=== PATIENT | male | born 1955 | race African-American/Black ===

== ENCOUNTER 2016-09-22 04:43 | Emergency (ER) | payer MEDICARE, MEDICAID ==
[~2016-09-22] VITALS: Ht 162.6 cm; Wt 68.0 kg
[~2016-09-22 04:43] MED LIST: FLEX10TA PO; MOBI15TA PO; TAB-TAB PO
[2016-09-22 04:47] VITALS: BP 135/104; PULSE 110; RESP 16; TEMP 97.8; O2SAT 98
[2016-09-22 04:50] VITALS: BP 135/104; PULSE 102; RESP 16; TEMP 98.2; O2SAT 98
--- NOTE | 2016-09-22 05:39 | PD ---
HPI Chief Complaint: Alcohol/Drug Intoxication Time Seen by Provider: 04:50 Travel History International Travel<30 days: No Contact w/Intl Traveler<30days: No Traveled to known affect area: No History of Present Illness HPI Patient is a 60 year old male brought in after he was found by police to be intoxicated and unable to walk. He admits to drinking a case of christie 45. He has no complaints at this time. He denies any pains. He denies any falls or trauma. PFSH Past Medical History Cancer: No Cardiovascular Problems: Yes (mi) Diabetes: No Endocrine: No Glaucoma: No Genitourinary: No Hepatitis: No Hiatal Hernia: No Hypertension: No Immune Disorder: No Musculoskeletal: Yes (degenrative disc disease arthritis) Neurologic: No Psychiatric: No Respiratory: Yes (emphysema) Thyroid Disease: No Past Surgical History Abdominal Surgery: Yes (appendectomy) Appendectomy: Yes Body Medical Devices: hardware left hand ring finger Cardiac Surgery: No Ear Surgery: No Endocrine Surgery: No Eye Surgery: No Genitourinary Surgery: No Gynecologic Surgery: No Joint Replacement: No Oral Surgery: Yes (cyst removed from throat gum surgery) Pacemaker: No Thoracic Surgery: No Social History Alcohol Use: Yes (1 BEER DAILY) Tobacco Use: Yes (OCC) Substance Use: No Allergies-Medications (Allergen,Severity, Reaction): Coded Allergies: No Known Allergies (Verified , 09/18/12) Reported Meds & Prescriptions Reported Meds & Active Scripts Active Reported Multivitamin (Multivitamins) 1 Tab Tab 1 Tab PO DAILY Flexeril (Cyclobenzaprine HCl) 10 Mg Tab 10 Mg PO DAILY Mobic (Meloxicam) 15 Mg Tab 15 Mg PO DAILY Review of Systems General / Constitutional: No: Fever, Chills Eyes: No: Blurred Vision HENT: No: Headaches Cardiovascular: No: Chest Pain or Discomfort Respiratory: No: Shortness of Breath Gastrointestinal: No: Nausea, Vomiting Musculoskeletal: No: Edema, Pain Skin: No Change in Pigmentation Neurologic: No: Weakness, Dizziness Physical Exam Narrative GENERAL: Awake and alert, in no acute distress SKIN: Focused skin assessment warm/dry. HEAD: Atraumatic. Normocephalic. EYES: Pupils equal and round. No scleral icterus. ENT: Mucous membranes pink and moist. NECK: Trachea midline. No JVD. CARDIOVASCULAR: Regular rate and rhythm. No murmur appreciated. RESPIRATORY: No accessory muscle use. Clear to auscultation. Breath sounds equal bilaterally. GASTROINTESTINAL: Abdomen soft, non-tender, nondistended. Hepatic and splenic margins not palpable. MUSCULOSKELETAL: No obvious deformities. No clubbing. No cyanosis. No edema. NEUROLOGICAL: Awake and alert. No obvious cranial nerve deficits. Motor grossly within normal limits. Normal speech. Data Data Last Documented VS Vital Signs Date Time Temp Pulse Resp B/P Pulse Ox O2 Delivery O2 Flow Rate FiO2 09/22/16 04:50 98.2 102 16 135/104 98 MDM Medical Decision Making Medical Screen Exam Complete: Yes Emergency Medical Condition: Yes Medical Record Reviewed: Yes Differential Diagnosis Intoxication versus dehydration versus overdose Narrative Course Patient is a 60-year-old male comes in after he was found intoxicated. He admits to drinking a lot tonight. He has no complaints. Exam shows no signs of trauma. Patient will be observed in the emergency Department until clinically sober. Diagnosis Primary Impression: Alcohol intoxication Qualified Code: F10.120 - Alcohol intoxication, uncomplicated Patient Instructions: Alcohol Intoxication (ED), General Instructions Additional Instructions: Avoid alcohol use. Return to the ED as needed for any worsening symptoms. Disposition: 01 DISCHARGE HOME Condition: Stable Carmen Orozco MD Sep 22, 2016 05:39
== END 2016-09-22 09:07 | disposition home or self-care (01) ==
LOC: NEPC 04:43
DX: F10.120 Alcohol abuse with intoxication, uncomplicated (principal)
CPT/HCPCS: 99284

== ENCOUNTER 2017-05-12 01:56 | Emergency (ER) | payer MEDICARE, MEDICAID, OTHER ==
[2017-05-12 02:11] VITALS: BP 132/89; PULSE 102; RESP 22; TEMP 98.1; O2SAT 98
--- NOTE | 2017-05-12 02:28 | PD ---
HPI Chief Complaint: Alcohol/Drug Intoxication Time Seen by Provider: 02:22 Travel History International Travel<30 days: No Contact w/Intl Traveler<30days: No Traveled to known affect area: No History of Present Illness HPI 61-year-old male presents to the emergency department by [place] [employer] officer for evaluation and management of alcohol intoxication as a [place] act. Patient himself denies any complaints and admits to drinking alcohol heavily. Patient very slurred speech. Patient denies any injury or fall. PFSH Past Medical History Narrative Medical Hand surgery alcoholism [place] emphysema appendectomy alcohol use tobacco use; nursing notes and medical records reviewed Cancer: No Cardiovascular Problems: Yes (mi) Diabetes: No Endocrine: No Glaucoma: No Genitourinary: No Hepatitis: No Hiatal Hernia: No Hypertension: No Immune Disorder: No Musculoskeletal: Yes (degenrative disc disease arthritis) Neurologic: No Psychiatric: No Respiratory: Yes (emphysema) Thyroid Disease: No Past Surgical History Abdominal Surgery: Yes (appendectomy) Appendectomy: Yes Body Medical Devices: hardware left hand ring finger Cardiac Surgery: No Ear Surgery: No Endocrine Surgery: No Eye Surgery: No Genitourinary Surgery: No Gynecologic Surgery: No Joint Replacement: No Oral Surgery: Yes (cyst removed from throat gum surgery) Pacemaker: No Thoracic Surgery: No Social History Alcohol Use: Yes (1 BEER DAILY) Tobacco Use: Yes (OCC) Substance Use: No Allergies-Medications (Allergen,Severity, Reaction): Coded Allergies: No Known Allergies (Verified Adverse Reaction, Unknown, 05/12/17) Reported Meds & Prescriptions Reported Meds & Active Scripts Active No Active Prescriptions or Reported Medications Review of Systems ROS Limitations: Clinical Condition, Poor Historian Except as stated in HPI: all other systems reviewed are Neg Physical Exam Narrative GENERAL: Well-developed well-nourished male in no acute distress no respiratory distress SKIN: Warm and dry. HEAD: Normocephalic. EYES: No scleral icterus. No injection or drainage. NECK: Supple, trachea midline. No JVD or lymphadenopathy. CARDIOVASCULAR: Regular rate and rhythm without murmurs, gallops, or rubs. RESPIRATORY: Breath sounds equal bilaterally. No accessory muscle use. GASTROINTESTINAL: Abdomen soft, non-tender, nondistended. MUSCULOSKELETAL: No cyanosis, or edema. BACK: Nontender without obvious deformity. No CVA tenderness. Data Data Last Documented VS Vital Signs Date Time Temp Pulse Resp B/P (MAP) Pulse Ox O2 Delivery O2 Flow Rate FiO2 05/12/17 02:11 98.1 102 22 132/89 (103) 98 Orders Orders Alcohol (Ethanol) (05/12/17 02:22) MDM Medical Decision Making Medical Screen Exam Complete: Yes Emergency Medical Condition: Yes Medical Record Reviewed: Yes Differential Diagnosis Inebriation/alcohol intoxication, substance ingestion, TIA, overdose Narrative Course Patient resting comfortably in no acute distress no apparent distress; alcohol level obtained and patient presents as admitted alcohol and congestion and probable alcohol inebriation intoxication will be allowed to sleep off affects of alcohol and be discharged in the a.m. No focal findings on physical exam. Scripts No Active Prescriptions or Reported Meds Manisha Rider MD May 12, 2017 02:27
[2017-05-12 05:30] VITALS: BP 114/75; PULSE 101; RESP 17; O2SAT 98
[2017-05-12 09:22] VITALS: BP 114/83; PULSE 102; RESP 19; TEMP 97.8; O2SAT 96
--- NOTE | 2017-05-12 09:45 | PD ---
Physical Exam Narrative GENERAL: Well-nourished, well-developed patient. SKIN: Warm and dry. HEAD: Normocephalic EYES: No injection or drainage. ENT: No nasal drainage noted. NECK: Supple, trachea midline. CARDIOVASCULAR: Regular rate and rhythm RESPIRATORY: no increased effort. No accessory muscle use. NEUROLOGICAL: Awake and alert. Motor and sensory grossly within normal limits. Normal speech. steady gait without assistance Data Data Last Documented VS Vital Signs Date Time Temp Pulse Resp B/P (MAP) Pulse Ox O2 Delivery O2 Flow Rate FiO2 05/12/17 09:23 102 19 96 Room Air 05/12/17 09:22 97.8 114/83 (93) Orders Orders Alcohol (Ethanol) (05/12/17 02:22) Ed Discharge Order (05/12/17 09:56) Labs Laboratory Tests Test 05/12/17 02:30 Ethyl Alcohol Level 405 MG/DL MDM Supervised Visit with RABIA: No Narrative Course Patient denies any new complaints and states that they are feeling better. Patient happy with care, all questions answered. Patient knows that follow up is incumbent on them and to return to the emergency room immediately if new or worsening symptoms develop. Patient given strict return precautions, vitals reviewed and are normal, agrees to further workup as an outpatient on recheck and is clinically sober with steady gait and clear speech at 10 am Diagnosis Primary Impression: Alcohol intoxication Qualified Codes: F10.920 - Alcohol use, unspecified with intoxication, uncomplicated Patient Instructions: General Instructions Additional Instruction: return as needed, limit alochol use, set up a primary for recheck tuesday Med/Other Pt SpecificInfo: No Change to Meds Scripts No Active Prescriptions or Reported Meds Disposition: 01 DISCHARGE HOME Condition: Stable Ana Fischer MD May 12, 2017 09:45
[2017-05-12 10:23] VITALS: BP 114/83
== END 2017-05-12 10:24 | disposition home or self-care (01) ==
LOC: NEPC 01:56
DX: F10.129 Alcohol abuse with intoxication, unspecified (principal); J43.9 Emphysema, unspecified; Z72.0 Tobacco use
CPT/HCPCS: 80307; 99282

== ENCOUNTER 2017-08-03 15:51 | Inpatient (IN) | payer MEDICARE, MEDICAID ==
[~2017-08-03] VITALS: Ht 165.1 cm; Wt 66.5 kg
[2017-08-03 15:54] VITALS: BP 125/85; PULSE 128; RESP 14; TEMP 97.6; O2SAT 99
[2017-08-03] MEDS ORDERED: MELO7.5T27 PO (16:22)
[2017-08-03] MEDS ORDERED: CHOLESTEROL MED (16:22)
[2017-08-03] MEDS ORDERED: INHALER (16:22)
[2017-08-03] MEDS ORDERED: SODIUM CHLOR 0.9% 1000 ML INJ 1,000 ML IV SCH (16:27)
[2017-08-03] MEDS ORDERED: SODIUM CHLORIDE 0.9% FLUSH 10 ML FLUSH IV FLUSH PRN ×2 (16:30→19:00)
[2017-08-03] MEDS ORDERED: FAMOTIDINE 20 MG/2 ML VIAL IV PUSH ONE (16:30)
[2017-08-03] MEDS ORDERED: ONDANSETRON HCL 4 MG/2 ML VIAL IVP ONE (16:30)
--- NOTE | 2017-08-03 16:35 | PD ---
HPI Chief Complaint: Abdominal Pain Time Seen by Provider: 16:27 Travel History International Travel<30 days: No Contact w/Intl Traveler<30days: No Traveled to known affect area: No History of Present Illness HPI 61-year-old male patient with history of GERD, COPD, multiple medical issues, presents to the ER today for several weeks history of abdominal pain, intermittent nausea and vomiting, constipation, dark stools. He denies any fevers or other symptoms. Pain is worse in the last few days and he states is currently a 9 out of 10. Modifying Factors: None Associated Signs & Symptoms: Abdominal pain, nausea, vomiting, constipation, dark stools Risk Factors: None PFSH Past Medical History Arthritis: Yes Cancer: Yes ("PROSTATE") Cardiovascular Problems: Yes (mi) COPD: Yes Diabetes: No Diminished Hearing: No Endocrine: No Gastrointestinal Disorders: Yes (ulcers) Glaucoma: No Genitourinary: No Hepatitis: No Hiatal Hernia: No Hypertension: No Immune Disorder: No Musculoskeletal: Yes (degenrative disc disease ) Neurologic: No Psychiatric: No Respiratory: Yes (emphysema) Myocardial Infarction: Yes Thyroid Disease: No Ulcer: Yes Past Surgical History Abdominal Surgery: Yes (appendectomy) Appendectomy: Yes Body Medical Devices: hardware left hand ring finger Cardiac Surgery: No Ear Surgery: No Endocrine Surgery: No Eye Surgery: No Genitourinary Surgery: No Gynecologic Surgery: No Joint Replacement: No Oral Surgery: Yes (cyst removed from throat gum surgery) Pacemaker: No Thoracic Surgery: No Other Surgery: Yes Social History Alcohol Use: Yes Tobacco Use: No Substance Use: No Allergies-Medications (Allergen,Severity, Reaction): Coded Allergies: No Known Allergies (Verified Adverse Reaction, Unknown, 08/03/17) Reported Meds & Prescriptions Reported Meds & Active Scripts Active Reported [Inhaler] [Cholesterol Med] Meloxicam 7.5 Mg Tab 7.5 Mg PO DAILY Review of Systems Except as stated in HPI: all other systems reviewed are Neg Physical Exam Narrative GENERAL: Well-developed elderly -[place] male patient currently mild distress. Awake and oriented 3. SKIN: Focused skin assessment warm/dry. HEAD: Atraumatic. Normocephalic. EYES: Pupils equal and round. No scleral icterus. No injection or drainage. ENT: No nasal bleeding or discharge. Mucous membranes pink and moist. NECK: Trachea midline. No JVD. CARDIOVASCULAR: Regular rate and rhythm. No murmur appreciated. RESPIRATORY: No accessory muscle use. Clear to auscultation. Breath sounds equal bilaterally. GASTROINTESTINAL: Abdomen soft, mild diffuse abdominal tenderness without guarding or rebound, nondistended. Hepatic and splenic margins not palpable. MUSCULOSKELETAL: No obvious deformities. No clubbing. No cyanosis. No edema. NEUROLOGICAL: Awake and alert. No obvious cranial nerve deficits. Motor grossly within normal limits. Normal speech. PSYCHIATRIC: Appropriate mood and affect; insight and judgment normal. Data Data Last Documented VS Vital Signs Date Time Temp Pulse Resp B/P (MAP) Pulse Ox O2 Delivery O2 Flow Rate FiO2 08/03/17 15:54 97.6 128 14 125/85 (98) 99 Orders Orders Complete Blood Count With Diff (08/03/17 16:02) Comprehensive Metabolic Panel (08/03/17 16:02) Lipase (08/03/17 16:02) Prothrombin Time / Inr (Pt) (08/03/17 16:02) Act Partial Throm Time (Ptt) (08/03/17 16:02) Urinalysis - C+S If Indicated (08/03/17 16:02) Iv Access Insert/Monitor (08/03/17 16:27) Ecg Monitoring (08/03/17 16:27) Oximetry (08/03/17 16:27) Ondansetron Inj (Zofran Inj) (08/03/17 16:30) Sodium Chlor 0.9% 1000 Ml Inj (Ns 1000 M (08/03/17 16:27) Sodium Chloride 0.9% Flush (Ns Flush) (08/03/17 16:30) Famotidine Inj (Pepcid Inj) (08/03/17 16:30) Ct Abd/Pel W Iv Contrast(Rout) (08/03/17 17:31) Admit Order (Ed Use Only) (08/03/17 17:52) Ns + Kcl Inj (08/03/17 18:00) Magnesium (Mg) (08/03/17 17:52) Labs Laboratory Tests Test 08/03/17 16:20 White Blood Count 6.9 TH/MM3 Red Blood Count 3.83 MIL/MM3 Hemoglobin 9.5 GM/DL Hematocrit 30.1 % Mean Corpuscular Volume 78.7 FL Mean Corpuscular Hemoglobin 24.8 PG Mean Corpuscular Hemoglobin Concent 31.5 % Red Cell Distribution Width 20.3 % Platelet Count 450 TH/MM3 Mean Platelet Volume 7.6 FL Neutrophils (%) (Auto) 76.4 % Lymphocytes (%) (Auto) 16.3 % Monocytes (%) (Auto) 6.1 % Eosinophils (%) (Auto) 0.7 % Basophils (%) (Auto) 0.5 % Neutrophils # (Auto) 5.3 TH/MM3 Lymphocytes # (Auto) 1.1 TH/MM3 Monocytes # (Auto) 0.4 TH/MM3 Eosinophils # (Auto) 0.0 TH/MM3 Basophils # (Auto) 0.0 TH/MM3 CBC Comment DIFF FINAL Differential Comment Prothrombin Time 11.2 SEC Prothromb Time International Ratio 1.1 RATIO Activated Partial Thromboplast Time 26.0 SEC Blood Urea Nitrogen 15 MG/DL Creatinine 1.07 MG/DL Random Glucose 109 MG/DL Total Protein 10.2 GM/DL Albumin 3.8 GM/DL Calcium Level 10.1 MG/DL Alkaline Phosphatase 126 U/L Aspartate Amino Transf (AST/SGOT) 12 U/L Alanine Aminotransferase (ALT/SGPT) 13 U/L Total Bilirubin 0.3 MG/DL Sodium Level 138 MEQ/L Potassium Level 3.2 MEQ/L Chloride Level 99 MEQ/L Carbon Dioxide Level 27.0 MEQ/L Anion Gap 12 MEQ/L Estimat Glomerular Filtration Rate 85 ML/MIN Lipase 1455 U/L MDM Medical Decision Making Medical Screen Exam Complete: Yes Emergency Medical Condition: Yes Medical Record Reviewed: Yes Interpretation(s) Laboratory Tests Test 08/03/17 16:20 Red Blood Count 3.83 MIL/MM3 (4.50-5.90) Hemoglobin 9.5 GM/DL (13.0-17.0) Hematocrit 30.1 % (39.0-51.0) Mean Corpuscular Volume 78.7 FL (80.0-100.0) Mean Corpuscular Hemoglobin 24.8 PG (27.0-34.0) Mean Corpuscular Hemoglobin Concent 31.5 % (32.0-36.0) Red Cell Distribution Width 20.3 % (11.6-17.2) Neutrophils (%) (Auto) 76.4 % (16.0-70.0) Random Glucose 109 MG/DL (74-106) Total Protein 10.2 GM/DL (6.4-8.2) Alkaline Phosphatase 126 U/L (45-117) Aspartate Amino Transf (AST/SGOT) 12 U/L (15-37) Potassium Level 3.2 MEQ/L (3.5-5.1) Estimat Glomerular Filtration Rate 85 ML/MIN (>89) Lipase 1455 U/L (73-393) Differential Diagnosis Abdominal pain, nausea and vomiting: Gastritis versus gastroenteritis versus pancreatitis versus diverticulitis versus constipation versus obstruction Narrative Course Patient was given IV fluids, Zofran, and medications to help with this discomfort. Lab work shows significant signs of pancreatitis with lipase that is elevated. Patient admits to alcohol use. At this point, my plan would be to admit the patient for further treatment of acute pancreatitis. Case is discussed with Dr. Madrigal for admission. Diagnosis Primary Impression: Abdominal pain Additional Impression: Pancreatitis Admitting Information Admitting Physician Requests: Admit Tayla Wallace MD Aug 03, 2017 16:35
[2017-08-03 17:04] LABS: AUTOMATED NEUTROPHIL # 5.3 TH/MM3 (1.8-7.7); BASOPHIL % 0.5 % (0.0-2.0); EOSINOPHIL % 0.7 % (0.0-4.0); HEMATOCRIT 30.1 % (39.0-51.0); HEMOGLOBIN 9.5 GM/DL (13.0-17.0); LYMPH % 16.3 % (9.0-44.0); LYMPHOCYTE # 1.1 TH/MM3 (1.0-4.8); MEAN CELL VOLUME 78.7 FL (80.0-100.0); MEAN CORPUSCULAR HEMOGLOBIN 24.8 PG (27.0-34.0); MEAN CORPUSCULAR HGB CONC 31.5 % (32.0-36.0); MEAN PLATELET VOLUME 7.6 FL (7.0-11.0); MONO % 6.1 % (0.0-8.0); MONOCYTE # 0.4 TH/MM3 (0-0.9); NEUT % 76.4 % (16.0-70.0); PLATELET COUNT 450 TH/MM3 (150-450); RED BLOOD COUNT 3.83 MIL/MM3 (4.50-5.90); RED CELL DISTRIBUTION WIDTH 20.3 % (11.6-17.2); WHITE BLOOD COUNT 6.9 TH/MM3 (4.0-11.0)
[2017-08-03 17:14] LABS: INTERNATIONAL NORMALIZED RATIO 1.1 RATIO; PROTHROMBIN TIME - PATIENT 11.2 SEC (9.8-11.6)
[2017-08-03 17:21] LABS: ALBUMIN 3.8 GM/DL (3.4-5.0); BLOOD UREA NITROGEN 15 MG/DL (7-18); CALCIUM 10.1 MG/DL (8.5-10.1); CHLORIDE 99 MEQ/L (98-107); CREATININE 1.07 MG/DL (0.60-1.30); GLOMERULAR FILTRATION RATE 85 ML/MIN (>89); GLUCOSE,RANDOM 109 MG/DL (74-106); SODIUM (NA) 138 MEQ/L (136-145)
[2017-08-03 17:22] LABS: ALT (GPT) 13 U/L (12-78); AST (GOT) 12 U/L (15-37)
[2017-08-03 17:24] LABS: ALKALINE PHOSPHATASE 126 U/L (45-117); TOTAL BILIRUBIN ADULT 0.3 MG/DL (0.2-1.0); TOTAL PROTEIN 10.2 GM/DL (6.4-8.2)
[2017-08-03] MEDS ORDERED: NS + KCL 20 MEQ INJ 1,000 ML IV SCH (18:00)
[2017-08-03 18:18] LABS: MAGNESIUM 1.6 MG/DL (1.5-2.5)
[2017-08-03] MEDS ORDERED: IOHEXOL 350 MG/ML 10 ML VIAL (for RAD DIAG) IVCONTRAST ONE (18:29)
[2017-08-03 18:36] LABS: BACTERIA, URINE RARE /hpf; BILIRUBIN, URINE NEG (NEG); BLOOD, URINE NEG (NEG); GLUCOSE,URINE NEG (NEG); HYALINE CAST, URINE 45 /lpf (RARE); KETONE, URINE NEG (NEG); MUCUS URINE MOD /lpf (OCC); NITRITE,URINE NEG (NEG); PH, URINE 8.5 (5.0-8.5); SQUAMOUS EPITHELIAL CELL URINE 2 /hpf (0-5); URINE COLOR YELLOW (YELLW/STRAW); URINE LEUKOCYTE ESTERASE NEG (NEG)
--- NOTE | 2017-08-03 18:53 | RADRPT ---
EXAM DATE/TIME: 08/03/2017 18:24 [facility] COMPARISON: No previous studies available for comparison. INDICATIONS : Diffuse abdomen pain for several weeks. IV CONTRAST: 95 cc Omnipaque 350 (iohexol) IV ORAL CONTRAST: No oral contrast ingested. RADIATION DOSE: 5.17 CTDIvol (mGy) MEDICAL HISTORY : Cardiovascular disease. Chronic obstructive pulmonary disease. Carcinoma, prostate. SURGICAL HISTORY : Appendectomy. ENCOUNTER: Initial ACUITY: 1 month PAIN SCALE: 9/10 LOCATION: Bilateral upper quadrant TECHNIQUE: Volumetric scanning of the abdomen and pelvis was performed. Using automated exposure control and ad justment of the mA and/or kV according to patient size, radiation dose was kept as low as reasonably achievable to obtain optimal diagnostic quality images. DICOM format image data is available electro nically for review and comparison. FINDINGS: CT Abdomen: There is abnormal haziness surrounding the second portion of the duodenum which extends down to the t ip of the liver and partially surrounds the hepatic flexure and ascending colon with slight fluid dis secting in the mesenteric leaves at this site. There is dilatation of the intrahepatic duct and commo n bile duct measures 1.1 cm and is also mild dilatation of the pancreatic duct measures almost 3 mm. There is narrowing of the second portion of the duodenum with either edema involving the duodenal wal l or infiltrating process such as malignancy causing gastric outlet obstruction the stomach measures 15 cm in transverse diameter. There is no evidence for free intraperitoneal air. The gallbladder appe ars distended as well measures almost 6.5 cm in AP diameter. The liver, spleen, kidneys, adrenals are unremarkable. There is no evidence for any appreciable pathological adenopathy, free fluid, or bowel obstruction. CT pelvis: There is no evidence for mass, abscess formation, or any significant adenopathy within the pelvis. Th ere are scattered diverticuli mainly in the sigmoid colon without definite signs of diverticulitis. T here is moderate amount of stool throughout the colon. CONCLUSION: There is narrowing of the second portion of the duodenum causing gastric outlet obstruction with sign ificant inflammation surrounding the duodenal wall as described above in the right upper outer quadra nt. Possibility of a ruptured peptic ulcer disease should be entertained and there is obstruction to the distal common bile duct and pancreatic duct as a result. Underlying neoplastic process or maligna ncy is difficult to exclude in this time. Susana Reeves MD on August 03, 2017 at 18:45 Board Certified Radiologist. This report was verified electronically.
[2017-08-03 19:02] VITALS: BP 138/82; PULSE 88; RESP 18; O2SAT 100
[2017-08-03] MEDS: PIPERACIL-TAZO 4.5 GM PREMIX 100 ML IV SCH (20:21)
--- NOTE | 2017-08-03 20:43 | HHI.HP ---
[facility] Service [facility] Primary Care Physician Deandre Ramos MD Admission Diagnosis Acute pancreatitis Diagnoses: Chief Complaint: abdominal pain Travel History International Travel<30 Days: No Contact w/Intl Traveler <30 Da: No Traveled to Known Affected Are: No History of Present Illness 61 y/o male with a history of emphysema, prostate cancer, HLD and degenerative disc disease presents to the ED with complaints of abdominal pain for the last 2 days. Patient states his pain is a constant 8/10 stabbing pain to the RLQ that radiated to his epigastric region, worse with palpation and with associated nausea and vomiting. He states the pain medication given has helped decrease the pain. He states when he eats he sometime vomits due to the pain. He denies any chest pain, sob, fever or chills. Patient does admit to drinking 4 beers a day and states due to the constant abdominal pain he has not had a drink for about 1-1/2 days.. Review of Systems Except as stated in HPI: all other systems reviewed are Neg Past Family Social History Past Medical History HLD Prostate cancer s/p radiation emphysema Past Surgical History appendectomy Hardware removal from left ring finger Reported Medications Reported Meds & Active Scripts Active Reported [Inhaler] [Cholesterol Med] Meloxicam 7.5 Mg Tab 7.5 Mg PO DAILY Allergies: Coded Allergies: No Known Allergies (Verified Adverse Reaction, Unknown, 08/03/17) Family History Current Medications Medications (Trade) Dose Ordered Sig/Idris Route Start Time Stop Time Status Last Admin Sodium Chloride 1,000 ml @ 100 mls/hr Q10H IV 08/03/17 18:49 (NS Flush) 2 ml UNSCH PRN IV FLUSH 08/03/17 19:00 (NS Flush) 2 ml BID IV FLUSH 08/03/17 21:00 Potassium Chloride 100 ml @ 50 mls/hr Q2H IV 08/03/17 19:30 08/03/17 23:29 Piperacillin Sod/ Tazobactam Sod 100 ml @ 200 mls/hr Q6H IV 08/03/17 20:00 08/03/17 20:21 (Duoneb Neb) 1 ampule Q4HR NEB PRN NEB 08/03/17 20:45 UNV Social History Tobacco use: Quit 2 years ago, prior 1/2 PPD Alcohol use: 4 beers a day Illicit drug use: Denies Physical Exam Vital Signs Vital Signs Date Time Temp Pulse Resp B/P (MAP) Pulse Ox O2 Delivery O2 Flow Rate FiO2 08/03/17 19:02 88 18 138/82 (100) 100 Room Air 08/03/17 15:54 97.6 128 14 125/85 (98) 99 Physical Exam GENERAL: This is a well-nourished, well-developed patient, with abdominal pain SKIN: No rashes, ecchymoses or lesions. Cool and dry. HEAD: Atraumatic. Normocephalic. EYES: Pupils equal round and reactive. ENT: Nose without bleeding, purulent drainage or septal hematoma. Airway patent. NECK: Trachea midline. No JVD or lymphadenopathy. CARDIOVASCULAR: Regular rate and rhythm without murmurs, gallops, or rubs. RESPIRATORY: Clear to auscultation. Breath sounds equal bilaterally. No wheezes , rales, or rhonchi. GASTROINTESTINAL: Abdomen soft, LLQ tenderness, nondistended. Mid abdominal hernia noted. MUSCULOSKELETAL: Extremities without clubbing, cyanosis, or edema. No calf tenderness. NEUROLOGICAL: Awake and alert. Motor and sensory grossly within normal limits. Normal speech. Laboratory Laboratory Tests Test 08/03/17 16:20 08/03/17 18:15 White Blood Count 6.9 Red Blood Count 3.83 Hemoglobin 9.5 Hematocrit 30.1 Mean Corpuscular Volume 78.7 Mean Corpuscular Hemoglobin 24.8 Mean Corpuscular Hemoglobin Concent 31.5 Red Cell Distribution Width 20.3 Platelet Count 450 Mean Platelet Volume 7.6 Neutrophils (%) (Auto) 76.4 Lymphocytes (%) (Auto) 16.3 Monocytes (%) (Auto) 6.1 Eosinophils (%) (Auto) 0.7 Basophils (%) (Auto) 0.5 Neutrophils # (Auto) 5.3 Lymphocytes # (Auto) 1.1 Monocytes # (Auto) 0.4 Eosinophils # (Auto) 0.0 Basophils # (Auto) 0.0 CBC Comment DIFF FINAL Differential Comment Prothrombin Time 11.2 Prothromb Time International Ratio 1.1 Activated Partial Thromboplast Time 26.0 Blood Urea Nitrogen 15 Creatinine 1.07 Random Glucose 109 Total Protein 10.2 Albumin 3.8 Calcium Level 10.1 Magnesium Level 1.6 Alkaline Phosphatase 126 Aspartate Amino Transf (AST/SGOT) 12 Alanine Aminotransferase (ALT/SGPT) 13 Total Bilirubin 0.3 Sodium Level 138 Potassium Level 3.2 Chloride Level 99 Carbon Dioxide Level 27.0 Anion Gap 12 Estimat Glomerular Filtration Rate 85 Lipase 1455 Urine Color YELLOW Urine Turbidity HAZY Urine pH 8.5 Urine Specific [place] 1.026 Urine Protein 100 Urine Glucose (UA) NEG Urine Ketones NEG Urine Occult Blood NEG Urine Nitrite NEG Urine Bilirubin NEG Urine Urobilinogen LESS THAN 2.0 Urine Leukocyte Esterase NEG Urine RBC 3 Urine WBC 2 Urine Squamous Epithelial Cells 2 Urine Bacteria RARE Urine Hyaline Casts 45 Urine Mucus MOD Microscopic Urinalysis Comment CULT NOT INDICATED Result Diagram: 08/03/17 1620 08/03/17 1620 Imaging Last Impressions Abdomen/Pelvis CT 08/03/17 1731 Signed Impressions: Service Date/Time: Thursday, August 03, 2017 18:24 - CONCLUSION: There is narrowing of the second portion of the duodenum causing gastric outlet obstruction with significant inflammation surrounding the duodenal wall as described above in the right upper outer quadrant. Possibility of a ruptured peptic ulcer disease should be entertained and there is obstruction to the distal common bile duct and pancreatic duct as a result. Underlying neoplastic process or malignancy is difficult to exclude in this time. MD Stefano Graysoni VTE Risk Assessment Caprini VTE Risk Assessment: No/Low Risk (score <= 1) Caprini Risk Assessment Model Point Value = 1 Point Value = 2 Point Value = 3 Point Value = 5 Age 41-60 Minor surgery BMI > 25 kg/m2 Swollen legs Varicose veins or History of unexplained or recurrent spontaneous Oral contraceptives or hormone replacement Sepsis (< 1 month) Serious lung disease, including pneumonia (< 1 month) Abnormal pulmonary function Acute myocardial infarction Congestive heart failure (< 1 month) History of inflammatory bowel disease Medical patient at bed rest Age 61-74 Arthroscopic surgery Major open surgery (> 45 min) Laparoscopic surgery (> 45 min) Malignancy Confined to bed (> 72 hours) Immobilizing plaster cast Central venous access Age >= 75 History of VTE Family history of VTE Factor V Leiden Prothrombin [id number] Lupus anticoagulant Anticardiolipin antibodies Elevated serum homocysteine Heparin-induced thrombocytopenia Other congenital or acquired thrombophilia Stroke (< 1 month) Elective arthroplasty Hip, pelvis, or leg fracture Acute spinal cord injury (< 1 month) Prophylaxis Regimen Total Risk Factor Score Risk Level Prophylaxis Regimen 0-1 Low Early ambulation 2 Moderate Order ONE of the following: *Sequential Compression Device (SCD) *Heparin 5000 units SQ BID 3-4 Higher Order ONE of the following medications: *Heparin 5000 units SQ TID *Enoxaparin/Lovenox 40 mg SQ daily (WT < 150 kg, CrCl > 30 mL/min) *Enoxaparin/Lovenox 30 mg SQ daily (WT < 150 kg, CrCl > 10-29 mL/min) *Enoxaparin/Lovenox 30 mg SQ BID (WT < 150 kg, CrCl > 30 mL/min) AND/OR *Sequential Compression Device (SCD) 5 or more Highest Order ONE of the following medications: *Heparin 5000 units SQ TID (Preferred with Epidurals) *Enoxaparin/Lovenox 40 mg SQ daily (WT < 150 kg, CrCl > 30 mL/min) *Enoxaparin/Lovenox 30 mg SQ daily (WT < 150 kg, CrCl > 10-29 mL/min) *Enoxaparin/Lovenox 30 mg SQ BID (WT < 150 kg, CrCl > 30 mL/min) AND *Sequential Compression Device (SCD) Assessment and Plan Problem List: (1) Pancreatitis ICD Code: K85.90 - Acute pancreatitis without necrosis or infection, unspecified Status: Acute (2) Emphysema, unspecified ICD Code: J43.9 - Emphysema, unspecified Status: Chronic (3) Alcohol abuse ICD Code: F10.10 - Alcohol abuse, uncomplicated Status: Chronic Assessment and Plan 61 y/o male with a history of emphysema, prostate cancer, HLD and degenerative disc disease presents to the ED with complaints of abdominal pain for the last 2 days. Acute pancreatitis, lipase 1455, with constant abdominal pain Abdomen/pelvis CT shows a narrowing the second portion to wanting him causing gastric outlet obstruction with significant formation surrounding the duodenal wall as described. Possibility of a ruptured peptic ulcer. Obstruction to the distal common bile duct and pancreatic duct -Consult general surgery for recommendations -Nothing by mouth -IVF for hydration -Lipase in a.m. -IV antibiotics: Zosyn -Educated patient on possibility of recurring episodes of pancreatitis with alcohol use -Antiemetics as needed, Pepcid IV BID -Pain management with IV Morphine COPD/emphysema, chronic -DuoNeb's when necessary -Patient states he uses an inhaler at home but is unsure of the name EtOH abuse, patient drinks 4 beers a day, last drink was 1 1/2 days ago -CIWA protocol, thiamine, folate and multivitamin -Encouraged to quit DVT prophylaxis SCDs Attending Note The exam, history, and the medical decision-making described in the above note were completed with the assistance of the mid-level provider. I reviewed and agree with the findings presented. I attest that I had a [id number] encounter with the patient on the same day, and personally performed and documented my assessment and findings in the medical record. pt is 61 yo male reports of 2 weeks hx of abdominal pain, more on mid epig and RUQ area with associated nausea, vomiting, no blood in stool or vomit constipation 2 days no fever has been taking meloxicam, BC powders etc for arthritis pain in past 1 month hx of etoh use about 4 beers a day prior appendectomy at age 21yo denies other symptoms denies med hx except of prostate CA s/p radiation several years ago on tamsulosin at home on exam awake, alert, pleasant regular HR, no murmur lungs clear abdominen is soft, bowel sounds present, voluntary guarding due to pain and pain even on light palpation no calf asymmetry or edema in LE imaging studies personally reviewed possible PUD pef gastric outlet obstruction start zosyn pain control npo general sx consult iv hydration hypokalemia- replace kcl 40meq iv recheck bmp in am pantoprazole 40mg iv q12hrs watch for withdrawals start ciwa start thiamine dvt prophylaxis with scd Discussed Condition With Patient, RN Physician Certification 2 Midnight Certification Type: Admission for Inpatient Services Order for Inpatient Services The services are ordered in accordance with Medicare regulations or non- Medicare payer requirements, as applicable. In the case of services not specified as inpatient-only, they are appropriately provided as inpatient services in accordance with the 2-midnight benchmark. Estimated LOS (days): 2 days is the estimated time the patient will need to remain in the hospital, assuming treatment plan goals are met and no additional complications. Post-Hospital Plan: Home Problem Qualifiers (1) Pancreatitis: Qualified Codes: K85.90 - Acute pancreatitis without necrosis or infection, unspecified (2) Emphysema, unspecified: Qualified Codes: J43.9 - Emphysema, unspecified Mary Marrero Aug 03, 2017 20:43 Saeed Sahni MD Aug 03, 2017 22:32
[2017-08-03] MEDS ORDERED: RESP: ALBUTEROL 2.5 MG/IPRATROPIUM 0.5 MG NEB (PRN) NEB (20:45)
[2017-08-03] MEDS: POTASSIUM CHLOR 20 MEQ PREMIX 100 ML IV SCH ×2 (20:51→22:43)
[2017-08-03] MEDS: SODIUM CHLOR 0.9% 1000 ML INJ 1,000 ML IV SCH (20:51)
[2017-08-03 21:00] VITALS: BP 121/74; PULSE 68; RESP 18; TEMP 98; O2SAT 97
[2017-08-03] MEDS: SODIUM CHLORIDE 0.9% FLUSH 10 ML FLUSH IV FLUSH SCH (21:00)
[2017-08-03] MEDS ORDERED: LORazepam 1 MG TAB PO PRN (21:00)
[2017-08-03] MEDS ORDERED: LORazepam 2 MG/ML VIAL IV PUSH PRN ×4 (21:00)
[2017-08-03] MEDS ORDERED: LORazepam 2 MG TAB PO PRN (21:00)
[2017-08-03] MEDS ORDERED: FLUMAZENIL 0.5 MG/5 ML VIAL IV PUSH PRN (21:00)
[2017-08-03] MEDS: MORPHINE SULFATE 2 MG/ML INJ IV PUSH PRN (22:41)
[2017-08-03 23:37] VITALS: BP 104/78; PULSE 81; RESP 18; TEMP 98.5; O2SAT 97
[2017-08-04] VITALS (12 sets, daily range): BP systolic 109–119; BP diastolic 64–82; PULSE 71–87; RESP 16–20; TEMP 97–98.5; O2SAT 94–99
[2017-08-04] MEDS: THIAMINE INJ 100 MG in SODIUM CHLORIDE 0.9% INJ 100 ML IV SCH ×2 (00:52→22:15)
[2017-08-04] MEDS: PIPERACIL-TAZO 4.5 GM PREMIX 100 ML IV SCH ×4 (03:31→21:07)
[2017-08-04] MEDS: SODIUM CHLOR 0.9% 1000 ML INJ 1,000 ML IV SCH ×3 (04:12→17:31)
[2017-08-04] MEDS ORDERED: FAMOTIDINE 20 MG/2 ML VIAL IV PUSH SCH (08:00)
[2017-08-04] MEDS: SODIUM CHLORIDE 0.9% FLUSH 10 ML FLUSH IV FLUSH SCH ×2 (09:00→21:12)
[2017-08-04] MEDS: MULTIVITAMINS/MINERALS THERAPEUTIC TAB PO SCH (09:46)
[2017-08-04] MEDS: PANTOPRAZOLE SODIUM 40 MG VIAL IV PUSH SCH ×2 (09:46→21:12)
[2017-08-04] MEDS: FOLIC ACID 1 MG TAB PO SCH (09:46)
--- NOTE | 2017-08-04 10:26 | PD.CONS ---
HPI History of Present Illness This is a 61 year old male with hx emphysema, ETOH abuse, prostate ca s/p radiation who presented to ER for abdominal pain, n/v. The pain started about 2 weeks ago and has been worsening. Initially it was intermittent and then became constant. Pain is in epigastric area. OTC pain relievers helped somewhat. He vomits right after eating. Occasionally noticed coffee ground appearance to emesis. AT initial onset pain and n/v, he did notice black tarry stool that resolved. He has been constipated for the last 3-4 days. Denies blood in stool or black tarry stool recently. Feels he has lost weight and looks thinner but is not sure of a number. Never had EGD. Had colonoscopy 1-2 years ago but can offer no further details. He follows with Dr Garcia for the prostate ca. Denies problems with pancreas or liver. (Amy López) PFSH Past Medical History HLD Prostate cancer s/p radiation emphysema Past Surgical History appendectomy Hardware removal from left ring finger (Amy López) Coded Allergies: No Known Allergies (Verified Adverse Reaction, Unknown, 08/03/17) Family History Current Medications Medications (Trade) Dose Ordered Sig/Idris Route Start Time Stop Time Status Last Admin Sodium Chloride 1,000 ml @ 100 mls/hr Q10H IV 08/03/17 18:49 (NS Flush) 2 ml UNSCH PRN IV FLUSH 08/03/17 19:00 (NS Flush) 2 ml BID IV FLUSH 08/03/17 21:00 Potassium Chloride 100 ml @ 50 mls/hr Q2H IV 08/03/17 19:30 08/03/17 23:29 Piperacillin Sod/ Tazobactam Sod 100 ml @ 200 mls/hr Q6H IV 08/03/17 20:00 08/03/17 20:21 (Duoneb Neb) 1 ampule Q4HR NEB PRN NEB 08/03/17 20:45 UNV Social History Tobacco use: Quit 2 years ago, prior 1/2 PPD Alcohol use: 4 beers a day Illicit drug use: Denies (Amy López) Review of Systems Constitutional: DENIES: Weight loss Endocrine: DENIES: Polydipsia Eyes: DENIES: Blurred vision Ears, nose, mouth, throat: DENIES: Hearing loss Respiratory: DENIES: Cough Cardiovascular: DENIES: Chest pain Gastrointestinal: COMPLAINS OF: Abdominal pain, Black stools, Nausea, Vomiting , Hematemesis Musculoskeletal: COMPLAINS OF: Muscle aches Integumentary: DENIES: Abnormal pigmentation Hematologic/lymphatic: DENIES: Bruising Immunologic/allergic: DENIES: Eczema Neurologic: DENIES: Abnormal gait Psychiatric: DENIES: Confusion (Amy López) GI Exam Vitals I&O Vital Signs Date Time Temp Pulse Resp B/P (MAP) Pulse Ox O2 Delivery O2 Flow Rate FiO2 08/04/17 09:21 74 08/04/17 08:50 98.0 72 20 109/72 (84) 97 08/04/17 08:16 72 08/04/17 07:13 94 21 08/04/17 04:07 98.5 73 18 118/64 (82) 97 08/04/17 04:06 71 08/04/17 00:17 18 08/04/17 00:00 79 08/03/17 23:37 98.5 81 18 104/78 (87) 97 08/03/17 21:07 08/03/17 21:00 98.0 68 18 121/74 (90) 97 08/03/17 19:02 88 18 138/82 (100) 100 Room Air 08/03/17 15:54 97.6 128 14 125/85 (98) 99 I/O 08/03/17 08/03/17 08/03/17 08/04/17 08/04/17 08/04/17 07:00 15:00 23:00 07:00 15:00 23:00 Intake Total 1300 ml 200 ml Balance 1300 ml 200 ml Intake IV Total 1300 ml 200 ml Imaging Last Impressions Abdomen/Pelvis CT 08/03/17 1731 Signed Impressions: Service Date/Time: Thursday, August 03, 2017 18:24 - CONCLUSION: There is narrowing of the second portion of the duodenum causing gastric outlet obstruction with significant inflammation surrounding the duodenal wall as described above in the right upper outer quadrant. Possibility of a ruptured peptic ulcer disease should be entertained and there is obstruction to the distal common bile duct and pancreatic duct as a result. Underlying neoplastic process or malignancy is difficult to exclude in this time. Susana Reeves MD Laboratory Test 08/03/17 16:20 08/03/17 18:15 White Blood Count 6.9 TH/MM3 Red Blood Count 3.83 MIL/MM3 Hemoglobin 9.5 GM/DL Hematocrit 30.1 % Mean Corpuscular Volume 78.7 FL Mean Corpuscular Hemoglobin 24.8 PG Mean Corpuscular Hemoglobin Concent 31.5 % Red Cell Distribution Width 20.3 % Platelet Count 450 TH/MM3 Mean Platelet Volume 7.6 FL Neutrophils (%) (Auto) 76.4 % Lymphocytes (%) (Auto) 16.3 % Monocytes (%) (Auto) 6.1 % Eosinophils (%) (Auto) 0.7 % Basophils (%) (Auto) 0.5 % Neutrophils # (Auto) 5.3 TH/MM3 Lymphocytes # (Auto) 1.1 TH/MM3 Monocytes # (Auto) 0.4 TH/MM3 Eosinophils # (Auto) 0.0 TH/MM3 Basophils # (Auto) 0.0 TH/MM3 CBC Comment DIFF FINAL Differential Comment Prothrombin Time 11.2 SEC Prothromb Time International Ratio 1.1 RATIO Activated Partial Thromboplast Time 26.0 SEC Blood Urea Nitrogen 15 MG/DL Creatinine 1.07 MG/DL Random Glucose 109 MG/DL Total Protein 10.2 GM/DL Albumin 3.8 GM/DL Calcium Level 10.1 MG/DL Magnesium Level 1.6 MG/DL Alkaline Phosphatase 126 U/L Aspartate Amino Transf (AST/SGOT) 12 U/L Alanine Aminotransferase (ALT/SGPT) 13 U/L Total Bilirubin 0.3 MG/DL Sodium Level 138 MEQ/L Potassium Level 3.2 MEQ/L Chloride Level 99 MEQ/L Carbon Dioxide Level 27.0 MEQ/L Anion Gap 12 MEQ/L Estimat Glomerular Filtration Rate 85 ML/MIN Lipase 1455 U/L Urine Color YELLOW Urine Turbidity HAZY Urine pH 8.5 Urine Specific [place] 1.026 Urine Protein 100 mg/dL Urine Glucose (UA) NEG mg/dL Urine Ketones NEG mg/dL Urine Occult Blood NEG Urine Nitrite NEG Urine Bilirubin NEG Urine Urobilinogen LESS THAN 2.0 MG/DL Urine Leukocyte Esterase NEG Urine RBC 3 /hpf Urine WBC 2 /hpf Urine Squamous Epithelial Cells 2 /hpf Urine Bacteria RARE /hpf Urine Hyaline Casts 45 /lpf Urine Mucus MOD /lpf Microscopic Urinalysis Comment CULT NOT INDICATED Physical Examination HEENT: PERRL; normocephalic; atraumatic; no jaundice. CHEST: CTA CARDIAC: RRR ABDOMEN: Soft, distended, diffusely TTP, no hepatosplenomegaly; bowel sounds faint EXTREMITIES: No clubbing, cyanosis, or edema. SKIN: Normal; no rash; no jaundice. SALESPERSON ART OBJECTS: No focal deficits; alert and oriented times three. (Amy López) Assessment and Plan Plan ASSESSMENT - epigastric pain, n/v, coffee ground emesis, melanotic stool - gastric outlet obstruction with UGIB, CBD obstruction, obstruction pancreatic duct seen on CT. malignancy vs perforated ulcer. lipase 1455. mild elevation ALP, no obstructive pattern noted. GS following, ordered NGT . - anemia - microcytic. poss 2/2 above - hx etoh abuse - prostate ca s/p radiation PLAN - EGD - NPO - NGT per GS - tumor markers - further recs to follow - pt seen by myself and Dr Bill and this note is written on his behalf (Amy López) Physician Comments Patient seen and examined Agree with above Continue with current supportive care Monitor labs Labs reveal elevation of lipase most likely there is underlying pancreatitis most likely to be alcohol related We will proceed with an upper endoscopy further recommendations shall depend on the findings (Ilya Bill MD) Amy López Aug 04, 2017 10:26 Ilya Bill MD Aug 04, 2017 17:15
[2017-08-04] MEDS ORDERED: LIDOCAINE HCL 1% PF 5 ML SYRINGE OTHER ONE (12:00)
[2017-08-04] MEDS ORDERED: PHENYLEPH/NS 1000 MCG/10 ML SYR IV ONE (12:00)
[2017-08-04] MEDS ORDERED: PROPOFOL 200 MG/20 ML AMP IV ONE (12:00)
[2017-08-04 12:58] LABS: AUTOMATED NEUTROPHIL # 2.6 TH/MM3 (1.8-7.7); EOSINOPHIL # 0.1 TH/MM3 (0-0.4); HEMATOCRIT 28.4 % (39.0-51.0); HEMOGLOBIN 8.9 GM/DL (13.0-17.0); LYMPH % 37.4 % (9.0-44.0); LYMPHOCYTE # 1.8 TH/MM3 (1.0-4.8); MEAN CELL VOLUME 79.3 FL (80.0-100.0); MEAN CORPUSCULAR HEMOGLOBIN 24.7 PG (27.0-34.0); MEAN CORPUSCULAR HGB CONC 31.2 % (32.0-36.0); MEAN PLATELET VOLUME 7.6 FL (7.0-11.0); MONO % 6.9 % (0.0-8.0); MONOCYTE # 0.3 TH/MM3 (0-0.9); NEUT % 52.7 % (16.0-70.0); PLATELET COUNT 382 TH/MM3 (150-450); RED BLOOD COUNT 3.58 MIL/MM3 (4.50-5.90); RED CELL DISTRIBUTION WIDTH 19.6 % (11.6-17.2); WHITE BLOOD COUNT 4.9 TH/MM3 (4.0-11.0)
[2017-08-04] MEDS ORDERED: PHENOL 1.4% SOLN 180 ML BTL PRN (13:15)
[2017-08-04 13:23] LABS: ALKALINE PHOSPHATASE 95 U/L (45-117); ALT (GPT) 14 U/L (12-78); AST (GOT) 12 U/L (15-37); BLOOD UREA NITROGEN 10 MG/DL (7-18); CALCIUM 7.8 MG/DL (8.5-10.1); CHLORIDE 107 MEQ/L (98-107); CREATININE 0.73 MG/DL (0.60-1.30); GLOMERULAR FILTRATION RATE 133 ML/MIN (>89); GLUCOSE,RANDOM 82 MG/DL (74-106); SODIUM (NA) 139 MEQ/L (136-145); TOTAL BILIRUBIN ADULT 0.3 MG/DL (0.2-1.0); TOTAL PROTEIN 8.3 GM/DL (6.4-8.2)
[2017-08-04 14:26] LABS: CARCINOEMBRYONIC ANTIGEN 1.6 NG/ML (0.2-5.0)
[2017-08-04] MEDS: LACTATED RINGER'S 1000 ML IV PRN ×2 (14:50→15:30)
[2017-08-04 15:03] LABS: CA 19-9 46.9 U/ML (0.0-35.0)
[2017-08-04] MEDS ORDERED: POVIDONE IODINE 5% (ANTISEPSIS KIT) 4 APPLICATIONS EACH NARE PRN (15:15)
[2017-08-04] MEDS ORDERED: CHLORHEXIDINE GLUCONATE 2 % 1 PACK (2 CLOTHS) TOPICAL PRN (15:15)
[2017-08-04] MEDS ORDERED: METOPROLOL TARTRATE 25 MG TAB PO PRN (15:15)
[2017-08-04] MEDS ORDERED: SODIUM CHLORID 0.9% 500 ML IV PRN (15:15)
--- NOTE | 2017-08-04 15:17 | HHI.PR ---
Subjective Remarks Patient reports that his abdominal pain and nausea are controlled on IV medications. I explained to him the treatment plan for pancreatitis includes n.p.o. and IV fluids. He has no other complaints besides the abdominal pain. Objective Vitals Vital Signs Date Time Temp Pulse Resp B/P (MAP) Pulse Ox O2 Delivery O2 Flow Rate FiO2 08/04/17 12:32 87 08/04/17 11:05 98.2 82 16 110/82 (91) 98 08/04/17 09:21 74 08/04/17 08:50 98.0 72 20 109/72 (84) 97 08/04/17 08:16 72 08/04/17 07:13 94 21 08/04/17 04:07 98.5 73 18 118/64 (82) 97 08/04/17 04:06 71 08/04/17 00:17 18 08/04/17 00:00 79 08/03/17 23:37 98.5 81 18 104/78 (87) 97 08/03/17 21:07 08/03/17 21:00 98.0 68 18 121/74 (90) 97 08/03/17 19:02 88 18 138/82 (100) 100 Room Air 08/03/17 15:54 97.6 128 14 125/85 (98) 99 I/O 08/03/17 08/03/17 08/03/17 08/04/17 08/04/17 08/04/17 07:00 15:00 23:00 07:00 15:00 23:00 Intake Total 1300 ml 200 ml 100 ml Output Total 1250 ml Balance 1300 ml 200 ml -1150 ml Intake IV Total 1300 ml 200 ml 100 ml Output Urine Total 350 ml Gastric Drainage Total 900 ml Result Diagram: 08/04/17 1212 08/04/17 1212 Procedures GENERAL: Well-nourished, well-developed patient. SKIN: Warm and dry. HEAD: Normocephalic. EYES: No scleral icterus. No injection or drainage. NECK: Supple, trachea midline. No JVD or lymphadenopathy. CARDIOVASCULAR: Regular rate and rhythm without murmurs, gallops, or rubs. RESPIRATORY: Breath sounds equal bilaterally. No accessory muscle use. GASTROINTESTINAL: Abdomen diffusely tender, nondistended, hypoactive bowel sounds, soft EXTREMITIES: No cyanosis, or edema. NEUROLOGICAL: Awake, alert, and oriented x 3. Non-focal. A/P Problem List: (1) Pancreatitis ICD Code: K85.90 - Acute pancreatitis without necrosis or infection, unspecified Status: Acute (2) Emphysema, unspecified ICD Code: J43.9 - Emphysema, unspecified Status: Chronic (3) Alcohol abuse ICD Code: F10.10 - Alcohol abuse, uncomplicated Status: Chronic Assessment and Plan Pancreatitis Onset was after drinking 4 beers Last case of pancreatitis was greater than 10 years ago Continue with IV fluid hydration Keep n.p.o. for now, will attempt to feed tomorrow We will follow serial lipase levels Monitor for signs of alcohol withdrawal Emphysema Not a current issue Continue with home meds Duo nebs as needed h/o Prostate CA Stable, continue home meds DVT Prophylaxis SCDs Problem Qualifiers (1) Pancreatitis: Qualified Codes: K85.90 - Acute pancreatitis without necrosis or infection, unspecified (2) Emphysema, unspecified: Qualified Codes: J43.9 - Emphysema, unspecified Laci Coppola MD Aug 04, 2017 3:16 pm
--- NOTE | 2017-08-04 17:19 | PD.PROCEDR ---
GI Procedure PROCEDURE PERFORMED EGD with biopsy INDICATION FOR PROCEDURE Nausea and vomiting, coffee-ground emesis, abnormal CT PROCEDURE: The procedure, risks and benefits were discussed with Mr. Anderson and informed consent was obtained. Anesthesia sedated him with Diprivan. He was placed in the left lateral decubitus position. EGD: The Pentax videoscope was introduced through the oropharynx and advanced to the second portion of the duodenum under direct visualization. Retroflexion was performed in the stomach. FINDINGS: Esophagus there was some mild streaky erythema in the distal esophagus suggestive of reflux esophagitis otherwise the esophagus was unremarkable this was biopsied Stomach this appeared to be unremarkable except for round erythematous spots most suggestive of NG tube injury but otherwise the stomach was unremarkable The duodenum there was significant amount of edema with some mild erythema noted in the second portion of the duodenum no obvious ulceration was seen this appears to be benign does not resemble a malignancy this may be resulting from external compression or inflammation from the outside this was biopsied the rest of the duodenum was unremarkable ESTIMATED BLOOD LOSS: None SPECIMENS REMOVED: Esophageal and duodenal biopsies COMPLICATIONS: None IMPRESSION: Reflux esophagitis mild Duodenal erythema with edema causing narrowing of the lumen contribution to outlet obstruction most likely secondary to the pancreatitis PLAN: Await biopsies Continue with current supportive care Continue PPI Monitor labs Further recommendations shall depend on his hospital course Ilya Bill MD Aug 04, 2017 17:18
[2017-08-04] MEDS: DEXT 5%-NACL 0.45% 1000 ML INJ 1,000 ML IV SCH (21:06)
[2017-08-04] MEDS: MORPHINE SULFATE 2 MG/ML INJ IV PUSH PRN (22:21)
[2017-08-05] VITALS (7 sets, daily range): BP systolic 91–123; BP diastolic 56–81; PULSE 72–103; RESP 16–18; TEMP 96.5–98.6; O2SAT 95–100
[2017-08-05] MEDS: PIPERACIL-TAZO 4.5 GM PREMIX 100 ML IV SCH ×4 (02:03→20:00)
--- NOTE | 2017-08-05 07:23 | MB ---
cc: GAYLA ROQUE MD DATE OF CONSULTATION 08/04/2017 REASON FOR CONSULTATION Gastric outlet obstruction, pancreatitis. HISTORY OF PRESENT ILLNESS The patient is a 61-year-old male who presents with acute onset of abdominal pain. The patient stated the pain started in the epigastric region and bilateral lower quadrants. It is somewhat diffuse, but localizes as well. The patient states the pain started approximately over a week ago and continued to get worse significantly. He has had this pain off and on for approximately, as well, over the past month or so. Again, the pain did not relieve and the patient had significant nausea and vomiting as well. He, therefore, came to the emergency department for further evaluation including CT scan showing acute pancreatitis, gastric outlet obstruction. Surgery was consulted for further evaluation. On my exam, the patient states his pain is a little better controlled with IV pain medication, however it is still somewhat significant. He does have a long history of ETOH abuse and several other medical problems. He said his last drink was approximately one week ago and has not drank as often due to the vomiting and pain. He has never been evaluated by the EGD before. He denies any significant weight loss or fevers. PAST MEDICAL HISTORY 1. Prostate cancer status post radiation 2. Emphysema 3. ETOH abuse 4. Pancreatitis 5. Hyperlipidemia PAST SURGICAL HISTORY 1. Appendectomy 2. Left finger surgery SOCIAL HISTORY Positive ETOH daily. History of smoking, quit two years ago. Denies IVDA. ALLERGIES NO KNOWN DRUG ALLERGIES. MEDICATIONS See EMR. FAMILY HISTORY Mother with coronary artery disease. Both parents REVIEW OF SYSTEMS GENERAL: Denies fevers. HEENT: Denies eye pain, ear pain. NECK: Denies swelling or pain. LUNGS: Clear without cough or wheeze. HEART: Denies palpitation or chest pain. ABDOMEN: Complained of nausea, vomiting and abdominal pain. : Denies dysuria or hematuria. ENDOCRINE: Denies polyuria, polydipsia. INTEGUMENT: Denies any masses or lesions. NEUROLOGIC: Denies numbness or tingling. PSYCH: Denies change in sensorium or altered mood. PHYSICAL EXAMINATION GENERAL: The patient in no acute distress. VITAL SIGNS: Temperature 98, pulse 72, respirations 20, blood pressure 106/72, saturation 97%. HEENT: Pupils equal, round, and reactive. NECK: Supple. Uvula midline. LUNGS: Clear to auscultation, bilateral expansion. HEART: S1 and S2, regular rhythm. ABDOMEN: Soft, positive tenderness to palpation, guarding, significant epigastric area, bilateral lower quadrants. No rigidity. No rebound. EXTREMITIES: Warm, well-perfused. NEUROLOGIC: 5/5 motor all extremities. GCS 15. INTEGUMENT: No obvious masses or lesions. PSYCH: Appropriate mood. Appropriate judgment, ETOH abuse. LABORATORY AND DIAGNOSTIC DATA WBC is 4.9, hemoglobin 8.9, hematocrit 28.4, platelets 382. Sodium 139, potassium 2.5, chloride 107, BUN is 10, creatinine 0.7, AST 12, ALT 14. Lipase 1455, alkaline phosphatase is 126. CT reviewed by myself showing narrowing in the second portion of the duodenum, concern for gastric outlet obstruction, questionable ruptured peptic ulcer, common bile duct obstruction. ASSESSMENT The patient is a 61-year-old male who presents with an acute onset of abdominal pain, pancreatitis, gastric outlet obstruction. PLAN After a full clinical, radiologic and laboratory workup, the patient has the above-named issues includin. The patient has gastric outlet obstruction. At this point, the patient needs an NG tube for decompression. The patient needs further evaluation with a gastroenterology for possible endoscopy and possible evaluation of the common bile duct, further the patient needs bowel rest, IV pain control, IV fluids, hydration and continued monitoring for pancreatitis. 2. The patient does have history of medication use including Arthritis medication. My concern would be also on top of ETOH with NSAID use concern for possible ulcer disease. Could also be possible neoplastic process. Again EGD would be beneficial for delineation of this. Patient needs to be on double dose of Protonix as well. 3. Would benefit from tumor gabriel evaluation. 4. If the obstruction does not resolve, the patient may need bypass with a possible gastrojejunostomy, however, we will attempt medical management and seek further assistance from other specialists. Thank you for this consultation. MD MARYLIN Arriaga/SARAH /8:33 PM /6:59 AM
[2017-08-05] MEDS: DEXT 5%-NACL 0.45% 1000 ML INJ 1,000 ML IV SCH (08:00)
[2017-08-05] MEDS: MULTIVITAMINS/MINERALS THERAPEUTIC TAB PO SCH (08:08)
[2017-08-05] MEDS: FOLIC ACID 1 MG TAB PO SCH (08:08)
[2017-08-05] MEDS: PANTOPRAZOLE SODIUM 40 MG VIAL IV PUSH SCH ×2 (08:10→19:59)
[2017-08-05] MEDS: SODIUM CHLORIDE 0.9% FLUSH 10 ML FLUSH IV FLUSH SCH ×2 (08:10→21:18)
--- NOTE | 2017-08-05 12:08 | HHI.GIFU ---
Subjective Remarks pt resting in bed in NAD. epigastric pain unchanged. n/v imiproved. (Amy López) Objective Vitals I&O Vital Signs Date Time Temp Pulse Resp B/P (MAP) Pulse Ox O2 Delivery O2 Flow Rate FiO2 08/05/17 08:26 97.9 84 18 115/78 (90) 99 08/05/17 06:22 97.9 72 18 123/60 (81) 99 08/04/17 23:48 97.1 78 18 114/74 (87) 97 08/04/17 20:05 97.0 80 18 119/80 (93) 99 08/04/17 19:38 98 21 08/04/17 16:46 97.9 65 18 123/76 (92) 98 08/04/17 12:32 87 I/O 08/04/17 08/04/17 08/04/17 08/05/17 08/05/17 08/05/17 07:00 15:00 23:00 07:00 15:00 23:00 Intake Total 200 ml 100 ml 1830 ml 681 ml Output Total 1250 ml 850 ml Balance 200 ml -1150 ml 1830 ml -169 ml Intake Oral 480 ml 480 ml IV Total 200 ml 100 ml 1100 ml 201 ml Other 250 ml Output Urine Total 350 ml 850 ml Gastric Drainage Total 900 ml # Voids 1 # Bowel Movements 0 0 Laboratory Laboratory Tests Test 08/04/17 12:12 08/04/17 13:28 White Blood Count 4.9 Red Blood Count 3.58 Hemoglobin 8.9 Hematocrit 28.4 Mean Corpuscular Volume 79.3 Mean Corpuscular Hemoglobin 24.7 Mean Corpuscular Hemoglobin Concent 31.2 Red Cell Distribution Width 19.6 Platelet Count 382 Mean Platelet Volume 7.6 Neutrophils (%) (Auto) 52.7 Lymphocytes (%) (Auto) 37.4 Monocytes (%) (Auto) 6.9 Eosinophils (%) (Auto) 2.0 Basophils (%) (Auto) 1.0 Neutrophils # (Auto) 2.6 Lymphocytes # (Auto) 1.8 Monocytes # (Auto) 0.3 Eosinophils # (Auto) 0.1 Basophils # (Auto) 0.0 CBC Comment DIFF FINAL Differential Comment Blood Urea Nitrogen 10 Creatinine 0.73 Random Glucose 82 Total Protein 8.3 Albumin 3.0 Calcium Level 7.8 Alkaline Phosphatase 95 Aspartate Amino Transf (AST/SGOT) 12 Alanine Aminotransferase (ALT/SGPT) 14 Total Bilirubin 0.3 Sodium Level 139 Potassium Level 3.5 Chloride Level 107 Carbon Dioxide Level 24.0 Anion Gap 8 Estimat Glomerular Filtration Rate 133 Lipase 919 Carcinoembryonic Antigen 1.6 CA 19-9 Antigen 46.9 Imaging Last Impressions Abdomen/Pelvis CT 08/03/17 1731 Signed Impressions: Service Date/Time: Thursday, August 03, 2017 18:24 - CONCLUSION: There is narrowing of the second portion of the duodenum causing gastric outlet obstruction with significant inflammation surrounding the duodenal wall as described above in the right upper outer quadrant. Possibility of a ruptured peptic ulcer disease should be entertained and there is obstruction to the distal common bile duct and pancreatic duct as a result. Underlying neoplastic process or malignancy is difficult to exclude in this time. Susana Reeves MD Physical Exam HEENT: PERRL; normocephalic; atraumatic; no jaundice. CHEST: CTA CARDIAC: RRR ABDOMEN: Soft,mildly distended,epigastric TTP, no hepatosplenomegaly; bowel sounds are present in all four quadrants. EXTREMITIES: No clubbing, cyanosis, or edema. SKIN: Normal; no rash; no jaundice. MEDICAL PSYCHOTHERAPIST: No focal deficits; alert and oriented times three. (Amy López) Assessment and Plan Plan ASSESSMENT - epigastric pain, n/v, coffee ground emesis, melanotic stool - gastric outlet obstruction with UGIB, CBD obstruction, obstruction pancreatic duct seen on CT. malignancy vs perforated ulcer. lipase 1455. mild elevation ALP, no obstructive pattern noted. GS following, ordered NGT . - anemia - microcytic. poss 2/2 above - hx etoh abuse - prostate ca s/p radiation 08/05/17 s/p EGD found reflux esophagitis, duodenal erythema and edema likely 2/ 2 pancreatitis. lipase trending down, 919 today CA 19-9 is elevated 46.9. GS following. PLAN - await bx - clear liquids - further recs to follow - pt seen by myself and Dr Bill and this note is written on his behalf (Amy López) Physician Comments Patient seen and examined Agree with above Continue with current supportive care Monitor labs (Ilya Bill MD) Amy López Aug 05, 2017 12:08 Ilya Bill MD Aug 05, 2017 19:26
--- NOTE | 2017-08-05 15:16 | HHI.PR ---
cc: Per Zimmerman MD Subjective Subjective Notes Resting in bed Has been OOB today Objective Vitals/I&O Vital Signs Date Time Temp Pulse Resp B/P (MAP) Pulse Ox O2 Delivery O2 Flow Rate FiO2 08/05/17 12:11 97.2 89 17 110/81 (91) 98 08/04/17 19:38 21 08/03/17 19:02 Room Air Cardiovascular: Regular Lungs: Clear Abdomen: Non-tender, Other (mildly distended ) Extremities: No edema A/P Assessment and Plan 61 year old male with gastric outlet obstruction; pancreatitis -s/p EGD-- shows duodenal erythema with edema causing narrowing of the limiting contribute to outlet obstruction secondary to pancreatitis -NGT only for persistent nausea/vomiting -Ice chips sparingly -OOB and mobilize Attending Statement patient seen at bedside goo ng sxn monitor closely attempt non op mgnt Attestation The exam, history, and the medical decision-making described in the above note were completed with the assistance of the mid-level provider. I reviewed and agree with the findings presented. I attest that I had a [id number] encounter with the patient on the same day, and personally performed and documented my assessment and findings in the medical record. Sherine Anaya/Supervisor Stripping ZURDO Aug 05, 2017 15:16 Per Zimmerman MD Aug 15, 2017 21:15
--- NOTE | 2017-08-05 15:17 | HHI.PR ---
Subjective Remarks Patient states his pain and nausea were controlled adequately overnight. He says he is hungry and is interested in food. Objective Vitals Vital Signs Date Time Temp Pulse Resp B/P (MAP) Pulse Ox O2 Delivery O2 Flow Rate FiO2 08/05/17 12:11 97.2 89 17 110/81 (91) 98 08/05/17 08:26 97.9 84 18 115/78 (90) 99 08/05/17 06:22 97.9 72 18 123/60 (81) 99 08/04/17 23:48 97.1 78 18 114/74 (87) 97 08/04/17 20:05 97.0 80 18 119/80 (93) 99 08/04/17 19:38 98 21 08/04/17 16:46 97.9 65 18 123/76 (92) 98 I/O 08/04/17 08/04/17 08/04/17 08/05/17 08/05/17 08/05/17 07:00 15:00 23:00 07:00 15:00 23:00 Intake Total 200 ml 100 ml 1830 ml 681 ml Output Total 1250 ml 850 ml Balance 200 ml -1150 ml 1830 ml -169 ml Intake Oral 480 ml 480 ml IV Total 200 ml 100 ml 1100 ml 201 ml Other 250 ml Output Urine Total 350 ml 850 ml Gastric Drainage Total 900 ml # Voids 1 # Bowel Movements 0 0 Result Diagram: 08/04/17 1212 08/04/17 1212 Procedures GENERAL: Well-nourished, well-developed patient. SKIN: Warm and dry. HEAD: Normocephalic. EYES: No scleral icterus. No injection or drainage. NECK: Supple, trachea midline. No JVD or lymphadenopathy. CARDIOVASCULAR: Regular rate and rhythm without murmurs, gallops, or rubs. RESPIRATORY: Breath sounds equal bilaterally. No accessory muscle use. GASTROINTESTINAL: Abdomen diffusely tender, nondistended, hypoactive bowel sounds, soft EXTREMITIES: No cyanosis, or edema. NEUROLOGICAL: Awake, alert, and oriented x 3. Non-focal. A/P Problem List: (1) Pancreatitis ICD Code: K85.90 - Acute pancreatitis without necrosis or infection, unspecified Status: Acute (2) Emphysema, unspecified ICD Code: J43.9 - Emphysema, unspecified Status: Chronic (3) Alcohol abuse ICD Code: F10.10 - Alcohol abuse, uncomplicated Status: Chronic Assessment and Plan Pancreatitis Onset was after drinking 4 beers Last case of pancreatitis was greater than 10 years ago Continue with IV fluid hydration Resume regular diet, recommended patient start off very slowly. Following serial lipase levels Emphysema Not a current issue Continue with home meds Duo nebs as needed h/o Prostate CA Stable, continue home meds DVT Prophylaxis SCDs Problem Qualifiers (1) Pancreatitis: Qualified Codes: K85.90 - Acute pancreatitis without necrosis or infection, unspecified (2) Emphysema, unspecified: Qualified Codes: J43.9 - Emphysema, unspecified Laci Coppola MD Aug 05, 2017 15:17
[2017-08-05] MEDS: MORPHINE SULFATE 2 MG/ML INJ IV PUSH PRN ×2 (16:46→21:15)
[2017-08-05] MEDS: THIAMINE INJ 100 MG in SODIUM CHLORIDE 0.9% INJ 100 ML IV SCH (21:15)
[2017-08-06] VITALS (10 sets, daily range): BP systolic 102–131; BP diastolic 69–91; PULSE 66–88; RESP 16–18; TEMP 96.4–98.8; O2SAT 98–100
--- NOTE | 2017-08-06 00:58 | EKG ---
Date Performed: 08/04/2017 Time Performed: 15:07:32 PTAGE: 61 years EKG: Sinus rhythm NORMAL ECG Since the prior tracing, there has been no significant change DOCTOR: Luis Foreman Interpretating Date/Time 08/06/2017 00:57:38
[2017-08-06] MEDS: PIPERACIL-TAZO 4.5 GM PREMIX 100 ML IV SCH ×2 (02:09→08:34)
[2017-08-06] MEDS: DEXT 5%-NACL 0.45% 1000 ML INJ 1,000 ML IV SCH ×5 (02:09→23:14)
[2017-08-06 06:37] LABS: ALBUMIN 2.6 GM/DL (3.4-5.0); AST (GOT) 20 U/L (15-37); BICARBONATE 25.4 MEQ/L (21.0-32.0); BLOOD UREA NITROGEN 4 MG/DL (7-18); CALCIUM 7.6 MG/DL (8.5-10.1); CHLORIDE 105 MEQ/L (98-107); CREATININE 0.73 MG/DL (0.60-1.30); GLOMERULAR FILTRATION RATE 133 ML/MIN (>89); GLUCOSE,RANDOM 93 MG/DL (74-106); SODIUM (NA) 139 MEQ/L (136-145)
[2017-08-06 06:38] LABS: ALKALINE PHOSPHATASE 95 U/L (45-117); ALT (GPT) 13 U/L (12-78); TOTAL BILIRUBIN ADULT 0.3 MG/DL (0.2-1.0); TOTAL PROTEIN 7.1 GM/DL (6.4-8.2)
--- NOTE | 2017-08-06 08:09 | HHI.PR ---
Subjective Remarks Pt seen and examined this morning. AFVSS. No acute events overnight. Endorses some mild cramping that has resolved. Hasn't had a BM in over a week which is unusual for him. Denies nausea or vomiting. Tolerating clears; feels hungry and wants to advance diet. Denies CP or SOB. Ambulating. Objective Vitals Vital Signs Date Time Temp Pulse Resp B/P (MAP) Pulse Ox O2 Delivery O2 Flow Rate FiO2 08/06/17 07:47 78 08/06/17 07:34 97.6 73 18 109/77 (88) 98 08/06/17 04:00 85 08/06/17 04:00 96.4 67 16 102/69 (80) 98 08/06/17 00:00 78 08/05/17 23:35 96.5 78 16 91/56 (68) 96 08/05/17 20:25 97.0 92 17 101/64 (76) 95 08/05/17 20:08 95 08/05/17 16:12 98.6 103 17 106/69 (81) 100 08/05/17 12:11 97.2 89 17 110/81 (91) 98 08/05/17 08:26 97.9 84 18 115/78 (90) 99 I/O 08/05/17 08/05/17 08/05/17 08/06/17 08/06/17 08/06/17 07:00 15:00 23:00 07:00 15:00 23:00 Intake Total 681 ml 1680 ml 240 ml 100 ml Output Total 850 ml 1850 ml 500 ml Balance -169 ml -170 ml -260 ml 100 ml Intake Oral 480 ml 1680 ml 240 ml IV Total 201 ml 100 ml Output Urine Total 850 ml 1850 ml 500 ml # Bowel Movements 0 0 0 Result Diagram: 08/04/17 1212 08/06/17 0454 Procedures GENERAL: WN, WD AA male laying in bed in NAD. SKIN: Warm and dry. HEENT: Pupils equal and round. No scleral icterus. MMM. NECK: No tender LAD or JVD. HEART: RRR no m/r/g. LUNGS: CTAB without wheezes or crackles. ABDOMEN: +BS. Soft, mild LLQ TTP otherwise nontender. EXTREMITIES: No LE edema or calf tenderness. NEURO: Awake and alert. A/P Problem List: (1) Pancreatitis ICD Code: K85.90 - Acute pancreatitis without necrosis or infection, unspecified Status: Acute (2) Emphysema, unspecified ICD Code: J43.9 - Emphysema, unspecified Status: Chronic (3) Alcohol abuse ICD Code: F10.10 - Alcohol abuse, uncomplicated Status: Chronic Assessment and Plan Pancreatitis Onset was after drinking 4 beers Last case of pancreatitis was greater than 10 years ago Lipase downtrending Tolerating clears Pain control GI and gen surgery assisting with case, appreciate their input Emphysema Not a current issue Continue with home meds DuoNeb PRN h/o Prostate CA Stable, continue home meds DVT Prophylaxis SCDs Encourage ambulation Discharge Planning Anticipate D/C in 1-2 days Problem Qualifiers (1) Pancreatitis: Qualified Codes: K85.90 - Acute pancreatitis without necrosis or infection, unspecified (2) Emphysema, unspecified: Qualified Codes: J43.9 - Emphysema, unspecified Maddie Diallo MD Aug 06, 2017 08:09
[2017-08-06] MEDS ORDERED: POTASSIUM CHLORIDE 20 MEQ CONTROLLED RELEASE TAB PO ONE (08:30)
[2017-08-06] MEDS: SODIUM CHLORIDE 0.9% FLUSH 10 ML FLUSH IV FLUSH SCH ×2 (08:34→20:43)
[2017-08-06] MEDS: FOLIC ACID 1 MG TAB PO SCH (08:34)
[2017-08-06] MEDS: PANTOPRAZOLE SODIUM 40 MG VIAL IV PUSH SCH ×2 (08:34→20:43)
[2017-08-06] MEDS: MULTIVITAMINS/MINERALS THERAPEUTIC TAB PO SCH (08:34)
[2017-08-06] MEDS: MORPHINE SULFATE 2 MG/ML INJ IV PUSH PRN ×2 (08:44→20:42)
[2017-08-06] MEDS: DOCUSATE SODIUM 50 MG/SENNA 8.6 MG TAB PO SCH ×2 (09:15→20:42)
--- NOTE | 2017-08-06 12:11 | HHI.GIFU ---
Subjective Remarks Pt resting in bed, asking for food. His pain is somewhat improved. No n/v today. (Amy López) Objective Vitals I&O Vital Signs Date Time Temp Pulse Resp B/P (MAP) Pulse Ox O2 Delivery O2 Flow Rate FiO2 08/06/17 11:43 97.8 81 18 102/71 (81) 100 08/06/17 07:47 78 08/06/17 07:34 97.6 73 18 109/77 (88) 98 08/06/17 04:00 85 08/06/17 04:00 96.4 67 16 102/69 (80) 98 08/06/17 00:00 78 08/05/17 23:35 96.5 78 16 91/56 (68) 96 08/05/17 20:25 97.0 92 17 101/64 (76) 95 08/05/17 20:08 95 08/05/17 16:12 98.6 103 17 106/69 (81) 100 08/05/17 12:11 97.2 89 17 110/81 (91) 98 I/O 08/05/17 08/05/17 08/05/17 08/06/17 08/06/17 08/06/17 07:00 15:00 23:00 07:00 15:00 23:00 Intake Total 681 ml 1680 ml 240 ml 100 ml Output Total 850 ml 1850 ml 500 ml Balance -169 ml -170 ml -260 ml 100 ml Intake Oral 480 ml 1680 ml 240 ml IV Total 201 ml 100 ml Output Urine Total 850 ml 1850 ml 500 ml # Bowel Movements 0 0 0 Laboratory Laboratory Tests Test 08/06/17 04:54 Blood Urea Nitrogen 4 Creatinine 0.73 Random Glucose 93 Total Protein 7.1 Albumin 2.6 Calcium Level 7.6 Alkaline Phosphatase 95 Aspartate Amino Transf (AST/SGOT) 20 Alanine Aminotransferase (ALT/SGPT) 13 Total Bilirubin 0.3 Sodium Level 139 Potassium Level 2.9 Chloride Level 105 Carbon Dioxide Level 25.4 Anion Gap 9 Estimat Glomerular Filtration Rate 133 Lipase 426 Imaging Last Impressions Abdomen/Pelvis CT 08/03/17 1731 Signed Impressions: Service Date/Time: Thursday, August 03, 2017 18:24 - CONCLUSION: There is narrowing of the second portion of the duodenum causing gastric outlet obstruction with significant inflammation surrounding the duodenal wall as described above in the right upper outer quadrant. Possibility of a ruptured peptic ulcer disease should be entertained and there is obstruction to the distal common bile duct and pancreatic duct as a result. Underlying neoplastic process or malignancy is difficult to exclude in this time. Susana Reeves MD Physical Exam HEENT: PERRL; normocephalic; atraumatic; no jaundice. CHEST: CTA CARDIAC: RRR ABDOMEN: Soft,mildly distended,epigastric TTP, no hepatosplenomegaly; bowel sounds are present in all four quadrants. EXTREMITIES: No clubbing, cyanosis, or edema. SKIN: Normal; no rash; no jaundice. REDEVELOPMENT SPECIALIST: No focal deficits; alert and oriented times three. (Amy López) Assessment and Plan Plan ASSESSMENT - epigastric pain, n/v, coffee ground emesis, melanotic stool - gastric outlet obstruction with UGIB, CBD obstruction, obstruction pancreatic duct seen on CT. malignancy vs perforated ulcer. lipase 1455. mild elevation ALP, no obstructive pattern noted. GS following, ordered NGT . - anemia - microcytic. poss 2/2 above - hx etoh abuse - prostate ca s/p radiation 08/05/17 s/p EGD found reflux esophagitis, duodenal erythema and edema likely 2/ 2 pancreatitis. lipase trending down, 919 today CA 19-9 is elevated 46.9. GS following. 08/06/17 lipase trending down. tolerating clears. pain somewhat improved. biopsies still pending. PLAN - await bx - full liquids liquids - further recs to follow - pt seen by myself and Dr Erwin and this note is written on her behalf (Amy López) Physician Comments seen, examined agree with above (Amber Erwin MD) Amy López Aug 06, 2017 12:11 Amber Erwin MD Aug 06, 2017 18:01
--- NOTE | 2017-08-06 12:57 | HHI.PR ---
cc: Per Zimmerman MD Subjective Subjective Notes tolerating clears but had stomach cramping this am, +bm, Objective Vitals/I&O Vital Signs Date Time Temp Pulse Resp B/P (MAP) Pulse Ox O2 Delivery O2 Flow Rate FiO2 08/06/17 11:43 97.8 81 18 102/71 (81) 100 08/04/17 19:38 21 08/03/17 19:02 Room Air Labs Laboratory Tests Test 08/06/17 04:54 Blood Urea Nitrogen 4 Creatinine 0.73 Random Glucose 93 Total Protein 7.1 Albumin 2.6 Calcium Level 7.6 Alkaline Phosphatase 95 Aspartate Amino Transf (AST/SGOT) 20 Alanine Aminotransferase (ALT/SGPT) 13 Total Bilirubin 0.3 Sodium Level 139 Potassium Level 2.9 Chloride Level 105 Carbon Dioxide Level 25.4 Anion Gap 9 Estimat Glomerular Filtration Rate 133 Magnesium Level 2.0 Lipase 426 Cardiovascular: Regular Lungs: Clear Abdomen: Other (soft +ttp diffuse no rebound) A/P Assessment and Plan 61 year old male with gastric outlet obstruction; pancreatitis -improving -s/p EGD-- shows duodenal erythema with edema causing narrowing of the limiting contribute to outlet obstruction secondary to pancreatitis -keep clears for now go slow with diet -OOB and mobilize -trend labs Per Zimmerman MD Aug 06, 2017 12:57
[2017-08-07] VITALS (12 sets, daily range): BP systolic 96–146; BP diastolic 71–104; PULSE 60–94; RESP 17–18; TEMP 96.8–98.6; O2SAT 97–100
[2017-08-07 08:59] LABS: BICARBONATE 22.9 MEQ/L (21.0-32.0); CALCIUM 8.2 MG/DL (8.5-10.1); CREATININE 0.63 MG/DL (0.60-1.30)
[2017-08-07] MEDS: SODIUM CHLORIDE 0.9% FLUSH 10 ML FLUSH IV FLUSH SCH ×2 (09:00→21:00)
[2017-08-07] MEDS: PANTOPRAZOLE SODIUM 40 MG VIAL IV PUSH SCH ×2 (09:00→21:16)
[2017-08-07] MEDS: MULTIVITAMINS/MINERALS THERAPEUTIC TAB PO SCH (09:29)
[2017-08-07] MEDS: FOLIC ACID 1 MG TAB PO SCH (09:29)
[2017-08-07] MEDS: DOCUSATE SODIUM 50 MG/SENNA 8.6 MG TAB PO SCH ×2 (09:29→21:00)
--- NOTE | 2017-08-07 10:01 | HHI.PR ---
Subjective Remarks Pt seen and examined this morning. AFVSS. No acute events overnight. Reports some diffuse abdominal cramping this morning which he reports after he drank coffee, two cups of apple juice, and milk. He did not have any pain or cramping yesterday evening with full liquids. He wants to take it slow but also feels hungry and willing to try advancing his diet. He denies nausea, vomiting, bloody , or black stools. Had a BM this morning. No CP or SOB. Ambulating and urinating without issues. Objective Vitals Vital Signs Date Time Temp Pulse Resp B/P (MAP) Pulse Ox O2 Delivery O2 Flow Rate FiO2 08/07/17 08:00 97.5 80 17 116/82 (93) 100 08/07/17 04:00 72 08/07/17 03:56 96.8 60 17 129/80 (96) 100 08/07/17 00:03 79 08/06/17 23:55 97.1 73 18 103/78 (86) 98 08/06/17 20:43 97.8 78 18 130/84 (99) 100 08/06/17 16:00 98.8 66 18 131/91 (104) 99 08/06/17 15:30 88 08/06/17 13:23 100 08/06/17 11:43 97.8 81 18 102/71 (81) 100 I/O 08/06/17 08/06/17 08/06/17 08/07/17 08/07/17 08/07/17 07:00 15:00 23:00 07:00 15:00 23:00 Intake Total 240 ml 1050 ml 240 ml 1960 ml Output Total 500 ml 600 ml 850 ml 1150 ml Balance -260 ml 450 ml -610 ml 810 ml Intake Oral 240 ml 950 ml 240 ml 360 ml IV Total 100 ml 1600 ml Output Urine Total 500 ml 600 ml 850 ml 1150 ml # Bowel Movements 0 0 0 Result Diagram: 08/04/17 1212 08/07/17 0625 Objective Remarks GENERAL: WN, WD AA male laying in bed in NAD. SKIN: Warm and dry. HEENT: Pupils equal and round. No scleral icterus. MMM. NECK: No tender LAD or JVD. HEART: RRR no m/r/g. LUNGS: CTAB without wheezes or crackles. ABDOMEN: +BS. Soft, mild epigastric TTP. No guarding or rebound. EXTREMITIES: No LE edema or calf tenderness. NEURO: Awake and alert. Procedures EGD 08/04/17 showing reflux esophagitis, duodenal stricture and edema A/P Problem List: (1) Pancreatitis ICD Code: K85.90 - Acute pancreatitis without necrosis or infection, unspecified Status: Acute (2) Emphysema, unspecified ICD Code: J43.9 - Emphysema, unspecified Status: Chronic (3) Alcohol abuse ICD Code: F10.10 - Alcohol abuse, uncomplicated Status: Chronic Assessment and Plan Pancreatitis Onset was after drinking 4 beers Last case of pancreatitis was greater than 10 years ago Lipase downtrending Tolerating clears Pain control GI and gen surgery assisting with case, appreciate their input Gastric outlet obstruction secondary to duodenal swelling Easing into diet General surgery following Esophagitis Continue Protonix Emphysema Not a current issue Continue with home meds DuoNeb PRN h/o Prostate CA Stable, continue home meds DVT Prophylaxis SCDs Encourage ambulation Discharge Planning Anticipate D/C in 1-2 days pending ability to tolerate full diet Problem Qualifiers (1) Pancreatitis: Qualified Codes: K85.90 - Acute pancreatitis without necrosis or infection, unspecified (2) Emphysema, unspecified: Qualified Codes: J43.9 - Emphysema, unspecified Maddie Diallo MD Aug 07, 2017 10:01
--- NOTE | 2017-08-07 12:06 | HHI.PR ---
Subjective Subjective Notes Still with some epigastric pain Tolerating full liquids fairly well Objective Vitals/I&O Vital Signs Date Time Temp Pulse Resp B/P (MAP) Pulse Ox O2 Delivery O2 Flow Rate FiO2 08/07/17 08:00 97.5 80 17 116/82 (93) 100 08/04/17 19:38 21 08/03/17 19:02 Room Air Labs Laboratory Tests Test 08/07/17 06:25 Blood Urea Nitrogen 2 Creatinine 0.63 Random Glucose 70 Calcium Level 8.2 Sodium Level 138 Potassium Level 3.6 Chloride Level 106 Carbon Dioxide Level 22.9 Anion Gap 9 Estimat Glomerular Filtration Rate 157 Lungs: Clear Abdomen: Other (epigastric tenderness with guarding) A/P Assessment and Plan A/P Assessment and Plan 61 year old male with gastric outlet obstruction; pancreatitis -improving -s/p EGD-- shows duodenal erythema with edema causing narrowing of the limiting contribute to outlet obstruction secondary to pancreatitis -keep full liquids for now go slow with diet -OOB and mobilize -trend labs; recheck lipase Travis Ball MD Aug 07, 2017 12:06
[2017-08-07] MEDS: MORPHINE SULFATE 2 MG/ML INJ IV PUSH PRN ×3 (14:03→21:16)
[2017-08-07] MEDS: DEXT 5%-NACL 0.45% 1000 ML INJ 1,000 ML IV SCH (15:11)
--- NOTE | 2017-08-07 16:01 | HHI.GIFU ---
Subjective Remarks Pt resting in bed. had some abd pain and "rumbling" after drinking apple juice but likes the grits and the soup. said his pain is currently under control and he feels it is improving. no n/v. (Amy López) Objective Vitals I&O Vital Signs Date Time Temp Pulse Resp B/P (MAP) Pulse Ox O2 Delivery O2 Flow Rate FiO2 08/07/17 12:00 98.2 76 18 146/104 (118) 99 08/07/17 09:05 98 08/07/17 08:00 97.5 80 17 116/82 (93) 100 08/07/17 04:00 72 08/07/17 03:56 96.8 60 17 129/80 (96) 100 08/07/17 00:03 79 08/06/17 23:55 97.1 73 18 103/78 (86) 98 08/06/17 20:43 97.8 78 18 130/84 (99) 100 I/O 08/06/17 08/06/17 08/06/17 08/07/17 08/07/17 08/07/17 07:00 15:00 23:00 07:00 15:00 23:00 Intake Total 240 ml 1050 ml 240 ml 1960 ml 400 ml Output Total 500 ml 600 ml 850 ml 1150 ml Balance -260 ml 450 ml -610 ml 810 ml 400 ml Intake Oral 240 ml 950 ml 240 ml 360 ml IV Total 100 ml 1600 ml 400 ml Output Urine Total 500 ml 600 ml 850 ml 1150 ml # Bowel Movements 0 0 0 Laboratory Laboratory Tests Test 08/07/17 06:25 Blood Urea Nitrogen 2 Creatinine 0.63 Random Glucose 70 Calcium Level 8.2 Sodium Level 138 Potassium Level 3.6 Chloride Level 106 Carbon Dioxide Level 22.9 Anion Gap 9 Estimat Glomerular Filtration Rate 157 Lipase 720 Imaging Last Impressions Abdomen/Pelvis CT 08/03/17 1731 Signed Impressions: Service Date/Time: Thursday, August 03, 2017 18:24 - CONCLUSION: There is narrowing of the second portion of the duodenum causing gastric outlet obstruction with significant inflammation surrounding the duodenal wall as described above in the right upper outer quadrant. Possibility of a ruptured peptic ulcer disease should be entertained and there is obstruction to the distal common bile duct and pancreatic duct as a result. Underlying neoplastic process or malignancy is difficult to exclude in this time. K. Vidal Shamlou, MD Physical Exam HEENT: PERRL; normocephalic; atraumatic; no jaundice. CHEST: CTA CARDIAC: RRR ABDOMEN: Soft,mildly distended,epigastric TTP, no hepatosplenomegaly; bowel sounds are present in all four quadrants. EXTREMITIES: No clubbing, cyanosis, or edema. SKIN: Normal; no rash; no jaundice. 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 (Amy López) Assessment and Plan Plan ASSESSMENT - epigastric pain, n/v, coffee ground emesis, melanotic stool - gastric outlet obstruction with UGIB, CBD obstruction, obstruction pancreatic duct seen on CT. malignancy vs perforated ulcer. lipase 1455. mild elevation ALP, no obstructive pattern noted. GS following, ordered NGT . - anemia - microcytic. poss 2/2 above - hx etoh abuse - prostate ca s/p radiation 08/05/17 s/p EGD found reflux esophagitis, duodenal erythema and edema likely 2/ 2 pancreatitis. lipase trending down, 919 today CA 19-9 is elevated 46.9. GS following. 08/06/17 lipase trending down. tolerating clears. pain somewhat improved. biopsies still pending. 08/07/17 lipase mildly increased. tolerating full liquids. pain gradually improving. n/v improved. bx pending PLAN - await bx - full liquids - further recs to follow - pt seen by myself and Dr Erwin and this note is written on her behalf (Amy López) Amy López Aug 07, 2017 16:01 Amber Erwin MD Aug 07, 2017 17:33
[2017-08-08 00:45] VITALS: BP 115/75; PULSE 80; RESP 16; TEMP 97.2; O2SAT 99
[2017-08-08] MEDS: MORPHINE SULFATE 2 MG/ML INJ IV PUSH PRN ×3 (01:35→22:53)
[2017-08-08] MEDS: DEXT 5%-NACL 0.45% 1000 ML INJ 1,000 ML IV SCH ×2 (01:40→15:00)
[2017-08-08 04:12] VITALS: BP 96/72; PULSE 95; RESP 17; TEMP 97.2; O2SAT 98
[2017-08-08 05:53] LABS: AUTOMATED NEUTROPHIL # 2.4 TH/MM3 (1.8-7.7); EOSINOPHIL # 0.1 TH/MM3 (0-0.4); EOSINOPHIL % 1.9 % (0.0-4.0); HEMATOCRIT 26.4 % (39.0-51.0); HEMOGLOBIN 8.5 GM/DL (13.0-17.0); LYMPH % 30.4 % (9.0-44.0); LYMPHOCYTE # 1.3 TH/MM3 (1.0-4.8); MEAN CELL VOLUME 78.6 FL (80.0-100.0); MEAN CORPUSCULAR HEMOGLOBIN 25.2 PG (27.0-34.0); MEAN CORPUSCULAR HGB CONC 32.1 % (32.0-36.0); MEAN PLATELET VOLUME 7.8 FL (7.0-11.0); MONO % 10.2 % (0.0-8.0); MONOCYTE # 0.4 TH/MM3 (0-0.9); NEUT % 56.5 % (16.0-70.0); PLATELET COUNT 373 TH/MM3 (150-450); RED BLOOD COUNT 3.36 MIL/MM3 (4.50-5.90); RED CELL DISTRIBUTION WIDTH 19.6 % (11.6-17.2); WHITE BLOOD COUNT 4.3 TH/MM3 (4.0-11.0)
[2017-08-08 06:23] LABS: ALBUMIN 2.7 GM/DL (3.4-5.0); AST (GOT) 10 U/L (15-37); BICARBONATE 24.7 MEQ/L (21.0-32.0); BLOOD UREA NITROGEN 2 MG/DL (7-18); CALCIUM 8.2 MG/DL (8.5-10.1); CHLORIDE 105 MEQ/L (98-107); CREATININE 0.67 MG/DL (0.60-1.30); GLOMERULAR FILTRATION RATE 147 ML/MIN (>89); GLUCOSE,RANDOM 84 MG/DL (74-106); SODIUM (NA) 138 MEQ/L (136-145)
[2017-08-08 06:28] LABS: ALKALINE PHOSPHATASE 85 U/L (45-117); ALT (GPT) 11 U/L (12-78); TOTAL BILIRUBIN ADULT 0.1 MG/DL (0.2-1.0); TOTAL PROTEIN 7.5 GM/DL (6.4-8.2)
[2017-08-08] MEDS: PANTOPRAZOLE SODIUM 40 MG VIAL IV PUSH SCH ×2 (07:57→22:53)
[2017-08-08] MEDS: MULTIVITAMINS/MINERALS THERAPEUTIC TAB PO SCH (07:57)
[2017-08-08] MEDS: DOCUSATE SODIUM 50 MG/SENNA 8.6 MG TAB PO SCH ×2 (07:57→22:52)
[2017-08-08] MEDS: FOLIC ACID 1 MG TAB PO SCH (07:57)
[2017-08-08] MEDS: SODIUM CHLORIDE 0.9% FLUSH 10 ML FLUSH IV FLUSH SCH ×2 (07:57→22:53)
[2017-08-08 08:00] VITALS: BP 93/79; PULSE 110; PULSE 97; RESP 18; TEMP 97.2; O2SAT 100
--- NOTE | 2017-08-08 09:25 | HHI.PR ---
cc: Per Zimmerman MD Subjective Subjective Notes still with some abd pain after drinking, large bm, lipase elevated slow trend down Objective Vitals/I&O Vital Signs Date Time Temp Pulse Resp B/P (MAP) Pulse Ox O2 Delivery O2 Flow Rate FiO2 08/08/17 08:03 18 08/08/17 08:00 97.2 97 93/79 (84) 100 08/07/17 17:53 21 Labs Laboratory Tests Test 08/08/17 05:05 White Blood Count 4.3 Red Blood Count 3.36 Hemoglobin 8.5 Hematocrit 26.4 Mean Corpuscular Volume 78.6 Mean Corpuscular Hemoglobin 25.2 Mean Corpuscular Hemoglobin Concent 32.1 Red Cell Distribution Width 19.6 Platelet Count 373 Mean Platelet Volume 7.8 Neutrophils (%) (Auto) 56.5 Lymphocytes (%) (Auto) 30.4 Monocytes (%) (Auto) 10.2 Eosinophils (%) (Auto) 1.9 Basophils (%) (Auto) 1.0 Neutrophils # (Auto) 2.4 Lymphocytes # (Auto) 1.3 Monocytes # (Auto) 0.4 Eosinophils # (Auto) 0.1 Basophils # (Auto) 0.0 CBC Comment DIFF FINAL Differential Comment Blood Urea Nitrogen 2 Creatinine 0.67 Random Glucose 84 Total Protein 7.5 Albumin 2.7 Calcium Level 8.2 Alkaline Phosphatase 85 Aspartate Amino Transf (AST/SGOT) 10 Alanine Aminotransferase (ALT/SGPT) 11 Total Bilirubin 0.1 Sodium Level 138 Potassium Level 3.5 Chloride Level 105 Carbon Dioxide Level 24.7 Anion Gap 8 Estimat Glomerular Filtration Rate 147 Lipase 698 Cardiovascular: Regular Lungs: Clear Abdomen: Other (soft diffuse ttp) A/P Assessment and Plan 61 year old male with gastric outlet obstruction; pancreatitis -improving -s/p EGD-- shows duodenal erythema with edema causing narrowing of the limiting contribute to outlet obstruction secondary to pancreatitis -keep fulls one more day possible advance tomorrow -OOB and mobilize -trend labs Per Zimmerman MD Aug 08, 2017 09:25
[2017-08-08 12:00] VITALS: BP 108/80; PULSE 77; PULSE 90; RESP 18; TEMP 97.5; O2SAT 100
--- NOTE | 2017-08-08 12:03 | HHI.GIFU ---
Subjective Remarks Sitting on edge of bed. Pain improving every day, plus he had much relief after a large BM this morning. No n/v. (Amy López) Objective Vitals I&O Vital Signs Date Time Temp Pulse Resp B/P (MAP) Pulse Ox O2 Delivery O2 Flow Rate FiO2 08/08/17 08:03 18 08/08/17 08:00 97.2 97 18 93/79 (84) 100 08/08/17 04:12 97.2 95 17 96/72 (80) 98 08/07/17 23:29 96.9 89 17 96/71 (79) 97 08/07/17 21:10 88 08/07/17 20:39 98.6 94 18 118/82 (94) 99 08/07/17 17:53 99 21 08/07/17 16:00 98.2 77 18 130/88 (102) 99 I/O 08/07/17 08/07/17 08/07/17 08/08/17 08/08/17 08/08/17 07:00 15:00 23:00 07:00 15:00 23:00 Intake Total 1960 ml 400 ml 360 ml 0 ml Output Total 1150 ml 550 ml Balance 810 ml 400 ml 360 ml -550 ml Intake Oral 360 ml 360 ml 0 ml IV Total 1600 ml 400 ml Output Urine Total 1150 ml 550 ml # Voids 3 1 # Bowel Movements 0 3 0 0 Laboratory Laboratory Tests Test 08/08/17 05:05 White Blood Count 4.3 Red Blood Count 3.36 Hemoglobin 8.5 Hematocrit 26.4 Mean Corpuscular Volume 78.6 Mean Corpuscular Hemoglobin 25.2 Mean Corpuscular Hemoglobin Concent 32.1 Red Cell Distribution Width 19.6 Platelet Count 373 Mean Platelet Volume 7.8 Neutrophils (%) (Auto) 56.5 Lymphocytes (%) (Auto) 30.4 Monocytes (%) (Auto) 10.2 Eosinophils (%) (Auto) 1.9 Basophils (%) (Auto) 1.0 Neutrophils # (Auto) 2.4 Lymphocytes # (Auto) 1.3 Monocytes # (Auto) 0.4 Eosinophils # (Auto) 0.1 Basophils # (Auto) 0.0 CBC Comment DIFF FINAL Differential Comment Blood Urea Nitrogen 2 Creatinine 0.67 Random Glucose 84 Total Protein 7.5 Albumin 2.7 Calcium Level 8.2 Alkaline Phosphatase 85 Aspartate Amino Transf (AST/SGOT) 10 Alanine Aminotransferase (ALT/SGPT) 11 Total Bilirubin 0.1 Sodium Level 138 Potassium Level 3.5 Chloride Level 105 Carbon Dioxide Level 24.7 Anion Gap 8 Estimat Glomerular Filtration Rate 147 Lipase 698 Imaging Last Impressions Abdomen/Pelvis CT 08/03/17 1731 Signed Impressions: Service Date/Time: Thursday, August 03, 2017 18:24 - CONCLUSION: There is narrowing of the second portion of the duodenum causing gastric outlet obstruction with significant inflammation surrounding the duodenal wall as described above in the right upper outer quadrant. Possibility of a ruptured peptic ulcer disease should be entertained and there is obstruction to the distal common bile duct and pancreatic duct as a result. Underlying neoplastic process or malignancy is difficult to exclude in this time. Susana Reeves MD Physical Exam HEENT: PERRL; normocephalic; atraumatic; no jaundice. CHEST: CTA CARDIAC: RRR ABDOMEN: Soft,mildly distended,mild epigastric TTP, no hepatosplenomegaly; bowel sounds are present in all four quadrants. EXTREMITIES: No clubbing, cyanosis, or edema. SKIN: Normal; no rash; no jaundice. 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 (Amy López [facility]) Assessment and Plan Plan ASSESSMENT - epigastric pain, n/v, coffee ground emesis, melanotic stool - gastric outlet obstruction with UGIB, CBD obstruction, obstruction pancreatic duct seen on CT. malignancy vs perforated ulcer. lipase 1455. mild elevation ALP, no obstructive pattern noted. GS following, ordered NGT . - anemia - microcytic. poss 2/2 above - hx etoh abuse - prostate ca s/p radiation 08/05/17 s/p EGD found reflux esophagitis, duodenal erythema and edema likely 2/ 2 pancreatitis. lipase trending down, 919 today CA 19-9 is elevated 46.9. GS following. 08/06/17 lipase trending down. tolerating clears. pain somewhat improved. biopsies still pending. 08/07/17 lipase mildly increased. tolerating full liquids. pain gradually improving. n/v improved. bx pending 08/08/17 lipase slowly trending down. tolerating full liquids. pain improved after BM today. still awaiting bx PLAN - await bx - full liquids 1 more day per GS - monitor labs - consider repeat imaging - pt seen by myself and Dr Desai and this note is written on his behalf (Amy López) Physician Comments Seen and examined with ZURDO< doing better, looking forward to advancing diet. Surgery on case. Advised to quit etoh. GI will sign off, reconsult as needed. GI fu upon dc.Thank you (Gian Desai MD) Amy López Aug 08, 2017 12:03 Gian Desai MD Aug 08, 2017 16:56
--- NOTE | 2017-08-08 13:00 | HHI.PR ---
Subjective Remarks Pt seen and examined. AFVSS. No acute events overnight. Reports he is feeling overall well but still continues to have some postprandial epigastric cramping. Currently on full liquids. Denies nausea or vomiting. Moving his bowels and voiding well. Denies CP, SOB, fever, chills. Ambulating without difficulty. Requests to take a shower. Objective Vitals Vital Signs Date Time Temp Pulse Resp B/P (MAP) Pulse Ox O2 Delivery O2 Flow Rate FiO2 08/08/17 12:00 97.5 90 18 108/80 (89) 100 08/08/17 08:03 18 08/08/17 08:00 97.2 97 18 93/79 (84) 100 08/08/17 04:12 97.2 95 17 96/72 (80) 98 08/07/17 23:29 96.9 89 17 96/71 (79) 97 08/07/17 21:10 88 08/07/17 20:39 98.6 94 18 118/82 (94) 99 08/07/17 17:53 99 21 08/07/17 16:00 98.2 77 18 130/88 (102) 99 I/O 08/07/17 08/07/17 08/07/17 08/08/17 08/08/17 08/08/17 07:00 15:00 23:00 07:00 15:00 23:00 Intake Total 1960 ml 400 ml 360 ml 0 ml Output Total 1150 ml 550 ml Balance 810 ml 400 ml 360 ml -550 ml Intake Oral 360 ml 360 ml 0 ml IV Total 1600 ml 400 ml Output Urine Total 1150 ml 550 ml # Voids 3 1 # Bowel Movements 0 3 0 0 Result Diagram: 08/08/17 0505 08/08/17 0505 Objective Remarks GENERAL: WN, WD AA male laying in bed in NAD. SKIN: Warm and dry. HEENT: Pupils equal and round. No scleral icterus. MMM. NECK: No tender LAD or JVD. HEART: RRR no m/r/g. LUNGS: CTAB without wheezes or crackles. ABDOMEN: +BS. Slighly distended but soft, mild epigastric TTP. No guarding or rebound. EXTREMITIES: No LE edema or calf tenderness. NEURO: Awake and alert. Procedures EGD 08/04/17 showing reflux esophagitis, duodenal stricture and edema A/P Problem List: (1) Pancreatitis ICD Code: K85.90 - Acute pancreatitis without necrosis or infection, unspecified Status: Acute (2) Emphysema, unspecified ICD Code: J43.9 - Emphysema, unspecified Status: Chronic (3) Alcohol abuse ICD Code: F10.10 - Alcohol abuse, uncomplicated Status: Chronic Assessment and Plan 61 YOAAM with history of alcohol abuse admitted for pancreatitis. Pancreatitis Onset was after drinking 4 beers Last case of pancreatitis was greater than 10 years ago Lipase elevated but downtrending Tolerating full liquids - advancing slowly per surgery Pain control GI and gen surgery assisting with case, appreciate their input Gastric outlet obstruction secondary to duodenal swelling Easing into diet General surgery following Esophagitis Continue Protonix Emphysema Not a current issue Continue with home meds DuoNeb PRN h/o Prostate CA Stable, continue home meds DVT Prophylaxis SCDs Ambulating Discharge Planning Anticipate D/C in 1-2 days pending ability to tolerate full diet Problem Qualifiers (1) Pancreatitis: Qualified Codes: K85.90 - Acute pancreatitis without necrosis or infection, unspecified (2) Emphysema, unspecified: Qualified Codes: J43.9 - Emphysema, unspecified Maddie Diallo MD Aug 08, 2017 13:00
[2017-08-08 16:00] VITALS: BP 117/81; PULSE 68; PULSE 70; RESP 18; TEMP 97.7; O2SAT 100
[2017-08-08 20:30] VITALS: BP 133/84; PULSE 80; RESP 16; TEMP 98.7; O2SAT 100
[2017-08-09] VITALS (9 sets, daily range): BP systolic 90–134; BP diastolic 66–92; PULSE 80–105; RESP 16–18; TEMP 96.9–97.8; O2SAT 97–100
[2017-08-09] MEDS: PANTOPRAZOLE SODIUM 40 MG VIAL IV PUSH SCH ×2 (08:18→20:22)
[2017-08-09] MEDS: MULTIVITAMINS/MINERALS THERAPEUTIC TAB PO SCH (08:18)
[2017-08-09] MEDS: FOLIC ACID 1 MG TAB PO SCH (08:18)
[2017-08-09] MEDS: DOCUSATE SODIUM 50 MG/SENNA 8.6 MG TAB PO SCH ×2 (08:18→20:24)
[2017-08-09] MEDS: SODIUM CHLORIDE 0.9% FLUSH 10 ML FLUSH IV FLUSH SCH ×2 (08:19→20:24)
[2017-08-09] MEDS: DEXT 5%-NACL 0.45% 1000 ML INJ 1,000 ML IV SCH ×2 (08:19→22:24)
--- NOTE | 2017-08-09 09:07 | HHI.PR ---
cc: Per Zimmerman MD Subjective Subjective Notes having bms, feels bloated, no vomiting, lipase better Objective Vitals/I&O Vital Signs Date Time Temp Pulse Resp B/P (MAP) Pulse Ox O2 Delivery O2 Flow Rate FiO2 08/09/17 07:32 97.7 100 18 90/66 (74) 97 08/07/17 17:53 21 Labs Laboratory Tests Test 08/09/17 05:10 Lipase 535 Cardiovascular: Regular Lungs: Clear Abdomen: Other (mild distension, mild ttp) A/P Assessment and Plan 61 year old male with gastric outlet obstruction; pancreatitis -improving -s/p EGD-- shows duodenal erythema with edema causing narrowing of the limiting contribute to outlet obstruction secondary to pancreatitis -try soft diet -Check KUB -OOB and mobilize -trend labs - bowel regimen Per Zimmerman MD Aug 09, 2017 09:07
--- NOTE | 2017-08-09 10:30 | RADRPT ---
EXAM DATE/TIME: 08/09/2017 10:14 [facility] COMPARISON: No previous studies available for comparison. INDICATIONS : Abdominal pain, bloating, vomiting. MEDICAL HISTORY : Cardiovascular disease. Carcinoma, prostatic. Chronic obstructive pulmonary disease. SURGICAL HISTORY : Appendectomy. ENCOUNTER: Subsequent ACUITY: 1 month PAIN SCORE: 5/10 LOCATION: Bilateral abdomen FINDINGS: Supine view of the abdomen was performed. The abdominal bowel gas pattern is normal. No abnormal ma sses, calcifications, or organomegaly is seen. The visualized lower lungs are clear. Healed fractur es of the lower lateral right 9th and 10th ribs. Four localization seeds project over the lower pelv is.. CONCLUSION: Benign abdomen. Jaime Charles MD on August 09, 2017 at 10:27 Board Certified Radiologist. This report was verified electronically.
--- NOTE | 2017-08-09 11:50 | HHI.PR ---
Subjective Remarks Patient seen this morning around 10 AM. He reports that abdominal pain continues, slightly improved today. Did have a small liquid bowel movement today. Objective Vital Signs Date Time Temp Pulse Resp B/P (MAP) Pulse Ox O2 Delivery O2 Flow Rate FiO2 08/09/17 09:58 97 21 08/09/17 07:32 97.7 100 18 90/66 (74) 97 08/09/17 04:20 97.5 82 16 111/78 (89) 99 08/09/17 00:45 97.2 80 16 115/74 (88) 99 08/08/17 20:30 98.7 80 16 133/84 (100) 100 08/08/17 16:00 97.7 70 18 117/81 (93) 100 08/08/17 16:00 68 08/08/17 12:00 77 08/08/17 12:00 97.5 90 18 108/80 (89) 100 I/O 08/08/17 08/08/17 08/08/17 08/09/17 08/09/17 08/09/17 07:00 15:00 23:00 07:00 15:00 23:00 Intake Total 0 ml 1200 ml 1200 ml Output Total 550 ml 650 ml 200 ml Balance -550 ml 550 ml 1000 ml Intake Oral 0 ml 1200 ml 1200 ml Output Urine Total 550 ml 650 ml 200 ml # Voids 2 4 # Bowel Movements 0 1 0 Result Diagram: 08/08/17 0505 08/08/17 0505 Objective Remarks GENERAL: Patient sitting up in bed. Appears comfortable SKIN: Warm and dry. HEAD: Normocephalic. EYES: No scleral icterus. No injection or drainage. NECK: Supple, trachea midline. No JVD. CARDIOVASCULAR: Regular rate and rhythm without murmurs, gallops, or rubs. RESPIRATORY: Breath sounds equal bilaterally. No accessory muscle use. GASTROINTESTINAL: Abdomen soft, non-tender, nondistended. MUSCULOSKELETAL: No cyanosis, or edema. BACK: Nontender without obvious deformity. No CVA tenderness. A/P Assessment and Plan 61 YOAAM with history of alcohol abuse admitted for pancreatitis. //Pancreatitis Onset was after drinking 4 beers Last case of pancreatitis was greater than 10 years ago Lipase elevated but downtrending Tolerating full liquids - advancing slowly per surgery Pain control GI and gen surgery assisting with case, appreciate their input = Extremity abdomen today personally visualized with no acute findings. Does appear to have some constipation. We'll make sure he is on a bowel regimen. We 'll need clearance from GI and general surgery. Appreciate assistance. Biopsies pending. //Gastric outlet obstruction secondary to duodenal swelling Easing into diet General surgery following appreciate assistance. //Esophagitis Continue Protonix //Emphysema Not a current issue Continue with home meds DuoNeb PRN //h/o Prostate CA Stable, continue home meds DVT Prophylaxis SCDs Ambulating Discharge Planning pending tolerating by mouth diet, gastroenterology and general surgery clearance. Mark Arreola MD Aug 09, 2017 11:50
[2017-08-09] MEDS: MORPHINE SULFATE 2 MG/ML INJ IV PUSH PRN ×2 (18:28→22:19)
[2017-08-10] VITALS (18 sets, daily range): BP systolic 104–125; BP diastolic 69–82; PULSE 76–114; RESP 15–20; TEMP 96.3–97.6; O2SAT 97–100
[2017-08-10] MEDS: DEXT 5%-NACL 0.45% 1000 ML INJ 1,000 ML IV SCH ×2 (07:00→12:31)
[2017-08-10] MEDS: SODIUM CHLORIDE 0.9% FLUSH 10 ML FLUSH IV FLUSH SCH ×2 (08:05→20:49)
[2017-08-10] MEDS: MORPHINE SULFATE 2 MG/ML INJ IV PUSH PRN ×5 (08:05→22:28)
[2017-08-10] MEDS: DOCUSATE SODIUM 50 MG/SENNA 8.6 MG TAB PO SCH ×2 (08:05→21:00)
[2017-08-10] MEDS: PANTOPRAZOLE SODIUM 40 MG VIAL IV PUSH SCH ×2 (08:05→20:47)
--- NOTE | 2017-08-10 10:26 | HHI.PR ---
Subjective Remarks Patient seen this morning around 9 AM. He reports his abdominal distention is slightly worse today. Reports abdominal diffuse abdominal pain. Denies any chest pain or shortness of breath. This he does not feel comfortable going home today. Objective Vital Signs Date Time Temp Pulse Resp B/P (MAP) Pulse Ox O2 Delivery O2 Flow Rate FiO2 08/10/17 09:46 99 08/10/17 09:44 103 08/10/17 08:10 84 08/10/17 08:00 97.1 86 18 106/74 (85) 99 08/10/17 04:40 96.9 99 15 106/73 (84) 97 08/10/17 00:55 97.3 84 16 107/73 (84) 99 08/09/17 21:25 97.5 88 18 134/92 (106) 99 08/09/17 16:00 97.8 98 18 115/91 (99) 100 08/09/17 12:00 84 08/09/17 11:42 96.9 83 18 119/85 (96) 100 I/O 08/09/17 08/09/17 08/09/17 08/10/17 08/10/17 08/10/17 07:00 15:00 23:00 07:00 15:00 23:00 Intake Total 1200 ml 1200 ml 1000 ml 1200 ml Output Total 200 ml 1100 ml Balance 1000 ml 1200 ml 1000 ml 100 ml Intake Oral 1200 ml 1200 ml 1200 ml IV Total 1000 ml Output Urine Total 200 ml 1100 ml # Voids 4 5 3 # Bowel Movements 0 2 0 Result Diagram: 08/08/17 0505 08/08/17 0505 Objective Remarks GENERAL: Patient sitting up in bed. Appears comfortable SKIN: Warm and dry. HEAD: Normocephalic. EYES: No scleral icterus. No injection or drainage. NECK: Supple, trachea midline. No JVD. CARDIOVASCULAR: Regular rate and rhythm without murmurs, gallops, or rubs. RESPIRATORY: Breath sounds equal bilaterally. No accessory muscle use. GASTROINTESTINAL: Abdomen soft. abdomen distended today. Nontender. No rebound or guarding. MUSCULOSKELETAL: No cyanosis, or edema. BACK: Nontender without obvious deformity. No CVA tenderness. A/P Assessment and Plan 61 YOAAM with history of alcohol abuse admitted for pancreatitis. //Pancreatitis Onset was after drinking 4 beers Last case of pancreatitis was greater than 10 years ago Lipase elevated but downtrending Tolerating full liquids - advancing slowly per surgery Pain control GI and gen surgery assisting with case, appreciate their input = Extremity abdomen today personally visualized with no acute findings. Does appear to have some constipation. We'll make sure he is on a bowel regimen. We 'll need clearance from GI and general surgery. Appreciate assistance. Biopsies pending. = Biopsies with mucosa. No malignancy. Appreciate GI assistance. Gastroenterology following. Appreciate assistance. Patient with continued abdominal discomfort today. We'll get repeat electrolytes. Check AP abdomen. //Gastric outlet obstruction secondary to duodenal swelling Easing into diet General surgery following appreciate assistance. //Esophagitis Continue Protonix //Emphysema Not a current issue Continue with home meds DuoNeb PRN //h/o Prostate CA Stable, continue home meds DVT Prophylaxis SCDs Ambulating Discharge Planning pending tolerating by mouth diet, gastroenterology and general surgery clearance. Mark Arreola MD Aug 10, 2017 10:26
--- NOTE | 2017-08-10 11:44 | RADRPT ---
EXAM DATE/TIME: 08/10/2017 11:22 [facility] COMPARISON: No previous studies available for comparison. INDICATIONS : Distention. MEDICAL HISTORY : Cardiovascular disease. Chronic obstructive pulmonary disease. Carcinoma, prostate. SURGICAL HISTORY : Appendectomy. ENCOUNTER: Subsequent ACUITY: 4 - 6 days PAIN SCORE: 5/10 LOCATION: Abdomen. FINDINGS: Supine and upright views of the abdomen were performed. The abdominal bowel gas pattern is normal. No air fluid levels are seen. No abnormal masses, calcifications, or organomegaly is seen. The visu alized lower lungs are clear. No evidence of free intraperitoneal gas. The osseous structures are u nremarkable. CONCLUSION: Nonspecific a benign abdomen appearance. Deandre Tobar MD on August 10, 2017 at 11:42 Board Certified Radiologist. This report was verified electronically.
[2017-08-10 13:59] LABS: ALBUMIN 3.2 GM/DL (3.4-5.0); ALT (GPT) 10 U/L (12-78); AST (GOT) 14 U/L (15-37); BICARBONATE 27.6 MEQ/L (21.0-32.0); BLOOD UREA NITROGEN 3 MG/DL (7-18); CALCIUM 8.5 MG/DL (8.5-10.1); CHLORIDE 104 MEQ/L (98-107); CREATININE 0.62 MG/DL (0.60-1.30); GLOMERULAR FILTRATION RATE 160 ML/MIN (>89); GLUCOSE,RANDOM 72 MG/DL (74-106); SODIUM (NA) 138 MEQ/L (136-145)
[2017-08-10 14:01] LABS: ALKALINE PHOSPHATASE 89 U/L (45-117); TOTAL BILIRUBIN ADULT 0.2 MG/DL (0.2-1.0); TOTAL PROTEIN 8.7 GM/DL (6.4-8.2)
--- NOTE | 2017-08-10 14:48 | HHI.PR ---
cc: Per Zimmerman MD Subjective Subjective Notes some difficulty with po but no vomiting, +bms, +gas Objective Vitals/I&O Vital Signs Date Time Temp Pulse Resp B/P (MAP) Pulse Ox O2 Delivery O2 Flow Rate FiO2 08/10/17 14:18 114 08/10/17 12:00 96.3 18 125/82 (96) 99 08/09/17 09:58 21 Labs Laboratory Tests Test 08/10/17 13:09 Blood Urea Nitrogen 3 Creatinine 0.62 Random Glucose 72 Total Protein 8.7 Albumin 3.2 Calcium Level 8.5 Alkaline Phosphatase 89 Aspartate Amino Transf (AST/SGOT) 14 Alanine Aminotransferase (ALT/SGPT) 10 Total Bilirubin 0.2 Sodium Level 138 Potassium Level 3.8 Chloride Level 104 Carbon Dioxide Level 27.6 Anion Gap 6 Estimat Glomerular Filtration Rate 160 Abdomen: Other (soft mild ttp) A/P Assessment and Plan 61 year old male with gastric outlet obstruction; pancreatitis -improving -s/p EGD-- shows duodenal erythema with edema causing narrowing of the limiting contribute to outlet obstruction secondary to pancreatitis -try soft diet -consider UGI if still symptomatic -OOB and mobilize -trend labs - bowel regimen Per Zimmerman MD Aug 10, 2017 14:48
[2017-08-11] VITALS (7 sets, daily range): BP systolic 91–107; BP diastolic 50–77; PULSE 68–98; RESP 16–20; TEMP 96–98.5; O2SAT 98–100
[2017-08-11] MEDS: DEXT 5%-NACL 0.45% 1000 ML INJ 1,000 ML IV SCH ×2 (07:44→20:50)
[2017-08-11] MEDS: DOCUSATE SODIUM 50 MG/SENNA 8.6 MG TAB PO SCH ×2 (07:45→20:49)
[2017-08-11] MEDS: MORPHINE SULFATE 2 MG/ML INJ IV PUSH PRN ×3 (07:45→22:40)
[2017-08-11] MEDS: PANTOPRAZOLE SODIUM 40 MG VIAL IV PUSH SCH ×2 (07:45→20:49)
[2017-08-11] MEDS: SODIUM CHLORIDE 0.9% FLUSH 10 ML FLUSH IV FLUSH SCH ×2 (07:46→20:50)
--- NOTE | 2017-08-11 08:06 | HHI.PR ---
cc: Per Zimmerman MD Subjective Subjective Notes pt still stated difficulty eating but is having liquid bms, no vomiting Objective Vitals/I&O Vital Signs Date Time Temp Pulse Resp B/P (MAP) Pulse Ox O2 Delivery O2 Flow Rate FiO2 08/11/17 04:00 97.6 98 20 104/76 (85) 100 08/10/17 18:01 21 Labs Laboratory Tests Test 08/10/17 13:09 Blood Urea Nitrogen 3 Creatinine 0.62 Random Glucose 72 Total Protein 8.7 Albumin 3.2 Calcium Level 8.5 Alkaline Phosphatase 89 Aspartate Amino Transf (AST/SGOT) 14 Alanine Aminotransferase (ALT/SGPT) 10 Total Bilirubin 0.2 Sodium Level 138 Potassium Level 3.8 Chloride Level 104 Carbon Dioxide Level 27.6 Anion Gap 6 Estimat Glomerular Filtration Rate 160 Cardiovascular: Regular Lungs: Clear Abdomen: Other (soft mild ttp, mild distension) A/P Assessment and Plan 61 year old male with gastric outlet obstruction; pancreatitis -improving -s/p EGD-- shows duodenal erythema with edema causing narrowing of the limiting contribute to outlet obstruction secondary to pancreatitis - npo today - ordered UGI await results -OOB and mobilize -trend labs - bowel regimen Per Zimmerman MD Aug 11, 2017 08:06
--- NOTE | 2017-08-11 11:44 | RADRPT ---
EXAM DATE/TIME: 08/11/2017 10:26 [facility] COMPARISON: No previous studies available for comparison. INDICATIONS : Evaluate for gastric outlet obstruction. FLUORO TIME: 2.4 minutes IMAGE COUNT: 22 CONTRAST: 1. E-Z HD Barium Sulfate (98% w/w) MEDICAL HISTORY : Cardiovascular disease. Chronic obstructive pulmonary disease. Carcinoma, prostate. SURGICAL HISTORY : Appendectomy. ENCOUNTER: Subsequent ACUITY: 1 week PAIN SCORE: 0/10 LOCATION: Stomach. FINDINGS: Preliminary film is unremarkable. Examination of the swallowing function demonstrates no evidence of aspiration or penetration. There is a posterior diverticulum with retained barium in the lower cervical region, small in size. The re mainder of the esophagus has a normal appearance.. The margins of the stomach are smooth, but there is poor delineation of the mucosal folds. No ulcera tion or extrinsic compression seen.. The duodenal bulb is distended and there is delayed passage from the duodenal bulb and 2nd portion of the duodenum. Occasional passage of barium into the 2nd and 3rd portion of the duodenum with abrupt diameter change at the junction of the 1st and 2nd portion. The ligament of Treitz is in orthotopic position.. CONCLUSION: 1. There is an abrupt transition in diameter between the distended duodenal bulb and 2nd portion of t he duodenum. 2. No ulceration or mass seen in the stomach; there is loss of rugal folds. 3. Small Zenker's diverticulum. Jaime Charles MD on August 11, 2017 at 11:39 Board Certified Radiologist. This report was verified electronically.
--- NOTE | 2017-08-11 22:38 | HHI.PR ---
Subjective Remarks Patient seen this morning around 9 AM. He reports that abdominal discomfort continues, nausea at times,slightly better today. Still with liquid bowel movement, however still with abdominal distention. doesn't feel comfortable going home. Objective Vital Signs Date Time Temp Pulse Resp B/P (MAP) Pulse Ox O2 Delivery O2 Flow Rate FiO2 08/11/17 19:37 89 08/11/17 18:44 18 08/11/17 16:00 98.3 85 18 94/71 (79) 98 08/11/17 12:00 97.9 68 18 107/71 (83) 98 08/11/17 08:00 97.2 88 18 91/50 (64) 100 08/11/17 04:00 97.6 98 20 104/76 (85) 100 08/11/17 00:00 96.0 93 20 105/77 (86) 98 I/O 08/10/17 08/10/17 08/10/17 08/11/17 08/11/17 08/11/17 07:00 15:00 23:00 07:00 15:00 23:00 Intake Total 1200 ml 6254 ml 480 ml 1000 ml Output Total 1100 ml 175 ml Balance 100 ml 6254 ml -175 ml 480 ml 1000 ml Intake Oral 1200 ml 650 ml 480 ml IV Total 5604 ml 1000 ml Output Urine Total 1100 ml 175 ml # Voids 3 4 1 1 # Bowel Movements 0 1 0 Result Diagram: 08/08/17 0505 08/10/17 1309 Objective Remarks GENERAL: Patient sitting up in bed. Appears comfortable SKIN: Warm and dry. HEAD: Normocephalic. EYES: No scleral icterus. No injection or drainage. NECK: Supple, trachea midline. No JVD. CARDIOVASCULAR: Regular rate and rhythm without murmurs, gallops, or rubs. RESPIRATORY: Breath sounds equal bilaterally. No accessory muscle use. GASTROINTESTINAL: Abdomen soft. abdomen distended today. Nontender. No rebound or guarding. MUSCULOSKELETAL: No cyanosis, or edema. BACK: Nontender without obvious deformity. No CVA tenderness. A/P Assessment and Plan 61 YOAAM with history of alcohol abuse admitted for pancreatitis. //Pancreatitis Onset was after drinking 4 beers Last case of pancreatitis was greater than 10 years ago Lipase elevated but downtrending Tolerating full liquids - advancing slowly per surgery Pain control GI and gen surgery assisting with case, appreciate their input = Extremity abdomen today personally visualized with no acute findings. Does appear to have some constipation. We'll make sure he is on a bowel regimen. We 'll need clearance from GI and general surgery. Appreciate assistance. Biopsies pending. = Biopsies with mucosa. No malignancy. Appreciate GI assistance. Gastroenterology following. Appreciate assistance. Patient with continued abdominal discomfort today. We'll get repeat electrolytes. Check AP abdomen. = 08/11. Appreciate general surgery assistance. Upper GI series today results noted. Nothing by mouth status placed as per general surgery. Continue to monitor closely. //Gastric outlet obstruction secondary to duodenal swelling Easing into diet General surgery following appreciate assistance. //Esophagitis Continue Protonix //Emphysema Not a current issue Continue with home meds DuoNeb PRN //h/o Prostate CA Stable, continue home meds DVT Prophylaxis SCDs Ambulating Discharge Planning pending general surgery clearance. Mark Arreola MD Aug 11, 2017 22:38
[2017-08-12] VITALS (7 sets, daily range): BP systolic 93–133; BP diastolic 67–93; PULSE 76–100; RESP 16–20; TEMP 96.6–97.5; O2SAT 96–100
[2017-08-12 06:14] LABS: AUTOMATED NEUTROPHIL # 2.5 TH/MM3 (1.8-7.7); BASOPHIL % 0.8 % (0.0-2.0); EOSINOPHIL # 0.1 TH/MM3 (0-0.4); EOSINOPHIL % 1.9 % (0.0-4.0); HEMATOCRIT 26.2 % (39.0-51.0); HEMOGLOBIN 8.4 GM/DL (13.0-17.0); LYMPH % 31.8 % (9.0-44.0); LYMPHOCYTE # 1.5 TH/MM3 (1.0-4.8); MEAN CELL VOLUME 77.3 FL (80.0-100.0); MEAN CORPUSCULAR HEMOGLOBIN 24.7 PG (27.0-34.0); MEAN CORPUSCULAR HGB CONC 31.9 % (32.0-36.0); MEAN PLATELET VOLUME 8.1 FL (7.0-11.0); MONO % 10.3 % (0.0-8.0); MONOCYTE # 0.5 TH/MM3 (0-0.9); NEUT % 55.2 % (16.0-70.0); PLATELET COUNT 651 TH/MM3 (150-450); RED BLOOD COUNT 3.39 MIL/MM3 (4.50-5.90); RED CELL DISTRIBUTION WIDTH 19.8 % (11.6-17.2); WHITE BLOOD COUNT 4.6 TH/MM3 (4.0-11.0)
[2017-08-12] MEDS: DEXT 5%-NACL 0.45% 1000 ML INJ 1,000 ML IV SCH ×2 (06:32→20:29)
[2017-08-12] MEDS: MORPHINE SULFATE 2 MG/ML INJ IV PUSH PRN ×4 (06:32→21:57)
[2017-08-12 06:34] LABS: ALBUMIN 2.8 GM/DL (3.4-5.0); AST (GOT) 14 U/L (15-37); BICARBONATE 26.8 MEQ/L (21.0-32.0); BLOOD UREA NITROGEN 3 MG/DL (7-18); CALCIUM 8.2 MG/DL (8.5-10.1); CHLORIDE 107 MEQ/L (98-107); GLOMERULAR FILTRATION RATE 167 ML/MIN (>89); GLUCOSE,RANDOM 92 MG/DL (74-106); MAGNESIUM 1.9 MG/DL (1.5-2.5); SODIUM (NA) 139 MEQ/L (136-145)
[2017-08-12 06:39] LABS: ALKALINE PHOSPHATASE 72 U/L (45-117); ALT (GPT) 9 U/L (12-78); TOTAL BILIRUBIN ADULT 0.2 MG/DL (0.2-1.0); TOTAL PROTEIN 7.7 GM/DL (6.4-8.2)
[2017-08-12] MEDS: SODIUM CHLORIDE 0.9% FLUSH 10 ML FLUSH IV FLUSH SCH ×2 (09:00→20:29)
[2017-08-12] MEDS: PANTOPRAZOLE SODIUM 40 MG VIAL IV PUSH SCH ×2 (09:09→20:28)
[2017-08-12] MEDS: DOCUSATE SODIUM 50 MG/SENNA 8.6 MG TAB PO SCH ×2 (09:10→20:28)
--- NOTE | 2017-08-12 20:49 | HHI.PR ---
cc: Per Zimmerman MD Subjective Subjective Notes upper gi reviewed, pt tolerating full liquids, still with small bms, persistent mild pain Objective Vitals/I&O Vital Signs Date Time Temp Pulse Resp B/P (MAP) Pulse Ox O2 Delivery O2 Flow Rate FiO2 08/12/17 16:00 96.6 98 16 133/88 (103) 97 08/10/17 18:01 21 Labs Laboratory Tests Test 08/12/17 05:33 08/12/17 05:35 Blood Urea Nitrogen 3 Creatinine 0.60 Random Glucose 92 Total Protein 7.7 Albumin 2.8 Calcium Level 8.2 Magnesium Level 1.9 Alkaline Phosphatase 72 Aspartate Amino Transf (AST/SGOT) 14 Alanine Aminotransferase (ALT/SGPT) 9 Total Bilirubin 0.2 Sodium Level 139 Potassium Level 3.5 Chloride Level 107 Carbon Dioxide Level 26.8 Anion Gap 5 Estimat Glomerular Filtration Rate 167 Lipase 661 White Blood Count 4.6 Red Blood Count 3.39 Hemoglobin 8.4 Hematocrit 26.2 Mean Corpuscular Volume 77.3 Mean Corpuscular Hemoglobin 24.7 Mean Corpuscular Hemoglobin Concent 31.9 Red Cell Distribution Width 19.8 Platelet Count 651 Mean Platelet Volume 8.1 Neutrophils (%) (Auto) 55.2 Lymphocytes (%) (Auto) 31.8 Monocytes (%) (Auto) 10.3 Eosinophils (%) (Auto) 1.9 Basophils (%) (Auto) 0.8 Neutrophils # (Auto) 2.5 Lymphocytes # (Auto) 1.5 Monocytes # (Auto) 0.5 Eosinophils # (Auto) 0.1 Basophils # (Auto) 0.0 CBC Comment DIFF FINAL Differential Comment Cardiovascular: Regular Lungs: Clear Abdomen: Other (soft mild ttp, no rebound) A/P Assessment and Plan 61 year old male with gastric outlet obstruction; pancreatitis -improving, upper gi shows partial obstruction, some contrast passes -s/p EGD-- shows duodenal erythema with edema causing narrowing of the limiting contribute to outlet obstruction secondary to pancreatitis - full diet, encourage protein shakes -OOB and mobilize -trend labs - bowel regimen, will work of d/c planning, pt is to remain on full liquids and shakes. No etoh as this will exacerbate the problems. He can follow up with me in 2 weeks. Per Zimmerman MD Aug 12, 2017 20:49
--- NOTE | 2017-08-12 23:57 | HHI.PR ---
Subjective Remarks patient continues to report on it today. Continue to bowel discomfort. Does not fill comfortable going home at this time. Objective Vital Signs Date Time Temp Pulse Resp B/P (MAP) Pulse Ox O2 Delivery O2 Flow Rate FiO2 08/12/17 20:00 97.1 81 18 129/93 (105) 99 08/12/17 16:00 96.6 98 16 133/88 (103) 97 08/12/17 12:00 97.2 99 16 130/79 (96) 100 08/12/17 08:00 97.0 85 16 103/67 (79) 99 08/12/17 04:00 97.5 89 16 103/81 (88) 96 08/12/17 00:00 97.4 87 16 93/69 (77) 99 I/O 08/12/17 08/12/17 08/12/17 08/13/17 08/13/17 08/13/17 06:59 14:59 22:59 06:59 14:59 22:59 Intake Total 1000 ml 600 ml Output Total 950 ml Balance 1000 ml -350 ml Intake Oral 600 ml IV Total 1000 ml Output Urine Total 950 ml # Voids 1 Result Diagram: 08/12/17 0535 08/12/17 0533 Objective Remarks GENERAL: Patient sitting up in bed. Appears comfortable SKIN: Warm and dry. HEAD: Normocephalic. EYES: No scleral icterus. No injection or drainage. NECK: Supple, trachea midline. No JVD. CARDIOVASCULAR: Regular rate and rhythm without murmurs, gallops, or rubs. RESPIRATORY: Breath sounds equal bilaterally. No accessory muscle use. GASTROINTESTINAL: Abdomen soft. abdomen distended today. Nontender. No rebound or guarding. MUSCULOSKELETAL: No cyanosis, or edema. BACK: Nontender without obvious deformity. No CVA tenderness. A/P Assessment and Plan 61 YOAAM with history of alcohol abuse admitted for pancreatitis. //Pancreatitis Onset was after drinking 4 beers Last case of pancreatitis was greater than 10 years ago Lipase elevated but downtrending Tolerating full liquids - advancing slowly per surgery Pain control GI and gen surgery assisting with case, appreciate their input = Extremity abdomen today personally visualized with no acute findings. Does appear to have some constipation. We'll make sure he is on a bowel regimen. We 'll need clearance from GI and general surgery. Appreciate assistance. Biopsies pending. = Biopsies with mucosa. No malignancy. Appreciate GI assistance. Gastroenterology following. Appreciate assistance. Patient with continued abdominal discomfort today. We'll get repeat electrolytes. Check AP abdomen. = 08/11. Appreciate general surgery assistance. Upper GI series today results noted. Nothing by mouth status placed as per general surgery. Continue to monitor closely. =08/12. Discussed with GI today. If pain not better by tomorrow, a recommend repeat CT abdomen and pelvis. May need repeat EGD Tuesday if worsened. If better by tomorrow, can discharge home. I started Carafate liquid, as well as Creon regimen. //Gastric outlet obstruction secondary to duodenal swelling Easing into diet General surgery following appreciate assistance. //Esophagitis Continue Protonix //Emphysema Not a current issue Continue with home meds DuoNeb PRN //h/o Prostate CA Stable, continue home meds DVT Prophylaxis SCDs Ambulating Discharge Planning pending general surgery clearance.. If patient is feeling better today, can likely go home. Mark Arreola MD Aug 12, 2017 23:57
[2017-08-13] VITALS (9 sets, daily range): BP systolic 101–135; BP diastolic 72–95; PULSE 75–121; RESP 17–19; TEMP 97.2–99.2; O2SAT 95–100
[2017-08-13] MEDS: DEXT 5%-NACL 0.45% 1000 ML INJ 1,000 ML IV SCH ×2 (01:52→13:29)
[2017-08-13] MEDS: MORPHINE SULFATE 2 MG/ML INJ IV PUSH PRN ×3 (06:08→21:42)
[2017-08-13] MEDS ORDERED: ACETAMINOPHEN/HYDROcodone 325 MG/5 MG TAB PO PRN (08:45)
[2017-08-13] MEDS ORDERED: NALOXONE HCL 0.4 MG/ML AMP IV PUSH PRN (08:45)
[2017-08-13] MEDS ORDERED: ACETAMINOPHEN 325 MG TAB PO PRN (08:45)
[2017-08-13] MEDS: LIPASE/PROTEASE/AMYLASE (24,000/76,000/120,000) CAP PO SCH ×3 (09:24→18:00)
[2017-08-13] MEDS: SUCRALFATE 1 GM/10 ML CUP PO SCH ×4 (09:25→21:41)
[2017-08-13] MEDS: PANTOPRAZOLE SOD 40 MG DELAYED RELEASE TAB PO SCH ×2 (09:25→21:41)
[2017-08-13] MEDS: DOCUSATE SODIUM 50 MG/SENNA 8.6 MG TAB PO SCH ×2 (09:25→21:41)
[2017-08-13] MEDS: SODIUM CHLORIDE 0.9% FLUSH 10 ML FLUSH IV FLUSH SCH ×2 (09:26→21:41)
--- NOTE | 2017-08-13 10:35 | HHI.PR ---
Subjective Remarks Follow-up gastric outlet obstruction and prostatitis. Patient states she still has significant abdominal pain unable to eat no vomiting though. Discussed with GI, neurosurgery and nursing Objective Vitals Vital Signs Date Time Temp Pulse Resp B/P (MAP) Pulse Ox O2 Delivery O2 Flow Rate FiO2 08/13/17 08:00 97.2 99 19 135/93 (107) 100 08/13/17 04:00 97.5 83 18 120/77 (91) 96 08/13/17 03:39 82 08/12/17 23:35 76 08/12/17 20:00 96.8 97 17 118/77 (91) 100 08/12/17 20:00 97.1 81 18 129/93 (105) 99 08/12/17 16:00 96.6 98 16 133/88 (103) 97 08/12/17 12:00 97.2 99 16 130/79 (96) 100 I/O 08/12/17 08/12/17 08/12/17 08/13/17 08/13/17 08/13/17 07:00 15:00 23:00 07:00 15:00 23:00 Intake Total 1000 ml 1960 ml 1560 ml Output Total 950 ml 650 ml Balance 1000 ml 1010 ml 910 ml Intake Oral 960 ml 240 ml IV Total 1000 ml 1000 ml 1320 ml Output Urine Total 950 ml 650 ml # Voids 1 2 # Bowel Movements 0 0 Result Diagram: 08/12/17 0535 08/12/17 0533 Imaging Last Impressions Upper GI Series 08/11/17 0000 Signed Impressions: Service Date/Time: July 10:26 - CONCLUSION: 1. There is an abrupt transition in diameter between the distended duodenal bulb and 2nd portion of the duodenum. 2. No ulceration or mass seen in the stomach; there is loss of rugal folds. 3. Small Zenker's diverticulum. Jaime Charles MD Abdomen X-Ray 08/10/17 0000 Signed Impressions: Service Date/Time: Thursday, August 10, 2017 11:22 - CONCLUSION: Nonspecific a benign abdomen appearance. Deandre Tobar MD Abdomen/Pelvis CT 08/03/17 1731 Signed Impressions: Service Date/Time: Thursday, August 03, 2017 18:24 - CONCLUSION: There is narrowing of the second portion of the duodenum causing gastric outlet obstruction with significant inflammation surrounding the duodenal wall as described above in the right upper outer quadrant. Possibility of a ruptured peptic ulcer disease should be entertained and there is obstruction to the distal common bile duct and pancreatic duct as a result. Underlying neoplastic process or malignancy is difficult to exclude in this time. Susana Reeves MD Objective Remarks GENERAL: Patient sitting up in bed. Well-developed and well-nourished SKIN: Warm and dry. CARDIOVASCULAR: Regular rate and rhythm without murmurs, gallops, or rubs. RESPIRATORY: Breath sounds equal bilaterally. No accessory muscle use. GASTROINTESTINAL: Abdomen soft. abdomen distended today. Tender upper quadrants. No rebound or guarding. MUSCULOSKELETAL: No cyanosis, or edema. BACK: Nontender without obvious deformity. No CVA tenderness. Alert and oriented Procedures EGD 08/04/17 showing reflux esophagitis, duodenal stricture and edema A/P Problem List: (1) Pancreatitis ICD Code: K85.90 - Acute pancreatitis without necrosis or infection, unspecified Status: Acute (2) Emphysema, unspecified ICD Code: J43.9 - Emphysema, unspecified Status: Chronic (3) Alcohol abuse ICD Code: F10.10 - Alcohol abuse, uncomplicated Status: Chronic Assessment and Plan 61 YO AAM with history of alcohol abuse admitted for pancreatitis. Alcohol pancreatitis Gastric outlet obstruction secondary to duodenal swelling/esophagitis pathology without cancer Continues to have significant pain not able to advance diet. Continue PPI, IV hydration and pain management start p.o. pain medicines with as needed IV morphine counseled regarding narcotics. Start Creon. discussed with GS and GI. CA-19-9 likely secondary to pancreatitis but will obtain MRCP. Emphysema. Stable continue nebulizations h/o Prostate CA. Stable, continue home meds DVT Prophylaxis. SCDs. Ambulating Discharge Planning Not stable for discharge still with significant abdominal pain unable to advance diet. Consult PT and case management Problem Qualifiers (1) Pancreatitis: Qualified Codes: K85.90 - Acute pancreatitis without necrosis or infection, unspecified (2) Emphysema, unspecified: Qualified Codes: J43.9 - Emphysema, unspecified Danyel Salas MD Aug 13, 2017 10:34
--- NOTE | 2017-08-13 11:41 | HHI.PR ---
Subjective Subjective Notes He is tolerating liquids of this morning he felt like it was going to come back up. He sat upright and Swallowing and is able to keep it down. His abdomen remains uncomfortable to palpation. He indicates he is having bowel function but he alternates constipation and some liquid diarrhea. He is concerned if he goes home is not really a good environment for him to avoid fatty foods and alcohol. He says if he is on his own he will be eaten hamburgers and drinking beer. He is interested in some sort of rehab situation where his diet will be monitored. Objective Vitals/I&O Vital Signs Date Time Temp Pulse Resp B/P (MAP) Pulse Ox O2 Delivery O2 Flow Rate FiO2 08/13/17 08:00 97.2 99 19 135/93 (107) 100 08/10/17 18:01 21 Narrative Exam His abdomen is diffusely distended and diffusely mildly tender. There is no rebound or guarding. A/P Assessment and Plan Gastric outlet narrowing duodenal erythema thought to be related to acute pancreatitis. This appears to be alcohol related. The patient is interested in pursuing some sort of environment where he is nutritional status can be monitored and he can be supported. I am unsure that there is anything available for him. At this time he is tolerating a liquid diet. He continues to still have abdominal pain related to his pancreatitis. No acute surgical intervention is indicated. Raul Oneill MD Aug 13, 2017 11:41
--- NOTE | 2017-08-13 11:56 | HHI.GIFU ---
Subjective Remarks Resting in the bed awake, talkative Complains of generalized abdominal pain with some guarding to light palpation. Especially tender right upper quadrant mid abdomen, and left lower quadrant. Decreased appetite Afebrile (Betsey Weinstein) Objective Vitals I&O Vital Signs Date Time Temp Pulse Resp B/P (MAP) Pulse Ox O2 Delivery O2 Flow Rate FiO2 08/13/17 08:00 97.2 99 19 135/93 (107) 100 08/13/17 04:00 97.5 83 18 120/77 (91) 96 08/13/17 03:39 82 08/12/17 23:35 76 08/12/17 20:00 96.8 97 17 118/77 (91) 100 08/12/17 20:00 97.1 81 18 129/93 (105) 99 08/12/17 16:00 96.6 98 16 133/88 (103) 97 08/12/17 12:00 97.2 99 16 130/79 (96) 100 I/O 08/12/17 08/12/17 08/12/17 08/13/17 08/13/17 08/13/17 07:00 15:00 23:00 07:00 15:00 23:00 Intake Total 1000 ml 1960 ml 1560 ml Output Total 950 ml 650 ml Balance 1000 ml 1010 ml 910 ml Intake Oral 960 ml 240 ml IV Total 1000 ml 1000 ml 1320 ml Output Urine Total 950 ml 650 ml # Voids 1 2 # Bowel Movements 0 0 Laboratory Laboratory Tests Test 08/12/17 05:33 08/12/17 05:35 Blood Urea Nitrogen 3 MG/DL Creatinine 0.60 MG/DL Random Glucose 92 MG/DL Total Protein 7.7 GM/DL Albumin 2.8 GM/DL Calcium Level 8.2 MG/DL Magnesium Level 1.9 MG/DL Alkaline Phosphatase 72 U/L Aspartate Amino Transf (AST/SGOT) 14 U/L Alanine Aminotransferase (ALT/SGPT) 9 U/L Total Bilirubin 0.2 MG/DL Sodium Level 139 MEQ/L Potassium Level 3.5 MEQ/L Chloride Level 107 MEQ/L Carbon Dioxide Level 26.8 MEQ/L Anion Gap 5 MEQ/L Estimat Glomerular Filtration Rate 167 ML/MIN Lipase 661 U/L White Blood Count 4.6 TH/MM3 Red Blood Count 3.39 MIL/MM3 Hemoglobin 8.4 GM/DL Hematocrit 26.2 % Mean Corpuscular Volume 77.3 FL Mean Corpuscular Hemoglobin 24.7 PG Mean Corpuscular Hemoglobin Concent 31.9 % Red Cell Distribution Width 19.8 % Platelet Count 651 TH/MM3 Mean Platelet Volume 8.1 FL Neutrophils (%) (Auto) 55.2 % Lymphocytes (%) (Auto) 31.8 % Monocytes (%) (Auto) 10.3 % Eosinophils (%) (Auto) 1.9 % Basophils (%) (Auto) 0.8 % Neutrophils # (Auto) 2.5 TH/MM3 Lymphocytes # (Auto) 1.5 TH/MM3 Monocytes # (Auto) 0.5 TH/MM3 Eosinophils # (Auto) 0.1 TH/MM3 Basophils # (Auto) 0.0 TH/MM3 CBC Comment DIFF FINAL Differential Comment Imaging Last Impressions Upper GI Series 08/11/17 0000 Signed Impressions: Service Date/Time: July 10:26 - CONCLUSION: 1. There is an abrupt transition in diameter between the distended duodenal bulb and 2nd portion of the duodenum. 2. No ulceration or mass seen in the stomach; there is loss of rugal folds. 3. Small Zenker's diverticulum. Jaime Charles MD Abdomen X-Ray 08/10/17 0000 Signed Impressions: Service Date/Time: Thursday, August 10, 2017 11:22 - CONCLUSION: Nonspecific a benign abdomen appearance. Deandre Tobar MD Abdomen/Pelvis CT 08/03/17 1731 Signed Impressions: Service Date/Time: Thursday, August 03, 2017 18:24 - CONCLUSION: There is narrowing of the second portion of the duodenum causing gastric outlet obstruction with significant inflammation surrounding the duodenal wall as described above in the right upper outer quadrant. Possibility of a ruptured peptic ulcer disease should be entertained and there is obstruction to the distal common bile duct and pancreatic duct as a result. Underlying neoplastic process or malignancy is difficult to exclude in this time. Susana Reeves MD Physical Exam HEENT: PERRL; normocephalic; atraumatic; oral cavity clean CHEST: Low volumes but lungs essentially clear CARDIAC: RRR ABDOMEN: Soft,mildly distended, generalized gastric, left lower quadrant, right upper quadrant generalized discomfort with some guarding to light palpation, bowel sounds are present in all four quadrants. EXTREMITIES: No clubbing, cyanosis, or edema. SKIN: Dry, thin turgor no rash; no obvious jaundice. [employer]ROLE[employer] REFINING [employer]ER: No focal deficits; alert and oriented times three., Mild anxiety (Betsey Weinstein) Assessment and Plan Plan ASSESSMENT - Initially had epigastric pain, n/v, coffee ground emesis, melanotic stool on admission- gastric outlet obstruction with UGIB, CBD obstruction, obstruction pancreatic duct seen on CT. Patient has been followed since admission with multiple specialties such as general surgery and GI - anemia - current hemoglobin 8.4 from previous admission hemoglobin is 9.5. denies any obvious bleeding - hx etoh abuse, and wants some assistance to quit he is requesting to talk to case management about going in a subacute for rehabilitation, so he is not a home - prostate ca s/p radiation, diagnosed 2 years ago, as seen his oncology doctor in one year 08/05/17 s/p EGD found reflux esophagitis, duodenal erythema and edema likely 2/ 2 pancreatitis. Lipase 661 CA 19-9 elevated 08/13/17 patient continues to have diffuse generalized abdominal pain to the point that he is unable to tolerate even light palpation. Decreased appetite. Discussed plan of care with Dr. Neff PLAN - MRCP today, comparison to initial CT that was done on admission needed - Pain management per attending - Monitor for any acute bleeding episodes - monitor labs - Continue Creon, Protonix, Carafate - Bowel regimen - Consider case management for assistance when patient gets ready to leave hospital - pt seen by myself and Dr Charles, note is written on his behalf (Betsey Weinstein) Plan patient was seen and examined, agree with above note, await MRCP results, and further paln depends on that (Estephania Charles MD) Betsey Weinstein Aug 13, 2017 11:56 Estephania Charles MD Aug 13, 2017 18:32
[2017-08-13] MEDS: ACETAMINOPHEN/HYDROcodone 325 MG/7.5 MG TAB PO PRN ×2 (13:34→18:07)
[2017-08-14] VITALS (9 sets, daily range): BP systolic 93–125; BP diastolic 70–93; PULSE 77–105; RESP 17–18; TEMP 97.4–98.9; O2SAT 98–100
[2017-08-14] MEDS ORDERED: GADODIAMIDE PF 287 MG/ML 20 ML VIAL (for RAD MRI) IVCONTRAST ONE (07:38)
[2017-08-14 08:18] LABS: BASOPHIL # 0.1 TH/MM3 (0-0.2); BASOPHIL % 1.3 % (0.0-2.0); EOSINOPHIL # 0.1 TH/MM3 (0-0.4); EOSINOPHIL % 1.5 % (0.0-4.0); HEMATOCRIT 27.7 % (39.0-51.0); HEMOGLOBIN 8.6 GM/DL (13.0-17.0); LYMPH % 27.3 % (9.0-44.0); LYMPHOCYTE # 1.8 TH/MM3 (1.0-4.8); MEAN CELL VOLUME 77.2 FL (80.0-100.0); MEAN CORPUSCULAR HEMOGLOBIN 24.1 PG (27.0-34.0); MEAN CORPUSCULAR HGB CONC 31.2 % (32.0-36.0); MEAN PLATELET VOLUME 8.3 FL (7.0-11.0); MONO % 11.4 % (0.0-8.0); MONOCYTE # 0.8 TH/MM3 (0-0.9); NEUT % 58.5 % (16.0-70.0); PLATELET COUNT 829 TH/MM3 (150-450); RED BLOOD COUNT 3.59 MIL/MM3 (4.50-5.90); RED CELL DISTRIBUTION WIDTH 19.4 % (11.6-17.2); WHITE BLOOD COUNT 6.8 TH/MM3 (4.0-11.0)
[2017-08-14] MEDS: PANTOPRAZOLE SOD 40 MG DELAYED RELEASE TAB PO SCH ×2 (08:32→20:08)
[2017-08-14] MEDS: DOCUSATE SODIUM 50 MG/SENNA 8.6 MG TAB PO SCH ×2 (08:32→20:08)
[2017-08-14] MEDS: SODIUM CHLORIDE 0.9% FLUSH 10 ML FLUSH IV FLUSH SCH ×2 (08:32→20:11)
[2017-08-14] MEDS: SUCRALFATE 1 GM/10 ML CUP PO SCH ×4 (08:32→20:08)
[2017-08-14] MEDS: LIPASE/PROTEASE/AMYLASE (24,000/76,000/120,000) CAP PO SCH ×3 (08:35→17:33)
--- NOTE | 2017-08-14 08:38 | RADRPT ---
EXAM DATE/TIME: 08/14/2017 07:32 [facility] COMPARISON: UPPER GI SERIES WITH KUB HALL MANAGER, August 11, 2017, 10:26. CT ABDOMEN & PELVIS W CONTRAST, July [id number], 18:24. INDICATIONS : Abdominal pain. CONTRAST: 13 cc Omniscan (gadodiamide) IV MEDICAL HISTORY : Carcinoma, prostate. SURGICAL HISTORY : None. ENCOUNTER: Subsequent ACUITY: 3 weeks PAIN SCORE: 3/10 LOCATION: Right upper quadrant TECHNIQUE: Multiplanar, multisequence magnetic resonance imaging of the abdomen was performed. High-resolution 3D dataset was utilized to reconstruct maximum-intensity projection (MIP) images. FINDINGS: INTRAHEPATIC BILE DUCTS: There is dilatation of central intrahepatic biliary duct special and the left measuring up to 1 cm. EXTRAHEPATIC BILE DUCTS: The common bile duct measures 1 cm. There is increased signal seen throughout the bili system on the T1-weighted images. On the T2 image there appears to be a fluid fluid level within the common bile du ct status and is likely some hemorrhage within the duct. A filling defect is not clearly seen. GALLBLADDER: The gallbladder is distended. Gallbladder wall appears thickened. There is fluid seen around the gall bladder. Gallstones are not seen. LIVER: Other than the intrahepatic biliary duct dilatation, the liver appears otherwise normal. PANCREAS: The pancreatic duct is dilated measuring 6 mm. The pancreatic duct within the pancreatic body appears to have a mildly beaded appearance. OTHER: There is thickening of the second portion the duodenum. There is edema and suspect inflammatory jung e surrounding this region and extending into the right lateral abdomen into the right paracolic gutte r region. CONCLUSION: Thickening of the second portion the duodenum likely secondary to edema and inflammation if the patie nt has an ulcer or other inflammatory condition versus a neoplasm. A neoplasm cannot select some ulce ration which could be due to the inflammatory change extending into the right abdomen. This area shou ld be directly inspected. There is dilatation of the pancreatic and biliary ducts likely secondary to obstruction at the level of the ampulla. There is a fluid fluid level within the biliary duct system likely related to some degree of hemorrhage within the biliary system. Deandre Ware MD on August 14, 2017 at 8:24 Board Certified Radiologist. This report was verified electronically.
[2017-08-14 08:40] LABS: BICARBONATE 27.8 MEQ/L (21.0-32.0); CALCIUM 8.4 MG/DL (8.5-10.1); CREATININE 0.61 MG/DL (0.60-1.30); MAGNESIUM 1.5 MG/DL (1.5-2.5)
--- NOTE | 2017-08-14 08:56 | HHI.PR ---
Subjective Subjective Notes tolerating liquids, no emesis. BM yesterday. painful but meds help. Objective Vitals/I&O Vital Signs Date Time Temp Pulse Resp B/P (MAP) Pulse Ox O2 Delivery O2 Flow Rate FiO2 08/14/17 08:00 97.4 105 18 101/78 (86) 99 08/10/17 18:01 21 Labs Laboratory Tests Test 08/14/17 07:13 White Blood Count 6.8 Red Blood Count 3.59 Hemoglobin 8.6 Hematocrit 27.7 Mean Corpuscular Volume 77.2 Mean Corpuscular Hemoglobin 24.1 Mean Corpuscular Hemoglobin Concent 31.2 Red Cell Distribution Width 19.4 Platelet Count 829 Mean Platelet Volume 8.3 Neutrophils (%) (Auto) 58.5 Lymphocytes (%) (Auto) 27.3 Monocytes (%) (Auto) 11.4 Eosinophils (%) (Auto) 1.5 Basophils (%) (Auto) 1.3 Neutrophils # (Auto) 4.0 Lymphocytes # (Auto) 1.8 Monocytes # (Auto) 0.8 Eosinophils # (Auto) 0.1 Basophils # (Auto) 0.1 CBC Comment DIFF FINAL Differential Comment Blood Urea Nitrogen 3 Creatinine 0.61 Random Glucose 85 Calcium Level 8.4 Magnesium Level 1.5 Sodium Level 137 Potassium Level 3.4 Chloride Level 102 Carbon Dioxide Level 27.8 Anion Gap 7 Estimat Glomerular Filtration Rate 163 Lipase 551 Abdomen: Non-distended Narrative Exam mild tenderness, no R/G A/P Assessment and Plan GOO secondary to duodenal edema secondary to pancreatitis no surgical intervention required. recommend medical management, supportive care will sign off, please call with any concerns or questions. thanks! Abraham Dunn MD Aug 14, 2017 08:56
[2017-08-14] MEDS ORDERED: PANT40TA3 PO (10:33)
[2017-08-14] MEDS ORDERED: CREON24 PO (10:33)
[2017-08-14] MEDS ORDERED: PERI PO (10:33)
[2017-08-14] MEDS ORDERED: HYDR-3580 PO (10:33)
--- NOTE | 2017-08-14 10:33 | HHI.DCPOC ---
Discharge Care Plan Diagnosis: (1) Pancreatitis Your Health Problems Are: Difficulty with ADL Exercise Tolerance Goals to Promote Your Health * To prevent worsening of your condition and complications * To maintain your health at the optimal level Directions to Meet Your Goals Take your medications as prescribed Follow your dietary instruction Follow activity as directed Keep your appointments as scheduled Take your immunizations and boosters as scheduled If your symptoms worsen call your PCP, if no PCP go to Urgent Care Center or Emergency Room Smoking is Dangerous to Your Health. Avoid second hand smoke Call the 24-hour hour crisis hotline for domestic abuse at Danyel Salas MD Aug 14, 2017 10:33
--- NOTE | 2017-08-14 10:41 | HHI.PR ---
Subjective Remarks Follow-up pancreatitis. Feels better with improved pain scale of 5 out of 10 tolerating full liquid diet. He wants rehabilitation discussed with case management and nursing. He does not want repeat endoscopy at this time if recommended. Objective Vitals Vital Signs Date Time Temp Pulse Resp B/P (MAP) Pulse Ox O2 Delivery O2 Flow Rate FiO2 08/14/17 08:00 97.4 105 18 101/78 (86) 99 08/14/17 04:00 85 08/14/17 03:34 97.9 77 18 113/93 (100) 100 08/14/17 00:32 102 08/13/17 23:10 98.0 75 18 101/72 (82) 99 08/13/17 20:01 99.2 78 17 121/95 (104) 95 08/13/17 20:00 121 08/13/17 16:00 98.1 98 18 128/89 (102) 99 08/13/17 16:00 100 08/13/17 12:00 94 08/13/17 11:43 98.4 100 17 127/88 (101) 99 I/O 08/13/17 08/13/17 08/13/17 08/14/17 08/14/17 08/14/17 07:00 15:00 23:00 07:00 15:00 23:00 Intake Total 1560 ml 360 ml 360 ml 1349 ml Output Total 650 ml 1000 ml 600 ml Balance 910 ml -640 ml 360 ml 749 ml Intake Oral 240 ml 360 ml 360 ml 360 ml IV Total 1320 ml 989 ml Output Urine Total 650 ml 1000 ml 600 ml # Voids 2 # Bowel Movements 0 0 0 0 Result Diagram: 08/14/17 0708/14/17 07 Imaging Last Impressions Upper GI Series 08/11/17 0000 Signed Impressions: Service Date/Time: July 10:26 - CONCLUSION: 1. There is an abrupt transition in diameter between the distended duodenal bulb and 2nd portion of the duodenum. 2. No ulceration or mass seen in the stomach; there is loss of rugal folds. 3. Small Zenker's diverticulum. Jaime Charles MD Abdomen X-Ray 08/10/17 0000 Signed Impressions: Service Date/Time: Thursday, August 10, 2017 11:22 - CONCLUSION: Nonspecific a benign abdomen appearance. Deandre Tobar MD Abdomen/Pelvis CT 08/03/17 1731 Signed Impressions: Service Date/Time: Thursday, August 03, 2017 18:24 - CONCLUSION: There is narrowing of the second portion of the duodenum causing gastric outlet obstruction with significant inflammation surrounding the duodenal wall as described above in the right upper outer quadrant. Possibility of a ruptured peptic ulcer disease should be entertained and there is obstruction to the distal common bile duct and pancreatic duct as a result. Underlying neoplastic process or malignancy is difficult to exclude in this time. Susana Reeves MD Objective Remarks GENERAL: Patient sitting up in bed. Well-developed and well-nourished SKIN: Warm and dry. CARDIOVASCULAR: Regular rate and rhythm without murmurs, gallops, or rubs. RESPIRATORY: Breath sounds equal bilaterally. No accessory muscle use. GASTROINTESTINAL: Abdomen soft. Improved tenderness upper quadrants. No rebound or guarding. MUSCULOSKELETAL: No cyanosis, or edema. BACK: Nontender without obvious deformity. No CVA tenderness. Alert and oriented Procedures EGD 08/04/17 showing reflux esophagitis, duodenal stricture and edema A/P Problem List: (1) Pancreatitis ICD Code: K85.90 - Acute pancreatitis without necrosis or infection, unspecified Status: Acute (2) Emphysema, unspecified ICD Code: J43.9 - Emphysema, unspecified Status: Chronic (3) Alcohol abuse ICD Code: F10.10 - Alcohol abuse, uncomplicated Status: Chronic Assessment and Plan 61 YO AAM with history of alcohol abuse admitted for pancreatitis. Alcohol pancreatitis Gastric outlet obstruction secondary to duodenal swelling/esophagitis s/p EGD pathology without cancer CA-19-9 likely secondary to pancreatitis. MRCP with thickening of the second portion the duodenum likely secondary to edema and inflammation if the patient has an ulcer or other inflammatory condition versus a neoplasm. There is dilatation of the pancreatic and biliary ducts likely secondary to obstruction at the level of the ampulla. There is a fluid fluid level within the biliary duct system likely related to some degree of hemorrhage within the biliary system. EGD with Mild reflux esophagitis and duodenal erythema with edema causing narrowing of the lumen contribution to outlet obstruction most likely secondary to the pancreatitis -Improving pain and tolerating current diet. Continue Creon, PPI, IV hydration and pain management counseled regarding narcotics. Advance diet as tolerated. Emphysema. Stable continue nebulizations h/o Prostate CA. Stable, continue home meds DVT Prophylaxis. SCDs. Ambulating Discharge Planning Dc to rehab if cleared by GI pending PT Problem Qualifiers (1) Pancreatitis: Qualified Codes: K85.90 - Acute pancreatitis without necrosis or infection, unspecified (2) Emphysema, unspecified: Qualified Codes: J43.9 - Emphysema, unspecified Danyel Salas MD Aug 14, 2017 10:41
[2017-08-14] MEDS ORDERED: POTASSIUM CHLORIDE 10 MEQ CONTROLLED RELEASE TAB PO ONE (11:00)
--- NOTE | 2017-08-14 13:35 | HHI.GIFU ---
Subjective Remarks Up in the bed talking to family members smiling and laughing Family is given him a motional support to do the right thing and get what ever medical treatment he needs to feel better Abdomen taut, no current complaints of nausea or vomiting Afebrile (Betsey Weinstein) Objective Vitals I&O Vital Signs Date Time Temp Pulse Resp B/P (MAP) Pulse Ox O2 Delivery O2 Flow Rate FiO2 08/14/17 12:02 97.7 90 17 103/70 (81) 99 08/14/17 08:00 97.4 105 18 101/78 (86) 99 08/14/17 04:00 85 08/14/17 03:34 97.9 77 18 113/93 (100) 100 08/14/17 00:32 102 08/13/17 23:10 98.0 75 18 101/72 (82) 99 08/13/17 20:01 99.2 78 17 121/95 (104) 95 08/13/17 20:00 121 08/13/17 16:00 98.1 98 18 128/89 (102) 99 08/13/17 16:00 100 I/O 08/13/17 08/13/17 08/13/17 08/14/17 08/14/17 08/14/17 07:00 15:00 23:00 07:00 15:00 23:00 Intake Total 1560 ml 360 ml 360 ml 1349 ml Output Total 650 ml 1000 ml 600 ml Balance 910 ml -640 ml 360 ml 749 ml Intake Oral 240 ml 360 ml 360 ml 360 ml IV Total 1320 ml 989 ml Output Urine Total 650 ml 1000 ml 600 ml # Voids 2 # Bowel Movements 0 0 0 0 Laboratory Laboratory Tests Test 08/14/17 07:13 White Blood Count 6.8 Red Blood Count 3.59 Hemoglobin 8.6 Hematocrit 27.7 Mean Corpuscular Volume 77.2 Mean Corpuscular Hemoglobin 24.1 Mean Corpuscular Hemoglobin Concent 31.2 Red Cell Distribution Width 19.4 Platelet Count 829 Mean Platelet Volume 8.3 Neutrophils (%) (Auto) 58.5 Lymphocytes (%) (Auto) 27.3 Monocytes (%) (Auto) 11.4 Eosinophils (%) (Auto) 1.5 Basophils (%) (Auto) 1.3 Neutrophils # (Auto) 4.0 Lymphocytes # (Auto) 1.8 Monocytes # (Auto) 0.8 Eosinophils # (Auto) 0.1 Basophils # (Auto) 0.1 CBC Comment DIFF FINAL Differential Comment Blood Urea Nitrogen 3 Creatinine 0.61 Random Glucose 85 Calcium Level 8.4 Magnesium Level 1.5 Sodium Level 137 Potassium Level 3.4 Chloride Level 102 Carbon Dioxide Level 27.8 Anion Gap 7 Estimat Glomerular Filtration Rate 163 Lipase 551 Imaging Last Impressions Cholangiopancreatography MRI 08/14/17 0000 Signed Impressions: Service Date/Time: Monday, August 14, 2017 07:32 - CONCLUSION: Thickening of the second portion the duodenum likely secondary to edema and inflammation if the patient has an ulcer or other inflammatory condition versus a neoplasm. A neoplasm cannot select some ulceration which could be due to the inflammatory change extending into the right abdomen. This area should be directly inspected. There is dilatation of the pancreatic and biliary ducts likely secondary to obstruction at the level of the ampulla. There is a fluid fluid level within the biliary duct system likely related to some degree of hemorrhage within the biliary system. Deandre Ware MD Upper GI Series 08/11/17 0000 Signed Impressions: Service Date/Time: July 10:26 - CONCLUSION: 1. There is an abrupt transition in diameter between the distended duodenal bulb and 2nd portion of the duodenum. 2. No ulceration or mass seen in the stomach; there is loss of rugal folds. 3. Small Zenker's diverticulum. Jaime Charles MD Abdomen X-Ray 08/10/17 0000 Signed Impressions: Service Date/Time: Thursday, August 10, 2017 11:22 - CONCLUSION: Nonspecific a benign abdomen appearance. Deandre Tobar MD Abdomen/Pelvis CT 08/03/17 1731 Signed Impressions: Service Date/Time: Thursday, August 03, 2017 18:24 - CONCLUSION: There is narrowing of the second portion of the duodenum causing gastric outlet obstruction with significant inflammation surrounding the duodenal wall as described above in the right upper outer quadrant. Possibility of a ruptured peptic ulcer disease should be entertained and there is obstruction to the distal common bile duct and pancreatic duct as a result. Underlying neoplastic process or malignancy is difficult to exclude in this time. Susana Reeves MD Physical Exam HEENT: PERRL; normocephalic; atraumatic; oral cavity clear without food particles CHEST: Low volumes but lungs essentially clear CARDIAC: RRR ABDOMEN: Soft,mildly distended, , left lower quadrant, mild generalized discomfort, bowel sounds are present in all four quadrants. EXTREMITIES: No clubbing, cyanosis, or edema. SKIN: Dry, thin turgor no rash; no obvious jaundice. COMEDIAN: No focal deficits; alert and oriented times three., Mild anxiety (Betsey Weinstein) Assessment and Plan Plan Assessment and Plan Plan ASSESSMENT - Initially had epigastric pain, n/v, coffee ground emesis, melanotic stool on admission- gastric outlet obstruction with UGIB, CBD obstruction, obstruction pancreatic duct seen on CT. Patient has been followed since admission with multiple specialties such as general surgery and GI - anemia - probable secondary to chronic disease. denies any obvious bleeding. Current hemoglobin 8.6. - hx etoh abuse, assistance to quit he is requesting to talk to case management about going in a subacute for rehabilitation, so he is not a home - prostate ca s/p radiation, diagnosed 2 years ago, as seen his oncology doctor in one year 08/05/17 s/p EGD found reflux esophagitis, duodenal erythema and edema likely 2/ 2 pancreatitis. CA 19-9 elevated 08/13/17 MRCP thickening of the second portion of the duodenum secondary to edema and inflammation if patient has an ulcer or other inflammatory conditions versus a neoplasm. A neoplasm cannot select some ulceration which could be due to inflammatory change extending into the right abdomen. This area should be directly inspected. Dilatation of the pancreatic and biliary ducts likely secondary to obstruction at the level of the ampulla there is a fluid level within the biliary duct system likely related to some degree of hemorrhage within the biliary system. Patient is willing to do whatever testing is needed to make him feel better although he was hesitant this a.m. when talking to his meeting physician. Family is now supporting him to stay in the hospital continue with care as needed. PLAN - Diet as tolerated - Monitor for any acute bleeding episodes -Transfuse if needed - monitor labs - Continue Creon, Protonix, Carafate - Bowel regimen - MRCP done recommendations to follow, possible ERCP TBA - Consider case management for assistance when patient gets ready to leave hospital - pt seen by myself and Dr Charles, note is written on his behalf (Betsey Weinstein) Plan Patient was seen and examined, agree with above-noted, because of the finding on the MRI scan I'm going to do an upper endoscopy to evaluate the duodenum and the ampulla, further plan depends on the finding, patient may need an ERCP and he will need repeat tumor markers in few months (Estephania Charles MD) Betsey Weinstein Aug 14, 2017 13:35 Estephania Charles MD Aug 14, 2017 17:19
[2017-08-14] MEDS: ACETAMINOPHEN/HYDROcodone 325 MG/7.5 MG TAB PO PRN (18:18)
[2017-08-14] MEDS: DEXT 5%-NACL 0.45% 1000 ML INJ 1,000 ML IV SCH (18:18)
[2017-08-14] MEDS: MORPHINE SULFATE 2 MG/ML INJ IV PUSH PRN (22:45)
[2017-08-15 03:25] VITALS: BP 93/58; PULSE 81; RESP 17; TEMP 97.6; O2SAT 100
[2017-08-15] MEDS ORDERED: POVIDONE IODINE 5% (ANTISEPSIS KIT) 4 APPLICATIONS EACH NARE PRN (05:00)
[2017-08-15] MEDS ORDERED: CHLORHEXIDINE GLUCONATE 2 % 1 PACK (2 CLOTHS) TOPICAL PRN (05:00)
[2017-08-15] MEDS ORDERED: METOPROLOL TARTRATE 25 MG TAB PO PRN (05:00)
[2017-08-15] MEDS ORDERED: LACTATED RINGER'S 1000 ML IV PRN (05:00)
[2017-08-15 08:00] VITALS: BP 97/64; PULSE 87; RESP 16; TEMP 97.4; O2SAT 99
[2017-08-15] MEDS: DOCUSATE SODIUM 50 MG/SENNA 8.6 MG TAB PO SCH ×2 (08:05→20:49)
[2017-08-15] MEDS: LIPASE/PROTEASE/AMYLASE (24,000/76,000/120,000) CAP PO SCH ×3 (08:05→17:13)
[2017-08-15] MEDS: SUCRALFATE 1 GM/10 ML CUP PO SCH ×4 (08:05→20:48)
[2017-08-15] MEDS: PANTOPRAZOLE SOD 40 MG DELAYED RELEASE TAB PO SCH ×2 (08:05→20:48)
[2017-08-15] MEDS: ACETAMINOPHEN/HYDROcodone 325 MG/7.5 MG TAB PO PRN ×3 (08:40→18:05)
[2017-08-15] MEDS: SODIUM CHLORIDE 0.9% FLUSH 10 ML FLUSH IV FLUSH SCH ×2 (09:00→20:50)
[2017-08-15] MEDS ORDERED: SUCCINYLCHOLINE CHLORIDE 100 MG/5 ML SYRINGE IV PUSH ONE (12:00)
[2017-08-15] MEDS ORDERED: PROPOFOL 200 MG/20 ML AMP IV ONE (12:00)
[2017-08-15] MEDS ORDERED: LIDOCAINE HCL 1% PF 5 ML SYRINGE OTHER ONE (12:00)
[2017-08-15] MEDS ORDERED: PHENYLEPH/NS 1000 MCG/10 ML SYR IV ONE (12:00)
[2017-08-15] MEDS: DEXT 5%-NACL 0.45% 1000 ML INJ 1,000 ML IV SCH (13:13)
[2017-08-15] MEDS ORDERED: DO NOT ADM ANY ANTICOAGULANT DRUGS PRN (14:30)
--- NOTE | 2017-08-15 15:37 | HHI.GIFU ---
Subjective Remarks Sitting up in bed eating apple Appetite back to his norm denies any nausea or vomiting Afebrile BM today normal brown consistency Objective Vitals I&O Vital Signs Date Time Temp Pulse Resp B/P (MAP) Pulse Ox O2 Delivery O2 Flow Rate FiO2 08/15/17 13:41 98.0 81 21 128/89 (102) 97 Room Air 08/15/17 13:30 80 12 117/84 (95) 97 Room Air 08/15/17 13:15 82 13 116/81 (93) 94 Room Air 08/15/17 13:00 97.9 85 17 112/75 (87) 97 Room Air 08/15/17 08:00 97.4 87 16 97/64 (75) 99 08/15/17 03:25 97.6 81 17 93/58 (70) 100 08/14/17 23:12 97.4 81 17 125/91 (102) 100 08/14/17 20:05 105 08/14/17 18:57 98.9 105 18 115/84 (94) 98 08/14/17 16:04 97.7 97 18 93/70 (78) 100 I/O 08/14/17 08/14/17 08/14/17 08/15/17 08/15/17 08/15/17 07:00 15:00 23:00 07:00 15:00 23:00 Intake Total 1349 ml 900 ml 925 ml 480 ml 0 ml Output Total 600 ml 825 ml 200 ml 1200 ml 250 ml Balance 749 ml 75 ml 725 ml -720 ml -250 ml Intake Oral 360 ml 900 ml 480 ml 480 ml 0 ml IV Total 989 ml 445 ml 0 ml Output Urine Total 600 ml 825 ml 200 ml 1200 ml 250 ml # Voids 3 # Bowel Movements 0 1 2 0 Laboratory Laboratory Tests Test 08/14/17 07:13 White Blood Count 6.8 TH/MM3 Red Blood Count 3.59 MIL/MM3 Hemoglobin 8.6 GM/DL Hematocrit 27.7 % Mean Corpuscular Volume 77.2 FL Mean Corpuscular Hemoglobin 24.1 PG Mean Corpuscular Hemoglobin Concent 31.2 % Red Cell Distribution Width 19.4 % Platelet Count 829 TH/MM3 Mean Platelet Volume 8.3 FL Neutrophils (%) (Auto) 58.5 % Lymphocytes (%) (Auto) 27.3 % Monocytes (%) (Auto) 11.4 % Eosinophils (%) (Auto) 1.5 % Basophils (%) (Auto) 1.3 % Neutrophils # (Auto) 4.0 TH/MM3 Lymphocytes # (Auto) 1.8 TH/MM3 Monocytes # (Auto) 0.8 TH/MM3 Eosinophils # (Auto) 0.1 TH/MM3 Basophils # (Auto) 0.1 TH/MM3 CBC Comment DIFF FINAL Differential Comment Blood Urea Nitrogen 3 MG/DL Creatinine 0.61 MG/DL Random Glucose 85 MG/DL Calcium Level 8.4 MG/DL Magnesium Level 1.5 MG/DL Sodium Level 137 MEQ/L Potassium Level 3.4 MEQ/L Chloride Level 102 MEQ/L Carbon Dioxide Level 27.8 MEQ/L Anion Gap 7 MEQ/L Estimat Glomerular Filtration Rate 163 ML/MIN Lipase 551 U/L Imaging Last Impressions Cholangiopancreatography MRI 08/14/17 0000 Signed Impressions: Service Date/Time: Monday, August 14, 2017 07:32 - CONCLUSION: Thickening of the second portion the duodenum likely secondary to edema and inflammation if the patient has an ulcer or other inflammatory condition versus a neoplasm. A neoplasm cannot select some ulceration which could be due to the inflammatory change extending into the right abdomen. This area should be directly inspected. There is dilatation of the pancreatic and biliary ducts likely secondary to obstruction at the level of the ampulla. There is a fluid fluid level within the biliary duct system likely related to some degree of hemorrhage within the biliary system. Deandre Ware MD Upper GI Series 08/11/17 0000 Signed Impressions: Service Date/Time: July 10:26 - CONCLUSION: 1. There is an abrupt transition in diameter between the distended duodenal bulb and 2nd portion of the duodenum. 2. No ulceration or mass seen in the stomach; there is loss of rugal folds. 3. Small Zenker's diverticulum. Jaime Charles MD Abdomen X-Ray 08/10/17 0000 Signed Impressions: Service Date/Time: Thursday, August 10, 2017 11:22 - CONCLUSION: Nonspecific a benign abdomen appearance. Deandre Tobar MD Abdomen/Pelvis CT 08/03/17 1731 Signed Impressions: Service Date/Time: Thursday, August 03, 2017 18:24 - CONCLUSION: There is narrowing of the second portion of the duodenum causing gastric outlet obstruction with significant inflammation surrounding the duodenal wall as described above in the right upper outer quadrant. Possibility of a ruptured peptic ulcer disease should be entertained and there is obstruction to the distal common bile duct and pancreatic duct as a result. Underlying neoplastic process or malignancy is difficult to exclude in this time. Susana Reeves MD Physical Exam HEENT: PERRL; normocephalic; atraumatic; speech clear, no dysphasia CHEST: lungs essentially clear, no shortness of breath CARDIAC: RRR ABDOMEN: Taut, minimal distention, , left lower quadrant, mild generalized discomfort, bowel sounds are present in all four quadrants. EXTREMITIES: No clubbing, cyanosis, or edema. SKIN: Dry, thin turgor no rash; no obvious jaundice. TRAUMA COORDINATOR: No focal deficits; alert and oriented times three. Assessment and Plan Plan - Initially had epigastric pain, n/v, coffee ground emesis, melanotic stool on admission- gastric outlet obstruction with UGIB, CBD obstruction, obstruction pancreatic duct seen on CT. Patient has been followed since admission with multiple specialties such as general surgery and GI - anemia - probable secondary to chronic disease. denies any obvious bleeding. hemoglobin 8.6. - hx etoh abuse, assistance to quit he is requesting to talk to case management about going in a subacute for rehabilitation, so he is not a home - prostate ca s/p radiation, diagnosed 2 years ago, as seen his oncology doctor in one year 08/05/17 s/p EGD found reflux esophagitis, duodenal erythema and edema likely 2/ 2 pancreatitis. CA 19-9 elevated. Will need for repeating in 3 months 08/13/17 MRCP thickening of the second portion of the duodenum secondary to edema and inflammation if patient has an ulcer or other inflammatory conditions versus a neoplasm. A neoplasm cannot select some ulceration which could be due to inflammatory change extending into the right abdomen. This area should be directly inspected. Dilatation of the pancreatic and biliary ducts likely secondary to obstruction at the level of the ampulla there is a fluid level within the biliary duct system likely related to some degree of hemorrhage within the biliary system. Patient is willing to do whatever testing is needed to make him feel better although he was hesitant this a.m. when talking to his meeting physician. Family is now supporting him to stay in the hospital continue with care as needed. 08/14/17 patient feels like he's getting back to his norm, abdomen still taut, mildly distended but patient states he has been up in wheelchair increased activity today and has had no acute problems. Denies nausea vomiting diarrhea, normal BM today ERCP with consent, EGD/ERCP per Dr. Charles PLAN - Diet as tolerated, without any nausea or vomiting. States he is feels like he 's back to his norm - Monitor for any acute bleeding episodes -Transfuse if needed - monitor labs - Continue Creon, Protonix, Carafate - Bowel regimen, BM today normal - Nothing by mouth at midnight -ERCP, need consent, for EGD/ERCP per order. - Repeat tumor markers in 3 months - Consider case management for assistance when patient gets ready to leave hospital - pt seen by myself and Dr Charles, note is written on his behalf Betsey Weinstein Aug 15, 2017 15:37
[2017-08-15 16:00] VITALS: BP 118/84; PULSE 84; RESP 16; TEMP 97.8; O2SAT 94
[2017-08-15 17:39] VITALS: O2SAT 94
--- NOTE | 2017-08-15 19:45 | HHI.PR ---
Subjective Remarks Doing okay going for ERCP today No fever or acute event overnight Objective Vitals Vital Signs Date Time Temp Pulse Resp B/P (MAP) Pulse Ox O2 Delivery O2 Flow Rate FiO2 08/15/17 19:08 20 08/15/17 17:39 94 21 08/15/17 16:00 97.8 84 16 118/84 (95) 94 08/15/17 13:41 98.0 81 21 128/89 (102) 97 Room Air 08/15/17 13:30 80 12 117/84 (95) 97 Room Air 08/15/17 13:15 82 13 116/81 (93) 94 Room Air 08/15/17 13:00 97.9 85 17 112/75 (87) 97 Room Air 08/15/17 08:00 97.4 87 16 97/64 (75) 99 08/15/17 03:25 97.6 81 17 93/58 (70) 100 08/14/17 23:12 97.4 81 17 125/91 (102) 100 08/14/17 20:05 105 I/O 08/14/17 08/14/17 08/14/17 08/15/17 08/15/17 08/15/17 07:00 15:00 23:00 07:00 15:00 23:00 Intake Total 1349 ml 900 ml 925 ml 480 ml 0 ml Output Total 600 ml 825 ml 200 ml 1200 ml 250 ml 1400 ml Balance 749 ml 75 ml 725 ml -720 ml -250 ml -1400 ml Intake Oral 360 ml 900 ml 480 ml 480 ml 0 ml IV Total 989 ml 445 ml 0 ml Output Urine Total 600 ml 825 ml 200 ml 1200 ml 250 ml 1400 ml # Voids 3 # Bowel Movements 0 1 2 0 Result Diagram: 08/14/1713 08/14/17 0713 Objective Remarks GENERAL: This is a well-nourished, well-developed patient, in no apparent distress. SKIN: No rashes, warm and dry HEAD: Atraumatic. Normocephalic. EYES: Pupils equal round and reactive. Extraocular motions intact. No scleral icterus. ENT: Nose without bleeding, or drainage, Airway patent. NECK: Trachea midline. Supple CARDIOVASCULAR: Regular rate and rhythm without murmurs, gallops, or rubs. RESPIRATORY: Fair air entry bilaterally. No wheezes, rales, or rhonchi. GASTROINTESTINAL: Abdomen soft, mild tenderness epigastric, nondistended. Positive bowel sounds MUSCULOSKELETAL: Extremities without clubbing, cyanosis, or edema. Pedal pulses appreciated NEUROLOGICAL: Awake and alert. Moves all extremity. Normal speech.no focal neurological deficit Procedures EGD 08/04/17 showing reflux esophagitis, duodenal stricture and edema A/P Problem List: (1) Pancreatitis ICD Code: K85.90 - Acute pancreatitis without necrosis or infection, unspecified Status: Acute (2) Emphysema, unspecified ICD Code: J43.9 - Emphysema, unspecified Status: Chronic (3) Alcohol abuse ICD Code: F10.10 - Alcohol abuse, uncomplicated Status: Chronic Assessment and Plan 61 YO AAM with history of alcohol abuse admitted for pancreatitis. Alcohol pancreatitis Gastric outlet obstruction secondary to duodenal swelling/esophagitis pathology without cancer Continues to have significant pain not able to advance diet. Continue PPI, IV hydration and pain management start p.o. pain medicines with as needed IV morphine counseled regarding narcotics. Start Creon. discussed with [facility] and GI. CA-19-9 likely secondary to pancreatitis, going for MRCP today 08/15, follow with GI and [facility] Emphysema. Stable continue nebulizations h/o Prostate CA. Stable, continue home meds DVT Prophylaxis. SCDs. Ambulating Discharge Planning Not stable for discharge still with significant abdominal pain unable to advance diet. Consult PT and case management Problem Qualifiers (1) Pancreatitis: Qualified Codes: K85.90 - Acute pancreatitis without necrosis or infection, unspecified (2) Emphysema, unspecified: Qualified Codes: J43.9 - Emphysema, unspecified Raul Madrigal MD Aug 15, 2017 19:45
[2017-08-15 20:00] VITALS: PULSE 118
[2017-08-16] VITALS (8 sets, daily range): BP systolic 92–121; BP diastolic 63–86; PULSE 78–98; RESP 15–18; TEMP 96.1–97.9; O2SAT 95–99
--- NOTE | 2017-08-16 07:32 | PD.PROCEDR ---
GI Procedure 08/15/17 PROCEDURE PERFORMED egd WITH bX INDICATION FOR PROCEDURE abnormal Ct scan of the duodenum PROCEDURE: The procedure, risks and benefits were discussed with Mr. Anderson and informed consent was obtained. Anesthesia sedated him with Diprivan. He was placed in the left lateral decubitus position. EGD: The Pentax side view videoscope was introduced through the oropharynx and advanced to the second portion of the duodenum under direct visualization. Retroflexion was performed in the stomach.then regular Pentax scope was videoscope was introduced through the oropharynx and advanced to the second portion of the duodenum under direct visualization. Retroflexion was performed in the stomach, the withdrawal was done without any complications Bx from duodenum was performed FINDINGS: prominent thick ulcerated folds in the duodenum Bx done ampulla was normal so ERCP was not performed ESTIMATED BLOOD LOSS: none SPECIMENS REMOVED: duodenum COMPLICATIONS: none IMPRESSION: prominent thick ulcerated folds in the duodenum Bx done ampulla was normal so ERCP was not performed PLAN: await Bx results contniue PPI clear liquid diet Estephania Charles MD Aug 16, 2017 07:32
[2017-08-16] MEDS: DOCUSATE SODIUM 50 MG/SENNA 8.6 MG TAB PO SCH ×2 (08:07→20:34)
[2017-08-16] MEDS: PANTOPRAZOLE SOD 40 MG DELAYED RELEASE TAB PO SCH ×2 (08:07→20:34)
[2017-08-16] MEDS: SUCRALFATE 1 GM/10 ML CUP PO SCH ×4 (08:07→20:34)
[2017-08-16] MEDS: LIPASE/PROTEASE/AMYLASE (24,000/76,000/120,000) CAP PO SCH ×3 (08:07→18:26)
[2017-08-16] MEDS: ACETAMINOPHEN/HYDROcodone 325 MG/7.5 MG TAB PO PRN ×3 (08:07→18:22)
[2017-08-16] MEDS: SODIUM CHLORIDE 0.9% FLUSH 10 ML FLUSH IV FLUSH SCH ×2 (09:00→20:34)
[2017-08-16 13:09] LABS: ALBUMIN 2.8 GM/DL (3.4-5.0); ALT (GPT) 10 U/L (12-78); AST (GOT) 16 U/L (15-37); DIRECT BILIRUBIN ADULT LESS THAN 0.1 MG/DL (0.0-0.2)
[2017-08-16 13:11] LABS: ALKALINE PHOSPHATASE 72 U/L (45-117); INDIRECT BILIRUBIN 0.1 MG/DL (0.0-0.8); TOTAL BILIRUBIN ADULT 0.2 MG/DL (0.2-1.0); TOTAL PROTEIN 7.8 GM/DL (6.4-8.2)
--- NOTE | 2017-08-16 13:45 | HHI.PR ---
Subjective Remarks Patient had ERCP scheduled for yesterday but only had EGD did not need ERCP had biopsies of the small intestinal possible mass Patient states he does not feel very good today We will ask physical therapy and occupational therapy to eval and treat and case management to consult A.m. labs Tolerating a diet Objective Vitals Vital Signs Date Time Temp Pulse Resp B/P (MAP) Pulse Ox O2 Delivery O2 Flow Rate FiO2 08/16/17 11:43 97.7 90 17 104/74 (84) 95 08/16/17 08:06 96 21 08/16/17 08:00 97.3 86 16 119/86 (97) 98 08/16/17 04:00 97.9 96 15 115/79 (91) 99 08/16/17 00:00 96.1 89 15 92/63 (73) 97 08/15/17 20:00 118 08/15/17 19:08 20 08/15/17 17:39 94 21 08/15/17 16:00 97.8 84 16 118/84 (95) 94 I/O 08/15/17 08/15/17 08/15/17 08/16/17 08/16/17 08/16/17 07:00 15:00 23:00 07:00 15:00 23:00 Intake Total 480 ml 600 ml 300 ml Output Total 1200 ml 250 ml 1400 ml Balance -720 ml 350 ml -1100 ml Intake Oral 480 ml 0 ml 300 ml IV Total 0 ml Other 600 ml Output Urine Total 1200 ml 250 ml 1400 ml # Voids 2 # Bowel Movements 0 Result Diagram: 08/14/17 0713 08/14/17 0713 Other Results Laboratory Tests Test 08/14/17 07:13 08/16/17 11:53 White Blood Count 6.8 TH/MM3 Red Blood Count 3.59 MIL/MM3 Hemoglobin 8.6 GM/DL Hematocrit 27.7 % Mean Corpuscular Volume 77.2 FL Mean Corpuscular Hemoglobin 24.1 PG Mean Corpuscular Hemoglobin Concent 31.2 % Red Cell Distribution Width 19.4 % Platelet Count 829 TH/MM3 Mean Platelet Volume 8.3 FL Neutrophils (%) (Auto) 58.5 % Lymphocytes (%) (Auto) 27.3 % Monocytes (%) (Auto) 11.4 % Eosinophils (%) (Auto) 1.5 % Basophils (%) (Auto) 1.3 % Neutrophils # (Auto) 4.0 TH/MM3 Lymphocytes # (Auto) 1.8 TH/MM3 Monocytes # (Auto) 0.8 TH/MM3 Eosinophils # (Auto) 0.1 TH/MM3 Basophils # (Auto) 0.1 TH/MM3 CBC Comment DIFF FINAL Differential Comment Blood Urea Nitrogen 3 MG/DL Creatinine 0.61 MG/DL Random Glucose 85 MG/DL Calcium Level 8.4 MG/DL Magnesium Level 1.5 MG/DL Sodium Level 137 MEQ/L Potassium Level 3.4 MEQ/L Chloride Level 102 MEQ/L Carbon Dioxide Level 27.8 MEQ/L Anion Gap 7 MEQ/L Estimat Glomerular Filtration Rate 163 ML/MIN Lipase 551 U/L 354 U/L Total Bilirubin 0.2 MG/DL Direct Bilirubin LESS THAN 0.1 MG/DL Indirect Bilirubin 0.1 MG/DL Aspartate Amino Transf (AST/SGOT) 16 U/L Alanine Aminotransferase (ALT/SGPT) 10 U/L Alkaline Phosphatase 72 U/L Total Protein 7.8 GM/DL Albumin 2.8 GM/DL Imaging Last Impressions Cholangiopancreatography MRI 08/14/17 0000 Signed Impressions: Service Date/Time: Monday, August 14, 2017 07:32 - CONCLUSION: Thickening of the second portion the duodenum likely secondary to edema and inflammation if the patient has an ulcer or other inflammatory condition versus a neoplasm. A neoplasm cannot select some ulceration which could be due to the inflammatory change extending into the right abdomen. This area should be directly inspected. There is dilatation of the pancreatic and biliary ducts likely secondary to obstruction at the level of the ampulla. There is a fluid fluid level within the biliary duct system likely related to some degree of hemorrhage within the biliary system. Deandre Ware MD Upper GI Series 08/11/17 0000 Signed Impressions: Service Date/Time: July 10:26 - CONCLUSION: 1. There is an abrupt transition in diameter between the distended duodenal bulb and 2nd portion of the duodenum. 2. No ulceration or mass seen in the stomach; there is loss of rugal folds. 3. Small Zenker's diverticulum. Jaime Charles MD Abdomen X-Ray 08/10/17 0000 Signed Impressions: Service Date/Time: Thursday, August 10, 2017 11:22 - CONCLUSION: Nonspecific a benign abdomen appearance. Deandre Tobar MD Abdomen/Pelvis CT 08/03/17 1731 Signed Impressions: Service Date/Time: Thursday, August 03, 2017 18:24 - CONCLUSION: There is narrowing of the second portion of the duodenum causing gastric outlet obstruction with significant inflammation surrounding the duodenal wall as described above in the right upper outer quadrant. Possibility of a ruptured peptic ulcer disease should be entertained and there is obstruction to the distal common bile duct and pancreatic duct as a result. Underlying neoplastic process or malignancy is difficult to exclude in this time. Susana Reeves MD Objective Remarks GENERAL: Awake alert oriented 3 talkative and cooperative SKIN: Warm and dry. HEAD: Atraumatic. Normocephalic. EYES: Pupils equal and round. No scleral icterus. No injection or drainage. Extraocular muscles intact ENT: No nasal bleeding or discharge. Mucous membranes pink and moist. Tongue is midline NECK: Trachea midline. No JVD. Supple CARDIOVASCULAR: Regular rate and rhythm. S1 and S2 no S3-S4 RESPIRATORY: No accessory muscle use. Clear to auscultation. Breath sounds equal bilaterally. GASTROINTESTINAL: Abdomen soft, nondistended. Hepatic and splenic margins not palpable. Mild abdominal tenderness MUSCULOSKELETAL: Extremities without clubbing, cyanosis, or edema. No obvious deformities. NEUROLOGICAL: Awake and alert. No obvious cranial nerve deficits. Motor grossly within normal limits. Five out of 5 muscle strength in the arms and legs. Normal speech. PSYCHIATRIC: Appropriate mood and affect; insight and judgment normal. Procedures EGD 08/04/17 showing reflux esophagitis, duodenal stricture and edema 08/15/17 PROCEDURE PERFORMED egd WITH bX INDICATION FOR PROCEDURE abnormal Ct scan of the duodenum PROCEDURE: The procedure, risks and benefits were discussed with Mr. Anderson and informed consent was obtained. Anesthesia sedated him with Diprivan. He was placed in the left lateral decubitus position. EGD: The Pentax side view videoscope was introduced through the oropharynx and advanced to the second portion of the duodenum under direct visualization. Retroflexion was performed in the stomach.then regular Pentax scope was videoscope was introduced through the oropharynx and advanced to the second portion of the duodenum under direct visualization. Retroflexion was performed in the stomach, the withdrawal was done without any complications Bx from duodenum was performed FINDINGS: prominent thick ulcerated folds in the duodenum Bx done ampulla was normal so ERCP was not performed ESTIMATED BLOOD LOSS: none SPECIMENS REMOVED: duodenum COMPLICATIONS: none IMPRESSION: prominent thick ulcerated folds in the duodenum Bx done ampulla was normal so ERCP was not performed PLAN: await Bx results contniue PPI clear liquid diet Medications and IVs Current Medications Ondansetron HCl (Zofran Inj) 4 mg ONCE ONCE IVP Last administered on at 16:50; Start 08/03/17 at 16:30; Stop 08/03/17 at 16:31; Status DC Sodium Chloride 1,000 ml @ 1,000 mls/hr Q1H IV Last administered on 08/03/17at 16:50; Start 08/03/17 at 16:27; Stop 08/03/17 at 17:26; Status DC Sodium Chloride (NS Flush) 2 ml UNSCH PRN IV FLUSH FLUSH AFTER USING IV ACCESS ; Start 08/03/17 at 16:30; Stop 08/03/17 at 19:01; Status DC Famotidine (Pepcid Inj) 20 mg ONCE ONCE IV PUSH Last administered on at 16:50; Start 08/03/17 at 16:30; Stop 08/03/17 at 16:31; Status DC Potassium Chloride/Sodium Chloride 1,000 ml @ 125 mls/hr Q8H IV Last administered on 08/03/17at 18:45; Start 08/03/17 at 18:00; Stop 08/03/17 at 19:09 ; Status DC Iohexol (Omnipaque 350 Inj) 95 ml STK-MED ONCE IVCONTRAST Last administered on 08/03/17at 18:32; Start 08/03/17 at 18:29; Stop 08/03/17 at 18:30; Status DC Sodium Chloride 1,000 ml @ 100 mls/hr Q10H IV Last administered on 08/04/17at 14:13; Start 08/03/17 at 18:49; Stop 08/04/17 at 20:52; Status DC Sodium Chloride (NS Flush) 2 ml UNSCH PRN IV FLUSH FLUSH AFTER USING IV ACCESS Last administered on 08/10/17at 11:40; Start 08/03/17 at 19:00 Sodium Chloride (NS Flush) 2 ml BID IV FLUSH Last administered on 08/15/17at 20: 50; Start 08/03/17 at 21:00 Potassium Chloride 100 ml @ 50 mls/hr Q2H IV Last administered on 08/03/17at 22 :43; Start 08/03/17 at 19:30; Stop 08/03/17 at 23:29; Status DC Piperacillin Sod/ Tazobactam Sod 100 ml @ 200 mls/hr Q6H IV Last administered on 08/06/17at 08:34; Start 08/03/17 at 20:00; Stop 08/06/17 at 12:21; Status DC Albuterol/ Ipratropium (Duoneb Neb) 1 ampule Q4HR NEB PRN NEB cough, sob, wheeze; Start 08/03/17 at 20:45 Folic Acid (Folate) 1 mg DAILY PO Last administered on 08/09/17at 08:18; Start 08/04/17 at 09:00; Stop 08/09/17 at 08:59; Status DC Multivitamins/ Minerals Therapeutic (Theragran M Tab) 1 tab DAILY PO Last administered on 08/09/17at 08:18; Start 08/04/17 at 09:00; Stop 08/09/17 at 08:59 ; Status DC Thiamine HCl 100 mg/Sodium Chloride 101 ml @ 100 mls/hr Q24H IV Last administered on 08/05/17at 21:15; Start 08/03/17 at 22:00; Stop 08/06/17 at 21:59 ; Status DC Flumazenil (Romazicon Inj) 0.2 mg Q1M PRN IV PUSH SEE LABEL COMMENTS; Start at 21:00 Lorazepam (Ativan) 1 mg Q4H PRN PO CIWA 8 - 10; Start 08/03/17 at 21:00 Lorazepam (Ativan Inj) 1 mg Q4H PRN IV PUSH CIWA 8 - 10; Start 08/03/17 at 21: 00 Lorazepam (Ativan) 2 mg Q2H PRN PO CIWA 11-14; Start 08/03/17 at 21:00 Lorazepam (Ativan Inj) 2 mg Q2H PRN IV PUSH CIWA 11-14; Start 08/03/17 at 21:00 Lorazepam (Ativan Inj) 2 mg Q1H PRN IV PUSH CIWA 15-20; Start 08/03/17 at 21:00 Lorazepam (Ativan Inj) 2 mg Q15M PRN IV PUSH CIWA > 20; Start 08/03/17 at 21:00 Famotidine (Pepcid Inj) 20 mg Q12H IV PUSH ; Start 08/04/17 at 08:00; Stop 08/04 at 08:00; Status DC Morphine Sulfate (Morphine Inj) 2 mg Q3H PRN IV PUSH breakthru pain Last administered on 08/13/17at 21:42; Start 08/03/17 at 22:30; Stop 08/14/17 at 08:32 ; Status DC Pantoprazole Sodium (Protonix Inj) 40 mg Q12HR IV PUSH Last administered on at 20:28; Start 08/04/17 at 09:00; Stop 08/13/17 at 08:47; Status DC Phenol (Chloraseptic [place]) 1 spray UNSCH PRN .XX WHILE NG TUBE IN PLACE Last administered on 08/04/17at 14:12; Start 08/04/17 at 13:15 Lactated Ringer's 1,000 ml @ 30 mls/hr Q24H PRN IV SEE LABEL COMMENTS Last administered on 08/04/17at 15:30; Start 08/04/17 at 15:15; Stop 08/04/17 at 22:00 ; Status DC Sodium Chloride 500 ml @ 30 mls/hr [id number] PRN IV SEE LABEL COMMENTS; Start at 15:15; Stop 08/04/17 at 22:01; Status DC Metoprolol Tartrate (Lopressor) 25 mg CONSULTING SERVICES ASSOCIATE PRN PO SEE LABEL COMMENTS; Start 08/04/17 at 15:15; Stop 08/07/17 at 15:14; Status DC Povidone Iodine (Betadine 5% Antisepsis Kit) 1 applic CONSULTING SERVICES ASSOCIATE PRN EACH NARE SEE LABEL COMMENTS; Start 08/04/17 at 15:15; Stop 08/07/17 at 15:14; Status DC Chlorhexidine Gluconate (Chlorhexidine 2% Cloth) 3 pack CONSULTING SERVICES ASSOCIATE PRN TOPICAL SEE LABEL COMMENTS; Start 08/04/17 at 15:15; Stop 08/07/17 at 15:14; Status DC Dextrose/Sodium Chloride 1,000 ml @ 50 mls/hr Q20H IV Last administered on at 18:18; Start 08/04/17 at 21:00 Potassium Chloride (KCl) 40 meq ONCE ONCE PO Last administered on 08/06/17at 08 :34; Start 08/06/17 at 08:30; Stop 08/06/17 at 08:31; Status DC Senna/Docusate Sodium (Kaylen-Colace) 1 tab BID PO Last administered on at 08:07; Start 08/06/17 at 09:15 Lidocaine HCl (Xylocaine-Mpf 1% Inj) 5 ml STK-MED ONCE OTHER ; Start 08/04/17 at 12:00; Stop 08/09/17 at 08:32; Status DC Phenylephrine HCl (Neosynephrine/ NS 1000 Mcg/10ml Syr) 1,000 mcg STK-MED ONCE IV ; Start 08/04/17 at 12:00; Stop 08/09/17 at 08:32; Status DC Propofol (Diprivan 200 Mg/20 ml Inj) 400 mg STK-MED ONCE IV ; Start 08/04/17 at 12:00; Stop 08/09/17 at 08:32; Status DC Sucralfate (Carafate Liq) 1 gm ACHS PO Last administered on 08/16/17at 11:48; Start 08/13/17 at 08:00 Amylase/Lipase/ Protease (Creon 2476-120) 2 cap TID PO Last administered on at 11:48; Start 08/13/17 at 09:00 Pantoprazole Sodium (Protonix) 40 mg Q12HR PO Last administered on 08/16/17at 08 :07; Start 08/13/17 at 09:00 Acetaminophen (Tylenol) 650 mg Q6H PRN PO PAIN SCALE 1 TO 2; Start 08/13/17 at 08:45 Acetaminophen/ Hydrocodone Bitart ([place] 5-325 Mg) 1 tab Q4H PRN PO PAIN SCALE 3 TO 5; Start 08/13/17 at 08:45 Acetaminophen/ Hydrocodone Bitart ([place] 7.5-325 Mg) 1 tab Q4H PRN PO PAIN SCALE 6 TO 10 Last administered on 08/16/17at 11:48; Start 08/13/17 at 08:45 Naloxone HCl (Narcan Inj) 0.4 mg UNSCH PRN IV PUSH SEE LABEL COMMENTS; Start at 08:45 Gadodiamide (Omniscan Pf Inj) 13 ml STK-MED ONCE IVCONTRAST Last administered on 08/14/17at 07:38; Start 08/14/17 at 07:38; Stop 08/14/17 at 07:51; Status DC Morphine Sulfate (Morphine Inj) 1 mg Q8H PRN IV PUSH breakthru pain Last administered on 08/14/17at 22:45; Start 08/14/17 at 08:45 Potassium Chloride (KCl) 30 meq ONCE ONCE PO Last administered on 08/14/17at 12 :20; Start 08/14/17 at 11:00; Stop 08/14/17 at 11:01; Status DC Lactated Ringer's 1,000 ml @ 30 mls/hr Q24H PRN IV SEE LABEL COMMENTS; Start at 05:00; Stop 08/18/17 at 04:59 Metoprolol Tartrate (Lopressor) 25 mg CONSULTING SERVICES ASSOCIATE PRN PO SEE LABEL COMMENTS; Start 08/15/17 at 05:00; Stop 08/18/17 at 04:59 Povidone Iodine (Betadine 5% Antisepsis Kit) 1 applic CONSULTING SERVICES ASSOCIATE PRN EACH NARE SEE LABEL COMMENTS; Start 08/15/17 at 05:00; Stop 08/18/17 at 04:59 Chlorhexidine Gluconate (Chlorhexidine 2% Cloth) 3 pack CONSULTING SERVICES ASSOCIATE PRN TOPICAL SEE LABEL COMMENTS; Start 08/15/17 at 05:00; Stop 08/18/17 at 04:59 Miscellaneous Information ALL NURSING DEPARTME... UNSCH PRN .XX SEE LABEL COMMENTS; Start 08/15/17 at 14:30; Stop 08/16/17 at 14:29 Propofol (Diprivan 200 Mg/20 ml Inj) 200 mg STK-MED ONCE IV ; Start 08/15/17 at 12:00; Stop 08/16/17 at 10:26; Status DC Succinylcholine Chloride (Quelicin Inj) 100 mg STK-MED ONCE IV PUSH ; Start at 12:00; Stop 08/16/17 at 10:26; Status DC Lidocaine HCl (Xylocaine-Mpf 1% Inj) 5 ml STK-MED ONCE OTHER ; Start 08/15/17 at 12:00; Stop 08/16/17 at 10:26; Status DC Phenylephrine HCl (Neosynephrine/ NS 1000 Mcg/10ml Syr) 1,000 mcg STK-MED ONCE IV ; Start 08/15/17 at 12:00; Stop 08/16/17 at 10:26; Status DC A/P Problem List: (1) Pancreatitis ICD Code: K85.90 - Acute pancreatitis without necrosis or infection, unspecified Status: Acute (2) Emphysema, unspecified ICD Code: J43.9 - Emphysema, unspecified Status: Chronic (3) Alcohol abuse ICD Code: F10.10 - Alcohol abuse, uncomplicated Status: Chronic Assessment and Plan 61 YO AAM with history of alcohol abuse admitted for pancreatitis. Alcohol pancreatitis Gastric outlet obstruction secondary to duodenal swelling/esophagitis pathology without cancer Continues to have significant pain not able to advance diet. Continue PPI, IV hydration and pain management start p.o. pain medicines with as needed IV morphine counseled regarding narcotics. Start Creon. discussed with GS and GI. CA-19-9 likely secondary to pancreatitis, going for MRCP today 08/15, follow with GI and GS Emphysema. Stable continue nebulizations h/o Prostate CA. Stable, continue home meds DVT Prophylaxis. SCDs. Ambulating Discharge Planning Not stable for discharge still with significant abdominal pain unable to advance diet. Consult PT and case management Problem Qualifiers (1) Pancreatitis: Qualified Codes: K85.90 - Acute pancreatitis without necrosis or infection, unspecified (2) Emphysema, unspecified: Qualified Codes: J43.9 - Emphysema, unspecified Jeremy Cabezas DO Aug 16, 2017 13:45
--- NOTE | 2017-08-16 14:58 | HHI.GIFU ---
Subjective Remarks Pt resting in bed, family at bedside. Tolerating diet. Intermittent LUQ pain. (Amy López) Objective Vitals I&O Vital Signs Date Time Temp Pulse Resp B/P (MAP) Pulse Ox O2 Delivery O2 Flow Rate FiO2 08/16/17 11:43 97.7 90 17 104/74 (84) 95 08/16/17 08:06 96 21 08/16/17 08:00 97.3 86 16 119/86 (97) 98 08/16/17 04:00 97.9 96 15 115/79 (91) 99 08/16/17 00:00 96.1 89 15 92/63 (73) 97 08/15/17 20:00 118 08/15/17 19:08 20 08/15/17 17:39 94 21 08/15/17 16:00 97.8 84 16 118/84 (95) 94 I/O 08/15/17 08/15/17 08/15/17 08/16/17 08/16/17 08/16/17 07:00 15:00 23:00 07:00 15:00 23:00 Intake Total 480 ml 600 ml 300 ml Output Total 1200 ml 250 ml 1400 ml Balance -720 ml 350 ml -1100 ml Intake Oral 480 ml 0 ml 300 ml IV Total 0 ml Other 600 ml Output Urine Total 1200 ml 250 ml 1400 ml # Voids 2 # Bowel Movements 0 Laboratory Laboratory Tests Test 08/16/17 11:53 Total Bilirubin 0.2 Direct Bilirubin LESS THAN 0.1 Indirect Bilirubin 0.1 Aspartate Amino Transf (AST/SGOT) 16 Alanine Aminotransferase (ALT/SGPT) 10 Alkaline Phosphatase 72 Total Protein 7.8 Albumin 2.8 Lipase 354 Imaging Last Impressions Cholangiopancreatography MRI 08/14/17 0000 Signed Impressions: Service Date/Time: Monday, August 14, 2017 07:32 - CONCLUSION: Thickening of the second portion the duodenum likely secondary to edema and inflammation if the patient has an ulcer or other inflammatory condition versus a neoplasm. A neoplasm cannot select some ulceration which could be due to the inflammatory change extending into the right abdomen. This area should be directly inspected. There is dilatation of the pancreatic and biliary ducts likely secondary to obstruction at the level of the ampulla. There is a fluid fluid level within the biliary duct system likely related to some degree of hemorrhage within the biliary system. Deandre Ware MD Upper GI Series 08/11/17 0000 Signed Impressions: Service Date/Time: July 10:26 - CONCLUSION: 1. There is an abrupt transition in diameter between the distended duodenal bulb and 2nd portion of the duodenum. 2. No ulceration or mass seen in the stomach; there is loss of rugal folds. 3. Small Zenker's diverticulum. Jaime Charles MD Abdomen X-Ray 08/10/17 0000 Signed Impressions: Service Date/Time: Thursday, August 10, 2017 11:22 - CONCLUSION: Nonspecific a benign abdomen appearance. Deandre Tobar MD Abdomen/Pelvis CT 08/03/17 1731 Signed Impressions: Service Date/Time: Thursday, August 03, 2017 18:24 - CONCLUSION: There is narrowing of the second portion of the duodenum causing gastric outlet obstruction with significant inflammation surrounding the duodenal wall as described above in the right upper outer quadrant. Possibility of a ruptured peptic ulcer disease should be entertained and there is obstruction to the distal common bile duct and pancreatic duct as a result. Underlying neoplastic process or malignancy is difficult to exclude in this time. Susana Reeves MD Physical Exam HEENT: PERRL; normocephalic; atraumatic; CHEST: CTA CARDIAC: RRR ABDOMEN: mildly distended, ,LUQ TTP, bowel sounds are present in all four quadrants. EXTREMITIES: No clubbing, cyanosis, or edema. SKIN: Dry, thin turgor no rash; no obvious jaundice. METAPHYSICIAN: No focal deficits; alert and oriented times three. (Amy López [facility]) Assessment and Plan Plan - Initially had epigastric pain, n/v, coffee ground emesis, melanotic stool on admission- gastric outlet obstruction with UGIB, CBD obstruction, obstruction pancreatic duct seen on CT. Patient has been followed since admission with multiple specialties such as general surgery and GI - anemia - probable secondary to chronic disease. denies any obvious bleeding. hemoglobin 8.6. - hx etoh abuse, assistance to quit he is requesting to talk to case management about going in a subacute for rehabilitation, so he is not a home - prostate ca s/p radiation, diagnosed 2 years ago, as seen his oncology doctor in one year 08/05/17 s/p EGD found reflux esophagitis, duodenal erythema and edema likely 2/ 2 pancreatitis. CA 19-9 elevated. Will need for repeating in 3 months 08/05/17 s/p EGD found reflux esophagitis, duodenal erythema and edema likely 2/ 2 pancreatitis. lipase trending down, 919 today CA 19-9 is elevated 46.9. GS following. 08/06/17 lipase trending down. tolerating clears. pain somewhat improved. biopsies still pending. 08/07/17 lipase mildly increased. tolerating full liquids. pain gradually improving. n/v improved. bx pending 08/08/17 lipase slowly trending down. tolerating full liquids. pain improved after BM today. still awaiting bx 08/13/17 MRCP thickening of the second portion of the duodenum secondary to edema and inflammation if patient has an ulcer or other inflammatory conditions versus a neoplasm. A neoplasm cannot select some ulceration which could be due to inflammatory change extending into the right abdomen. This area should be directly inspected. Dilatation of the pancreatic and biliary ducts likely secondary to obstruction at the level of the ampulla there is a fluid level within the biliary duct system likely related to some degree of hemorrhage within the biliary system. Patient is willing to do whatever testing is needed to make him feel better although he was hesitant this a.m. when talking to his meeting physician. Family is now supporting him to stay in the hospital continue with care as needed. 08/14/17 patient feels like he's getting back to his norm, abdomen still taut, mildly distended but patient states he has been up in wheelchair increased activity today and has had no acute problems. Denies nausea vomiting diarrhea, normal BM today ERCP with consent, EGD/ERCP per Dr. Charles 08/16/17 pt s/p EGD. no ERCP done, ampulla appeared normal. EGD found prominent thick ulcerated folds duodenum. bx pending. tolerating diet. lipase now WNL. PLAN - await bx - DAYANARA - monitor labs - Continue Creon, Protonix, Carafate - Bowel regimen - Repeat tumor markers in 3 months - pt seen by myself and Dr Charles, note is written on his behalf (Amy López [facility]) Plan Patient was seen and examined, agree with above-noted, we will wait for the result of the biopsy, continue enzymes, will have close monitoring as an outpatient (Estephania Charles MD) Amy López Aug 16, 2017 14:58 Estephania Charles MD Aug 17, 2017 11:03
[2017-08-17] VITALS (8 sets, daily range): BP systolic 100–116; BP diastolic 75–87; PULSE 82–94; RESP 16–18; TEMP 96.3–97.6; O2SAT 92–99
[2017-08-17] MEDS: ACETAMINOPHEN/HYDROcodone 325 MG/7.5 MG TAB PO PRN ×5 (00:54→22:32)
[2017-08-17] MEDS: DEXT 5%-NACL 0.45% 1000 ML INJ 1,000 ML IV SCH (05:13)
[2017-08-17 06:39] LABS: AUTOMATED NEUTROPHIL # 1.7 TH/MM3 (1.8-7.7); BASOPHIL % 0.8 % (0.0-2.0); EOSINOPHIL # 0.1 TH/MM3 (0-0.4); EOSINOPHIL % 2.3 % (0.0-4.0); HEMATOCRIT 25.1 % (39.0-51.0); HEMOGLOBIN 7.7 GM/DL (13.0-17.0); LYMPHOCYTE # 1.7 TH/MM3 (1.0-4.8); MEAN CELL VOLUME 77.1 FL (80.0-100.0); MEAN CORPUSCULAR HEMOGLOBIN 23.7 PG (27.0-34.0); MEAN CORPUSCULAR HGB CONC 30.8 % (32.0-36.0); MEAN PLATELET VOLUME 8.5 FL (7.0-11.0); MONO % 9.9 % (0.0-8.0); MONOCYTE # 0.4 TH/MM3 (0-0.9); PLATELET COUNT 962 TH/MM3 (150-450); RED BLOOD COUNT 3.26 MIL/MM3 (4.50-5.90); RED CELL DISTRIBUTION WIDTH 19.6 % (11.6-17.2); WHITE BLOOD COUNT 3.9 TH/MM3 (4.0-11.0)
[2017-08-17 06:49] LABS: ALBUMIN 2.8 GM/DL (3.4-5.0); AST (GOT) 14 U/L (15-37); BICARBONATE 27.9 MEQ/L (21.0-32.0); BLOOD UREA NITROGEN 7 MG/DL (7-18); CALCIUM 8.2 MG/DL (8.5-10.1); CHLORIDE 105 MEQ/L (98-107); CREATININE 0.61 MG/DL (0.60-1.30); GLOMERULAR FILTRATION RATE 163 ML/MIN (>89); GLUCOSE,RANDOM 94 MG/DL (74-106); MAGNESIUM 1.7 MG/DL (1.5-2.5); SODIUM (NA) 140 MEQ/L (136-145)
[2017-08-17 07:00] LABS: ALKALINE PHOSPHATASE 69 U/L (45-117); ALT (GPT) 9 U/L (12-78); FREE T4 1.05 NG/DL (0.76-1.46); PHOSPHORUS 4.1 MG/DL (2.5-4.9); TOTAL BILIRUBIN ADULT 0.1 MG/DL (0.2-1.0); TOTAL PROTEIN 7.6 GM/DL (6.4-8.2)
[2017-08-17] MEDS: PANTOPRAZOLE SOD 40 MG DELAYED RELEASE TAB PO SCH ×2 (08:34→20:48)
[2017-08-17] MEDS: SUCRALFATE 1 GM/10 ML CUP PO SCH ×4 (08:34→20:48)
[2017-08-17] MEDS: SODIUM CHLORIDE 0.9% FLUSH 10 ML FLUSH IV FLUSH SCH ×2 (08:34→20:50)
[2017-08-17] MEDS: DOCUSATE SODIUM 50 MG/SENNA 8.6 MG TAB PO SCH ×2 (08:34→20:48)
[2017-08-17] MEDS: LIPASE/PROTEASE/AMYLASE (24,000/76,000/120,000) CAP PO SCH ×3 (08:38→18:05)
[2017-08-17 10:36] LABS: HEMOGLOBIN A1C 5.2 % (4.3-6.0)
[2017-08-17] MEDS ORDERED: MAGNESIUM HYDROXIDE SUSP 30 ML CUP PO ONE (11:45)
--- NOTE | 2017-08-17 14:37 | HHI.GIFU ---
Subjective Remarks Pt resting in bed. just had MOM, says he is having trouble having BMs. tolerating full liquids (Amy López) Objective Vitals I&O Vital Signs Date Time Temp Pulse Resp B/P (MAP) Pulse Ox O2 Delivery O2 Flow Rate FiO2 08/17/17 11:45 97.1 92 17 104/80 (88) 92 08/17/17 07:59 97.6 84 17 110/77 (88) 97 08/17/17 04:00 90 08/17/17 04:00 96.3 83 16 116/78 (91) 99 08/17/17 00:00 97.5 94 18 105/75 (85) 98 08/16/17 23:30 94 08/16/17 20:00 98 08/16/17 20:00 97.4 94 16 97/69 (78) 98 08/16/17 16:08 97.9 78 18 121/86 (98) 98 I/O 08/16/17 08/16/17 08/16/17 08/17/17 08/17/17 08/17/17 07:00 15:00 23:00 07:00 15:00 23:00 Intake Total 1250 ml 480 ml 480 ml Balance 1250 ml 480 ml 480 ml Intake Oral 1250 ml 480 ml 480 ml # Voids 3 3 2 # Bowel Movements 0 0 Laboratory Laboratory Tests Test 08/17/17 05:42 White Blood Count 3.9 Red Blood Count 3.26 Hemoglobin 7.7 Hematocrit 25.1 Mean Corpuscular Volume 77.1 Mean Corpuscular Hemoglobin 23.7 Mean Corpuscular Hemoglobin Concent 30.8 Red Cell Distribution Width 19.6 Platelet Count 962 Mean Platelet Volume 8.5 Neutrophils (%) (Auto) 43.0 Lymphocytes (%) (Auto) 44.0 Monocytes (%) (Auto) 9.9 Eosinophils (%) (Auto) 2.3 Basophils (%) (Auto) 0.8 Neutrophils # (Auto) 1.7 Lymphocytes # (Auto) 1.7 Monocytes # (Auto) 0.4 Eosinophils # (Auto) 0.1 Basophils # (Auto) 0.0 CBC Comment DIFF FINAL Differential Comment Blood Urea Nitrogen 7 Creatinine 0.61 Random Glucose 94 Total Protein 7.6 Albumin 2.8 Calcium Level 8.2 Phosphorus Level 4.1 Magnesium Level 1.7 Alkaline Phosphatase 69 Aspartate Amino Transf (AST/SGOT) 14 Alanine Aminotransferase (ALT/SGPT) 9 Total Bilirubin 0.1 Sodium Level 140 Potassium Level 3.6 Chloride Level 105 Carbon Dioxide Level 27.9 Anion Gap 7 Estimat Glomerular Filtration Rate 163 Hemoglobin A1c 5.2 Free Thyroxine 1.05 Thyroid Stimulating Hormone 3rd Gen 3.000 Imaging Last Impressions Cholangiopancreatography MRI 08/14/17 0000 Signed Impressions: Service Date/Time: Monday, August 14, 2017 07:32 - CONCLUSION: Thickening of the second portion the duodenum likely secondary to edema and inflammation if the patient has an ulcer or other inflammatory condition versus a neoplasm. A neoplasm cannot select some ulceration which could be due to the inflammatory change extending into the right abdomen. This area should be directly inspected. There is dilatation of the pancreatic and biliary ducts likely secondary to obstruction at the level of the ampulla. There is a fluid fluid level within the biliary duct system likely related to some degree of hemorrhage within the biliary system. Deandre Ware MD Upper GI Series 08/11/17 0000 Signed Impressions: Service Date/Time: July 10:26 - CONCLUSION: 1. There is an abrupt transition in diameter between the distended duodenal bulb and 2nd portion of the duodenum. 2. No ulceration or mass seen in the stomach; there is loss of rugal folds. 3. Small Zenker's diverticulum. Jaime Charles MD Abdomen X-Ray 08/10/17 0000 Signed Impressions: Service Date/Time: Thursday, August 10, 2017 11:22 - CONCLUSION: Nonspecific a benign abdomen appearance. Deandre Tobar MD Abdomen/Pelvis CT 08/03/17 1731 Signed Impressions: Service Date/Time: Thursday, August 03, 2017 18:24 - CONCLUSION: There is narrowing of the second portion of the duodenum causing gastric outlet obstruction with significant inflammation surrounding the duodenal wall as described above in the right upper outer quadrant. Possibility of a ruptured peptic ulcer disease should be entertained and there is obstruction to the distal common bile duct and pancreatic duct as a result. Underlying neoplastic process or malignancy is difficult to exclude in this time. Susana Reeves MD Physical Exam HEENT: PERRL; normocephalic; atraumatic; CHEST: CTA CARDIAC: RRR ABDOMEN: mildly distended, ,diffuse TTP, bowel sounds are present in all four quadrants. EXTREMITIES: No clubbing, cyanosis, or edema. SKIN: no rash; no obvious jaundice. DOORPERSON: No focal deficits; alert and oriented times three. (Amy López [facility]) Assessment and Plan Plan - Initially had epigastric pain, n/v, coffee ground emesis, melanotic stool on admission- gastric outlet obstruction with UGIB, CBD obstruction, obstruction pancreatic duct seen on CT. Patient has been followed since admission with multiple specialties such as general surgery and GI - anemia - probable secondary to chronic disease. denies any obvious bleeding. hemoglobin 8.6. - hx etoh abuse, assistance to quit he is requesting to talk to case management about going in a subacute for rehabilitation, so he is not a home - prostate ca s/p radiation, diagnosed 2 years ago, as seen his oncology doctor in one year 08/05/17 s/p EGD found reflux esophagitis, duodenal erythema and edema likely 2/ 2 pancreatitis. CA 19-9 elevated. Will need for repeating in 3 months 08/05/17 s/p EGD found reflux esophagitis, duodenal erythema and edema likely 2/ 2 pancreatitis. lipase trending down, 919 today CA 19-9 is elevated 46.9. GS following. 08/06/17 lipase trending down. tolerating clears. pain somewhat improved. biopsies still pending. 08/07/17 lipase mildly increased. tolerating full liquids. pain gradually improving. n/v improved. bx pending 08/08/17 lipase slowly trending down. tolerating full liquids. pain improved after BM today. still awaiting bx 08/13/17 MRCP thickening of the second portion of the duodenum secondary to edema and inflammation if patient has an ulcer or other inflammatory conditions versus a neoplasm. A neoplasm cannot select some ulceration which could be due to inflammatory change extending into the right abdomen. This area should be directly inspected. Dilatation of the pancreatic and biliary ducts likely secondary to obstruction at the level of the ampulla there is a fluid level within the biliary duct system likely related to some degree of hemorrhage within the biliary system. Patient is willing to do whatever testing is needed to make him feel better although he was hesitant this a.m. when talking to his meeting physician. Family is now supporting him to stay in the hospital continue with care as needed. 08/14/17 patient feels like he's getting back to his norm, abdomen still taut, mildly distended but patient states he has been up in wheelchair increased activity today and has had no acute problems. Denies nausea vomiting diarrhea, normal BM today ERCP with consent, EGD/ERCP per Dr. Charles 08/16/17 pt s/p EGD. no ERCP done, ampulla appeared normal. EGD found prominent thick ulcerated folds duodenum. bx pending. tolerating diet. lipase now WNL. 08/17/17 constipated. diffuse TTP. bx showed peptic duodenitis, no malignancy identified. PLAN - EGD in 1 month - repeat tumor markers in 1 month - monitor labs - Continue Creon, Protonix, Carafate - Bowel regimen - pt seen by myself and Dr Charles, note is written on his behalf (Amy López) Plan Patient was seen and examined, agree with above note, biopsy was negative for malignancy, we will continue PPI, patient will need upper endoscopy showed Brambila's healing and may be performed more biopsy if needed, repeat tumor markers, continue treatment for pancreatitis with Creon, if tolerated food well patient can be discharged from GI point (Estephania Charles MD) Amy López Aug 17, 2017 14:37 Estephania Charles MD Aug 17, 2017 18:01
--- NOTE | 2017-08-17 15:23 | HHI.PR ---
Subjective Remarks Patient has been hospitalized for 2 weeks for pancreatitis. His recovery has been slow. Today his main complaint is lack of bowel movement causing bloating of his abdomen. Objective Vitals Vital Signs Date Time Temp Pulse Resp B/P (MAP) Pulse Ox O2 Delivery O2 Flow Rate FiO2 08/17/17 11:45 97.1 92 17 104/80 (88) 92 08/17/17 07:59 97.6 84 17 110/77 (88) 97 08/17/17 04:00 90 08/17/17 04:00 96.3 83 16 116/78 (91) 99 08/17/17 00:00 97.5 94 18 105/75 (85) 98 08/16/17 23:30 94 08/16/17 20:00 98 08/16/17 20:00 97.4 94 16 97/69 (78) 98 08/16/17 16:08 97.9 78 18 121/86 (98) 98 I/O 08/16/17 08/16/17 08/16/17 08/17/17 08/17/17 08/17/17 07:00 15:00 23:00 07:00 15:00 23:00 Intake Total 1250 ml 480 ml 480 ml Balance 1250 ml 480 ml 480 ml Intake Oral 1250 ml 480 ml 480 ml # Voids 3 3 2 # Bowel Movements 0 0 Result Diagram: 08/17/17 0542 08/17/17 0542 Objective Remarks GENERAL: Well-nourished, well-developed patient. SKIN: Warm and dry. HEAD: Normocephalic. EYES: No scleral icterus. No injection or drainage. NECK: Supple, trachea midline. No JVD or lymphadenopathy. CARDIOVASCULAR: Regular rate and rhythm without murmurs, gallops, or rubs. RESPIRATORY: Breath sounds equal bilaterally. No accessory muscle use. GASTROINTESTINAL: Abdomen bloated, hypoactive bowel sounds. Mild diffuse tenderness EXTREMITIES: No cyanosis, or edema. NEUROLOGICAL: Awake, alert, and oriented x 3. Non-focal. Procedures EGD 08/04/17 showing reflux esophagitis, duodenal stricture and edema 08/15/17 PROCEDURE PERFORMED egd WITH bX INDICATION FOR PROCEDURE abnormal Ct scan of the duodenum PROCEDURE: The procedure, risks and benefits were discussed with Mr. Anderson and informed consent was obtained. Anesthesia sedated him with Diprivan. He was placed in the left lateral decubitus position. EGD: The Pentax side view videoscope was introduced through the oropharynx and advanced to the second portion of the duodenum under direct visualization. Retroflexion was performed in the stomach.then regular Pentax scope was videoscope was introduced through the oropharynx and advanced to the second portion of the duodenum under direct visualization. Retroflexion was performed in the stomach, the withdrawal was done without any complications Bx from duodenum was performed FINDINGS: prominent thick ulcerated folds in the duodenum Bx done ampulla was normal so ERCP was not performed ESTIMATED BLOOD LOSS: none SPECIMENS REMOVED: duodenum COMPLICATIONS: none IMPRESSION: prominent thick ulcerated folds in the duodenum Bx done ampulla was normal so ERCP was not performed PLAN: await Bx results contniue PPI clear liquid diet A/P Problem List: (1) Pancreatitis ICD Code: K85.90 - Acute pancreatitis without necrosis or infection, unspecified Status: Acute (2) Emphysema, unspecified ICD Code: J43.9 - Emphysema, unspecified Status: Chronic (3) Alcohol abuse ICD Code: F10.10 - Alcohol abuse, uncomplicated Status: Chronic Assessment and Plan Pancreatitis Onset was after drinking 4 beers Last case of pancreatitis was greater than 10 years ago Patient is tolerating sparse regular diet Biopsy of esophagus and duodenum show no evidence of cancer There is another biopsy pending GI recommends repeat EGD in 1 month, repeat tumor markers in 1 month. Appreciate consult. Continue Creon, Protonix, Carafate Constipation Much of his abdominal bloating and discomfort may have to do with lack of bowel movements He has responded poorly to Kaylen-Colace, milk of magnesia added today We will follow effect Emphysema Continue with home meds Duo nebs as needed h/o Prostate CA Stable, continue home meds DVT Prophylaxis SCDs Problem Qualifiers (1) Pancreatitis: Qualified Codes: K85.90 - Acute pancreatitis without necrosis or infection, unspecified (2) Emphysema, unspecified: Qualified Codes: J43.9 - Emphysema, unspecified Laci Coppola MD Aug 17, 2017 15:23
[2017-08-18] VITALS (9 sets, daily range): BP systolic 96–122; BP diastolic 70–79; PULSE 79–109; RESP 17–20; TEMP 96.3–97.4; O2SAT 95–99
[2017-08-18] MEDS: DEXT 5%-NACL 0.45% 1000 ML INJ 1,000 ML IV SCH ×2 (01:13→21:13)
[2017-08-18] MEDS: ACETAMINOPHEN/HYDROcodone 325 MG/7.5 MG TAB PO PRN ×4 (05:05→21:49)
[2017-08-18] MEDS: DOCUSATE SODIUM 50 MG/SENNA 8.6 MG TAB PO SCH ×2 (08:29→21:49)
[2017-08-18] MEDS: SUCRALFATE 1 GM/10 ML CUP PO SCH ×4 (08:29→21:49)
[2017-08-18] MEDS: LIPASE/PROTEASE/AMYLASE (24,000/76,000/120,000) CAP PO SCH ×3 (08:29→17:21)
[2017-08-18] MEDS: PANTOPRAZOLE SOD 40 MG DELAYED RELEASE TAB PO SCH ×2 (08:29→21:49)
[2017-08-18] MEDS: SODIUM CHLORIDE 0.9% FLUSH 10 ML FLUSH IV FLUSH SCH ×2 (08:30→21:49)
[2017-08-18] MEDS ORDERED: LACTULOSE SYRUP 20 GM/30 ML CUP PO ONE (10:00)
--- NOTE | 2017-08-18 11:16 | HHI.PR ---
Subjective Remarks Patient reports that he had a scant bowel movement. His abdomen remains bloated and slightly tender. He does not feel weak but I explained to him that his hemoglobin is 7.7. Objective Vitals Vital Signs Date Time Temp Pulse Resp B/P (MAP) Pulse Ox O2 Delivery O2 Flow Rate FiO2 08/18/17 09:32 18 08/18/17 07:53 96.3 87 17 118/70 (86) 98 08/18/17 04:55 96.8 79 18 122/79 (93) 98 08/18/17 04:00 92 08/18/17 00:10 87 08/17/17 23:29 96.8 82 17 104/75 (85) 97 08/17/17 21:06 97.5 88 18 115/87 (96) 96 08/17/17 20:00 92 08/17/17 16:00 97.0 89 17 100/75 (83) 99 08/17/17 11:45 97.1 92 17 104/80 (88) 92 I/O 08/17/17 08/17/17 08/17/17 08/18/17 08/18/17 08/18/17 07:00 15:00 23:00 07:00 15:00 23:00 Intake Total 480 ml 480 ml 360 ml 480 ml Output Total 401 ml 575 ml Balance 480 ml 480 ml -41 ml -95 ml Intake Oral 480 ml 480 ml 360 ml 480 ml Output Urine Total 400 ml 575 ml Stool Total 1 ml # Voids 2 5 3 1 # Bowel Movements 0 0 0 0 Result Diagram: 08/17/17 0542 08/17/17 0542 Objective Remarks GENERAL: Well-nourished, well-developed patient. SKIN: Warm and dry. HEAD: Normocephalic. EYES: No scleral icterus. No injection or drainage. NECK: Supple, trachea midline. No JVD or lymphadenopathy. CARDIOVASCULAR: Regular rate and rhythm without murmurs, gallops, or rubs. RESPIRATORY: Breath sounds equal bilaterally. No accessory muscle use. GASTROINTESTINAL: Abdomen bloated, normal bowel sounds. Mild diffuse tenderness EXTREMITIES: No cyanosis, or edema. NEUROLOGICAL: Awake, alert, and oriented x 3. Non-focal. Procedures EGD 08/04/17 showing reflux esophagitis, duodenal stricture and edema 08/15/17 PROCEDURE PERFORMED egd WITH bX INDICATION FOR PROCEDURE abnormal Ct scan of the duodenum PROCEDURE: The procedure, risks and benefits were discussed with Mr. Anderson and informed consent was obtained. Anesthesia sedated him with Diprivan. He was placed in the left lateral decubitus position. EGD: The Pentax side view videoscope was introduced through the oropharynx and advanced to the second portion of the duodenum under direct visualization. Retroflexion was performed in the stomach.then regular Pentax scope was videoscope was introduced through the oropharynx and advanced to the second portion of the duodenum under direct visualization. Retroflexion was performed in the stomach, the withdrawal was done without any complications Bx from duodenum was performed FINDINGS: prominent thick ulcerated folds in the duodenum Bx done ampulla was normal so ERCP was not performed ESTIMATED BLOOD LOSS: none SPECIMENS REMOVED: duodenum COMPLICATIONS: none IMPRESSION: prominent thick ulcerated folds in the duodenum Bx done ampulla was normal so ERCP was not performed PLAN: await Bx results contniue PPI clear liquid diet A/P Problem List: (1) Pancreatitis ICD Code: K85.90 - Acute pancreatitis without necrosis or infection, unspecified Status: Acute (2) Emphysema, unspecified ICD Code: J43.9 - Emphysema, unspecified Status: Chronic (3) Alcohol abuse ICD Code: F10.10 - Alcohol abuse, uncomplicated Status: Chronic Assessment and Plan Pancreatitis Onset was after drinking 4 beers Last case of pancreatitis was greater than 10 years ago Patient is tolerating sparse regular diet Biopsy of esophagus and duodenum show no evidence of cancer There is another biopsy pending GI recommends repeat EGD in 1 month, repeat tumor markers in 1 month. Appreciate consult. Continue Creon, Protonix, Carafate Anemia We will recheck hemoglobin level this afternoon If trend is downward we will transfuse Unable to obtain occult stool due to lack of bowel movement Constipation May be the cause of his abdominal bloating beyond pancreatitis He has responded poorly to Kaylen-Colace Milk of magnesia produced only scant stool We will try lactulose dose today Emphysema Continue with home meds Duo nebs as needed h/o Prostate CA Stable, continue home meds DVT Prophylaxis SCDs Problem Qualifiers (1) Pancreatitis: Qualified Codes: K85.90 - Acute pancreatitis without necrosis or infection, unspecified (2) Emphysema, unspecified: Qualified Codes: J43.9 - Emphysema, unspecified Laci Coppola MD Aug 18, 2017 11:16
--- NOTE | 2017-08-18 12:10 | HHI.GIFU ---
Subjective Remarks Pt resting in bed in NAD. complaining that he wants to have a BM. He did have one yesterday. Just had lactulose. (Amy López) Objective Vitals I&O Vital Signs Date Time Temp Pulse Resp B/P (MAP) Pulse Ox O2 Delivery O2 Flow Rate FiO2 08/18/17 11:45 96.9 94 18 112/73 (86) 95 08/18/17 09:32 18 08/18/17 07:53 96.3 87 17 118/70 (86) 98 08/18/17 04:55 96.8 79 18 122/79 (93) 98 08/18/17 04:00 92 08/18/17 00:10 87 08/17/17 23:29 96.8 82 17 104/75 (85) 97 08/17/17 21:06 97.5 88 18 115/87 (96) 96 08/17/17 20:00 92 08/17/17 16:00 97.0 89 17 100/75 (83) 99 I/O 08/17/17 08/17/17 08/17/17 08/18/17 08/18/17 08/18/17 07:00 15:00 23:00 07:00 15:00 23:00 Intake Total 480 ml 480 ml 360 ml 480 ml Output Total 401 ml 575 ml Balance 480 ml 480 ml -41 ml -95 ml Intake Oral 480 ml 480 ml 360 ml 480 ml Output Urine Total 400 ml 575 ml Stool Total 1 ml # Voids 2 5 3 1 # Bowel Movements 0 0 0 0 Laboratory Laboratory Tests Test 08/03/17 16:20 08/03/17 18:15 08/04/17 13:28 08/16/17 11:53 Prothrombin Time 11.2 SEC Prothromb Time International Ratio 1.1 RATIO Activated Partial Thromboplast Time 26.0 SEC Urine Color YELLOW Urine Turbidity HAZY Urine pH 8.5 Urine Specific [place] 1.026 Urine Protein 100 mg/dL Urine Glucose (UA) NEG mg/dL Urine Ketones NEG mg/dL Urine Occult Blood NEG Urine Nitrite NEG Urine Bilirubin NEG Urine Urobilinogen LESS THAN 2.0 MG/DL Urine Leukocyte Esterase NEG Urine RBC 3 /hpf Urine WBC 2 /hpf Urine Squamous Epithelial Cells 2 /hpf Urine Bacteria RARE /hpf Urine Hyaline Casts 45 /lpf Urine Mucus MOD /lpf Microscopic Urinalysis Comment CULT NOT INDICATED Carcinoembryonic Antigen 1.6 NG/ML CA 19-9 Antigen 46.9 U/ML Direct Bilirubin LESS THAN 0.1 MG/DL Indirect Bilirubin 0.1 MG/DL Lipase 354 U/L Test 08/17/17 05:42 White Blood Count 3.9 TH/MM3 Red Blood Count 3.26 MIL/MM3 Hemoglobin 7.7 GM/DL Hematocrit 25.1 % Mean Corpuscular Volume 77.1 FL Mean Corpuscular Hemoglobin 23.7 PG Mean Corpuscular Hemoglobin Concent 30.8 % Red Cell Distribution Width 19.6 % Platelet Count 962 TH/MM3 Mean Platelet Volume 8.5 FL Neutrophils (%) (Auto) 43.0 % Lymphocytes (%) (Auto) 44.0 % Monocytes (%) (Auto) 9.9 % Eosinophils (%) (Auto) 2.3 % Basophils (%) (Auto) 0.8 % Neutrophils # (Auto) 1.7 TH/MM3 Lymphocytes # (Auto) 1.7 TH/MM3 Monocytes # (Auto) 0.4 TH/MM3 Eosinophils # (Auto) 0.1 TH/MM3 Basophils # (Auto) 0.0 TH/MM3 CBC Comment DIFF FINAL Differential Comment Blood Urea Nitrogen 7 MG/DL Creatinine 0.61 MG/DL Random Glucose 94 MG/DL Total Protein 7.6 GM/DL Albumin 2.8 GM/DL Calcium Level 8.2 MG/DL Phosphorus Level 4.1 MG/DL Magnesium Level 1.7 MG/DL Alkaline Phosphatase 69 U/L Aspartate Amino Transf (AST/SGOT) 14 U/L Alanine Aminotransferase (ALT/SGPT) 9 U/L Total Bilirubin 0.1 MG/DL Sodium Level 140 MEQ/L Potassium Level 3.6 MEQ/L Chloride Level 105 MEQ/L Carbon Dioxide Level 27.9 MEQ/L Anion Gap 7 MEQ/L Estimat Glomerular Filtration Rate 163 ML/MIN Hemoglobin A1c 5.2 % Free Thyroxine 1.05 NG/DL Thyroid Stimulating Hormone 3rd Gen 3.000 uIU/ML Imaging Last Impressions Cholangiopancreatography MRI 08/14/17 0000 Signed Impressions: Service Date/Time: Monday, August 14, 2017 07:32 - CONCLUSION: Thickening of the second portion the duodenum likely secondary to edema and inflammation if the patient has an ulcer or other inflammatory condition versus a neoplasm. A neoplasm cannot select some ulceration which could be due to the inflammatory change extending into the right abdomen. This area should be directly inspected. There is dilatation of the pancreatic and biliary ducts likely secondary to obstruction at the level of the ampulla. There is a fluid fluid level within the biliary duct system likely related to some degree of hemorrhage within the biliary system. Deandre Ware MD Upper GI Series 08/11/17 0000 Signed Impressions: Service Date/Time: July 10:26 - CONCLUSION: 1. There is an abrupt transition in diameter between the distended duodenal bulb and 2nd portion of the duodenum. 2. No ulceration or mass seen in the stomach; there is loss of rugal folds. 3. Small Zenker's diverticulum. Jaime Charles MD Abdomen X-Ray 08/10/17 0000 Signed Impressions: Service Date/Time: Thursday, August 10, 2017 11:22 - CONCLUSION: Nonspecific a benign abdomen appearance. Deandre Tobar MD Abdomen/Pelvis CT 08/03/17 1731 Signed Impressions: Service Date/Time: Thursday, August 03, 2017 18:24 - CONCLUSION: There is narrowing of the second portion of the duodenum causing gastric outlet obstruction with significant inflammation surrounding the duodenal wall as described above in the right upper outer quadrant. Possibility of a ruptured peptic ulcer disease should be entertained and there is obstruction to the distal common bile duct and pancreatic duct as a result. Underlying neoplastic process or malignancy is difficult to exclude in this time. Susana Reeves MD Physical Exam HEENT: PERRL; normocephalic; atraumatic; CHEST: CTA CARDIAC: RRR ABDOMEN: distended, mild diffuse TTP, bowel sounds are present in all four quadrants. EXTREMITIES: No clubbing, cyanosis, or edema. SKIN: no rash; no obvious jaundice. HAIRPIECE STYLIST: No focal deficits; alert and oriented times three. (Amy López) Assessment and Plan Plan - Initially had epigastric pain, n/v, coffee ground emesis, melanotic stool on admission- gastric outlet obstruction with UGIB, CBD obstruction, obstruction pancreatic duct seen on CT. Patient has been followed since admission with multiple specialties such as general surgery and GI - anemia - probable secondary to chronic disease. denies any obvious bleeding. hemoglobin 8.6. - hx etoh abuse, assistance to quit he is requesting to talk to case management about going in a subacute for rehabilitation, so he is not a home - prostate ca s/p radiation, diagnosed 2 years ago, as seen his oncology doctor in one year 08/05/17 s/p EGD found reflux esophagitis, duodenal erythema and edema likely 2/ 2 pancreatitis. CA 19-9 elevated. Will need for repeating in 3 months 08/05/17 s/p EGD found reflux esophagitis, duodenal erythema and edema likely 2/ 2 pancreatitis. lipase trending down, 919 today CA 19-9 is elevated 46.9. GS following. 08/06/17 lipase trending down. tolerating clears. pain somewhat improved. biopsies still pending. 08/07/17 lipase mildly increased. tolerating full liquids. pain gradually improving. n/v improved. bx pending 08/08/17 lipase slowly trending down. tolerating full liquids. pain improved after BM today. still awaiting bx 08/13/17 MRCP thickening of the second portion of the duodenum secondary to edema and inflammation if patient has an ulcer or other inflammatory conditions versus a neoplasm. A neoplasm cannot select some ulceration which could be due to inflammatory change extending into the right abdomen. This area should be directly inspected. Dilatation of the pancreatic and biliary ducts likely secondary to obstruction at the level of the ampulla there is a fluid level within the biliary duct system likely related to some degree of hemorrhage within the biliary system. Patient is willing to do whatever testing is needed to make him feel better although he was hesitant this a.m. when talking to his meeting physician. Family is now supporting him to stay in the hospital continue with care as needed. 08/14/17 patient feels like he's getting back to his norm, abdomen still taut, mildly distended but patient states he has been up in wheelchair increased activity today and has had no acute problems. Denies nausea vomiting diarrhea, normal BM today ERCP with consent, EGD/ERCP per Dr. Charles 08/16/17 pt s/p EGD. no ERCP done, ampulla appeared normal. EGD found prominent thick ulcerated folds duodenum. bx pending. tolerating diet. lipase now WNL. 08/17/17 constipated. diffuse TTP. bx showed peptic duodenitis, no malignancy identified. 08/18/17 less tender but more distended today. HH gradually declining. will get CT PLAN - CT abd - monitor labs - transfuse as needed - EGD in 1 month - repeat tumor markers in 1 month - monitor labs - Continue Creon, Protonix, Carafate - Bowel regimen - pt seen by myself and Dr Charles, note is written on his behalf (Amy López) Plan It was seen and examined, agree with above-noted, we'll see the result of the CAT scan patient still worrisome for malignancy but the biopsy was negative so we will have to follow up with a short interval endoscopy to ensure that if this is an ulcer that resolved otherwise repeat biopsy (Estephania Charles MD) Amy López Aug 18, 2017 12:10 Estephania Charles MD Aug 18, 2017 17:36
[2017-08-18] MEDS ORDERED: DIATRIZOATE MEGLUM/DIATRIZOATE SOD 9 ML CUP PO ONE (13:15)
[2017-08-18] MEDS ORDERED: IOHEXOL 350 MG/ML 10 ML VIAL (for RAD DIAG) IVCONTRAST ONE (16:51)
--- NOTE | 2017-08-18 17:11 | RADRPT ---
EXAM DATE/TIME: 08/18/2017 16:22 [facility] COMPARISON: MRCP W & W/O CONTRAST, August 14, 2017, 7:32. CT ABDOMEN & PELVIS W CONTRAST, August 03, 2017, 1 8:24. INDICATIONS : Abdomen distention IV CONTRAST: 72 cc Omnipaque 350 (iohexol) IV ORAL CONTRAST: Prescribed oral contrast ingested. RADIATION DOSE: 6.68 CTDIvol (mGy) MEDICAL HISTORY : Cardiovascular disease. Pancreatitis. Carcinoma, prostate. SURGICAL HISTORY : None. ENCOUNTER: Initial ACUITY: 1 day PAIN SCALE: 2/10 LOCATION: Abdomen TECHNIQUE: Volumetric scanning of the abdomen and pelvis was performed. Using automated exposure control and ad justment of the mA and/or kV according to patient size, radiation dose was kept as low as reasonably achievable to obtain optimal diagnostic quality images. DICOM format image data is available electro nically for review and comparison. FINDINGS: LOWER LUNGS: The visualized lower lungs are clear. LIVER: Homogeneous density without lesion. Mild intrahepatic and extra hepatic biliary tree dilatation. No c alcified gallstones. Gallbladder is less distended than previous study SPLEEN: Normal size without lesion. PANCREAS: Within normal limits. KIDNEYS: Normal in size and shape. There is no mass, stone or hydronephrosis. ADRENAL GLANDS: Within normal limits. VASCULAR: There is no aortic aneurysm. BOWEL/MESENTERY: Third and is similar inflammation around the second portion of the duodenum malignancy versus ulcer. There is an adjacent lymph node on today's exam measuring 1 cm across. This metaplasia sitting tube i n and around the gallbladder fossa as well. The stomach is markedly distended. The rest of bowel is n ondistended.. ABDOMINAL WALL: Within normal limits. RETROPERITONEUM: There is no lymphadenopathy. BLADDER: No wall thickening or mass. REPRODUCTIVE: Within normal limits. INGUINAL: There is no lymphadenopathy or hernia. MUSCULOSKELETAL: Within normal limits for patient age. CONCLUSION: Continued marked inflammation in and around the second portion of the duodenum. Differential includes either peptic ulcer disease versus neoplasm of the duodenum. There is some persistent dilatation the biliary tree and the small lymph node in the adjacent soft tissues. There is marked distention of th e stomach with fluid and food. A small right lateral pancreatic head neoplasm would also be within th e differential but there is no tail atrophy making pancreatic malignancy less likely, but there is du ctal dilatation. Jose Miguel Haley MD on August 18, 2017 at 17:06 Board Certified Radiologist. This report was verified electronically.
[2017-08-19 04:20] VITALS: BP 102/64; PULSE 98; RESP 18; TEMP 97.6; O2SAT 99
[2017-08-19 08:00] VITALS: BP 93/65; PULSE 101; RESP 18; TEMP 96.4; O2SAT 98
[2017-08-19] MEDS: SUCRALFATE 1 GM/10 ML CUP PO SCH ×4 (08:22→20:03)
[2017-08-19] MEDS: DOCUSATE SODIUM 50 MG/SENNA 8.6 MG TAB PO SCH ×2 (08:22→20:03)
[2017-08-19] MEDS: SODIUM CHLORIDE 0.9% FLUSH 10 ML FLUSH IV FLUSH SCH ×2 (08:22→20:04)
[2017-08-19] MEDS: LIPASE/PROTEASE/AMYLASE (24,000/76,000/120,000) CAP PO SCH ×3 (08:22→17:16)
[2017-08-19] MEDS: PANTOPRAZOLE SOD 40 MG DELAYED RELEASE TAB PO SCH ×2 (08:23→20:03)
[2017-08-19] MEDS: ACETAMINOPHEN/HYDROcodone 325 MG/7.5 MG TAB PO PRN ×2 (08:24→23:17)
[2017-08-19] MEDS ORDERED: DIATRIZOATE MEGLUM/DIATRIZOATE SOD 120 ML BTL (for RAD DIAG) PO ONE (10:28)
[2017-08-19] MEDS ORDERED: ONDANSETRON HCL 4 MG/2 ML VIAL IV PUSH ONE (11:45)
[2017-08-19 12:00] VITALS: BP 98/64; PULSE 105; RESP 18; TEMP 98.8; O2SAT 100
--- NOTE | 2017-08-19 12:55 | HHI.GIFU ---
Subjective Remarks Pt resting in bed. No new complaints. Persistent abd distention. (Amy López [employer]) Objective Vitals I&O Vital Signs Date Time Temp Pulse Resp B/P (MAP) Pulse Ox O2 Delivery O2 Flow Rate FiO2 08/19/17 12:00 98.8 105 18 98/64 (75) 100 08/19/17 09:24 18 08/19/17 08:00 96.4 101 18 93/65 (74) 98 08/19/17 04:20 97.6 98 18 102/64 (77) 99 08/18/17 22:50 97.4 100 18 96/70 (79) 98 08/18/17 19:55 97.4 97 18 108/75 (86) 98 08/18/17 18:46 Room Air 08/18/17 16:09 96.4 109 20 117/72 (87) 99 I/O 08/18/17 08/18/17 08/18/17 08/19/17 08/19/17 08/19/17 07:00 15:00 23:00 07:00 15:00 23:00 Intake Total 480 ml 1500 ml 720 ml 846 ml Output Total 575 ml 600 ml Balance -95 ml 1500 ml 720 ml 246 ml Intake Oral 480 ml 1500 ml 720 ml 480 ml IV Total 366 ml Output Urine Total 575 ml 600 ml # Voids 1 4 3 1 # Bowel Movements 0 0 0 0 Laboratory Laboratory Tests Test 08/18/17 13:10 Hemoglobin 8.5 Imaging Last Impressions Abdomen/Pelvis CT 08/18/17 0000 Signed Impressions: Service Date/Time: August 16:22 - CONCLUSION: Continued marked inflammation in and around the second portion of the duodenum. Differential includes either peptic ulcer disease versus neoplasm of the duodenum. There is some persistent dilatation the biliary tree and the small lymph node in the adjacent soft tissues. There is marked distention of the stomach with fluid and food. A small right lateral pancreatic head neoplasm would also be within the differential but there is no tail atrophy making pancreatic malignancy less likely, but there is ductal dilatation. Jose Miguel Haley MD Cholangiopancreatography MRI 08/14/17 0000 Signed Impressions: Service Date/Time: Monday, August 14, 2017 07:32 - CONCLUSION: Thickening of the second portion the duodenum likely secondary to edema and inflammation if the patient has an ulcer or other inflammatory condition versus a neoplasm. A neoplasm cannot select some ulceration which could be due to the inflammatory change extending into the right abdomen. This area should be directly inspected. There is dilatation of the pancreatic and biliary ducts likely secondary to obstruction at the level of the ampulla. There is a fluid fluid level within the biliary duct system likely related to some degree of hemorrhage within the biliary system. Deandre Ware MD Upper GI Series 08/11/17 0000 Signed Impressions: Service Date/Time: July 10:26 - CONCLUSION: 1. There is an abrupt transition in diameter between the distended duodenal bulb and 2nd portion of the duodenum. 2. No ulceration or mass seen in the stomach; there is loss of rugal folds. 3. Small Zenker's diverticulum. Jaime Charles MD Abdomen X-Ray 08/10/17 0000 Signed Impressions: Service Date/Time: Thursday, August 10, 2017 11:22 - CONCLUSION: Nonspecific a benign abdomen appearance. Deandre Tobar MD Physical Exam HEENT: PERRL; normocephalic; atraumatic; CHEST: CTA CARDIAC: RRR ABDOMEN: distended, mild diffuse TTP, bowel sounds faint EXTREMITIES: No clubbing, cyanosis, or edema. SKIN: no rash; no obvious jaundice. DIGITAL MARKETING INTERN: No focal deficits; alert and oriented times three. (Amy López [facility]) Assessment and Plan Plan - Initially had epigastric pain, n/v, coffee ground emesis, melanotic stool on admission- gastric outlet obstruction with UGIB, CBD obstruction, obstruction pancreatic duct seen on CT. Patient has been followed since admission with multiple specialties such as general surgery and GI - anemia - probable secondary to chronic disease. denies any obvious bleeding. hemoglobin 8.6. - hx etoh abuse, assistance to quit he is requesting to talk to case management about going in a subacute for rehabilitation, so he is not a home - prostate ca s/p radiation, diagnosed 2 years ago, as seen his oncology doctor in one year 08/05/17 s/p EGD found reflux esophagitis, duodenal erythema and edema likely 2/ 2 pancreatitis. CA 19-9 elevated. Will need for repeating in 3 months 08/05/17 s/p EGD found reflux esophagitis, duodenal erythema and edema likely 2/ 2 pancreatitis. lipase trending down, 919 today CA 19-9 is elevated 46.9. GS following. 08/06/17 lipase trending down. tolerating clears. pain somewhat improved. biopsies still pending. 08/07/17 lipase mildly increased. tolerating full liquids. pain gradually improving. n/v improved. bx pending 08/08/17 lipase slowly trending down. tolerating full liquids. pain improved after BM today. still awaiting bx 08/13/17 MRCP thickening of the second portion of the duodenum secondary to edema and inflammation if patient has an ulcer or other inflammatory conditions versus a neoplasm. A neoplasm cannot select some ulceration which could be due to inflammatory change extending into the right abdomen. This area should be directly inspected. Dilatation of the pancreatic and biliary ducts likely secondary to obstruction at the level of the ampulla there is a fluid level within the biliary duct system likely related to some degree of hemorrhage within the biliary system. Patient is willing to do whatever testing is needed to make him feel better although he was hesitant this a.m. when talking to his meeting physician. Family is now supporting him to stay in the hospital continue with care as needed. 08/14/17 patient feels like he's getting back to his norm, abdomen still taut, mildly distended but patient states he has been up in wheelchair increased activity today and has had no acute problems. Denies nausea vomiting diarrhea, normal BM today ERCP with consent, EGD/ERCP per Dr. Charles 08/16/17 pt s/p EGD. no ERCP done, ampulla appeared normal. EGD found prominent thick ulcerated folds duodenum. bx pending. tolerating diet. lipase now WNL. 08/17/17 constipated. diffuse TTP. bx showed peptic duodenitis, no malignancy identified. 08/18/17 less tender but more distended today. HH gradually declining. will get CT 08/19/17 CT noted. persistent distention. 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
--- NOTE | 2017-08-19 15:10 | HHI.PR ---
Subjective Remarks Patient has persistent abdominal bloating. Temporary relieved following bowel movement yesterday but has recurred this afternoon. Objective Vitals Vital Signs Date Time Temp Pulse Resp B/P (MAP) Pulse Ox O2 Delivery O2 Flow Rate FiO2 08/19/17 12:00 98.8 105 18 98/64 (75) 100 08/19/17 09:24 18 08/19/17 08:00 96.4 101 18 93/65 (74) 98 08/19/17 04:20 97.6 98 18 102/64 (77) 99 08/18/17 22:50 97.4 100 18 96/70 (79) 98 08/18/17 19:55 97.4 97 18 108/75 (86) 98 08/18/17 18:46 Room Air 08/18/17 16:09 96.4 109 20 117/72 (87) 99 I/O 08/18/17 08/18/17 08/18/17 08/19/17 08/19/17 08/19/17 07:00 15:00 23:00 07:00 15:00 23:00 Intake Total 480 ml 1500 ml 720 ml 846 ml Output Total 575 ml 600 ml Balance -95 ml 1500 ml 720 ml 246 ml Intake Oral 480 ml 1500 ml 720 ml 480 ml IV Total 366 ml Output Urine Total 575 ml 600 ml # Voids 1 4 3 1 # Bowel Movements 0 0 0 0 Result Diagram: 08/18/17 1310 08/17/17 0542 Objective Remarks GENERAL: Well-nourished, well-developed patient. SKIN: Warm and dry. HEAD: Normocephalic. EYES: No scleral icterus. No injection or drainage. NECK: Supple, trachea midline. No JVD or lymphadenopathy. CARDIOVASCULAR: Regular rate and rhythm without murmurs, gallops, or rubs. RESPIRATORY: Breath sounds equal bilaterally. No accessory muscle use. GASTROINTESTINAL: Abdomen bloated, normal bowel sounds. Mild diffuse tenderness EXTREMITIES: No cyanosis, or edema. NEUROLOGICAL: Awake, alert, and oriented x 3. Non-focal. Procedures EGD 08/04/17 showing reflux esophagitis, duodenal stricture and edema 08/15/17 PROCEDURE PERFORMED egd WITH bX INDICATION FOR PROCEDURE abnormal Ct scan of the duodenum PROCEDURE: The procedure, risks and benefits were discussed with Mr. Anderson and informed consent was obtained. Anesthesia sedated him with Diprivan. He was placed in the left lateral decubitus position. EGD: The Pentax side view videoscope was introduced through the oropharynx and advanced to the second portion of the duodenum under direct visualization. Retroflexion was performed in the stomach.then regular Pentax scope was videoscope was introduced through the oropharynx and advanced to the second portion of the duodenum under direct visualization. Retroflexion was performed in the stomach, the withdrawal was done without any complications Bx from duodenum was performed FINDINGS: prominent thick ulcerated folds in the duodenum Bx done ampulla was normal so ERCP was not performed ESTIMATED BLOOD LOSS: none SPECIMENS REMOVED: duodenum COMPLICATIONS: none IMPRESSION: prominent thick ulcerated folds in the duodenum Bx done ampulla was normal so ERCP was not performed PLAN: await Bx results contniue PPI clear liquid diet A/P Problem List: (1) Pancreatitis ICD Code: K85.90 - Acute pancreatitis without necrosis or infection, unspecified Status: Acute (2) Emphysema, unspecified ICD Code: J43.9 - Emphysema, unspecified Status: Chronic (3) Alcohol abuse ICD Code: F10.10 - Alcohol abuse, uncomplicated Status: Chronic Assessment and Plan Pancreatitis Onset was after drinking 4 beers Last case of pancreatitis was greater than 10 years ago Patient is tolerating solids, but with poor appetite Biopsy of esophagus and duodenum show no evidence of cancer GI recommends repeat EGD in 1 month, repeat tumor markers in 1 month. Continue Creon, Protonix, Carafate Appreciate GI consult Anemia Trend appears stable Abdominal Bloating Temporary resolution following bowel movement GI ordered Gastrografin study Appreciate GIs assistance with this workup Constipation May be the cause of his abdominal bloating beyond pancreatitis He has responded poorly to Kaylen-Colace Lactulose started yesterday produced single bowel movement of reasonable size Continue with lactulose Emphysema Continue with home meds Duo nebs as needed h/o Prostate CA Stable, continue home meds PSA ordered for a.m. DVT Prophylaxis SCDs Problem Qualifiers (1) Pancreatitis: Qualified Codes: K85.90 - Acute pancreatitis without necrosis or infection, unspecified (2) Emphysema, unspecified: Qualified Codes: J43.9 - Emphysema, unspecified Laci Coppola MD Aug 19, 2017 15:10
[2017-08-19 16:00] VITALS: BP 103/76; PULSE 108; RESP 19; TEMP 97.9; O2SAT 99
--- NOTE | 2017-08-19 16:21 | RADRPT ---
EXAM DATE/TIME: 08/19/2017 15:23 [facility] COMPARISON: CT ABDOMEN & PELVIS W CONTRAST, August 18, 2017, 16:22. INDICATIONS : Obstruction. FLUORO TIME: 4.3 minutes IMAGE COUNT: CONTRAST: 1. MD Gonzalez MEDICAL HISTORY : Cardiovascular disease. Carcinoma, prostatic. Pancreatitis. SURGICAL HISTORY : Appendectomy. ENCOUNTER: Initial ACUITY: 2 weeks PAIN SCORE: 0/10 LOCATION: Left abdomen FINDINGS: Society Reporter view is unremarkable. There is some residual contrast within the large bowel and within colonic diverticulum of the sigmoid and descending colon. The patient was given barium to swallow. There is a diverticulum seen posteriorly in the cervical esophagus measuring 1.6 cm. Otherwise the esophagus i s unremarkable. The stomach is distended with contrast media with delayed emptying into the duodenum. There is a thin column of contrast from the duodenal bulb through the junction of the second and thi rd portions of the duodenum extending over 7 cm. The lumen distends up to 3 mm. This is felt to repre sent an area of high-grade stenosis. The duodenal sweep and jejunum and ileal loops are otherwise unr emarkable. There is significant gastroesophageal reflux noted during the exam. 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 Paxton Cruz MD on August 19, 2017 at 16:18 Board Certified Radiologist. This report was verified electronically.
--- NOTE | 2017-08-19 19:22 | PD.CONS ---
General Surgery Consult Derick Anderson is a 61-year-old -[place] male known to us previously with duodenal stenosis in the second and third portions of the duodenum. The patient is able to tolerate liquids and was on a full liquid diet when we signed off August 12. He continues to have narrowing and has intermittent problems with this although he denies having any emesis whatsoever. CT of the abdomen and pelvis on August 18 demonstrates similar inflammation around the second portion of the duodenum. Labs from a few days ago demonstrate low normal white blood cell count and elevated platelet count. Lipase was still somewhat elevated. Past medical history is present from our previous dictation. Physical exam reveals an -[place] male who is uncomfortable; Vital signsBP 103/76 pulse 108 respirations 19 temperature 97.9 99% sat on room air Chest clear to auscultation Cardiac tachycardia without murmurs Abdomen soft distended and diffusely tender without guarding or rebound Labs WBCs 3.9 hemoglobin 8.5 platelets 962,000 on August 17 lipase 354 on August 16 Assessment: persistent narrowing second and third portion of duodenum Recommendation: Continue full liquids for now; will recheck lipase; would consider endoscopic ultrasound with transduodenal biopsy. If this is negative would consider gastroenterostomy to perform bypass. Would consider this laparoscopically if all other workup is negative for malignancy. Thank you for asking us to see Mr. Anderson once again. We will see him again on Tuesday. Travis Ball MD Aug 19, 2017 19:22
[2017-08-19 20:00] VITALS: BP 112/84; PULSE 114; PULSE 115; RESP 16; TEMP 98.4; O2SAT 98
[2017-08-19] MEDS: MORPHINE SULFATE 2 MG/ML INJ IV PUSH PRN (20:12)
[2017-08-20] VITALS (9 sets, daily range): BP systolic 90–108; BP diastolic 63–80; PULSE 95–107; RESP 16–18; TEMP 95.3–98.7; O2SAT 95–100
[2017-08-20 07:03] LABS: HEMATOCRIT 27.5 % (39.0-51.0); HEMOGLOBIN 8.7 GM/DL (13.0-17.0); MEAN CELL VOLUME 75.9 FL (80.0-100.0); MEAN CORPUSCULAR HEMOGLOBIN 24.2 PG (27.0-34.0); MEAN CORPUSCULAR HGB CONC 31.8 % (32.0-36.0); MEAN PLATELET VOLUME 8.2 FL (7.0-11.0); PLATELET COUNT 972 TH/MM3 (150-450); RED BLOOD COUNT 3.62 MIL/MM3 (4.50-5.90); RED CELL DISTRIBUTION WIDTH 19.7 % (11.6-17.2); WHITE BLOOD COUNT 4.3 TH/MM3 (4.0-11.0)
[2017-08-20] MEDS: DOCUSATE SODIUM 50 MG/SENNA 8.6 MG TAB PO SCH ×2 (07:29→20:07)
[2017-08-20] MEDS: PANTOPRAZOLE SOD 40 MG DELAYED RELEASE TAB PO SCH ×2 (07:29→20:07)
[2017-08-20] MEDS: SODIUM CHLORIDE 0.9% FLUSH 10 ML FLUSH IV FLUSH SCH ×2 (07:30→20:09)
[2017-08-20] MEDS: SUCRALFATE 1 GM/10 ML CUP PO SCH ×4 (07:30→20:07)
[2017-08-20] MEDS: LACTULOSE SYRUP 20 GM/30 ML CUP PO PRN (07:30)
[2017-08-20] MEDS: LIPASE/PROTEASE/AMYLASE (24,000/76,000/120,000) CAP PO SCH ×3 (07:30→16:14)
[2017-08-20 07:31] LABS: CARCINOEMBRYONIC ANTIGEN 2.2 NG/ML (0.2-5.0)
[2017-08-20] MEDS: ACETAMINOPHEN/HYDROcodone 325 MG/7.5 MG TAB PO PRN ×4 (07:32→20:08)
[2017-08-20 08:07] LABS: CA 19-9 36.1 U/ML (0.0-35.0)
--- NOTE | 2017-08-20 08:12 | HHI.PR ---
Subjective Remarks Pt seen and examined this morning. AFVSS. No acute events overnight. Reports some nausea overnight, no vomiting. Complains of abdominal bloating after PO intake. Currently not having abdominal pain but reports it comes and goes; mostly epigastric and RUQ. States he has had multiple liquid stools since taking laxative. No blood. Denies CP, SOB. Ambulating. Objective Vital Signs Date Time Temp Pulse Resp B/P (MAP) Pulse Ox O2 Delivery O2 Flow Rate FiO2 08/20/17 07:35 95.3 98 18 90/69 (76) 95 08/20/17 04:00 97.9 101 18 97/63 (74) 97 08/20/17 00:15 104 08/20/17 00:00 98.7 107 18 100/68 (79) 97 08/19/17 20:00 98.4 114 16 112/84 (93) 98 08/19/17 20:00 115 08/19/17 16:00 97.9 108 19 103/76 (85) 99 08/19/17 12:00 98.8 105 18 98/64 (75) 100 08/19/17 09:24 18 I/O 08/19/17 08/19/17 08/19/17 08/20/17 08/20/17 08/20/17 07:00 15:00 23:00 07:00 15:00 23:00 Intake Total 846 ml 720 ml 480 ml 240 ml Output Total 600 ml 250 ml 300 ml Balance 246 ml 720 ml 230 ml -60 ml Intake Oral 480 ml 720 ml 480 ml 240 ml IV Total 366 ml Output Urine Total 600 ml 250 ml 300 ml # Voids 1 3 # Bowel Movements 0 0 0 Result Diagram: 08/20/17 0521 08/17/17 0542 Imaging 08/03/17 ABD/pelvis CT: Narrowing of the second portion of the duodenum causing gastric outlet obstruction with significant inflammation surrounding the duodenal wall. Underlying neoplastic process or malignancy difficult to exclude 08/09 ABD XR: Benign 08/10 ABD XR: Benign 08/11 UGI series: Abrupt transition in diameter between the distended duodenal bulb and second portion of duodenum. Loss of rugal folds in the stomach. Small Zenker's diverticulum 08/18 ABD/pelvis CT: Continue marked inflammation and and around the second portion of the duodenum. Some persistent dilatation of the biliary tree and the small lymph node in the adjacent soft tissues. Marked distention of the stomach with fluid and food. Procedures 1. EGD 08/04/17 showing reflux esophagitis, duodenal stricture and edema 2. MRCP 08/13/17 showing thickening of the second portion of the duodenum secondary to edema and inflammation if patient has an ulcer or other inflammatory conditions versus a neoplasm. A neoplasm cannot select some ulceration which could be due to inflammatory change extending into the right abdomen. This area should be directly inspected. Dilatation of the pancreatic and biliary ducts likely secondary to obstruction at the level of the ampulla there is a fluid level within the biliary duct system likely related to some degree of hemorrhage within the biliary system. 3. EGD 08/16/17 showing prominent thick ulcerated folds in the duodenum. Bx showing peptic duodenitis Objective Remarks GENERAL:Pleasant WN, WD AA male sitting up in NAD. SKIN: Warm and dry. HEENT: Pupils equal and round. No scleral icterus. MMM. NECK: No tender LAD or JVD. HEART: RRR no m/r/g. LUNGS: CTAB without wheezes or crackles. ABDOMEN: Hyperactive BS. Distended abdomen with diffuse TTP especially over epigastrium, RUQ, and LUQ. EXTREMITIES: No LE edema or calf tenderness. NEURO: Awake and alert. A/P Problem List: (1) Duodenitis ICD Code: K29.80 - Duodenitis without bleeding (2) Gastric outlet obstruction ICD Code: K31.1 - Adult hypertrophic pyloric stenosis (3) Thrombocytosis ICD Code: D47.3 - Essential (hemorrhagic) thrombocythemia (4) Anemia ICD Code: D64.9 - Anemia, unspecified Assessment and Plan 61 YOAAM with history of alcohol abuse admitted for pancreatitis. Pancreatitis with gastric outlet obstruction secondary to duodenal swelling Onset was after drinking 4 beers Last case of pancreatitis was greater than 10 years ago Lipase remains elevated Pain control GI and gen surgery assisting with case, appreciate their input Biopsy of esophagus and duodenum show no evidence of cancer GI recommends repeat EGD in 1 month, repeat tumor markers in 1 month. Continue Creon, Protonix, Carafate Esophagitis Biopsies showing peptic esophagitis; malignancy not identified Continue Protonix GI following Thrombocytosis Platelets high end of normal on admission and gradually rising, up to 972K yesterday Differentials include reactive thrombocytosis (from inflammation, anemia, etc.) or myelodysplastic process Check iron studies and CRP Anemia H&H stable Hemodynamically stable Check iron studies Constipation May be the cause of his abdominal bloating beyond pancreatitis He has responded poorly to Kaylen-Colace Continue lactulose Emphysema Not a current issue Continue with home meds DuoNeb PRN h/o Prostate CA Stable, continue home meds DVT Prophylaxis SCDs Ambulating Discharge Planning Unclear discharge at this time as further work-up pending Maddie Diallo MD Aug 20, 2017 08:12
[2017-08-20 08:46] LABS: LYMPHOCYTES 12 % (9-44); MONOCYTES 7 % (0-8); NEUTROPHIL # MANUAL DIFF 3.5 TH/MM3 (1.8-7.7); POLYS (SEG NEUTROPHILS) 81 % (16-70)
[2017-08-20 08:48] LABS: ACANTHOCYTES OCC (NORMAL); OVALOCYTES 1+ (NORMAL)
[2017-08-20 11:33] LABS: % SATURATION IRON PROFILE 7.6 % (20-50); C-REACTIVE PROTEIN 0.95 MG/DL (0.00-0.30); IRON (FE) 33 MCG/DL (65-175); TOTAL IRON BINDING CAPACITY 434 MCG/DL (250-450)
[2017-08-20 11:36] LABS: FERRITIN 19 NG/ML (26-388)
--- NOTE | 2017-08-20 13:01 | HHI.GIFU ---
Subjective Remarks Pt resting in bed. NO new complaints. Continued tenderness and distention. + BM. (Amy López) Objective Vitals I&O Vital Signs Date Time Temp Pulse Resp B/P (MAP) Pulse Ox O2 Delivery O2 Flow Rate FiO2 08/20/17 11:43 97.9 100 17 94/73 (80) 99 08/20/17 08:15 97 08/20/17 07:35 95.3 98 18 90/69 (76) 95 08/20/17 04:00 97.9 101 18 97/63 (74) 97 08/20/17 00:15 104 08/20/17 00:00 98.7 107 18 100/68 (79) 97 08/19/17 20:00 98.4 114 16 112/84 (93) 98 08/19/17 20:00 115 08/19/17 16:00 97.9 108 19 103/76 (85) 99 I/O 08/19/17 08/19/17 08/19/17 08/20/17 08/20/17 08/20/17 07:00 15:00 23:00 07:00 15:00 23:00 Intake Total 846 ml 720 ml 480 ml 240 ml Output Total 600 ml 250 ml 300 ml Balance 246 ml 720 ml 230 ml -60 ml Intake Oral 480 ml 720 ml 480 ml 240 ml IV Total 366 ml Output Urine Total 600 ml 250 ml 300 ml # Voids 1 3 # Bowel Movements 0 0 0 Laboratory Laboratory Tests Test 08/20/17 05:21 White Blood Count 4.3 Red Blood Count 3.62 Hemoglobin 8.7 Hematocrit 27.5 Mean Corpuscular Volume 75.9 Mean Corpuscular Hemoglobin 24.2 Mean Corpuscular Hemoglobin Concent 31.8 Red Cell Distribution Width 19.7 Platelet Count 972 Mean Platelet Volume 8.2 CBC Comment AUTO DIFF Differential Total Cells Counted 100 Neutrophils % (Manual) 81 Lymphocytes % 12 Monocytes % 7 Neutrophils # (Manual) 3.5 Differential Comment FINAL DIFF MANUAL Platelet Estimate HIGH Platelet Morphology Comment NORMAL Ovalocytes 1+ Acanthocytes OCC Iron Level 33 Total Iron Binding Capacity 434 Percent Iron Saturation 7.6 Ferritin 19 C-Reactive Protein 0.95 Lipase 688 Tumor Marker Alpha Fetoprotein 4.1 Carcinoembryonic Antigen 2.2 CA 19-9 Antigen 36.1 Prostate Specific Antigen Screen 0.10 Imaging Last Impressions Upper GI Series 08/19/17 0000 Signed Impressions: Service Date/Time: Saturday, August 19, 2017 15:23 - CONCLUSION: High-grade stenosis of the second portion of the duodenum identified. Paxton Cruz MD Abdomen/Pelvis CT 08/18/17 0000 Signed Impressions: Service Date/Time: August 16:22 - CONCLUSION: Continued marked inflammation in and around the second portion of the duodenum. Differential includes either peptic ulcer disease versus neoplasm of the duodenum. There is some persistent dilatation the biliary tree and the small lymph node in the adjacent soft tissues. There is marked distention of the stomach with fluid and food. A small right lateral pancreatic head neoplasm would also be within the differential but there is no tail atrophy making pancreatic malignancy less likely, but there is ductal dilatation. Jose Miguel Haley MD Cholangiopancreatography MRI 08/14/17 0000 Signed Impressions: Service Date/Time: Monday, August 14, 2017 07:32 - CONCLUSION: Thickening of the second portion the duodenum likely secondary to edema and inflammation if the patient has an ulcer or other inflammatory condition versus a neoplasm. A neoplasm cannot select some ulceration which could be due to the inflammatory change extending into the right abdomen. This area should be directly inspected. There is dilatation of the pancreatic and biliary ducts likely secondary to obstruction at the level of the ampulla. There is a fluid fluid level within the biliary duct system likely related to some degree of hemorrhage within the biliary system. Deandre Ware MD Abdomen X-Ray 08/10/17 0000 Signed Impressions: Service Date/Time: Thursday, August 10, 2017 11:22 - CONCLUSION: Nonspecific a benign abdomen appearance. Deandre Tobar MD Physical Exam HEENT: PERRL; normocephalic; atraumatic; CHEST: CTA CARDIAC: RRR ABDOMEN: distended, mild diffuse TTP, bowel sounds+ EXTREMITIES: No clubbing, cyanosis, or edema. SKIN: no rash; no obvious jaundice. NEEDLEMAKER: No focal deficits; alert and oriented times three. (Amy López) Assessment and Plan Plan - Initially had epigastric pain, n/v, coffee ground emesis, melanotic stool on admission- gastric outlet obstruction with UGIB, CBD obstruction, obstruction pancreatic duct seen on CT. Patient has been followed since admission with multiple specialties such as general surgery and GI - anemia - probable secondary to chronic disease. denies any obvious bleeding. hemoglobin 8.6. - hx etoh abuse, assistance to quit he is requesting to talk to case management about going in a subacute for rehabilitation, so he is not a home - prostate ca s/p radiation, diagnosed 2 years ago, as seen his oncology doctor in one year 08/05/17 s/p EGD found reflux esophagitis, duodenal erythema and edema likely 2/ 2 pancreatitis. CA 19-9 elevated. Will need for repeating in 3 months 08/05/17 s/p EGD found reflux esophagitis, duodenal erythema and edema likely 2/ 2 pancreatitis. lipase trending down, 919 today CA 19-9 is elevated 46.9. GS following. 08/06/17 lipase trending down. tolerating clears. pain somewhat improved. biopsies still pending. 08/07/17 lipase mildly increased. tolerating full liquids. pain gradually improving. n/v improved. bx pending 08/08/17 lipase slowly trending down. tolerating full liquids. pain improved after BM today. still awaiting bx 08/13/17 MRCP thickening of the second portion of the duodenum secondary to edema and inflammation if patient has an ulcer or other inflammatory conditions versus a neoplasm. A neoplasm cannot select some ulceration which could be due to inflammatory change extending into the right abdomen. This area should be directly inspected. Dilatation of the pancreatic and biliary ducts likely secondary to obstruction at the level of the ampulla there is a fluid level within the biliary duct system likely related to some degree of hemorrhage within the biliary system. Patient is willing to do whatever testing is needed to make him feel better although he was hesitant this a.m. when talking to his meeting physician. Family is now supporting him to stay in the hospital continue with care as needed. 08/14/17 patient feels like he's getting back to his norm, abdomen still taut, mildly distended but patient states he has been up in wheelchair increased activity today and has had no acute problems. Denies nausea vomiting diarrhea, normal BM today ERCP with consent, EGD/ERCP per Dr. Charles 08/16/17 pt s/p EGD. no ERCP done, ampulla appeared normal. EGD found prominent thick ulcerated folds duodenum. bx pending. tolerating diet. lipase now WNL. 08/17/17 constipated. diffuse TTP. bx showed peptic duodenitis, no malignancy identified. 08/18/17 less tender but more distended today. HH gradually declining. will get CT 08/19/17 CT noted. persistent distention. + BM 08/20/17 UGI series showed high grade stenosis 2nd part duodenum. GS consult appreciated, suggesting EUS with transduodenal bx and if neg they would consider gastroenterostomy bypass PLAN - full liquid diet - consider EUS, timing TBD - repeat tumor markers in 3 wks - monitor labs - Continue Creon, Protonix, Carafate - Bowel regimen pt seen by myself and Dr Desai and this note is on his behalf (Amy López) Physician Comments Seen and examined with ZURDO, tolerating clears. EUS/FNA next week. (Gian Desai MD) Amy López Aug 20, 2017 13:01 Gian Desai MD Aug 20, 2017 16:01
[2017-08-21] VITALS (10 sets, daily range): BP systolic 96–107; BP diastolic 61–76; PULSE 85–105; RESP 16–18; TEMP 93–98.3; O2SAT 97–100
[2017-08-21] MEDS: ACETAMINOPHEN/HYDROcodone 325 MG/7.5 MG TAB PO PRN ×4 (00:14→18:52)
--- NOTE | 2017-08-21 07:41 | HHI.PR ---
Subjective Remarks Pt seen and examined. AFVSS. States he feels about the same. Endorses bloating and some nausea after eating. No current pain at rest but pain in epigastric and RUQ when he touches. Voiding without issues. Having small, liquid BMs. Denies CP or SOB. Ambulating the halls and moving about his room. Objective Vitals Vital Signs Date Time Temp Pulse Resp B/P (MAP) Pulse Ox O2 Delivery O2 Flow Rate FiO2 08/21/17 04:10 86 08/21/17 04:00 97.2 86 18 105/74 (84) 97 08/21/17 00:15 95 08/21/17 00:00 96.3 98 18 96/61 (73) 98 08/20/17 20:00 96 08/20/17 19:54 98.7 95 18 104/70 (81) 100 08/20/17 16:14 97.9 104 16 108/80 (89) 98 08/20/17 11:43 97.9 100 17 94/73 (80) 99 08/20/17 08:15 97 I/O 08/20/17 08/20/17 08/20/17 08/21/17 08/21/17 08/21/17 07:00 15:00 23:00 07:00 15:00 23:00 Intake Total 240 ml 1920 ml 240 ml Output Total 300 ml Balance -60 ml 1920 ml 240 ml Intake Oral 240 ml 1680 ml 240 ml Oral Supplement 240 ml Output Urine Total 300 ml # Voids 5 1 # Bowel Movements 0 1 0 Result Diagram: 08/20/17 0521 08/17/17 0542 Objective Remarks GENERAL: WN, WD AA male laying in bed in NAD. SKIN: Warm and dry. HEENT: Pupils equal and round. No scleral icterus. MMM. NECK: No tender LAD or JVD. HEART: RRR no m/r/g. LUNGS: CTAB without wheezes or crackles. ABDOMEN: +BS. Slightly distended but soft, RUQ and epigastric TTP with voluntary guarding. EXTREMITIES: No LE edema or calf tenderness. NEURO: Awake and alert. Procedures EGD 08/04/17 showing reflux esophagitis, duodenal stricture and edema 08/15/17 PROCEDURE PERFORMED egd WITH bX INDICATION FOR PROCEDURE abnormal Ct scan of the duodenum PROCEDURE: The procedure, risks and benefits were discussed with Mr. Anderson and informed consent was obtained. Anesthesia sedated him with Diprivan. He was placed in the left lateral decubitus position. EGD: The Pentax side view videoscope was introduced through the oropharynx and advanced to the second portion of the duodenum under direct visualization. Retroflexion was performed in the stomach.then regular Pentax scope was videoscope was introduced through the oropharynx and advanced to the second portion of the duodenum under direct visualization. Retroflexion was performed in the stomach, the withdrawal was done without any complications Bx from duodenum was performed FINDINGS: prominent thick ulcerated folds in the duodenum Bx done ampulla was normal so ERCP was not performed ESTIMATED BLOOD LOSS: none SPECIMENS REMOVED: duodenum COMPLICATIONS: none IMPRESSION: prominent thick ulcerated folds in the duodenum Bx done ampulla was normal so ERCP was not performed PLAN: await Bx results contniue PPI clear liquid diet A/P Problem List: (1) Pancreatitis ICD Code: K85.90 - Acute pancreatitis without necrosis or infection, unspecified Status: Acute (2) Emphysema, unspecified ICD Code: J43.9 - Emphysema, unspecified Status: Chronic (3) Alcohol abuse ICD Code: F10.10 - Alcohol abuse, uncomplicated Status: Chronic (4) Gastric outlet obstruction ICD Code: K31.1 - Adult hypertrophic pyloric stenosis (5) Thrombocytosis ICD Code: D47.3 - Essential (hemorrhagic) thrombocythemia (6) Duodenitis ICD Code: K29.80 - Duodenitis without bleeding (7) Anemia ICD Code: D64.9 - Anemia, unspecified Assessment and Plan 61 YOAAM with history of alcohol abuse admitted for pancreatitis. Pancreatitis with gastric outlet obstruction secondary to duodenal swelling Onset was after drinking 4 beers Last case of pancreatitis was greater than 10 years ago Lipase remains elevated Pain control GI and gen surgery assisting with case, appreciate their input Biopsy of esophagus and duodenum show no evidence of cancer Continue Creon, Protonix, Carafate Possible EUS with biopsy planned while inpatient Esophagitis Biopsies showing peptic esophagitis; malignancy not identified Continue Protonix GI following Thrombocytosis Platelets high end of normal on admission and gradually rising, up to [id number] yesterday Differentials include reactive thrombocytosis (from inflammation, anemia, etc.) or myelodysplastic process Iron studies consistent with iron deficiency anemia CRP slightly elevated in light of inflammatory small bowel process Likely reactive thrombocytosis, continue to monitor and if worsens can consider heme consult Anemia Iron studies all consistent with iron deficiency H&H stable Hemodynamically stable Monitor Constipation May be the cause of his abdominal bloating beyond pancreatitis He has responded poorly to Kaylen-Colace Continue lactulose Emphysema Not a current issue Continue with home meds DuoNeb PRN h/o Prostate CA Stable, continue home meds DVT Prophylaxis SCDs Ambulating Discharge Planning Unclear discharge at this time as further work-up pending Problem Qualifiers (1) Pancreatitis: Qualified Codes: K85.90 - Acute pancreatitis without necrosis or infection, unspecified (2) Emphysema, unspecified: Qualified Codes: J43.9 - Emphysema, unspecified Maddie Diallo MD Aug 21, 2017 07:41
[2017-08-21] MEDS: DOCUSATE SODIUM 50 MG/SENNA 8.6 MG TAB PO SCH ×2 (08:33→20:10)
[2017-08-21] MEDS: SODIUM CHLORIDE 0.9% FLUSH 10 ML FLUSH IV FLUSH SCH ×2 (08:33→20:09)
[2017-08-21] MEDS: LIPASE/PROTEASE/AMYLASE (24,000/76,000/120,000) CAP PO SCH ×3 (08:33→17:09)
[2017-08-21] MEDS: SUCRALFATE 1 GM/10 ML CUP PO SCH ×4 (08:33→20:10)
[2017-08-21] MEDS: PANTOPRAZOLE SOD 40 MG DELAYED RELEASE TAB PO SCH ×2 (08:33→20:10)
[2017-08-21 12:00] LABS: HEMATOCRIT 25.3 % (39.0-51.0); MEAN CELL VOLUME 75.7 FL (80.0-100.0); MEAN CORPUSCULAR HGB CONC 31.8 % (32.0-36.0); MEAN PLATELET VOLUME 7.6 FL (7.0-11.0); PLATELET COUNT 844 TH/MM3 (150-450); RED BLOOD COUNT 3.35 MIL/MM3 (4.50-5.90); WHITE BLOOD COUNT 3.6 TH/MM3 (4.0-11.0)
[2017-08-21 12:21] LABS: ALBUMIN 3.1 GM/DL (3.4-5.0); ALT (GPT) 10 U/L (12-78); AST (GOT) 15 U/L (15-37); BICARBONATE 29.2 MEQ/L (21.0-32.0); BLOOD UREA NITROGEN 6 MG/DL (7-18); CALCIUM 8.7 MG/DL (8.5-10.1); CHLORIDE 103 MEQ/L (98-107); CREATININE 0.58 MG/DL (0.60-1.30); GLOMERULAR FILTRATION RATE 173 ML/MIN (>89); GLUCOSE,RANDOM 98 MG/DL (74-106); SODIUM (NA) 137 MEQ/L (136-145)
[2017-08-21 12:23] LABS: ALKALINE PHOSPHATASE 66 U/L (45-117); TOTAL BILIRUBIN ADULT 0.1 MG/DL (0.2-1.0); TOTAL PROTEIN 7.8 GM/DL (6.4-8.2)
[2017-08-21] MEDS: LACTULOSE SYRUP 20 GM/30 ML CUP PO PRN (12:31)
[2017-08-21 12:58] LABS: BASOPHILS 1 % (0-2); CORRECTED NUCLEATED RBC 1 /100 WBC (0-0); LYMPHOCYTES 18 % (9-44); MONOCYTES 5 % (0-8); NEUTROPHIL # MANUAL DIFF 2.7 TH/MM3 (1.8-7.7); NUCLEATED RED BLOOD CELL 1 (0-0); POLYS (SEG NEUTROPHILS) 75 % (16-70)
[2017-08-21 12:59] LABS: OVALOCYTES 1+ (NORMAL)
[2017-08-21 13:02] LABS: ACANTHOCYTES OCC (NORMAL)
--- NOTE | 2017-08-21 14:23 | HHI.GIFU ---
Subjective Remarks Sitting in the bed Answers questions appropriately, Hoping to discharge soon Afebrile Mild abdominal bloating noted (Betsey Weinstein) Objective Vitals I&O Vital Signs Date Time Temp Pulse Resp B/P (MAP) Pulse Ox O2 Delivery O2 Flow Rate FiO2 08/21/17 13:33 16 08/21/17 11:47 93.0 93 18 98/71 (80) 99 08/21/17 07:56 97.0 85 18 107/74 (85) 100 08/21/17 07:00 85 08/21/17 04:10 86 08/21/17 04:00 97.2 86 18 105/74 (84) 97 08/21/17 00:15 95 08/21/17 00:00 96.3 98 18 96/61 (73) 98 08/20/17 20:00 96 08/20/17 19:54 98.7 95 18 104/70 (81) 100 08/20/17 16:14 97.9 104 16 108/80 (89) 98 I/O 08/20/17 08/20/17 08/20/17 08/21/17 08/21/17 08/21/17 07:00 15:00 23:00 07:00 15:00 23:00 Intake Total 240 ml 1920 ml 240 ml Output Total 300 ml Balance -60 ml 1920 ml 240 ml Intake Oral 240 ml 1680 ml 240 ml Oral Supplement 240 ml Output Urine Total 300 ml # Voids 5 1 # Bowel Movements 0 1 0 Laboratory Laboratory Tests Test 08/21/17 11:40 White Blood Count 3.6 Red Blood Count 3.35 Hemoglobin 8.0 Hematocrit 25.3 Mean Corpuscular Volume 75.7 Mean Corpuscular Hemoglobin 24.0 Mean Corpuscular Hemoglobin Concent 31.8 Red Cell Distribution Width 20.0 Platelet Count 844 Mean Platelet Volume 7.6 CBC Comment AUTO DIFF Differential Total Cells Counted 100 Neutrophils % (Manual) 75 Lymphocytes % 18 Monocytes % 5 Eosinophils % 1 Basophils % 1 Neutrophils # (Manual) 2.7 Nucleated Red Blood Cells 1 Differential Comment FINAL DIFF MANUAL Platelet Estimate HIGH Platelet Morphology Comment ENLARGED Ovalocytes 1+ Acanthocytes OCC Blood Urea Nitrogen 6 Creatinine 0.58 Random Glucose 98 Total Protein 7.8 Albumin 3.1 Calcium Level 8.7 Alkaline Phosphatase 66 Aspartate Amino Transf (AST/SGOT) 15 Alanine Aminotransferase (ALT/SGPT) 10 Total Bilirubin 0.1 Sodium Level 137 Potassium Level 3.9 Chloride Level 103 Carbon Dioxide Level 29.2 Anion Gap 5 Estimat Glomerular Filtration Rate 173 Physical Exam HEENT: PERRLA; normocephalic; atraumatic; moist mucous membranes CHEST: Mild diminished breath sounds lower lobes CARDIAC: RRR ABDOMEN: taut, mild distention, mild bloating, bowel sounds+ EXTREMITIES: No clubbing, cyanosis, or edema. SKIN: no rash; no obvious jaundice. STAFF CLIMATE SCIENTIST: No focal deficits; alert and oriented times three. (Betsey Weinstein) Assessment and Plan Plan - Initially had epigastric pain, n/v, coffee ground emesis, melanotic stool on admission- gastric outlet obstruction with UGIB, CBD obstruction, obstruction pancreatic duct seen on CT. Patient has been followed since admission with multiple specialties such as general surgery and GI - anemia - probable secondary to chronic disease. denies any obvious bleeding. hemoglobin 8.6. - hx etoh abuse, assistance to quit he is requesting to talk to case management about going in a subacute for rehabilitation, so he is not a home - prostate ca s/p radiation, diagnosed 2 years ago, as seen his oncology doctor in one year 08/05/17 s/p EGD found reflux esophagitis, duodenal erythema and edema likely 2/ 2 pancreatitis. CA 19-9 elevated. Will need for repeating in 3 months 08/05/17 s/p EGD found reflux esophagitis, duodenal erythema and edema likely 2/ 2 pancreatitis. lipase trending down, 919 today CA 19-9 is elevated 46.9. GS following. 08/06/17 lipase trending down. tolerating clears. pain somewhat improved. biopsies still pending. 08/07/17 lipase mildly increased. tolerating full liquids. pain gradually improving. n/v improved. bx pending 08/08/17 lipase slowly trending down. tolerating full liquids. pain improved after BM today. still awaiting bx 08/13/17 MRCP thickening of the second portion of the duodenum secondary to edema and inflammation if patient has an ulcer or other inflammatory conditions versus a neoplasm. A neoplasm cannot select some ulceration which could be due to inflammatory change extending into the right abdomen. This area should be directly inspected. Dilatation of the pancreatic and biliary ducts likely secondary to obstruction at the level of the ampulla there is a fluid level within the biliary duct system likely related to some degree of hemorrhage within the biliary system. Patient is willing to do whatever testing is needed to make him feel better although he was hesitant this a.m. when talking to his meeting physician. Family is now supporting him to stay in the hospital continue with care as needed. 08/14/17 patient feels like he's getting back to his norm, abdomen still taut, mildly distended but patient states he has been up in wheelchair increased activity today and has had no acute problems. Denies nausea vomiting diarrhea, normal BM today ERCP with consent, EGD/ERCP per Dr. Charles 08/16/17 pt s/p EGD. no ERCP done, ampulla appeared normal. EGD found prominent thick ulcerated folds duodenum. bx pending. tolerating diet. lipase now WNL. 08/17/17 constipated. diffuse TTP. bx showed peptic duodenitis, no malignancy identified. 08/18/17 less tender but more distended today. HH gradually declining. will get CT 08/19/17 CT noted. persistent distention. + BM 08/20/17 UGI series showed high grade stenosis 2nd part duodenum. GS consult appreciated, suggesting EUS with transduodenal bx and if neg they would consider gastroenterostomy bypass 08/21/17 , less Abd. pain, states soreness. hungry today waiting on food. Duodenal biopsy from 08/15/17 shows edematous and chronically inflamed duodenum with some features of peptic duodenitis. Malignancy is not identified. Amylase pending today, PLAN - full liquid diet, tolerating without any difficulty - consider EUS, timing to be announced possibly this week now that duodenal biopsy is back. - repeat tumor markers in 3 wks - monitor labs - Monitor for any acute bleeding - Continue Creon, Protonix, Carafate - Bowel regimen pt seen by myself and Dr Desai and this note is on his behalf (Betsey Weinstein) Physician Comments Seen and examined with ZURDO, tolerating liquids. EUS next week. (Gian Desai MD) Betsey Weinstein Aug 21, 2017 14:23 Gian Desai MD Aug 21, 2017 16:30
--- NOTE | 2017-08-21 16:04 | HHI.PR ---
Subjective Subjective Notes Less distended; tolerating full liquids Objective Vitals/I&O Vital Signs Date Time Temp Pulse Resp B/P (MAP) Pulse Ox O2 Delivery O2 Flow Rate FiO2 08/21/17 13:33 16 08/21/17 11:47 93.0 93 98/71 (80) 99 08/18/17 18:46 Room Air Labs Laboratory Tests Test 08/21/17 11:40 White Blood Count 3.6 Red Blood Count 3.35 Hemoglobin 8.0 Hematocrit 25.3 Mean Corpuscular Volume 75.7 Mean Corpuscular Hemoglobin 24.0 Mean Corpuscular Hemoglobin Concent 31.8 Red Cell Distribution Width 20.0 Platelet Count 844 Mean Platelet Volume 7.6 CBC Comment AUTO DIFF Differential Total Cells Counted 100 Neutrophils % (Manual) 75 Lymphocytes % 18 Monocytes % 5 Eosinophils % 1 Basophils % 1 Neutrophils # (Manual) 2.7 Nucleated Red Blood Cells 1 Differential Comment FINAL DIFF MANUAL Platelet Estimate HIGH Platelet Morphology Comment ENLARGED Ovalocytes 1+ Acanthocytes OCC Blood Urea Nitrogen 6 Creatinine 0.58 Random Glucose 98 Total Protein 7.8 Albumin 3.1 Calcium Level 8.7 Alkaline Phosphatase 66 Aspartate Amino Transf (AST/SGOT) 15 Alanine Aminotransferase (ALT/SGPT) 10 Total Bilirubin 0.1 Sodium Level 137 Potassium Level 3.9 Chloride Level 103 Carbon Dioxide Level 29.2 Anion Gap 5 Estimat Glomerular Filtration Rate 173 Amylase Level 225 Lungs: Clear Abdomen: Non-tender, Other (Distended, nontender) A/P Assessment and Plan A/P Assessment and Plan 61 year old male with gastric outlet obstruction; pancreatitis -improving -s/p EGD-- shows duodenal erythema with edema causing narrowing of the limiting contribute to outlet obstruction secondary to pancreatitis -keep full liquids for now -trend labs; recheck lipase/amylase -Ca19-9 elevated; may be nonspecific Travis Ball MD Aug 21, 2017 16:04
[2017-08-22] VITALS (13 sets, daily range): BP systolic 94–110; BP diastolic 66–79; PULSE 84–103; RESP 16–17; TEMP 96.3–97.7; O2SAT 98–100
[2017-08-22] MEDS: ACETAMINOPHEN/HYDROcodone 325 MG/7.5 MG TAB PO PRN ×6 (00:07→21:24)
[2017-08-22] MEDS: PANTOPRAZOLE SOD 40 MG DELAYED RELEASE TAB PO SCH ×2 (09:55→21:21)
[2017-08-22] MEDS: SUCRALFATE 1 GM/10 ML CUP PO SCH ×4 (09:55→21:21)
[2017-08-22] MEDS: DOCUSATE SODIUM 50 MG/SENNA 8.6 MG TAB PO SCH ×2 (09:55→21:21)
[2017-08-22] MEDS: LIPASE/PROTEASE/AMYLASE (24,000/76,000/120,000) CAP PO SCH ×3 (09:55→17:17)
[2017-08-22] MEDS: SODIUM CHLORIDE 0.9% FLUSH 10 ML FLUSH IV FLUSH SCH ×2 (09:56→21:21)
--- NOTE | 2017-08-22 14:53 | HHI.PR ---
Subjective Subjective Notes no vomiting, still bloated, small bms Objective Vitals/I&O Vital Signs Date Time Temp Pulse Resp B/P (MAP) Pulse Ox O2 Delivery O2 Flow Rate FiO2 08/22/17 13:14 93 08/22/17 11:48 97.2 17 110/72 (85) 100 08/18/17 18:46 Room Air Abdomen: Other (mild distension, mild ttp) A/P Assessment and Plan 61 year old male with gastric outlet obstruction; pancreatitis -improving, upper gi shows partial obstruction, some contrast passes -s/p EGD-- shows duodenal erythema with edema causing narrowing of the limiting contribute to outlet obstruction secondary to pancreatitis - full diet, encourage protein shakes -OOB and mobilize - pain control - will discuss with GI for possible EUS - will consider laparoscopic bypass pending GI w/u Attending Statement patient seen at bedside tolerating fulls, still bloated, small bms await gi Attestation The exam, history, and the medical decision-making described in the above note were completed with the assistance of the mid-level provider. I reviewed and agree with the findings presented. I attest that I had a [id number] encounter with the patient on the same day, and personally performed and documented my assessment and findings in the medical record. Per Zimmerman MD Aug 22, 2017 14:53
--- NOTE | 2017-08-22 15:11 | HHI.PR ---
Subjective Remarks Patient seen this morning around 10 AM. Says he is feeling all right. Continues to report abdominal bloating. Denies any chest pain or shortness of breath. Small bowel movements. Objective Vital Signs Date Time Temp Pulse Resp B/P (MAP) Pulse Ox O2 Delivery O2 Flow Rate FiO2 08/22/17 14:35 98 08/22/17 13:14 93 08/22/17 11:48 97.2 101 17 110/72 (85) 100 08/22/17 08:04 85 08/22/17 07:55 96.3 84 17 94/68 (77) 98 08/22/17 04:27 96.9 91 16 98/71 (80) 99 08/22/17 00:10 98 08/22/17 00:08 97.6 101 16 101/72 (82) 100 08/21/17 20:00 94 08/21/17 19:55 98.1 96 16 105/76 (86) 100 08/21/17 16:00 98.3 95 18 98/69 (79) 99 08/21/17 16:00 105 I/O 08/21/17 08/21/17 08/21/17 08/22/17 08/22/17 08/22/17 07:00 15:00 23:00 07:00 15:00 23:00 Intake Total 240 ml 1480 ml 360 ml 360 ml Balance 240 ml 1480 ml 360 ml 360 ml Intake Oral 240 ml 1480 ml 360 ml 360 ml # Voids 1 2 2 2 # Bowel Movements 0 1 1 0 Result Diagram: 08/21/17 1140 08/21/17 1140 Procedures 1. EGD 08/04/17 showing reflux esophagitis, duodenal stricture and edema 2. MRCP 08/13/17 showing thickening of the second portion of the duodenum secondary to edema and inflammation if patient has an ulcer or other inflammatory conditions versus a neoplasm. A neoplasm cannot select some ulceration which could be due to inflammatory change extending into the right abdomen. This area should be directly inspected. Dilatation of the pancreatic and biliary ducts likely secondary to obstruction at the level of the ampulla there is a fluid level within the biliary duct system likely related to some degree of hemorrhage within the biliary system. 3. EGD 08/16/17 showing prominent thick ulcerated folds in the duodenum. Bx showing peptic duodenitis Objective Remarks GENERAL: Patient sitting up in bed. Appears comfortable SKIN: Warm and dry. HEAD: Normocephalic. EYES: No scleral icterus. No injection or drainage. NECK: Supple, trachea midline. No JVD. CARDIOVASCULAR: Regular rate and rhythm without murmurs, gallops, or rubs. RESPIRATORY: Breath sounds equal bilaterally. No accessory muscle use. GASTROINTESTINAL: Abdomen soft. abdomen distended. Nontender. No rebound or guarding. MUSCULOSKELETAL: No cyanosis, or edema. BACK: Nontender without obvious deformity. No CVA tenderness. A/P Assessment and Plan 61 YOAAM with history of alcohol abuse admitted for pancreatitis. //Pancreatitis with gastric outlet obstruction secondary to duodenal swelling Onset was after drinking 4 beers Last case of pancreatitis was greater than 10 years ago Lipase remains elevated Pain control GI and gen surgery assisting with case, appreciate their input Biopsy of esophagus and duodenum show no evidence of cancer Continue Creon, Protonix, Carafate Possible EUS with biopsy planned while inpatient = Appreciate GI and general surgery assistance //Esophagitis Biopsies showing peptic esophagitis; malignancy not identified Continue Protonix GI following //Thrombocytosis Platelets high end of normal on admission and gradually rising, up to 972K yesterday Differentials include reactive thrombocytosis (from inflammation, anemia, etc.) or myelodysplastic process Iron studies consistent with iron deficiency anemia CRP slightly elevated in light of inflammatory small bowel process Likely reactive thrombocytosis, continue to monitor and if worsens can consider heme consult //Anemia Iron studies all consistent with iron deficiency H&H stable Hemodynamically stable Monitor //Constipation May be the cause of his abdominal bloating beyond pancreatitis He has responded poorly to Kaylen-Colace Continue lactulose //Emphysema Not a current issue Continue with home meds DuoNeb PRN //h/o Prostate CA Stable, continue home meds //DVT Prophylaxis SCDs Ambulating Discharge Planning Unclear discharge at this time as further work-up pending Mark Arreola MD Aug 22, 2017 15:11
[2017-08-23] VITALS (10 sets, daily range): BP systolic 100–121; BP diastolic 59–79; PULSE 82–107; RESP 17–18; TEMP 96.2–98.4; O2SAT 94–100
[2017-08-23] MEDS: LIPASE/PROTEASE/AMYLASE (24,000/76,000/120,000) CAP PO SCH ×3 (08:25→16:43)
[2017-08-23] MEDS: ACETAMINOPHEN/HYDROcodone 325 MG/7.5 MG TAB PO PRN ×2 (08:26→16:43)
[2017-08-23] MEDS: DOCUSATE SODIUM 50 MG/SENNA 8.6 MG TAB PO SCH ×2 (08:26→20:35)
[2017-08-23] MEDS: SODIUM CHLORIDE 0.9% FLUSH 10 ML FLUSH IV FLUSH SCH ×2 (08:26→20:35)
[2017-08-23] MEDS: SUCRALFATE 1 GM/10 ML CUP PO SCH ×4 (08:26→20:35)
[2017-08-23] MEDS: PANTOPRAZOLE SOD 40 MG DELAYED RELEASE TAB PO SCH ×2 (08:26→20:35)
--- NOTE | 2017-08-23 12:01 | HHI.GIFU ---
Subjective Remarks Pt resting in bed. no new complaints. distended. (Amy López [facility]) Objective Vitals I&O Vital Signs Date Time Temp Pulse Resp B/P (MAP) Pulse Ox O2 Delivery O2 Flow Rate FiO2 08/23/17 11:55 98.4 102 17 101/66 (78) 98 08/23/17 08:00 96.9 90 17 109/78 (88) 99 08/23/17 04:40 96.2 92 17 108/59 (75) 97 08/23/17 01:20 97.8 89 17 100/70 (80) 98 08/22/17 21:05 97.7 99 17 106/66 (79) 98 08/22/17 17:42 88 08/22/17 15:50 97.6 103 17 109/79 (89) 100 08/22/17 15:45 89 08/22/17 14:35 98 08/22/17 13:14 93 I/O 08/22/17 08/22/17 08/22/17 08/23/17 08/23/17 08/23/17 06:59 14:59 22:59 06:59 14:59 22:59 Intake Total 360 ml 860 ml 720 ml Balance 360 ml 860 ml 720 ml Intake Oral 360 ml 860 ml 720 ml # Voids 2 6 1 # Bowel Movements 0 0 1 Physical Exam HEENT: PERRLA; normocephalic; atraumatic; CHEST: CTA CARDIAC: RRR ABDOMEN: distended, semifirm,mild diffuse TTP, bowel sounds+ EXTREMITIES: No clubbing, cyanosis, or edema. SKIN: no rash; no obvious jaundice. PSYCH SOCIAL WORKER: No focal deficits; alert and oriented times three. (mAy López [facility]) Assessment and Plan Plan - Initially had epigastric pain, n/v, coffee ground emesis, melanotic stool on admission- gastric outlet obstruction with UGIB, CBD obstruction, obstruction pancreatic duct seen on CT. Patient has been followed since admission with multiple specialties such as general surgery and GI - anemia - probable secondary to chronic disease. denies any obvious bleeding. hemoglobin 8.6. - hx etoh abuse, assistance to quit he is requesting to talk to case management about going in a subacute for rehabilitation, so he is not a home - prostate ca s/p radiation, diagnosed 2 years ago, as seen his oncology doctor in one year 08/05/17 s/p EGD found reflux esophagitis, duodenal erythema and edema likely 2/ 2 pancreatitis. CA 19-9 elevated. Will need for repeating in 3 months 08/05/17 s/p EGD found reflux esophagitis, duodenal erythema and edema likely 2/ 2 pancreatitis. lipase trending down, 919 today CA 19-9 is elevated 46.9. GS following. 08/06/17 lipase trending down. tolerating clears. pain somewhat improved. biopsies still pending. 08/07/17 lipase mildly increased. tolerating full liquids. pain gradually improving. n/v improved. bx pending 08/08/17 lipase slowly trending down. tolerating full liquids. pain improved after BM today. still awaiting bx 08/13/17 MRCP thickening of the second portion of the duodenum secondary to edema and inflammation if patient has an ulcer or other inflammatory conditions versus a neoplasm. A neoplasm cannot select some ulceration which could be due to inflammatory change extending into the right abdomen. This area should be directly inspected. Dilatation of the pancreatic and biliary ducts likely secondary to obstruction at the level of the ampulla there is a fluid level within the biliary duct system likely related to some degree of hemorrhage within the biliary system. Patient is willing to do whatever testing is needed to make him feel better although he was hesitant this a.m. when talking to his meeting physician. Family is now supporting him to stay in the hospital continue with care as needed. 08/14/17 patient feels like he's getting back to his norm, abdomen still taut, mildly distended but patient states he has been up in wheelchair increased activity today and has had no acute problems. Denies nausea vomiting diarrhea, normal BM today ERCP with consent, EGD/ERCP per Dr. Charles 08/16/17 pt s/p EGD. no ERCP done, ampulla appeared normal. EGD found prominent thick ulcerated folds duodenum. bx pending. tolerating diet. lipase now WNL. 08/17/17 constipated. diffuse TTP. bx showed peptic duodenitis, no malignancy identified. 08/18/17 less tender but more distended today. HH gradually declining. will get CT 08/19/17 CT noted. persistent distention. + BM 08/20/17 UGI series showed high grade stenosis 2nd part duodenum. GS consult appreciated, suggesting EUS with transduodenal bx and if neg they would consider gastroenterostomy bypass 08/21/17 , less Abd. pain, states soreness. hungry today waiting on food. Duodenal biopsy from 08/15/17 shows edematous and chronically inflamed duodenum with some features of peptic duodenitis. Malignancy is not identified. Amylase pending today, 08/22/[address] Bill is OOT and cannot to EUS this week. not much change amylase 255H GS following 08/23/17 still distended. no new comlaints. Dr Zimmerman and Dr Gilliam to discuss EUS. d/w GS VACUUM KETTLE COOK. PLAN - full liquid diet - ?outpt EUS - repeat tumor markers in 3 wks - monitor labs - Continue Creon, Protonix, Carafate - Bowel regimen - supportive care pt seen by myself and Dr Gilliam and this note is on his behalf (Amy López) Physician Comments Seen and examined, plan as above. Will need to advance diet and follow clinically. Further recommendations to follow. (Kenzie Gilliam MD) Amy López Aug 23, 2017 12:01 Kenzie Gilliam MD Aug 23, 2017 12:50
--- NOTE | 2017-08-23 14:13 | HHI.PR ---
Subjective Remarks Patient seen this morning around 9:30 AM. Denies any chest pain or shortness of breath. slight nausea no vomiting. He reports abdominal distention and discomfort continues unchanged. No bowel movement today. He is tolerating full liquids. Discussed with nursing at [facility]. Discussed with general surgery Objective Vital Signs Date Time Temp Pulse Resp B/P (MAP) Pulse Ox O2 Delivery O2 Flow Rate FiO2 08/23/17 11:55 98.4 102 17 101/66 (78) 98 08/23/17 08:00 96.9 90 17 109/78 (88) 99 08/23/17 07:00 87 08/23/17 04:40 96.2 92 17 108/59 (75) 97 08/23/17 01:20 97.8 89 17 100/70 (80) 98 08/22/17 21:05 97.7 99 17 106/66 (79) 98 08/22/17 17:42 88 08/22/17 15:50 97.6 103 17 109/79 (89) 100 08/22/17 15:45 89 08/22/17 14:35 98 I/O 08/22/17 08/22/17 08/22/17 08/23/17 08/23/17 08/23/17 07:00 15:00 23:00 07:00 15:00 23:00 Intake Total 360 ml 860 ml 720 ml Balance 360 ml 860 ml 720 ml Intake Oral 360 ml 860 ml 720 ml # Voids 2 6 1 # Bowel Movements 0 0 1 Result Diagram: 08/21/17 1140 08/21/17 1140 Procedures 1. EGD 08/04/17 showing reflux esophagitis, duodenal stricture and edema 2. MRCP 08/13/17 showing thickening of the second portion of the duodenum secondary to edema and inflammation if patient has an ulcer or other inflammatory conditions versus a neoplasm. A neoplasm cannot select some ulceration which could be due to inflammatory change extending into the right abdomen. This area should be directly inspected. Dilatation of the pancreatic and biliary ducts likely secondary to obstruction at the level of the ampulla there is a fluid level within the biliary duct system likely related to some degree of hemorrhage within the biliary system. 3. EGD 08/16/17 showing prominent thick ulcerated folds in the duodenum. Bx showing peptic duodenitis Objective Remarks GENERAL: Patient sitting up in bed. Appears comfortable. Alert and oriented 3. SKIN: Warm and dry. HEAD: Normocephalic. EYES: No scleral icterus. No injection or drainage. NECK: Supple, trachea midline. No JVD. CARDIOVASCULAR: Regular rate and rhythm without murmurs, gallops, or rubs. RESPIRATORY: Breath sounds equal bilaterally. No accessory muscle use. GASTROINTESTINAL: abdomen distended. Nontender. No rebound or guarding. MUSCULOSKELETAL: No cyanosis, or edema. BACK: Nontender without obvious deformity. No CVA tenderness. A/P Assessment and Plan 61 YOAAM with history of alcohol abuse admitted for pancreatitis. //Pancreatitis with gastric outlet obstruction secondary to duodenal swelling Onset was after drinking 4 beers Last case of pancreatitis was greater than 10 years ago Lipase remains elevated Pain control GI and gen surgery assisting with case, appreciate their input Biopsy of esophagus and duodenum show no evidence of cancer Continue Creon, Protonix, Carafate Possible EUS with biopsy planned while inpatient = Appreciate GI and general surgery assistance = 08/23. Discussed with general surgery who will discuss further with gastroenterology. General surgery would like US to be performed prior to possible surgical intervention. Appreciate outside sales consultant assistance. //Esophagitis Biopsies showing peptic esophagitis; malignancy not identified Continue Protonix GI following //Thrombocytosis Platelets high end of normal on admission and gradually rising, up to 972K yesterday Differentials include reactive thrombocytosis (from inflammation, anemia, etc.) or myelodysplastic process Iron studies consistent with iron deficiency anemia CRP slightly elevated in light of inflammatory small bowel process Likely reactive thrombocytosis, continue to monitor and if worsens can consider heme consult //Anemia Iron studies all consistent with iron deficiency H&H stable Hemodynamically stable Monitor //Constipation May be the cause of his abdominal bloating beyond pancreatitis He has responded poorly to Kaylen-Colace Continue lactulose //Emphysema Not a current issue Continue with home meds DuoNeb PRN //h/o Prostate CA Stable, continue home meds //DVT Prophylaxis SCDs Ambulating Discharge Planning Unclear discharge at this time as further work-up pending Mark Arreola MD Aug 23, 2017 14:13
--- NOTE | 2017-08-23 17:41 | MB ---
cc: Marquise Sosa MD,Per Coppola,Laci Ramos,Deandre Rivera MD DATE OF CONSULT: 08/23/2017 Second opinion consultation HISTORY OF PRESENT ILLNESS: The patient is a 61-year-old black male I was asked to see for further evaluation and management of pancreatic abnormality. He was admitted on 08/03 complaining of abdominal pain for 2 days, constant steady pain, 8/10, radiating to the right lower quadrant and epigastrium, associated with nausea and vomiting. He was found to have evidence of gastric outlet obstruction and a thickened duodenum. Initial endoscopy on 08/04 revealed a significant edematous duodenal sweep but no ulcer or cancer was identified. Repeat exam 08/16 revealed a normal-appearing ampulla. There was less inflammation, but again no definite ulcer or malignancy was identified. Biopsy showed severe inflammation. Pancreatic enzymes were elevated and MRCP suggests beaded appearance to the pancreatic head and a very small possibility of a pancreatic head neoplasm and there was a fluid collection in the bile duct that was suspicious for blood. At this point, he is tolerating clear liquids with no nausea or vomiting. He is having minimal stool output, as he is not eating much. PAST MEDICAL HISTORY: His history is significant for emphysema, prostate cancer, degenerative disk disease. PAST SURGICAL HISTORY: Appendectomy, orthopedic surgery on his left finger. MEDICATIONS: On admission, he was taking an inhaler, a cholesterol medication and lots of meloxicam and Goody's powder. ALLERGIES: NONE KNOWN TO MEDICATIONS. TOBACCO USE: He quit 2 years ago but had been smoking 1/2 pack per day. ALCOHOL USE: 4-6 beers per day. FAMILY HISTORY: Unremarkable for ulcer disease or colon cancer. REVIEW OF SYSTEMS: No recent headaches. No history of seizures or strokes. No chest pains. No respiratory difficulties. No urinary difficulties. He has had some recent weight loss with all of this. No rashes or unusual joint pains. No history of documented liver disease or pancreatic disease or thyroid disease. PHYSICAL EXAMINATION: VITAL SIGNS: His weight is 66.5 kilograms. Temperature 97.8, pulse 105, respiratory rate 17, blood pressure 103/68, saturation 95% on room air. GENERAL: He is alert, he is oriented x 3. He is in no distress at this time. HEENT: Extraocular motions are intact. LUNGS: Clear to auscultation. HEART: Regular rate and rhythm with no gross murmur or gallop. ABDOMEN: Good bowel sounds. Diastasis recti is evident. I appreciate no bruit. The abdomen is soft with mild to moderate epigastric tenderness. No masses or hepatosplenomegaly are noted. EXTREMITIES: No pedal edema, Dupuytren contractures or palmar erythema. LABORATORY STUDIES: On 08/21, white count 3.6, hemoglobin 8.0, MCV not checked at that date, platelet count 844. INR on 08/03 was 1.1. On 08/21, sodium was 137, potassium 3.9, BUN 6, creatinine 0.58, AST 15, ALT 10, alkaline phosphatase 86, total bilirubin 0.1, amylase was 225 and lipase was 688 on 08/20. Iron saturation was 7.6 on 08/20. CA 19-9 was 36.1 on 08/20 with a normal CEA and a normal AFP. RADIOLOGIC STUDIES: MRCP on 08/14 suggested thickening of the second portion of the duodenum, likely due to edema and inflammation or a neoplastic process. The pancreatic duct is dilated as is the bile duct due to obstruction at the left of the ampulla. There is a fluid level of the bile duct suspicious for hemorrhage and the pancreatic duct appeared beaded. CT scan on 08/18 revealed continued marked inflammation in and around the second portion of the duodenum, again suspicious for ulcer disease or neoplasm. There is persistent dilation of the biliary tree and a small lymph node in the adjacent soft tissue. There is marked distention of the stomach with fluid and food. A smooth right lateral pancreatic head neoplasm would be within the differential but no evidence of tail atrophy, suggesting pancreatic malignancy less likely but there is dilation of the pancreatic duct. IMPRESSION: I suspect there are 2 processes: 1. The duodenal inflammation which may be related to an ulcer or a malignancy. This can be followed with endoscopic studies. He is tolerating liquids at this time. 2. Suspicious of a pancreatic head or ampullary abnormality with a dilated bile duct and a dilated beaded pancreatic duct with possible hemobilia. I have discussed with the patient and with Dr. Charles the overall findings. We will try to schedule endoscopy and endoscopic ultrasound to evaluate on both these processes. I reviewed the procedures with the patient, including potential risks of medication reaction, bleeding, perforation and the small chance of missing a lesion and the risk of pancreatitis. MD KASIE Lester , 04:57 PM , 05:40 PM
[2017-08-24] MEDS: ACETAMINOPHEN/HYDROcodone 325 MG/7.5 MG TAB PO PRN ×3 (02:23→18:10)
[2017-08-24 04:30] VITALS: BP 96/65; PULSE 107; RESP 17; TEMP 99.1; O2SAT 97
[2017-08-24 08:00] VITALS: BP 90/69; PULSE 101; RESP 18; TEMP 98.1; O2SAT 99
[2017-08-24] MEDS: SODIUM CHLORIDE 0.9% FLUSH 10 ML FLUSH IV FLUSH SCH ×2 (09:00→21:31)
[2017-08-24] MEDS: PANTOPRAZOLE SOD 40 MG DELAYED RELEASE TAB PO SCH ×2 (09:02→21:31)
[2017-08-24] MEDS: DOCUSATE SODIUM 50 MG/SENNA 8.6 MG TAB PO SCH ×2 (09:02→21:31)
[2017-08-24] MEDS: LIPASE/PROTEASE/AMYLASE (24,000/76,000/120,000) CAP PO SCH ×3 (09:02→18:10)
[2017-08-24] MEDS: SUCRALFATE 1 GM/10 ML CUP PO SCH ×4 (09:02→21:31)
[2017-08-24 09:22] LABS: HEMATOCRIT 26.5 % (39.0-51.0); HEMOGLOBIN 8.4 GM/DL (13.0-17.0); MEAN CORPUSCULAR HEMOGLOBIN 23.8 PG (27.0-34.0); MEAN CORPUSCULAR HGB CONC 31.7 % (32.0-36.0); MEAN PLATELET VOLUME 7.8 FL (7.0-11.0); PLATELET COUNT 689 TH/MM3 (150-450); RED BLOOD COUNT 3.53 MIL/MM3 (4.50-5.90); RED CELL DISTRIBUTION WIDTH 19.6 % (11.6-17.2); WHITE BLOOD COUNT 4.9 TH/MM3 (4.0-11.0)
[2017-08-24 09:48] LABS: ALBUMIN 3.2 GM/DL (3.4-5.0); BICARBONATE 28.1 MEQ/L (21.0-32.0); CALCIUM 8.7 MG/DL (8.5-10.1); CREATININE 0.69 MG/DL (0.60-1.30); MAGNESIUM 1.6 MG/DL (1.5-2.5)
[2017-08-24 09:49] LABS: PHOSPHORUS 2.7 MG/DL (2.5-4.9)
--- NOTE | 2017-08-24 10:11 | HHI.GIFU ---
Subjective Remarks alert nad Pt tolerting full liquids case reviewed with pt and surgical team..GOO due to duodenal edema and inflammation, pancreatitis ? malignancy Objective Vitals I&O Vital Signs Date Time Temp Pulse Resp B/P (MAP) Pulse Ox O2 Delivery O2 Flow Rate FiO2 08/24/17 08:00 98.1 101 18 90/69 (76) 99 08/24/17 04:30 99.1 107 17 96/65 (75) 97 08/23/17 23:40 96.7 107 17 118/78 (91) 100 08/23/17 21:00 96.7 100 18 120/79 (93) 99 08/23/17 16:00 97.8 105 17 103/68 (80) 95 08/23/17 15:00 82 08/23/17 11:55 98.4 102 17 101/66 (78) 98 I/O 08/23/17 08/23/17 08/23/17 08/24/17 08/24/17 08/24/17 07:00 15:00 23:00 07:00 15:00 23:00 Intake Total 720 ml 480 ml 960 ml Output Total 400 ml Balance 720 ml 480 ml 560 ml Intake Oral 720 ml 480 ml 960 ml Output Urine Total 400 ml # Voids 1 5 1 # Bowel Movements 1 0 1 Laboratory Laboratory Tests Test 08/24/17 07:45 White Blood Count 4.9 Red Blood Count 3.53 Hemoglobin 8.4 Hematocrit 26.5 Mean Corpuscular Volume 75.0 Mean Corpuscular Hemoglobin 23.8 Mean Corpuscular Hemoglobin Concent 31.7 Red Cell Distribution Width 19.6 Platelet Count 689 Mean Platelet Volume 7.8 CBC Comment AUTO DIFF Blood Urea Nitrogen 4 Creatinine 0.69 Random Glucose 82 Albumin 3.2 Calcium Level 8.7 Phosphorus Level 2.7 Magnesium Level 1.6 Sodium Level 136 Potassium Level 3.7 Chloride Level 100 Carbon Dioxide Level 28.1 Anion Gap 8 Estimat Glomerular Filtration Rate 142 Imaging Last Impressions Upper GI Series 08/19/17 0000 Signed Impressions: Service Date/Time: Saturday, August 19, 2017 15:23 - CONCLUSION: High-grade stenosis of the second portion of the duodenum identified. Paxton Crzu MD Abdomen/Pelvis CT 08/18/17 0000 Signed Impressions: Service Date/Time: August 16:22 - CONCLUSION: Continued marked inflammation in and around the second portion of the duodenum. Differential includes either peptic ulcer disease versus neoplasm of the duodenum. There is some persistent dilatation the biliary tree and the small lymph node in the adjacent soft tissues. There is marked distention of the stomach with fluid and food. A small right lateral pancreatic head neoplasm would also be within the differential but there is no tail atrophy making pancreatic malignancy less likely, but there is ductal dilatation. Jose Miguel Haley MD Cholangiopancreatography MRI 08/14/17 0000 Signed Impressions: Service Date/Time: Monday, August 14, 2017 07:32 - CONCLUSION: Thickening of the second portion the duodenum likely secondary to edema and inflammation if the patient has an ulcer or other inflammatory condition versus a neoplasm. A neoplasm cannot select some ulceration which could be due to the inflammatory change extending into the right abdomen. This area should be directly inspected. There is dilatation of the pancreatic and biliary ducts likely secondary to obstruction at the level of the ampulla. There is a fluid fluid level within the biliary duct system likely related to some degree of hemorrhage within the biliary system. Deandre Ware MD Abdomen X-Ray 08/10/17 0000 Signed Impressions: Service Date/Time: Thursday, August 10, 2017 11:22 - CONCLUSION: Nonspecific a benign abdomen appearance. Deandre Tobar MD Physical Exam HEENT: PERRLA; normocephalic; atraumatic; CHEST: CTA CARDIAC: RRR ABDOMEN: distended, semifirm,mild diffuse TTP, bowel sounds+ EXTREMITIES: No clubbing, cyanosis, or edema. SKIN: no rash; no obvious jaundice. OWNER CONSULTING ENGINEER: No focal deficits; alert and oriented times three. Assessment and Plan Plan - Initially had epigastric pain, n/v, coffee ground emesis, melanotic stool on admission- gastric outlet obstruction with UGIB, CBD obstruction, obstruction pancreatic duct seen on CT. Patient has been followed since admission with multiple specialties such as general surgery and GI - anemia - probable secondary to chronic disease. denies any obvious bleeding. hemoglobin 8.6. - hx etoh abuse, assistance to quit he is requesting to talk to case management about going in a subacute for rehabilitation, so he is not a home - prostate ca s/p radiation, diagnosed 2 years ago, as seen his oncology doctor in one year 08/05/17 s/p EGD found reflux esophagitis, duodenal erythema and edema likely 2/ 2 pancreatitis. CA 19-9 elevated. Will need for repeating in 3 months 08/05/17 s/p EGD found reflux esophagitis, duodenal erythema and edema likely 2/ 2 pancreatitis. lipase trending down, 919 today CA 19-9 is elevated 46.9. GS following. 08/06/17 lipase trending down. tolerating clears. pain somewhat improved. biopsies still pending. 08/07/17 lipase mildly increased. tolerating full liquids. pain gradually improving. n/v improved. bx pending 08/08/17 lipase slowly trending down. tolerating full liquids. pain improved after BM today. still awaiting bx 08/13/17 MRCP thickening of the second portion of the duodenum secondary to edema and inflammation if patient has an ulcer or other inflammatory conditions versus a neoplasm. A neoplasm cannot select some ulceration which could be due to inflammatory change extending into the right abdomen. This area should be directly inspected. Dilatation of the pancreatic and biliary ducts likely secondary to obstruction at the level of the ampulla there is a fluid level within the biliary duct system likely related to some degree of hemorrhage within the biliary system. Patient is willing to do whatever testing is needed to make him feel better although he was hesitant this a.m. when talking to his meeting physician. Family is now supporting him to stay in the hospital continue with care as needed. 08/14/17 patient feels like he's getting back to his norm, abdomen still taut, mildly distended but patient states he has been up in wheelchair increased activity today and has had no acute problems. Denies nausea vomiting diarrhea, normal BM today ERCP with consent, EGD/ERCP per Dr. Charles 08/16/17 pt s/p EGD. no ERCP done, ampulla appeared normal. EGD found prominent thick ulcerated folds duodenum. bx pending. tolerating diet. lipase now WNL. 08/17/17 constipated. diffuse TTP. bx showed peptic duodenitis, no malignancy identified. 08/18/17 less tender but more distended today. HH gradually declining. will get CT 08/19/17 CT noted. persistent distention. + BM 08/20/17 UGI series showed high grade stenosis 2nd part duodenum. GS consult appreciated, suggesting EUS with transduodenal bx and if neg they would consider gastroenterostomy bypass 08/21/17 , less Abd. pain, states soreness. hungry today waiting on food. Duodenal biopsy from 08/15/17 shows edematous and chronically inflamed duodenum with some features of peptic duodenitis. Malignancy is not identified. Amylase pending today, 08/22/[address] Bill is OOT and cannot to EUS this week. not much change amylase 255H GS following 08/23/17 still distended. no new comlaints. Dr Zimmerman and Dr Gilliam to discuss EUS. d/w GS OPTIONS ADVISOR. PLAN (Events Above noted) - full liquid diet - consider outpt EUS - repeat tumor markers in 3 wks - monitor labs - Continue Creon, Protonix, Carafate - Bowel regimen - supportive care Discussed w staff and pt Agree w plan outlined Geremias Wilson MD, MD Aug 24, 2017 10:11
[2017-08-24 10:25] LABS: BASOPHILS 1 % (0-2); LYMPHOCYTES 19 % (9-44); MONOCYTES 7 % (0-8); NEUTROPHIL # MANUAL DIFF 3.5 TH/MM3 (1.8-7.7); POLYS (SEG NEUTROPHILS) 71 % (16-70)
[2017-08-24 10:27] LABS: ACANTHOCYTES OCC (NORMAL); OVALOCYTES 1+ (NORMAL); TARGET CELLS 1+ (NORMAL)
[2017-08-24 12:00] VITALS: BP 87/73; PULSE 112; RESP 18; TEMP 98.9; O2SAT 96
[2017-08-24 12:41] VITALS: BP 108/62
--- NOTE | 2017-08-24 15:41 | HHI.PR ---
Subjective Remarks Patient seen this morning around 9 AM. Denies any chest pain or shortness breath. Reports abdominal discomfort is improving. Denies any vomiting. Reports some nausea. Objective Vital Signs Date Time Temp Pulse Resp B/P (MAP) Pulse Ox O2 Delivery O2 Flow Rate FiO2 08/24/17 12:41 108/62 (77) 08/24/17 12:00 98.9 112 18 87/73 (78) 96 08/24/17 08:00 98.1 101 18 90/69 (76) 99 08/24/17 04:30 99.1 107 17 96/65 (75) 97 08/23/17 23:40 96.7 107 17 118/78 (91) 100 08/23/17 21:00 96.7 100 18 120/79 (93) 99 08/23/17 16:00 97.8 105 17 103/68 (80) 95 I/O 08/23/17 08/23/17 08/23/17 08/24/17 08/24/17 08/24/17 07:00 15:00 23:00 07:00 15:00 23:00 Intake Total 720 ml 480 ml 960 ml Output Total 400 ml Balance 720 ml 480 ml 560 ml Intake Oral 720 ml 480 ml 960 ml Output Urine Total 400 ml # Voids 1 5 1 # Bowel Movements 1 0 1 Result Diagram: 08/24/17 0745 08/24/17 0745 Procedures 1. EGD 08/04/17 showing reflux esophagitis, duodenal stricture and edema 2. MRCP 08/13/17 showing thickening of the second portion of the duodenum secondary to edema and inflammation if patient has an ulcer or other inflammatory conditions versus a neoplasm. A neoplasm cannot select some ulceration which could be due to inflammatory change extending into the right abdomen. This area should be directly inspected. Dilatation of the pancreatic and biliary ducts likely secondary to obstruction at the level of the ampulla there is a fluid level within the biliary duct system likely related to some degree of hemorrhage within the biliary system. 3. EGD 08/16/17 showing prominent thick ulcerated folds in the duodenum. Bx showing peptic duodenitis Objective Remarks GENERAL: Patient sitting up in bed. Appears comfortable. Alert and oriented 3.no change on exam. SKIN: Warm and dry. HEAD: Normocephalic. EYES: No scleral icterus. No injection or drainage. NECK: Supple, trachea midline. No JVD. CARDIOVASCULAR: Regular rate and rhythm without murmurs, gallops, or rubs. RESPIRATORY: Breath sounds equal bilaterally. No accessory muscle use. GASTROINTESTINAL: abdomen distended. Nontender. No rebound or guarding. MUSCULOSKELETAL: No cyanosis, or edema. BACK: Nontender without obvious deformity. No CVA tenderness. A/P Assessment and Plan 61 YOAAM with history of alcohol abuse admitted for pancreatitis. //Pancreatitis with gastric outlet obstruction secondary to duodenal swelling Onset was after drinking 4 beers Last case of pancreatitis was greater than 10 years ago Lipase remains elevated Pain control GI and gen surgery assisting with case, appreciate their input Biopsy of esophagus and duodenum show no evidence of cancer Continue Creon, Protonix, Carafate Possible EUS with biopsy planned while inpatient = Appreciate GI and general surgery assistance = 08/23. Discussed with general surgery who will discuss further with gastroenterology. General surgery would like US to be performed prior to possible surgical intervention. Appreciate human resources consultant assistance. = 37. Discussed with gastroenterology, Dr Fortune who is seeing patient today for the first time -with light to monitor patient and reevaluate tomorrow. Possibly cleared for discharge tomorrow. //Esophagitis Biopsies showing peptic esophagitis; malignancy not identified Continue Protonix GI following //Thrombocytosis Platelets high end of normal on admission and gradually rising, up to 972K yesterday Differentials include reactive thrombocytosis (from inflammation, anemia, etc.) or myelodysplastic process Iron studies consistent with iron deficiency anemia CRP slightly elevated in light of inflammatory small bowel process Likely reactive thrombocytosis, continue to monitor and if worsens can consider heme consult = Platelets 689, improved //Anemia Iron studies all consistent with iron deficiency H&H stable Hemodynamically stable Monitor == Hemoglobin 8.4 stable. //Constipation May be the cause of his abdominal bloating beyond pancreatitis He has responded poorly to Kaylen-Colace Continue lactulose //Emphysema Not a current issue Continue with home meds DuoNeb PRN //h/o Prostate CA Stable, continue home meds //DVT Prophylaxis SCDs Ambulating Discharge Planning discharge when cleared by gastroenterology. Gastroenterology indicates they might clear patient tomorrow. Mark Arreola MD Aug 24, 2017 15:41
[2017-08-24 16:00] VITALS: BP 94/68; PULSE 104; RESP 18; TEMP 97.5; O2SAT 99
[2017-08-24 20:00] VITALS: BP 97/68; PULSE 100; RESP 16; TEMP 98.1; O2SAT 100
[2017-08-24] MEDS: MORPHINE SULFATE 2 MG/ML INJ IV PUSH PRN (21:32)
[2017-08-25] VITALS: BP 108/74; PULSE 100; PULSE 101; RESP 18; TEMP 98.7; O2SAT 98
[2017-08-25 04:00] VITALS: BP 92/66; PULSE 100; RESP 19; TEMP 98.6; O2SAT 100
[2017-08-25 08:00] VITALS: BP 86/66; PULSE 90; RESP 18; TEMP 97.2; O2SAT 98
[2017-08-25] MEDS: SODIUM CHLORIDE 0.9% FLUSH 10 ML FLUSH IV FLUSH SCH (08:18)
[2017-08-25] MEDS: LIPASE/PROTEASE/AMYLASE (24,000/76,000/120,000) CAP PO SCH ×2 (08:18→13:00)
[2017-08-25] MEDS: SUCRALFATE 1 GM/10 ML CUP PO SCH ×2 (08:18→12:00)
[2017-08-25] MEDS: DOCUSATE SODIUM 50 MG/SENNA 8.6 MG TAB PO SCH (08:18)
[2017-08-25] MEDS: PANTOPRAZOLE SOD 40 MG DELAYED RELEASE TAB PO SCH (08:18)
--- NOTE | 2017-08-25 09:51 | HHI.GIFU ---
Subjective Remarks Alert NAD Tolerating all po liquids Denies abd pain at present no vomiting Objective Vitals I&O Vital Signs Date Time Temp Pulse Resp B/P (MAP) Pulse Ox O2 Delivery O2 Flow Rate FiO2 08/25/17 08:00 97.2 90 18 86/66 (73) 98 08/25/17 04:00 98.6 100 19 92/66 (75) 100 08/25/17 00:00 101 08/25/17 00:00 98.7 100 18 108/74 (85) 98 08/25/17 00:00 100 08/24/17 20:00 98.1 100 16 97/68 (78) 100 08/24/17 16:00 97.5 104 18 94/68 (77) 99 08/24/17 12:41 108/62 (77) 08/24/17 12:00 98.9 112 18 87/73 (78) 96 I/O 08/24/17 08/24/17 08/24/17 08/25/17 08/25/17 08/25/17 07:00 15:00 23:00 07:00 15:00 23:00 Intake Total 960 ml 800 ml 420 ml Output Total 400 ml 420 ml Balance 560 ml 800 ml 0 ml Intake Oral 960 ml 800 ml 420 ml Output Urine Total 400 ml 420 ml # Voids 1 2 # Bowel Movements 1 0 0 Laboratory Laboratory Tests Test 08/03/17 16:20 08/03/17 18:15 08/16/17 11:53 08/17/17 05:42 Prothrombin Time 11.2 SEC Prothromb Time International Ratio 1.1 RATIO Activated Partial Thromboplast Time 26.0 SEC Urine Color YELLOW Urine Turbidity HAZY Urine pH 8.5 Urine Specific Bath 1.026 Urine Protein 100 mg/dL Urine Glucose (UA) NEG mg/dL Urine Ketones NEG mg/dL Urine Occult Blood NEG Urine Nitrite NEG Urine Bilirubin NEG Urine Urobilinogen LESS THAN 2.0 MG/DL Urine Leukocyte Esterase NEG Urine RBC 3 /hpf Urine WBC 2 /hpf Urine Squamous Epithelial Cells 2 /hpf Urine Bacteria RARE /hpf Urine Hyaline Casts 45 /lpf Urine Mucus MOD /lpf Microscopic Urinalysis Comment CULT NOT INDICATED Direct Bilirubin LESS THAN 0.1 MG/DL Indirect Bilirubin 0.1 MG/DL Neutrophils (%) (Auto) 43.0 % Lymphocytes (%) (Auto) 44.0 % Monocytes (%) (Auto) 9.9 % Eosinophils (%) (Auto) 2.3 % Basophils (%) (Auto) 0.8 % Neutrophils # (Auto) 1.7 TH/MM3 Lymphocytes # (Auto) 1.7 TH/MM3 Monocytes # (Auto) 0.4 TH/MM3 Eosinophils # (Auto) 0.1 TH/MM3 Basophils # (Auto) 0.0 TH/MM3 Hemoglobin A1c 5.2 % Free Thyroxine 1.05 NG/DL Thyroid Stimulating Hormone 3rd Gen 3.000 uIU/ML Test 08/20/17 05:21 08/21/17 11:40 08/24/17 07:45 Iron Level 33 MCG/DL Total Iron Binding Capacity 434 MCG/DL Percent Iron Saturation 7.6 % Ferritin 19 NG/ML C-Reactive Protein 0.95 MG/DL Lipase 688 U/L Tumor Marker Alpha Fetoprotein 4.1 NG/ML Carcinoembryonic Antigen 2.2 NG/ML CA 19-9 Antigen 36.1 U/ML Prostate Specific Antigen Screen 0.10 NG/ML Nucleated Red Blood Cells 1 /100 WBC Blood Urea Nitrogen 6 MG/DL 4 MG/DL Creatinine 0.58 MG/DL 0.69 MG/DL Random Glucose 98 MG/DL 82 MG/DL Total Protein 7.8 GM/DL Albumin 3.1 GM/DL 3.2 GM/DL Calcium Level 8.7 MG/DL 8.7 MG/DL Alkaline Phosphatase 66 U/L Aspartate Amino Transf (AST/SGOT) 15 U/L Alanine Aminotransferase (ALT/SGPT) 10 U/L Total Bilirubin 0.1 MG/DL Sodium Level 137 MEQ/L 136 MEQ/L Potassium Level 3.9 MEQ/L 3.7 MEQ/L Chloride Level 103 MEQ/L 100 MEQ/L Carbon Dioxide Level 29.2 MEQ/L 28.1 MEQ/L Amylase Level 225 U/L White Blood Count 4.9 TH/MM3 Red Blood Count 3.53 MIL/MM3 Hemoglobin 8.4 GM/DL Hematocrit 26.5 % Mean Corpuscular Volume 75.0 FL Mean Corpuscular Hemoglobin 23.8 PG Mean Corpuscular Hemoglobin Concent 31.7 % Red Cell Distribution Width 19.6 % Platelet Count 689 TH/MM3 Mean Platelet Volume 7.8 FL CBC Comment AUTO DIFF Differential Total Cells Counted 100 Neutrophils % (Manual) 71 % Lymphocytes % 19 % Monocytes % 7 % Eosinophils % 2 % Basophils % 1 % Neutrophils # (Manual) 3.5 TH/MM3 Differential Comment FINAL DIFF MANUAL Platelet Estimate HIGH Platelet Morphology Comment NORMAL Target Cells 1+ Ovalocytes 1+ Acanthocytes OCC Phosphorus Level 2.7 MG/DL Magnesium Level 1.6 MG/DL Anion Gap 8 MEQ/L Estimat Glomerular Filtration Rate 142 ML/MIN Imaging Current Medications Medications (Trade) Dose Ordered Sig/Idris Route PRN Reason Start Time Stop Time Status Last Admin Dose Admin Sodium Chloride (NS Flush) 2 ml UNSCH PRN IV FLUSH FLUSH AFTER USING IV ACCESS 08/03/17 19:00 08/10/17 11:40 Sodium Chloride (NS Flush) 2 ml BID IV FLUSH 08/03/17 21:00 08/25/17 08:18 Albuterol/ Ipratropium (Duoneb Neb) 1 ampule Q4HR NEB PRN NEB cough, sob, wheeze 08/03/17 20:45 Phenol (Chloraseptic [place]) 1 spray UNSCH PRN .XX WHILE NG TUBE IN PLACE 08/04/17 13:15 08/04/17 14:12 Senna/Docusate Sodium (Kaylen-Colace) 1 tab BID PO 08/06/17 09:15 08/25/17 08:18 Sucralfate (Carafate Liq) 1 gm ACHS PO 08/13/17 08:00 08/25/17 08:18 Amylase/Lipase/ Protease (Creon 24-76-120) 2 cap TID PO 08/13/17 09:00 08/25/17 08:18 Pantoprazole Sodium (Protonix) 40 mg Q12HR PO 08/13/17 09:00 08/25/17 08:18 Acetaminophen (Tylenol) 650 mg Q6H PRN PO PAIN SCALE 1 TO 2 08/13/17 08:45 Acetaminophen/ Hydrocodone Bitart ([place] 5-325 Mg) 1 tab Q4H PRN PO PAIN SCALE 3 TO 5 08/13/17 08:45 08/19/17 18:40 Acetaminophen/ Hydrocodone Bitart ([place] 7.5-325 Mg) 1 tab Q4H PRN PO PAIN SCALE 6 TO 10 08/13/17 08:45 08/24/17 18:10 Naloxone HCl (Narcan Inj) 0.4 mg UNSCH PRN IV PUSH SEE LABEL COMMENTS 08/13/17 08:45 Morphine Sulfate (Morphine Inj) 1 mg Q8H PRN IV PUSH breakthru pain 08/14/17 08:45 08/24/17 21:32 Lactulose (Lactulose Liq) 30 ml DAILY PRN PO CONSTIPATION 08/19/17 15:15 08/21/17 12:31 Physical Exam ; CHEST: CTA CARDIAC: RRR ABDOMEN: less distended bs pos nontender EXTREMITIES: No clubbing, cyanosis, or edema. SKIN: no rash; no obvious jaundice. ENGINEERING GROUP MANAGER: No focal deficits; alert and oriented times three. Assessment and Plan Assessment: (1) Gastric outlet obstruction ICD Codes: K31.1 - Adult hypertrophic pyloric stenosis (2) Abnormal CT scan ICD Codes: R93.8 - Abnormal findings on diagnostic imaging of other specified body structures (3) Pancreatitis ICD Codes: K85.90 - Acute pancreatitis without necrosis or infection, unspecified Status: Acute (4) Duodenitis ICD Codes: K29.80 - Duodenitis without bleeding Plan - PLAN (Events Above noted) - full liquid diet Continue w ppi carafate pain meds appears stable for d/c with outpt EUS next week discussed w pt in detail advised d/c Etoh as well. Discussed w surgery Problem Qualifiers (1) Pancreatitis: Qualified Codes: K85.90 - Acute pancreatitis without necrosis or infection, unspecified Geremias Fortune MD Aug 25, 2017 09:51
--- NOTE | 2017-08-25 09:58 | HHI.PR ---
cc: Per Zimmerman MD Subjective Subjective Notes no issues, mild pain, no vomiting Objective Vitals/I&O Vital Signs Date Time Temp Pulse Resp B/P (MAP) Pulse Ox O2 Delivery O2 Flow Rate FiO2 08/25/17 08:00 97.2 90 18 86/66 (73) 98 Abdomen: Other (soft mild ttp) A/P Assessment and Plan 61 year old male with gastric outlet obstruction; pancreatitis -improving, upper gi shows partial obstruction, some contrast passes, patient tolerating full liq diet -s/p EGD-- shows duodenal erythema with edema causing narrowing of the limiting contribute to outlet obstruction secondary to pancreatitis - full diet, encourage protein shakes -OOB and mobilize - pain control - discussed with GI for possible EUS, likely earliest date next week - will consider laparoscopic bypass pending GI w/u - possible outpt follow up vs inpt EUS await exam w/u Per Zimmerman MD Aug 25, 2017 09:58
[2017-08-25] MEDS ORDERED: SUCR1S PO (11:18)
[2017-08-25] MEDS ORDERED: PANT40TA3 PO (11:24)
[2017-08-25] MEDS ORDERED: CREON24 PO (11:24)
[2017-08-25] MEDS ORDERED: PERI PO (11:24)
[2017-08-25 12:00] VITALS: BP 92/64; PULSE 110; RESP 18; TEMP 97.3; O2SAT 100
--- NOTE | 2017-08-25 22:58 | HHI.DS ---
Discharge Summary Admission Date Aug 03, 2017 at 20:31 Discharge Date: Aug 25, 2017 Admitting Diagnosis Acute pancreatitis (1) Pancreatitis ICD Code: K85.90 - Acute pancreatitis without necrosis or infection, unspecified Status: Acute (2) Emphysema, unspecified ICD Code: J43.9 - Emphysema, unspecified Status: Chronic (3) Alcohol abuse ICD Code: F10.10 - Alcohol abuse, uncomplicated Status: Chronic (4) Gastric outlet obstruction ICD Code: K31.1 - Adult hypertrophic pyloric stenosis (5) Thrombocytosis ICD Code: D47.3 - Essential (hemorrhagic) thrombocythemia (6) Duodenitis ICD Code: K29.80 - Duodenitis without bleeding (7) Anemia ICD Code: D64.9 - Anemia, unspecified Procedures EGD 08/04/17 showing reflux esophagitis, duodenal stricture and edema 08/15/17 PROCEDURE PERFORMED egd WITH bX INDICATION FOR PROCEDURE abnormal Ct scan of the duodenum PROCEDURE: The procedure, risks and benefits were discussed with Mr. Anderson and informed consent was obtained. Anesthesia sedated him with Diprivan. He was placed in the left lateral decubitus position. EGD: The Pentax side view videoscope was introduced through the oropharynx and advanced to the second portion of the duodenum under direct visualization. Retroflexion was performed in the stomach.then regular Pentax scope was videoscope was introduced through the oropharynx and advanced to the second portion of the duodenum under direct visualization. Retroflexion was performed in the stomach, the withdrawal was done without any complications Bx from duodenum was performed FINDINGS: prominent thick ulcerated folds in the duodenum Bx done ampulla was normal so ERCP was not performed ESTIMATED BLOOD LOSS: none SPECIMENS REMOVED: duodenum COMPLICATIONS: none IMPRESSION: prominent thick ulcerated folds in the duodenum Bx done ampulla was normal so ERCP was not performed PLAN: await Bx results contniue PPI clear liquid diet Brief History - From Admission 61 y/o male with a history of emphysema, prostate cancer, HLD and degenerative disc disease presents to the ED with complaints of abdominal pain for the last 2 days. Patient states his pain is a constant 8/10 stabbing pain to the RLQ that radiated to his epigastric region, worse with palpation and with associated nausea and vomiting. He states the pain medication given has helped decrease the pain. He states when he eats he sometime vomits due to the pain. He denies any chest pain, sob, fever or chills. Patient does admit to drinking 4 beers a day and states due to the constant abdominal pain he has not had a drink for about 1-1/2 days.. CBC/BMP: 08/24/17 0745 08/24/17 0745 Significant Findings Laboratory Tests Test 08/24/17 07:45 Red Blood Count 3.53 MIL/MM3 (4.50-5.90) Hemoglobin 8.4 GM/DL (13.0-17.0) Hematocrit 26.5 % (39.0-51.0) Mean Corpuscular Volume 75.0 FL (80.0-100.0) Mean Corpuscular Hemoglobin 23.8 PG (27.0-34.0) Mean Corpuscular Hemoglobin Concent 31.7 % (32.0-36.0) Red Cell Distribution Width 19.6 % (11.6-17.2) Platelet Count 689 TH/MM3 (150-450) Neutrophils % (Manual) 71 % (16-70) Platelet Estimate HIGH (NORMAL) Target Cells 1+ (NORMAL) Ovalocytes 1+ (NORMAL) Blood Urea Nitrogen 4 MG/DL (7-18) Albumin 3.2 GM/DL (3.4-5.0) Imaging Last Impressions Upper GI Series 08/19/17 0000 Signed Impressions: Service Date/Time: Saturday, August 19, 2017 15:23 - CONCLUSION: High-grade stenosis of the second portion of the duodenum identified. Paxton Cruz MD Abdomen/Pelvis CT 08/18/17 0000 Signed Impressions: Service Date/Time: August 16:22 - CONCLUSION: Continued marked inflammation in and around the second portion of the duodenum. Differential includes either peptic ulcer disease versus neoplasm of the duodenum. There is some persistent dilatation the biliary tree and the small lymph node in the adjacent soft tissues. There is marked distention of the stomach with fluid and food. A small right lateral pancreatic head neoplasm would also be within the differential but there is no tail atrophy making pancreatic malignancy less likely, but there is ductal dilatation. Jose Miguel Haley MD Cholangiopancreatography MRI 08/14/17 0000 Signed Impressions: Service Date/Time: Monday, August 14, 2017 07:32 - CONCLUSION: Thickening of the second portion the duodenum likely secondary to edema and inflammation if the patient has an ulcer or other inflammatory condition versus a neoplasm. A neoplasm cannot select some ulceration which could be due to the inflammatory change extending into the right abdomen. This area should be directly inspected. There is dilatation of the pancreatic and biliary ducts likely secondary to obstruction at the level of the ampulla. There is a fluid fluid level within the biliary duct system likely related to some degree of hemorrhage within the biliary system. Deandre Ware MD Abdomen X-Ray 08/10/17 0000 Signed Impressions: Service Date/Time: Thursday, August 10, 2017 11:22 - CONCLUSION: Nonspecific a benign abdomen appearance. Deandre Tobar MD PE at Discharge GENERAL: WN, WD AA male laying in bed in NAD. SKIN: Warm and dry. HEENT: Pupils equal and round. No scleral icterus. MMM. NECK: No tender LAD or JVD. HEART: RRR no m/r/g. LUNGS: CTAB without wheezes or crackles. ABDOMEN: +BS. Slightly distended but soft, RUQ and epigastric TTP with voluntary guarding. EXTREMITIES: No LE edema or calf tenderness. NEURO: Awake and alert. Pt Condition on Discharge: Good Discharge Disposition: Discharge Home Discharge Time: > 30 minutes Discharge Instructions DIET: Follow Instructions for: As Tolerated, No Restrictions Additional Diet Instructions: Gradually advance diet to normal diet. Avoid greasy food. Activities you can perform: Regular-No Restrictions Follow up Referrals: Gastroenterology - 1 Week with Geremias Fortune MD PCP Follow-up - 1 Week Surgical - 2 Weeks New Medications: Hydrocodone/Acetaminophen (Hydrocodone-Acetamin 7.5-325) 7.5 Mg-325 Mg Tablet 1 TAB PO Q6H PRN for PAIN SCALE 6 TO 10, #28 TAB Pancrelipase (Creon) 24,000-76,000-120,000 Units Cap 2 CAP PO TID for pancreas, #180 CAP Pantoprazole (Pantoprazole) 40 Mg Tab 40 MG PO Q12HR for Manage Heartburn, #60 TAB Sennosides-Docusate Sodium (Gnp Senna Plus 8.6-50 mg) 8.6 Mg-50 Mg Tab 1 TAB PO BID for Prevent Constipation, #60 TAB Sucralfate Liq (Sucralfate Liq) 1 Gram/10 Ml Debo 1 GM PO ACHS for GI, #90 CAN 5 Refills Continued Medications: [Cholesterol Med] () [Inhaler] () Discontinued Medications: Meloxicam (Meloxicam) 7.5 Mg Tab 7.5 MG PO DAILY for Arthritis Pain, TAB 0 Refills Angela Tian DO Aug 25, 2017 22:58
== END 2017-08-25 16:09 | disposition home or self-care (01) | DRG 380 ==
LOC: NEPC 15:51 → INTOOBSV 17:55 → NEDA 17:55 → OBSVTOIN 20:31 → NEPGCP 20:56 → N06B 08-04 17:12
PROVIDERS: ADMIT Hospitalist; ATTEND Hospitalist
PROC: 0DB38ZX Excision of Lower Esophagus, Via Natural or Artificial Opening Endoscopic, Diagnostic (ICD-10-PCS; 2017-08-04)
PROC: 0DB98ZX Excision of Duodenum, Via Natural or Artificial Opening Endoscopic, Diagnostic (ICD-10-PCS; principal; 2017-08-04 16:10)
PROC: 0DB98ZX Excision of Duodenum, Via Natural or Artificial Opening Endoscopic, Diagnostic (ICD-10-PCS; 2017-08-15)
DX: K31.5 Obstruction of duodenum (principal); K85.90 Acute pancreatitis without necrosis or infection, unspecified; J43.9 Emphysema, unspecified; D50.9 Iron deficiency anemia, unspecified; E78.5 Hyperlipidemia, unspecified; F10.10 Alcohol abuse, uncomplicated; K29.80 Duodenitis without bleeding; K31.1 Adult hypertrophic pyloric stenosis; E87.6 Hypokalemia; K21.0 Gastro-esophageal reflux disease with esophagitis; K59.00 Constipation, unspecified; Z85.46 Personal history of malignant neoplasm of prostate; Z92.3 Personal history of irradiation; Z87.891 Personal history of nicotine dependence
CPT/HCPCS: 74018; 74019; 74177; 74183; 74240; 74241; 76377; 80048; 80053; 80069; 80076; 81001; 82105; 82150; 82378; 82728; 82948; 83036; 83540; 83550; 83690; 83735; 84100; 84439; 84443; 85007; 85018; 85025; 85027; 85610; 85730; 86140; 86301; 88305; 93005; 96361; 96374; 96375; A9579; C9113; G0103; J0330; J2270; J2370; J2405; J2543; J3411; J3480; J7030; J7120; Q9963; Q9967

== ENCOUNTER 2017-09-04 10:30 | Emergency (ER) | payer MEDICARE, MEDICAID ==
[~2017-09-04] VITALS: Ht 167.6 cm; Wt 69.0 kg
[~2017-09-04 10:30] MED LIST changes: +CHOLESTEROL MED; +CREON24 PO; -FLEX10TA PO; +HYDR-3580 PO; +INHALER; -MOBI15TA PO; +PANT40TA3 PO; +PERI PO; +SUCR1S PO; -TAB-TAB PO
[2017-09-04 10:32] VITALS: BP 110/76; PULSE 104; RESP 18; TEMP 98.1; O2SAT 96
[2017-09-04] MEDS ORDERED: CLINDAMYCIN PHOS 300 MG/2 ML VIAL IM ONE (12:15)
--- NOTE | 2017-09-04 12:19 | PD ---
HPI Chief Complaint: Facial Pain or Swelling Time Seen by Provider: 11:44 Travel History International Travel<30 days: No Contact w/Intl Traveler<30days: No Traveled to known affect area: No History of Present Illness HPI Patient is a history of about a 1 day history of swelling to the bridge of his nose. Over the last 3 or 4 days he has also had swelling over his right cheek area. Patient states the pain is a throbbing pain, rated 4 out of 10, no evidence of any red streaks or anything like that according to the patient. Patient denies any alleviating or aggravating factors. Patient also denies any associated factors such as fever, nausea, vomiting, diarrhea, chest pain, abdominal pain, back pain PFSH Past Medical History Arthritis: Yes Cancer: Yes (PROSTATE) Cardiovascular Problems: Yes High Cholesterol: Yes COPD: Yes Diabetes: No Diminished Hearing: No Endocrine: No Gastrointestinal Disorders: Yes (ulcers) Glaucoma: No Genitourinary: No Hepatitis: No Hiatal Hernia: No Hypertension: No Immune Disorder: No Musculoskeletal: Yes (degenrative disc disease ) Neurologic: No Psychiatric: No Respiratory: Yes (emphysema) Myocardial Infarction: Yes Thyroid Disease: No Ulcer: Yes Tetanus Vaccination: Unknown Influenza Vaccination: No Past Surgical History Abdominal Surgery: Yes (appendectomy) Appendectomy: Yes Body Medical Devices: hardware left hand ring finger Cardiac Surgery: No Ear Surgery: No Endocrine Surgery: No Eye Surgery: No Genitourinary Surgery: No Gynecologic Surgery: No Joint Replacement: No Oral Surgery: Yes (cyst removed from throat gum surgery) Pacemaker: No Thoracic Surgery: No Other Surgery: Yes (throat sx, appendectomy) Social History Alcohol Use: No Tobacco Use: No Substance Use: No Allergies-Medications (Allergen,Severity, Reaction): Coded Allergies: No Known Allergies (Verified Adverse Reaction, Unknown, 09/04/17) Reported Meds & Prescriptions Reported Meds & Active Scripts Active Pantoprazole (Pantoprazole Sodium) 40 Mg Tab 40 Mg PO Q12HR Creon (Amylase/Lipase/Protease) 24,000-76,000-120,000 Units Cap 2 Cap PO TID Sucralfate Liq (Sucralfate) 1 Gram/10 Ml Debo 1 Gm PO ACHS Review of Systems General / Constitutional: No: Fever Eyes: No: Visual changes HENT: No: Headaches Cardiovascular: No: Chest Pain or Discomfort Respiratory: No: Shortness of Breath Gastrointestinal: No: Abdominal Pain Genitourinary: No: Dysuria Musculoskeletal: No: Pain Skin: Positive Lumps, Positive Lesions Neurologic: No: Weakness Psychiatric: No: Depression Endocrine: No: Polydipsia Hematologic/Lymphatic: No: Easy Bruising Physical Exam Narrative GENERAL: SKIN: Warm and dry. HEAD: Atraumatic. Normocephalic. Bridge of nose there is an area approximately 1 mm wide, pustular and actively draining. There is also surrounding erythema and edema extending to the bridge of the nose as well as to the right eyelid. Separately there is also right cheek fullness secondary to facial extension of canine space cellulitis EYES: Pupils equal and round. No scleral icterus. No injection or drainage. ENT: No nasal bleeding or discharge. Mucous membranes pink and moist. NECK: Trachea midline. No JVD. CARDIOVASCULAR: Regular rate and rhythm. RESPIRATORY: No accessory muscle use. Clear to auscultation. Breath sounds equal bilaterally. GASTROINTESTINAL: Abdomen soft, non-tender, nondistended. MUSCULOSKELETAL: Extremities without clubbing, cyanosis, or edema. No obvious deformities. NEUROLOGICAL: Awake and alert. No obvious cranial nerve deficits. Motor grossly within normal limits. Five out of 5 muscle strength in the arms and legs. Normal speech. PSYCHIATRIC: Appropriate mood and affect; insight and judgment normal. Data Data Last Documented VS Vital Signs Date Time Temp Pulse Resp B/P (MAP) Pulse Ox O2 Delivery O2 Flow Rate FiO2 09/04/17 10:32 98.1 104 18 110/76 (87) 96 Orders Orders Clindamycin Inj (Cleocin Inj) (09/04/17 12:15) [facility] Medical Decision Making Medical Screen Exam Complete: Yes Emergency Medical Condition: Yes Medical Record Reviewed: Yes Differential Diagnosis cellulitis v abscess v impetigo v dental abscess Narrative Course noted patient to have cellulitis at bridge of nose, along with facial extension of right canine space abscess Diagnosis Primary Impression: facial cellulitis Patient Instructions: Cellulitis (ED), General Instructions Scripts Sulfamethoxazole-Trimethoprim (Bactrim DS) 800-160 Mg Tab 1 TAB PO BID for Infection, #20 TAB 0 Refills Prov: Luke Pak MD 09/04/17 Disposition: 01 DISCHARGE HOME Condition: Stable Luke Pak MD Sep 04, 2017 12:19
[2017-09-04] MEDS ORDERED: BACT800T5 PO (12:56)
== END 2017-09-04 15:02 | disposition home or self-care (01) ==
LOC: NEPD 10:30
DX: L03.211 Cellulitis of face (principal); E78.00 Pure hypercholesterolemia, unspecified
CPT/HCPCS: 96372

== ENCOUNTER 2017-09-21 15:13 | Inpatient (IN) | payer MEDICARE, MEDICAID ==
[~2017-09-21] VITALS: Ht 170.2 cm; Wt 68.0 kg
[~2017-09-21 15:13] MED LIST changes: +BACT800T5 PO; -CHOLESTEROL MED; -HYDR-3580 PO; -INHALER; -PERI PO
[2017-09-21 15:22] VITALS: BP 85/55; PULSE 123; RESP 16; TEMP 97.6; O2SAT 100
[2017-09-21 15:59] LABS: AUTOMATED NEUTROPHIL # 4.2 TH/MM3 (1.8-7.7); BASOPHIL % 0.6 % (0.0-2.0); EOSINOPHIL % 0.4 % (0.0-4.0); HEMATOCRIT 30.6 % (39.0-51.0); HEMOGLOBIN 9.9 GM/DL (13.0-17.0); LYMPH % 27.9 % (9.0-44.0); LYMPHOCYTE # 1.8 TH/MM3 (1.0-4.8); MEAN CELL VOLUME 74.9 FL (80.0-100.0); MEAN CORPUSCULAR HEMOGLOBIN 24.1 PG (27.0-34.0); MEAN CORPUSCULAR HGB CONC 32.3 % (32.0-36.0); MEAN PLATELET VOLUME 7.8 FL (7.0-11.0); MONO % 7.1 % (0.0-8.0); MONOCYTE # 0.5 TH/MM3 (0-0.9); PLATELET COUNT 863 TH/MM3 (150-450); RED BLOOD COUNT 4.08 MIL/MM3 (4.50-5.90); WHITE BLOOD COUNT 6.6 TH/MM3 (4.0-11.0)
[2017-09-21 16:12] LABS: AST (GOT) 23 U/L (15-37); BICARBONATE 25.5 MEQ/L (21.0-32.0); BLOOD UREA NITROGEN 9 MG/DL (7-18); CALCIUM 9.6 MG/DL (8.5-10.1); CHLORIDE 104 MEQ/L (98-107); GLOMERULAR FILTRATION RATE 75 ML/MIN (>89); GLUCOSE,RANDOM 109 MG/DL (74-106); SODIUM (NA) 137 MEQ/L (136-145)
[2017-09-21 16:13] LABS: ALT (GPT) 15 U/L (12-78)
[2017-09-21 16:29] VITALS: BP 118/70; PULSE 95; RESP 14; TEMP 97.4; O2SAT 98
[2017-09-21] MEDS ORDERED: SODIUM CHLOR 0.9% 1000 ML INJ 1,000 ML IV ONE ×2 (16:30)
--- NOTE | 2017-09-21 16:33 | PD ---
HPI Chief Complaint: Abdominal Pain Time Seen by Provider: 16:01 Travel History International Travel<30 days: No Contact w/Intl Traveler<30days: No Traveled to known affect area: No History of Present Illness HPI This patient was recently hospitalized and had extensive workup. He was found to have gastric outlet obstruction with an enlarged part of the duodenum. He was supposed to follow-up with GI and get an outpatient endoscopic ultrasound. He says he lost his discharge instructions and has not seen another doctor since. He says he is only able to drink liquids and has frequent vomiting. He denies alcohol since he left the hospital. He arrives tachycardic and hypotensive. Symptoms are severe. No alleviating factors. No exacerbating factors. Duration 2 weeks PFSH Past Medical History Arthritis: Yes Cancer: Yes (PROSTATE) Cardiovascular Problems: Yes High Cholesterol: Yes COPD: Yes Diabetes: No Diminished Hearing: No Endocrine: No Gastrointestinal Disorders: Yes (ulcers) Glaucoma: No Genitourinary: No Hepatitis: No Hiatal Hernia: No Hypertension: No Immune Disorder: No Musculoskeletal: Yes (degenrative disc disease ) Neurologic: No Psychiatric: No Respiratory: Yes (emphysema) Myocardial Infarction: Yes Thyroid Disease: No Ulcer: Yes Past Surgical History Abdominal Surgery: Yes (appendectomy) Appendectomy: Yes Body Medical Devices: hardware left hand ring finger Cardiac Surgery: No Ear Surgery: No Endocrine Surgery: No Eye Surgery: No Genitourinary Surgery: No Gynecologic Surgery: No Joint Replacement: No Oral Surgery: Yes (cyst removed from throat gum surgery) Pacemaker: No Thoracic Surgery: No Other Surgery: Yes (throat sx, appendectomy) Social History Alcohol Use: No Tobacco Use: No Substance Use: No Allergies-Medications (Allergen,Severity, Reaction): Coded Allergies: No Known Allergies (Verified Adverse Reaction, Unknown, 09/21/17) Reported Meds & Prescriptions Reported Meds & Active Scripts Active Pantoprazole (Pantoprazole Sodium) 40 Mg Tab 40 Mg PO Q12HR Creon (Amylase/Lipase/Protease) 24,000-76,000-120,000 Units Cap 2 Cap PO TID Sucralfate Liq (Sucralfate) 1 Gram/10 Ml Debo 1 Gm PO ACHS Review of Systems General / Constitutional: No: Fever Eyes: No: Visual changes HENT: No: Headaches Cardiovascular: No: Chest Pain or Discomfort Respiratory: No: Shortness of Breath Gastrointestinal: Positive: Nausea, Vomiting, Diarrhea, Abdominal Pain Genitourinary: No: Dysuria Musculoskeletal: No: Pain Skin: No Rash Neurologic: No: Weakness Psychiatric: Positive: Substance Abuse, No: Depression Endocrine: No: Polydipsia Hematologic/Lymphatic: No: Easy Bruising Physical Exam Narrative GENERAL: Thin well-developed patient in no apparent distress. SKIN: Focused skin assessment reveals no rash and nodules. Skin is Warm and dry. HEAD: Atraumatic. Normocephalic. EYES: Pupils equal and round. No scleral icterus. No injection or drainage. ENT: No nasal bleeding or discharge. Mucous membranes pink and moist. NECK: Trachea midline. No JVD. CARDIOVASCULAR: Regular rate and rhythm. No murmur appreciated. Tachycardic RESPIRATORY: No accessory muscle use. Clear to auscultation. Breath sounds equal bilaterally. GASTROINTESTINAL: Abdomen soft, non-tender, nondistended. Hepatic and splenic margins not palpable. MUSCULOSKELETAL: No obvious deformities. No clubbing. No cyanosis. No edema. NEUROLOGICAL: Awake and alert. No obvious cranial nerve deficits. Motor grossly within normal limits. Normal speech. PSYCHIATRIC: Appropriate mood and affect; insight and judgment poor . Data Data Last Documented VS Vital Signs Date Time Temp Pulse Resp B/P (MAP) Pulse Ox O2 Delivery O2 Flow Rate FiO2 09/21/17 18:22 78 20 121/87 (98) 99 Room Air 09/21/17 16:29 97.4 Orders Orders Complete Blood Count With Diff (09/21/17 15:28) Comprehensive Metabolic Panel (09/21/17 15:28) Urinalysis - C+S If Indicated (09/21/17 15:28) Lipase (09/21/17 15:28) Sodium Chlor 0.9% 1000 Ml Inj (Ns 1000 M (09/21/17 16:30) Sodium Chlor 0.9% 1000 Ml Inj (Ns 1000 M (09/21/17 16:30) Admit To Inpatient (09/21/17 ) Vital Signs (Adult) Q4H (09/21/17 17:48) Activity Oob With Assistance (09/21/17 17:48) Stock Saw Operator / Telemetry .CONTINUOUS (09/21/17 17:48) Diet Npo (09/21/17 Dinner) Sodium Chlor 0.9% 1000 Ml Inj (Ns 1000 M (09/21/17 17:48) Sodium Chloride 0.9% Flush (Ns Flush) (09/21/17 18:00) Sodium Chloride 0.9% Flush (Ns Flush) (09/21/17 21:00) Ondansetron Inj (Zofran Inj) (09/21/17 18:00) Comprehensive Metabolic Panel (09/22/17 06:00) Complete Blood Count With Diff (09/22/17 06:00) Case Management Consult (09/21/17 17:48) Naloxone Inj (Narcan Inj) (09/21/17 18:00) Inpatient Certification (09/21/17 ) Flmdlp-Asycfv-Xdto 24-76-120 (Creon 24-7 (09/21/17 18:00) Pantoprazole (Protonix) (09/21/17 21:00) Sucralfate Liq (Carafate Liq) (09/21/17 21:00) Ct Abd/Pel W Iv Contrast(Rout) (09/21/17 ) Consult Gastroenterology (09/21/17 ) (Hub Use Only)Inp Phy Cons/Ref (09/21/17 ) Oral Contrast - Adult (09/21/17 18:03) Diatrizoate Liq ( Gastroview Liq) (09/21/17 18:18) Labs Laboratory Tests Test 09/21/17 15:37 White Blood Count 6.6 TH/MM3 Red Blood Count 4.08 MIL/MM3 Hemoglobin 9.9 GM/DL Hematocrit 30.6 % Mean Corpuscular Volume 74.9 FL Mean Corpuscular Hemoglobin 24.1 PG Mean Corpuscular Hemoglobin Concent 32.3 % Red Cell Distribution Width 22.0 % Platelet Count 863 TH/MM3 Mean Platelet Volume 7.8 FL Neutrophils (%) (Auto) 64.0 % Lymphocytes (%) (Auto) 27.9 % Monocytes (%) (Auto) 7.1 % Eosinophils (%) (Auto) 0.4 % Basophils (%) (Auto) 0.6 % Neutrophils # (Auto) 4.2 TH/MM3 Lymphocytes # (Auto) 1.8 TH/MM3 Monocytes # (Auto) 0.5 TH/MM3 Eosinophils # (Auto) 0.0 TH/MM3 Basophils # (Auto) 0.0 TH/MM3 CBC Comment AUTO DIFF Differential Comment AUTO DIFF CONFIRMED Platelet Estimate HIGH Platelet Morphology Comment NORMAL Spherocytes OCC Target Cells 1+ Ovalocytes 1+ Acanthocytes OCC Blood Urea Nitrogen 9 MG/DL Creatinine 1.20 MG/DL Random Glucose 109 MG/DL Total Protein 10.3 GM/DL Albumin 4.0 GM/DL Calcium Level 9.6 MG/DL Alkaline Phosphatase 87 U/L Aspartate Amino Transf (AST/SGOT) 23 U/L Alanine Aminotransferase (ALT/SGPT) 15 U/L Total Bilirubin 0.3 MG/DL Sodium Level 137 MEQ/L Potassium Level 3.9 MEQ/L Chloride Level 104 MEQ/L Carbon Dioxide Level 25.5 MEQ/L Anion Gap 8 MEQ/L Estimat Glomerular Filtration Rate 75 ML/MIN Lipase 2069 U/L MDM Medical Decision Making Medical Screen Exam Complete: Yes Emergency Medical Condition: Yes Medical Record Reviewed: Yes Differential Diagnosis Hypovolemic shock, dehydration, bowel obstruction Narrative Course I have reviewed the patient's electronic medical record. I reviewed his discharge summary as well as consultation from GI and general surgery 2 IVs placed. I gave him 2 L normal saline IV bolus and we will reassess his blood pressure. He arrives hypotensive and tachycardic Lab studies sent. CBC reveals anemia but improved from prior He has acute pancreatitis with a lipase of 2000, significantly higher than prior Electrolytes and LFTs are normal After IV fluid boluses his hypotension has resolved. He currently is at 118 systolic. His tachycardia has resolved and he is now in sinus rhythm in the 70s While critically ill on arrival he is now improved significantly Case reviewed with hospitalist will admit. At this point I do not feel he needs intensive care He has known gastric outlet obstruction which will explain his vomiting and dehydration Critical Care Narrative Aggregate critical care time was 36 minutes. Time to perform other separately billable procedures was not included in the critical care time. My time did not include minutes spent treating any other patients simultaneously or on activities that did not directly contribute to the patient's treatment. The services I provided to this patient were to treat and/or prevent clinically significant deterioration that could result in: Hypovolemic shock, cardiopulmonary arrest, metabolic instability I provided critical care services requiring my management, as noted below: Chart data review, documentation time, medication orders and management, vital sign assessments/reviewing monitor data, ordering and reviewing lab tests, ordering and interpreting/reviewing x-rays and diagnostic studies, care of the patient and discussion of the patient with the admitting physicians. Diagnosis Primary Impression: Acute pancreatitis Qualified Codes: K85.20 - Alcohol induced acute pancreatitis without necrosis or infection Additional Impressions: Hypotension Qualified Codes: I95.9 - Hypotension, unspecified Gastric outlet obstruction Dehydration, severe Admitting Information Admitting Physician Requests: Admit Neeraj Mackey MD Sep 21, 2017 16:33
[2017-09-21 16:38] LABS: ALKALINE PHOSPHATASE 87 U/L (45-117); TOTAL BILIRUBIN ADULT 0.3 MG/DL (0.2-1.0); TOTAL PROTEIN 10.3 GM/DL (6.4-8.2)
[2017-09-21 17:09] LABS: OVALOCYTES 1+ (NORMAL); SPHEROCYTES OCC (NORMAL); TARGET CELLS 1+ (NORMAL)
[2017-09-21 17:10] LABS: ACANTHOCYTES OCC (NORMAL)
[2017-09-21] MEDS ORDERED: NALOXONE HCL 0.4 MG/ML AMP IV PUSH PRN (18:00)
[2017-09-21] MEDS ORDERED: ONDANSETRON HCL 4 MG/2 ML VIAL IVP PRN (18:00)
[2017-09-21] MEDS ORDERED: SODIUM CHLORIDE 0.9% FLUSH 10 ML FLUSH IV FLUSH PRN (18:00)
[2017-09-21] MEDS ORDERED: DIATRIZOATE MEGLUM/DIATRIZOATE SOD 9 ML CUP ONE (18:18)
[2017-09-21 18:22] VITALS: BP 121/87; PULSE 78; RESP 20; O2SAT 99
[2017-09-21 18:30] VITALS: BP 134/90; PULSE 76; RESP 24; O2SAT 99
[2017-09-21] MEDS: LIPASE/PROTEASE/AMYLASE (24,000/76,000/120,000) CAP PO SCH (19:55)
[2017-09-21 19:58] VITALS: BP 143/96; PULSE 104; RESP 16; O2SAT 97
[2017-09-21 20:03] LABS: AMORPHOUS SEDIMENT, URINE RARE; BACTERIA, URINE RARE /hpf; BILIRUBIN, URINE NEG (NEG); BLOOD, URINE TRACE (NEG); GLUCOSE,URINE NEG (NEG); HYALINE CAST, URINE 5 /lpf (RARE); KETONE, URINE 10 mg/dL (NEG); MUCUS URINE FEW /lpf (OCC); NITRITE,URINE NEG (NEG); SQUAMOUS EPITHELIAL CELL URINE 1 /hpf (0-5); URINE COLOR YELLOW (YELLW/STRAW); URINE LEUKOCYTE ESTERASE NEG (NEG)
[2017-09-21] MEDS ORDERED: IOHEXOL 350 MG/ML 10 ML VIAL (for RAD DIAG) IVCONTRAST ONE (20:14)
--- NOTE | 2017-09-21 20:16 | HHI.HP ---
HPI Service [facility] Primary Care Physician Deandre Ramos MD Admission Diagnosis acute pancreatitis,dehydration,gastric outlet obstruction Diagnoses: Travel History International Travel<30 Days: No Contact w/Intl Traveler <30 Da: No Traveled to Known Affected Are: No History of Present Illness 61-year-old male with a past medical history significant for prostate cancer, osteoarthritis, degenerative disc disease, COPD and recent diagnosis of gastric outlet obstruction presents to the emergency department with nausea/vomiting since Tuesday. The patient was discharged on 08/03/17 where he was treated for acute pancreatitis and a gastric outlet obstruction. He had an EGD performed at that time with biopsies showing no evidence of cancer. He was instructed to follow-up as an outpatient with gastroenterology however the patient states he lost his discharge paperwork and was unable to contact anyone to be seen. He has not seen a physician since his discharge. The patient states that he is having bloating with by mouth intake and shortness of breath that accompanies the bloating. He reports that after any by mouth intake his abdomen becomes distended and painful. He endorses associated nausea/vomiting that is also postprandial. The patient denies any chest pain. No weakness or fatigue. Review of Systems Except as stated in HPI: all other systems reviewed are Neg Past Family Social History Past Medical History Prostate cancer Osteoarthritis Degenerative disc disease COPD History of pancreatitis with gastric outlet obstruction Past Surgical History EGD Throat cyst removal Fourth digit of the left hand screw placement Reported Medications Reported Meds & Active Scripts Active Pantoprazole (Pantoprazole Sodium) 40 Mg Tab 40 Mg PO Q12HR Creon (Amylase/Lipase/Protease) 24,000-76,000-120,000 Units Cap 2 Cap PO TID Sucralfate Liq (Sucralfate) 1 Gram/10 Ml Debo 1 Gm PO ACHS Allergies: Coded Allergies: No Known Allergies (Verified Adverse Reaction, Unknown, 09/21/17) Family History Negative for CAD/DM. Social History Patient reports he quit drinking approximately 2-3 months ago. Denies tobacco or illicit drugs. Physical Exam Vital Signs Vital Signs Date Time Temp Pulse Resp B/P (MAP) Pulse Ox O2 Delivery O2 Flow Rate FiO2 4/4/18 19:58 104 16 143/96 (112) 97 Room Air 09/21/17 18:30 76 24 134/90 (105) 99 Room Air 09/21/17 18:22 78 20 121/87 (98) 99 Room Air 09/21/17 16:29 97.4 95 14 118/70 (86) 98 Room Air 09/21/17 15:22 97.6 123 16 85/55 (65) 100 Physical Exam GENERAL: Thin, male lying in bed SKIN: No rashes, ecchymoses or lesions. Cool and dry. HEAD: Atraumatic. Normocephalic. No temporal or scalp tenderness. EYES: Pupils equal round and reactive. Extraocular motions intact. No scleral icterus. No injection or drainage. ENT: Nose without bleeding, purulent drainage or septal hematoma. Throat without erythema, tonsillar hypertrophy or exudate. Uvula midline. Airway patent. NECK: Trachea midline. No JVD or lymphadenopathy. Supple, nontender, no meningeal signs. CARDIOVASCULAR: Regular rate and rhythm without murmurs, gallops, or rubs. RESPIRATORY: Clear to auscultation. Breath sounds equal bilaterally. No wheezes , rales, or rhonchi. GASTROINTESTINAL: Abdomen soft, tender to palpation in all 4 quadrants, distended. No guarding. MUSCULOSKELETAL: Extremities without clubbing, cyanosis, or edema. No joint tenderness, effusion, or edema noted. No calf tenderness. NEUROLOGICAL: Awake and alert. Cranial nerves II through XII intact. Motor and sensory grossly within normal limits. Normal speech. Laboratory Laboratory Tests Test 09/21/17 15:37 09/21/17 19:13 White Blood Count 6.6 Red Blood Count 4.08 Hemoglobin 9.9 Hematocrit 30.6 Mean Corpuscular Volume 74.9 Mean Corpuscular Hemoglobin 24.1 Mean Corpuscular Hemoglobin Concent 32.3 Red Cell Distribution Width 22.0 Platelet Count 863 Mean Platelet Volume 7.8 Neutrophils (%) (Auto) 64.0 Lymphocytes (%) (Auto) 27.9 Monocytes (%) (Auto) 7.1 Eosinophils (%) (Auto) 0.4 Basophils (%) (Auto) 0.6 Neutrophils # (Auto) 4.2 Lymphocytes # (Auto) 1.8 Monocytes # (Auto) 0.5 Eosinophils # (Auto) 0.0 Basophils # (Auto) 0.0 CBC Comment AUTO DIFF Differential Comment AUTO DIFF CONFIRMED Platelet Estimate HIGH Platelet Morphology Comment NORMAL Spherocytes OCC Target Cells 1+ Ovalocytes 1+ Acanthocytes OCC Blood Urea Nitrogen 9 Creatinine 1.20 Random Glucose 109 Total Protein 10.3 Albumin 4.0 Calcium Level 9.6 Alkaline Phosphatase 87 Aspartate Amino Transf (AST/SGOT) 23 Alanine Aminotransferase (ALT/SGPT) 15 Total Bilirubin 0.3 Sodium Level 137 Potassium Level 3.9 Chloride Level 104 Carbon Dioxide Level 25.5 Anion Gap 8 Estimat Glomerular Filtration Rate 75 Lipase 2068 Result Diagram: 09/21/17 1537 09/21/17 153 Caprini VTE Risk Assessment Caprini VTE Risk Assessment: Mod/High Risk (score >= 2) Caprini Risk Assessment Model Point Value = 1 Point Value = 2 Point Value = 3 Point Value = 5 Age 41-60 Minor surgery BMI > 25 kg/m2 Swollen legs Varicose veins or History of unexplained or recurrent spontaneous Oral contraceptives or hormone replacement Sepsis (< 1 month) Serious lung disease, including pneumonia (< 1 month) Abnormal pulmonary function Acute myocardial infarction Congestive heart failure (< 1 month) History of inflammatory bowel disease Medical patient at bed rest Age 61-74 Arthroscopic surgery Major open surgery (> 45 min) Laparoscopic surgery (> 45 min) Malignancy Confined to bed (> 72 hours) Immobilizing plaster cast Central venous access Age >= 75 History of VTE Family history of VTE Factor V Leiden Prothrombin [id number] Lupus anticoagulant Anticardiolipin antibodies Elevated serum homocysteine Heparin-induced thrombocytopenia Other congenital or acquired thrombophilia Stroke (< 1 month) Elective arthroplasty Hip, pelvis, or leg fracture Acute spinal cord injury (< 1 month) Prophylaxis Regimen Total Risk Factor Score Risk Level Prophylaxis Regimen 0-1 Low Early ambulation 2 Moderate Order ONE of the following: *Sequential Compression Device (SCD) *Heparin 5000 units SQ BID 3-4 Higher Order ONE of the following medications: *Heparin 5000 units SQ TID *Enoxaparin/Lovenox 40 mg SQ daily (WT < 150 kg, CrCl > 30 mL/min) *Enoxaparin/Lovenox 30 mg SQ daily (WT < 150 kg, CrCl > 10-29 mL/min) *Enoxaparin/Lovenox 30 mg SQ BID (WT < 150 kg, CrCl > 30 mL/min) AND/OR *Sequential Compression Device (SCD) 5 or more Highest Order ONE of the following medications: *Heparin 5000 units SQ TID (Preferred with Epidurals) *Enoxaparin/Lovenox 40 mg SQ daily (WT < 150 kg, CrCl > 30 mL/min) *Enoxaparin/Lovenox 30 mg SQ daily (WT < 150 kg, CrCl > 10-29 mL/min) *Enoxaparin/Lovenox 30 mg SQ BID (WT < 150 kg, CrCl > 30 mL/min) AND *Sequential Compression Device (SCD) Assessment and Plan Assessment and Plan Assessment/Plan: 1. Acute pancreatitis Lipase 2068 Nothing by mouth Aggressive IV fluid hydration Patient reports he has not had any alcohol in 2-3 months 2. Gastric outlet obstruction Patient with known gastric outlet obstruction, status post EGD in July without evidence of cancer Gastroenterology consulted, appreciate recommendations 3. COPD DuoNeb's 4. Osteoarthritis/degenerative disc disease/prostate cancer Continue outpatient care FEN NPO Electrolytes: monitor and replete prn NS at 150 cc/hr Holding pharmacologic anticoagulation for possible procedure Physician Certification 2 Midnight Certification Type: Admission for Inpatient Services Order for Inpatient Services The services are ordered in accordance with Medicare regulations or non- Medicare payer requirements, as applicable. In the case of services not specified as inpatient-only, they are appropriately provided as inpatient services in accordance with the 2-midnight benchmark. Estimated LOS (days): 2 2 days is the estimated time the patient will need to remain in the hospital, assuming treatment plan goals are met and no additional complications. Post-Hospital Plan: Not yet determined Nara Jones MD Sep 21, 2017 20:16
[2017-09-21] MEDS: SODIUM CHLOR 0.9% 1000 ML INJ 1,000 ML IV SCH (20:31)
--- NOTE | 2017-09-21 20:54 | RADRPT ---
EXAM DATE/TIME: 09/21/2017 20:11 [facility] COMPARISON: CT ABDOMEN & PELVIS W CONTRAST, August 18, 2017, 16:22. INDICATIONS : Abdominal pain with vomiting. IV CONTRAST: 93 cc Omnipaque 350 (iohexol) IV ORAL CONTRAST: Prescribed oral contrast ingested. RADIATION DOSE: 4.93 CTDIvol (mGy) MEDICAL HISTORY : Cardiovascular disease. Chronic obstructive pulmonary disease. Pancreatitis.ulcer, prostate cancer SURGICAL HISTORY : Appendectomy. ENCOUNTER: Initial ACUITY: 4 - 6 days PAIN SCALE: 6/10 LOCATION: abdomen TECHNIQUE: Volumetric scanning of the abdomen and pelvis was performed. Using automated exposure control and ad justment of the mA and/or kV according to patient size, radiation dose was kept as low as reasonably achievable to obtain optimal diagnostic quality images. DICOM format image data is available electro nically for review and comparison. FINDINGS: The lower lungs are clear. The liver is free of focal defects. There is mild intrahepatic biliary duct dilatation with inflammatory changes around the second portio n of the duodenum and head of the pancreas. There is no free air. There is trace free fluid. Considerations would include significant duodenitis without perforation and pancreatitis. There is mild prominence of the duct. The adrenal glands are unremarkable There is symmetrical renal function There is no retroperitoneal adenopathy The pelvic contents are unremarkable Review of bone windows reveals only degenerative changes. CONCLUSION: Inflammatory changes around the head of the pancreas and second portion of the duoden um. Considerations include inflammatory process involving second portion duodenum as well as pancrea titis. The findings have progressed from 08/18/2017. Jeremy Yu MD FACR on September 21, 2017 at 20:46 Board Certified Radiologist. This report was verified electronically.
[2017-09-21] MEDS: SODIUM CHLORIDE 0.9% FLUSH 10 ML FLUSH IV FLUSH SCH (22:32)
[2017-09-21] MEDS: MORPHINE SULFATE 4 MG/ML INJ IV PUSH PRN (22:32)
[2017-09-21] MEDS: PANTOPRAZOLE SOD 40 MG DELAYED RELEASE TAB PO SCH (22:33)
[2017-09-21] MEDS: SUCRALFATE 1 GM/10 ML CUP PO SCH (22:33)
[2017-09-21 22:34] VITALS: BP 132/88; PULSE 88; RESP 16; TEMP 97.9; O2SAT 100
[2017-09-22] MEDS: SODIUM CHLOR 0.9% 1000 ML INJ 1,000 ML IV SCH ×4 (01:17→21:17)
[2017-09-22 03:18] VITALS: BP 124/62; PULSE 86; RESP 16; TEMP 97.4; O2SAT 97
[2017-09-22 06:10] LABS: AUTOMATED NEUTROPHIL # 2.2 TH/MM3 (1.8-7.7); BASOPHIL % 1.2 % (0.0-2.0); EOSINOPHIL # 0.1 TH/MM3 (0-0.4); EOSINOPHIL % 1.6 % (0.0-4.0); HEMATOCRIT 25.9 % (39.0-51.0); HEMOGLOBIN 8.1 GM/DL (13.0-17.0); LYMPH % 32.3 % (9.0-44.0); LYMPHOCYTE # 1.3 TH/MM3 (1.0-4.8); MEAN CELL VOLUME 74.5 FL (80.0-100.0); MEAN CORPUSCULAR HEMOGLOBIN 23.3 PG (27.0-34.0); MEAN CORPUSCULAR HGB CONC 31.2 % (32.0-36.0); MEAN PLATELET VOLUME 8.1 FL (7.0-11.0); MONO % 10.5 % (0.0-8.0); MONOCYTE # 0.4 TH/MM3 (0-0.9); NEUT % 54.4 % (16.0-70.0); PLATELET COUNT 712 TH/MM3 (150-450); RED BLOOD COUNT 3.47 MIL/MM3 (4.50-5.90)
[2017-09-22 06:42] LABS: BICARBONATE 22.5 MEQ/L (21.0-32.0); BLOOD UREA NITROGEN 6 MG/DL (7-18); CALCIUM 8.2 MG/DL (8.5-10.1); CHLORIDE 107 MEQ/L (98-107); CREATININE 0.66 MG/DL (0.60-1.30); GLOMERULAR FILTRATION RATE 149 ML/MIN (>89); GLUCOSE,RANDOM 80 MG/DL (74-106); SODIUM (NA) 139 MEQ/L (136-145)
[2017-09-22 06:43] LABS: ALT (GPT) 10 U/L (12-78); AST (GOT) 13 U/L (15-37)
[2017-09-22 06:46] LABS: ALKALINE PHOSPHATASE 65 U/L (45-117); TOTAL BILIRUBIN ADULT 0.2 MG/DL (0.2-1.0); TOTAL PROTEIN 7.5 GM/DL (6.4-8.2)
[2017-09-22 07:27] VITALS: BP 104/72; PULSE 88; RESP 16; TEMP 98.2; O2SAT 98
[2017-09-22 08:00] VITALS: PULSE 69
[2017-09-22] MEDS: SODIUM CHLORIDE 0.9% FLUSH 10 ML FLUSH IV FLUSH SCH ×2 (09:00→21:00)
[2017-09-22] MEDS: SUCRALFATE 1 GM/10 ML CUP PO SCH ×4 (09:18→21:19)
[2017-09-22] MEDS: LIPASE/PROTEASE/AMYLASE (24,000/76,000/120,000) CAP PO SCH ×3 (09:19→18:39)
[2017-09-22] MEDS: PANTOPRAZOLE SOD 40 MG DELAYED RELEASE TAB PO SCH ×2 (09:19→21:19)
--- NOTE | 2017-09-22 09:31 | PD.CONS ---
HPI History of Present Illness This is a 61 year old male known to us from previous admission who presented to ER with abd pain, n/v, diarrhea. Onset 5 days. He was recently discharged on liquid diet and said he got to where he could eat solids and then was constipated and took laxative and the diarrhea started. No diarrhea in the last few days which he attributes to not eating. Abd pain is all over. Denies fevers, blood in stool, or tarry stool. he feels thinner than he was. CT showed mild biliary ductal dilatation with inflammation around duodenum and pancreatic head, progressed from 08/18/17. Known to us from previous admission in July when he was found to have GOO d/t edema, pancreatitis, elevated CA 19-9 46.9. Most recent EGD was by Dr. Charles 08/15/17 showing normal ampulla, prominent thick ulcerated folds duodenum, path peptic duodenitis. UGI series 08/20/17 showed high grade stenosis 2nd part duodenum. No malignancy was ever identified. At that point he was evaluated by other GI service and was supposed to have an outpt EUS but he did not do this b/c he lost his paperwork. (Amy López) PFSH Past Medical History Prostate cancer Osteoarthritis Degenerative disc disease COPD History of pancreatitis with gastric outlet obstruction Past Surgical History EGD Throat cyst removal Fourth digit of the left hand screw placement (Amy López) Coded Allergies: No Known Allergies (Verified Adverse Reaction, Unknown, 09/21/17) Family History Negative for CAD/DM. Social History Patient reports he quit drinking approximately 2-3 months ago. Denies tobacco or illicit drugs. (Amy López) Review of Systems Constitutional: DENIES: Fever Endocrine: DENIES: Polydipsia Eyes: DENIES: Blurred vision Ears, nose, mouth, throat: DENIES: Hearing loss Respiratory: DENIES: Cough Cardiovascular: DENIES: Chest pain Gastrointestinal: COMPLAINS OF: Abdominal pain, Nausea, Vomiting, DENIES: Black stools, Bloody stools, Constipation, Diarrhea Genitourinary: DENIES: Hematuria Musculoskeletal: DENIES: Joint Swelling Integumentary: DENIES: Abnormal pigmentation Hematologic/lymphatic: DENIES: Bruising Immunologic/allergic: DENIES: Eczema Neurologic: DENIES: Abnormal gait Psychiatric: DENIES: Confusion (Amy López) GI Exam Vitals I&O Vital Signs Date Time Temp Pulse Resp B/P (MAP) Pulse Ox O2 Delivery O2 Flow Rate FiO2 09/22/17 07:27 98.2 88 16 104/72 (83) 98 09/22/17 03:18 97.4 86 16 124/62 (82) 97 09/21/17 22:34 97.9 88 16 132/88 (103) 100 09/21/17 20:55 09/21/17 19:58 104 16 143/96 (112) 97 Room Air 09/21/17 18:30 76 24 134/90 (105) 99 Room Air 09/21/17 18:22 78 20 121/87 (98) 99 Room Air 09/21/17 16:29 97.4 95 14 118/70 (86) 98 Room Air 09/21/17 15:22 97.6 123 16 85/55 (65) 100 I/O 09/21/17 09/21/17 09/21/17 09/22/17 09/22/17 09/22/17 07:00 15:00 23:00 07:00 15:00 23:00 Intake Total 2000 ml Balance 2000 ml IV Total 2000 ml Imaging Last Impressions Abdomen/Pelvis CT 09/21/17 0000 Signed Impressions: Service Date/Time: Thursday, September 21, 2017 20:11 - CONCLUSION: Inflammatory changes around the head of the pancreas and second portion of the duodenum. Considerations include inflammatory process involving second portion duodenum as well as pancreatitis. The findings have progressed from 08/18/2017. Jeremy Yu MD FACR Laboratory Test 09/21/17 15:37 09/21/17 19:13 09/22/17 05:06 White Blood Count 6.6 TH/MM3 4.0 TH/MM3 Red Blood Count 4.08 MIL/MM3 3.47 MIL/MM3 Hemoglobin 9.9 GM/DL 8.1 GM/DL Hematocrit 30.6 % 25.9 % Mean Corpuscular Volume 74.9 FL 74.5 FL Mean Corpuscular Hemoglobin 24.1 PG 23.3 PG Mean Corpuscular Hemoglobin Concent 32.3 % 31.2 % Red Cell Distribution Width 22.0 % 22.0 % Platelet Count 863 TH/MM3 712 TH/MM3 Mean Platelet Volume 7.8 FL 8.1 FL Neutrophils (%) (Auto) 64.0 % 54.4 % Lymphocytes (%) (Auto) 27.9 % 32.3 % Monocytes (%) (Auto) 7.1 % 10.5 % Eosinophils (%) (Auto) 0.4 % 1.6 % Basophils (%) (Auto) 0.6 % 1.2 % Neutrophils # (Auto) 4.2 TH/MM3 2.2 TH/MM3 Lymphocytes # (Auto) 1.8 TH/MM3 1.3 TH/MM3 Monocytes # (Auto) 0.5 TH/MM3 0.4 TH/MM3 Eosinophils # (Auto) 0.0 TH/MM3 0.1 TH/MM3 Basophils # (Auto) 0.0 TH/MM3 0.0 TH/MM3 CBC Comment AUTO DIFF DIFF FINAL Differential Comment AUTO DIFF CONFIRMED Platelet Estimate HIGH Platelet Morphology Comment NORMAL Spherocytes OCC Target Cells 1+ Ovalocytes 1+ Acanthocytes OCC Blood Urea Nitrogen 9 MG/DL 6 MG/DL Creatinine 1.20 MG/DL 0.66 MG/DL Random Glucose 109 MG/DL 80 MG/DL Total Protein 10.3 GM/DL 7.5 GM/DL Albumin 4.0 GM/DL 3.0 GM/DL Calcium Level 9.6 MG/DL 8.2 MG/DL Alkaline Phosphatase 87 U/L 65 U/L Aspartate Amino Transf (AST/SGOT) 23 U/L 13 U/L Alanine Aminotransferase (ALT/SGPT) 15 U/L 10 U/L Total Bilirubin 0.3 MG/DL 0.2 MG/DL Sodium Level 137 MEQ/L 139 MEQ/L Potassium Level 3.9 MEQ/L 3.5 MEQ/L Chloride Level 104 MEQ/L 107 MEQ/L Carbon Dioxide Level 25.5 MEQ/L 22.5 MEQ/L Anion Gap 8 MEQ/L 10 MEQ/L Estimat Glomerular Filtration Rate 75 ML/MIN 149 ML/MIN Lipase 2069 U/L Urine Color YELLOW Urine Turbidity HAZY Urine pH 8.0 Urine Specific [place] 1.014 Urine Protein 30 mg/dL Urine Glucose (UA) NEG mg/dL Urine Ketones 10 mg/dL Urine Occult Blood TRACE Urine Nitrite NEG Urine Bilirubin NEG Urine Urobilinogen LESS THAN 2.0 MG/DL Urine Leukocyte Esterase NEG Urine RBC LESS THAN 1 /hpf Urine WBC 6 /hpf Urine Squamous Epithelial Cells 1 /hpf Urine Amorphous Sediment RARE Urine Bacteria RARE /hpf Urine Hyaline Casts 5 /lpf Urine Mucus FEW /lpf Microscopic Urinalysis Comment CULT NOT INDICATED Physical Examination HEENT: PERRL; normocephalic; atraumatic; no jaundice. CHEST: CTA CARDIAC: RRR ABDOMEN: Soft, mild upper quadrant distention, mild epigastric TTP; no hepatosplenomegaly; bowel sounds are present in all four quadrants. EXTREMITIES: No clubbing, cyanosis, or edema. SKIN: Normal; no rash; no jaundice. VACUUM FRAME OPERATOR: No focal deficits; alert and oriented times three. (Amy López) Assessment and Plan Plan ASSESSMENT - nausea, vomiting - CT 09/21/17 showed mild biliary ductal dilatation with inflammation around duodenum and pancreatic head, progressed from 08/18/17. lipase elevated 2068 could be r/t vomiting and or pancreatitis. In 07/2017 prior admission was found to have GOO d/t edema, pancreatitis, elevated CA 19-9 46.9. EGD 08/15/17 showing normal ampulla, prominent thick ulcerated folds duodenum , path peptic duodenitis. UGI series 08/20/17 showed high grade stenosis 2nd part duodenum. No malignancy was ever identified. Other GI service consulted for EUS and they recommended outpt, this was not done. - anemia - microcytic. he is close to his baseline. no obvious bleeding PLAN - EUS, timing TBD - obtain consent - NPO after midnight in case EUS tomorrow - NPO now except ice chips - creon when eating - pain mgmt - notify GI of active bleeding - further recs to follow pt seen by myself and Dr Desai and this note is on his behalf (Amy López) Physician Comments Seen and examined with ZURDO, re admitted with pancreatitis, denies ETOH. No clear etiology of pancreatitis found on previous mojica. EUS planned tomorrow afternoon at 4pm with Dr. Bill. Thank you (Gian Desai MD) Amy López Sep 22, 2017 09:31 Gian Desai MD Sep 22, 2017 13:27
[2017-09-22] MEDS: MORPHINE SULFATE 4 MG/ML INJ IV PUSH PRN ×3 (10:18→22:23)
--- NOTE | 2017-09-22 12:11 | RADRPT ---
EXAM DATE/TIME: 09/22/2017 11:03 [facility] COMPARISON: CT ABDOMEN & PELVIS W CONTRAST, September 21, 2017, 20:11. INDICATIONS : Abdominal pain. Vomiting. MEDICAL HISTORY : Hypercholesterolemia. Myocardial infarction. Chronic obstructive pulmonary disease. Recent gastric ou tlet obstruction. Pancreatitis. GERD. Prostate cancer. Emphysema. SURGICAL HISTORY : Appendectomy. EGD. LT ring finger fx repair. Throat cyst excision. ENCOUNTER: Initial ACUITY: 4-6 days PAIN SCORE: 5/10 LOCATION: Right upper quadrant MEASUREMENTS: LIVER: 17.9 cm length COMMON DUCT: 10 mm RIGHT KIDNEY: 11.5 x 5.8 x 5.7 cm FINDINGS: LIVER: Normal echotexture without focal lesion or ductal dilatation. COMMON DUCT: No intraluminal mass or stone visualized. GALLBLADDER: Distended and contains sludge and tiny stones. There is small pericholecystic fluid. No gallbladder w all thickening. Negative sonographic Johnson's sign. PANCREAS: Poorly visualized. RIGHT KIDNEY: No evidence of hydronephrosis, stone, or mass. CONCLUSION: Sludge and stones in the gallbladder and prominent caliber common bile duct. Small free fluid in the right upper quadrant including around the gallbladder but no gallbladder wall thickening or perichole cystic fluid. Deandre Lobo MD on September 22, 2017 at 12:07 Board Certified Radiologist. This report was verified electronically.
[2017-09-22] MEDS ORDERED: POVIDONE IODINE 5% (ANTISEPSIS KIT) 4 APPLICATIONS EACH NARE PRN ×2 (13:45→23:45)
[2017-09-22] MEDS ORDERED: SODIUM CHLORID 0.9% 500 ML IV PRN (13:45)
[2017-09-22] MEDS ORDERED: LACTATED RINGER'S 1000 ML IV PRN ×2 (13:45→23:45)
[2017-09-22] MEDS ORDERED: METOPROLOL TARTRATE 25 MG TAB PO PRN (13:45)
[2017-09-22] MEDS ORDERED: CHLORHEXIDINE GLUCONATE 2 % 1 PACK (2 CLOTHS) TOPICAL PRN ×2 (13:45→23:45)
[2017-09-22 17:45] VITALS: BP 123/85; PULSE 74; RESP 20; TEMP 98.4; O2SAT 98
--- NOTE | 2017-09-22 20:06 | HHI.PR ---
Subjective Remarks Follow up for acute pancreatitis. Patient is currently doing well. Reports improvement of his abdominal pain. He feels like he could eat. However, he is on clear liquid diet now and NPO Midnight for EUS tomorrow. Objective Vitals Vital Signs Date Time Temp Pulse Resp B/P (MAP) Pulse Ox O2 Delivery O2 Flow Rate FiO2 09/22/17 17:45 98.4 74 20 123/85 (98) 98 09/22/17 08:00 69 09/22/17 07:27 98.2 88 16 104/72 (83) 98 09/22/17 03:18 97.4 86 16 124/62 (82) 97 09/21/17 22:34 97.9 88 16 132/88 (103) 100 09/21/17 20:55 09/21/17 19:58 104 16 143/96 (112) 97 Room Air I/O 09/21/17 09/21/17 09/21/17 09/22/17 09/22/17 09/22/17 07:00 15:00 23:00 07:00 15:00 23:00 Intake Total 2000 ml Output Total 720 ml Balance 2000 ml -720 ml IV Total 2000 ml Output Urine Total 720 ml Result Diagram: 09/22/17 0506 09/22/17 0506 Imaging Last Impressions Gall Bladder Ultrasound 09/22/17 0000 Signed Impressions: Service Date/Time: September 11:03 - CONCLUSION: Sludge and stones in the gallbladder and prominent caliber common bile duct. Small free fluid in the right upper quadrant including around the gallbladder but no gallbladder wall thickening or pericholecystic fluid. Deandre Lobo MD Abdomen/Pelvis CT 09/21/17 0000 Signed Impressions: Service Date/Time: Thursday, September 21, 2017 20:11 - CONCLUSION: Inflammatory changes around the head of the pancreas and second portion of the duodenum. Considerations include inflammatory process involving second portion duodenum as well as pancreatitis. The findings have progressed from 08/18/2017. Jeremy Yu MD FACR Objective Remarks GENERAL: AOX3, NAD. SKIN: Warm and dry. HEAD: Normocephalic. EYES: No scleral icterus. No injection or drainage. NECK: Supple, trachea midline. No JVD or lymphadenopathy. CARDIOVASCULAR: Regular rate and rhythm without murmurs, gallops, or rubs. RESPIRATORY: Breath sounds equal bilaterally. No accessory muscle use. GASTROINTESTINAL: Abdomen soft, No significant tenderness on palpation, nondistended. MUSCULOSKELETAL: No cyanosis, or edema. BACK: Nontender without obvious deformity. No CVA tenderness. A/P Problem List: (1) Acute pancreatitis ICD Code: K85.90 - Acute pancreatitis without necrosis or infection, unspecified Status: Acute Assessment and Plan Mr. Anderson, 61 was admitted due to acute pancreatitis. Acute pancreatitis GI following. GB US shows sludge, no GB wall thickening. Continue IV fluid NS 150cc/hour. We can d/c or slow down fluid. EUS tomorrow by GI. After EUS, if patient tolerates diet well, potentially he could go home. COPD - stable. On room air. Full code. Ambulation. Problem Qualifiers (1) Acute pancreatitis: Qualified Codes: K85.20 - Alcohol induced acute pancreatitis without necrosis or infection Angela Tian DO Sep 22, 2017 20:06
[2017-09-22 20:12] VITALS: BP 102/64; PULSE 98; RESP 16; TEMP 98.1; O2SAT 98
[2017-09-22 21:47] VITALS: BP 122/85; PULSE 93; RESP 20; TEMP 97.6; O2SAT 99
[2017-09-23] VITALS: BP 130/78; PULSE 79; RESP 20; TEMP 97.7; O2SAT 96
[2017-09-23] MEDS: SODIUM CHLOR 0.9% 1000 ML INJ 1,000 ML IV SCH ×4 (05:22→20:02)
[2017-09-23] MEDS: MORPHINE SULFATE 4 MG/ML INJ IV PUSH PRN ×3 (08:03→23:36)
[2017-09-23] MEDS: PANTOPRAZOLE SOD 40 MG DELAYED RELEASE TAB PO SCH ×2 (08:04→20:02)
[2017-09-23] MEDS: LIPASE/PROTEASE/AMYLASE (24,000/76,000/120,000) CAP PO SCH ×3 (08:04→17:45)
[2017-09-23] MEDS: SUCRALFATE 1 GM/10 ML CUP PO SCH ×4 (08:04→20:01)
[2017-09-23] MEDS: SODIUM CHLORIDE 0.9% FLUSH 10 ML FLUSH IV FLUSH SCH ×2 (08:05→20:01)
[2017-09-23 12:00] VITALS: BP 116/71; PULSE 110; RESP 18; TEMP 97.7; O2SAT 98
[2017-09-23] MEDS ORDERED: LIDOCAINE HCL 1% PF 5 ML SYRINGE OTHER ONE (12:00)
[2017-09-23] MEDS ORDERED: ROCURONIUM INJ 50 MG/5 ML SYRINGE IV PUSH ONE (12:00)
[2017-09-23] MEDS ORDERED: SUCCINYLCHOLINE CHLORIDE 200 MG/10 ML VIAL IV ONE (12:00)
[2017-09-23] MEDS ORDERED: DEXAMETHASONE SOD PHOS 4 MG/ML VIAL IV ONE (12:00)
[2017-09-23] MEDS ORDERED: GLYCOPYRROLATE 1 MG/5 ML SYRINGE IV PUSH ONE (12:00)
[2017-09-23] MEDS ORDERED: PROPOFOL 200 MG/20 ML AMP IV ONE (12:00)
[2017-09-23] MEDS ORDERED: ONDANSETRON HCL 4 MG/2 ML VIAL IV ONE (12:00)
[2017-09-23] MEDS ORDERED: DO NOT ADM ANY ANTICOAGULANT DRUGS PRN (17:31)
--- NOTE | 2017-09-23 18:11 | HHI.PR ---
Subjective Remarks Follow up for acute pancreatitis. Patient is currently doing well. No fever or chills. Abdominal pain is mild. He is a scheduled for EUS today. Objective Vitals Vital Signs Date Time Temp Pulse Resp B/P (MAP) Pulse Ox O2 Delivery O2 Flow Rate FiO2 09/23/17 17:31 97.3 88 16 134/95 (108) 100 Nasal Cannula 2 09/23/17 12:00 97.7 110 18 116/71 (86) 98 09/23/17 00:00 97.7 79 20 130/78 (95) 96 09/22/17 21:47 97.6 93 20 122/85 (97) 99 09/22/17 20:12 98.1 98 16 102/64 (77) 98 I/O 09/22/17 09/22/17 09/22/17 09/23/17 09/23/17 09/23/17 07:00 15:00 23:00 07:00 15:00 23:00 Intake Total 500 ml 0 ml 700 ml Output Total 720 ml 1300 ml Balance -720 ml 500 ml -1300 ml 700 ml Intake Oral 0 ml IV Total 500 ml Other 700 ml Output Urine Total 720 ml 1300 ml # Voids 1 # Bowel Movements 0 Result Diagram: 09/22/17 0506 09/22/17 0506 Objective Remarks GENERAL: AOX3, NAD. SKIN: Warm and dry. HEAD: Normocephalic. EYES: No scleral icterus. No injection or drainage. NECK: Supple, trachea midline. No JVD or lymphadenopathy. CARDIOVASCULAR: Regular rate and rhythm without murmurs, gallops, or rubs. RESPIRATORY: Breath sounds equal bilaterally. No accessory muscle use. GASTROINTESTINAL: Abdomen soft, No significant tenderness on palpation, nondistended. MUSCULOSKELETAL: No cyanosis, or edema. BACK: Nontender without obvious deformity. No CVA tenderness. A/P Problem List: (1) Acute pancreatitis ICD Code: K85.90 - Acute pancreatitis without necrosis or infection, unspecified Status: Acute Assessment and Plan Mr. Anderson, 61 was admitted due to acute pancreatitis. Acute pancreatitis GI following. GB US shows sludge, no GB wall thickening. Continue IV fluid NS 150cc/hour. We can d/c or slow down fluid. EUS today by GI. After EUS, pending GI clearance patient can likely be discharged on 09/24/2017. COPD - stable. On room air. Full code. Ambulation. Problem Qualifiers (1) Acute pancreatitis: Qualified Codes: K85.20 - Alcohol induced acute pancreatitis without necrosis or infection Angela Tian DO Sep 23, 2017 6:10 pm
[2017-09-23] MEDS ORDERED: *morphine SULFATE 4 MG/ML PERIprocedure ONLY ONE (18:16)
--- NOTE | 2017-09-23 18:28 | PD.PROCEDR ---
GI Procedure PROCEDURE PERFORMED EGD with biopsy and EUS with FNA INDICATION FOR PROCEDURE Recurrent pancreatitis, abnormal imaging suggestive of pancreatic mass PROCEDURE: The procedure, risks and benefits were discussed with Patient/POA and informed consent was obtained. Anesthesia sedated Patient with Diprivan. Patient was placed in the left lateral decubitus position. EGD: The Pentax videoscope was introduced through the oropharynx and advanced to the second portion of the duodenum under direct visualization. Retroflexion was performed in the stomach. FINDINGS: The esophagus this was normal The stomach this was normal The duodenum there was a large congested friable erythematous area in the duodenal sweep and descending duodenum this was greatly limiting the lumen this was biopsied no obvious ulcer was seen this could represent a malignancy or could be related to an inflammatory process whether in the duodenum or the pancreas EUS: The Pentax videoscope was introduced through the oropharynx and advanced to the second portion of the duodenum . FINDINGS: The pancreatic parenchyma was diffusely irregular hypoechoic lobular from head to tail with a dilated pancreatic duct suggestive of chronic pancreatitis There was a hypoechoic region within the pancreatic head of unclear significance and with no distinct borders this was biopsied using fine needle aspiration There was a round hypoechoic area next to the pancreatic head of unclear significance this may represent a regional lymph node this too was aspirated initially we got some bilious type fluid about 10 cc but also we were able to obtain some solid material The examination was limited as I was unable to pass the scope through the narrowed area of the duodenum ESTIMATED BLOOD LOSS: Minimal SPECIMENS REMOVED: Duodenal biopsies and fine-needle aspiration of the pancreas and all the lymph node COMPLICATIONS: None IMPRESSION: Significant duodenitis etiology unclear this is also limiting the lumen and hence patient may suffer from nausea and vomiting secondary to outlet obstruction Chronic pancreatitis Regional lymph node PLAN: Await biopsies Continue with current supportive care Monitor labs Commend PPI Command alcohol abstinence Further recommendations shall depend on his hospital course Ilya Bill MD Sep 23, 2017 18:28
[2017-09-23] MEDS ORDERED: cefTRIAXone 1,000 MG/NS 100 ML IV ONE ×2 (18:30)
[2017-09-23 20:00] VITALS: BP 128/87; PULSE 67; RESP 18; TEMP 97.5; O2SAT 97
[2017-09-24 00:10] VITALS: BP 121/77; PULSE 102; RESP 18; TEMP 98; O2SAT 98
[2017-09-24] MEDS: MORPHINE SULFATE 4 MG/ML INJ IV PUSH PRN ×2 (03:41→08:59)
[2017-09-24] MEDS: SODIUM CHLOR 0.9% 1000 ML INJ 1,000 ML IV SCH (03:41)
[2017-09-24 06:58] LABS: CARCINOEMBRYONIC ANTIGEN 1.4 NG/ML (0.2-5.0)
[2017-09-24 07:04] LABS: HEMATOCRIT 25.5 % (39.0-51.0); MEAN CELL VOLUME 74.1 FL (80.0-100.0); MEAN CORPUSCULAR HEMOGLOBIN 23.1 PG (27.0-34.0); MEAN CORPUSCULAR HGB CONC 31.2 % (32.0-36.0); MEAN PLATELET VOLUME 8.1 FL (7.0-11.0); PLATELET COUNT 691 TH/MM3 (150-450); RED BLOOD COUNT 3.44 MIL/MM3 (4.50-5.90); RED CELL DISTRIBUTION WIDTH 21.4 % (11.6-17.2); WHITE BLOOD COUNT 8.7 TH/MM3 (4.0-11.0)
[2017-09-24 07:11] LABS: ALBUMIN 2.8 GM/DL (3.4-5.0); ALKALINE PHOSPHATASE 57 U/L (45-117); ALT (GPT) 9 U/L (12-78); AST (GOT) 10 U/L (15-37); BICARBONATE 22.4 MEQ/L (21.0-32.0); BLOOD UREA NITROGEN 3 MG/DL (7-18); CALCIUM 7.9 MG/DL (8.5-10.1); CHLORIDE 104 MEQ/L (98-107); CREATININE 0.72 MG/DL (0.60-1.30); GLOMERULAR FILTRATION RATE 135 ML/MIN (>89); GLUCOSE,RANDOM 127 MG/DL (74-106); SODIUM (NA) 138 MEQ/L (136-145); TOTAL BILIRUBIN ADULT 0.1 MG/DL (0.2-1.0); TOTAL PROTEIN 7.4 GM/DL (6.4-8.2)
[2017-09-24 08:00] VITALS: BP 114/72; PULSE 93; RESP 17; TEMP 97.7; O2SAT 97
[2017-09-24] MEDS: LIPASE/PROTEASE/AMYLASE (24,000/76,000/120,000) CAP PO SCH ×3 (08:50→17:08)
[2017-09-24] MEDS: SUCRALFATE 1 GM/10 ML CUP PO SCH ×4 (08:51→21:21)
[2017-09-24] MEDS: PANTOPRAZOLE SOD 40 MG DELAYED RELEASE TAB PO SCH ×2 (08:51→21:20)
[2017-09-24] MEDS: SODIUM CHLORIDE 0.9% FLUSH 10 ML FLUSH IV FLUSH SCH ×2 (08:51→21:00)
--- NOTE | 2017-09-24 10:25 | HHI.PR ---
Subjective Remarks Follow up for acute pancreatitis. Patient is complaining of significant abdominal pain. He underwent EUS with biopsy yesterday. No fever, chills. Objective Vitals Vital Signs Date Time Temp Pulse Resp B/P (MAP) Pulse Ox O2 Delivery O2 Flow Rate FiO2 09/24/17 08:00 97.7 93 17 114/72 (86) 97 09/24/17 00:10 98.0 102 18 121/77 (92) 98 09/23/17 20:00 97.5 67 18 128/87 (101) 97 09/23/17 18:30 76 16 131/79 (96) 96 Nasal Cannula 2 09/23/17 18:15 82 16 132/84 (100) 96 Nasal Cannula 2 09/23/17 18:00 78 16 135/92 (106) 96 Nasal Cannula 2 09/23/17 17:45 90 16 142/95 (111) 97 Nasal Cannula 2 09/23/17 17:31 97.3 88 16 134/95 (108) 100 Nasal Cannula 2 09/23/17 12:00 97.7 110 18 116/71 (86) 98 I/O 09/23/17 09/23/17 09/23/17 09/24/17 09/24/17 09/24/17 07:00 15:00 23:00 07:00 15:00 23:00 Intake Total 0 ml 950 ml 1480 ml 450 ml Output Total 1300 ml 200 ml 1200 ml Balance -1300 ml 750 ml 280 ml 450 ml Intake Oral 0 ml 0 ml 480 ml IV Total 250 ml 1000 ml 450 ml Other 700 ml Output Urine Total 1300 ml 200 ml 1200 ml # Voids 1 4 # Bowel Movements 0 Result Diagram: 09/24/17 0610 09/24/17 0610 Imaging Last Impressions Gall Bladder Ultrasound 09/22/17 0000 Signed Impressions: Service Date/Time: September 11:03 - CONCLUSION: Sludge and stones in the gallbladder and prominent caliber common bile duct. Small free fluid in the right upper quadrant including around the gallbladder but no gallbladder wall thickening or pericholecystic fluid. Deandre Lobo MD Abdomen/Pelvis CT 09/21/17 0000 Signed Impressions: Service Date/Time: Thursday, September 21, 2017 20:11 - CONCLUSION: Inflammatory changes around the head of the pancreas and second portion of the duodenum. Considerations include inflammatory process involving second portion duodenum as well as pancreatitis. The findings have progressed from 08/18/2017. Jeremy Yu MD FACR Objective Remarks GENERAL: AOX3, NAD. SKIN: Warm and dry. HEAD: Normocephalic. EYES: No scleral icterus. No injection or drainage. NECK: Supple, trachea midline. No JVD or lymphadenopathy. CARDIOVASCULAR: Regular rate and rhythm without murmurs, gallops, or rubs. RESPIRATORY: Breath sounds equal bilaterally. No accessory muscle use. GASTROINTESTINAL: Abdomen soft, No significant tenderness on palpation, nondistended. MUSCULOSKELETAL: No cyanosis, or edema. BACK: Nontender without obvious deformity. No CVA tenderness. Procedures 09/23/2017 EGD with biopsy and EUS with FNA The pancreatic parenchyma was diffusely irregular hypoechoic lobular from head to tail with a dilated pancreatic duct suggestive of chronic pancreatitis There was a hypoechoic region within the pancreatic head of unclear significance and with no distinct borders this was biopsied using fine needle aspiration There was a round hypoechoic area next to the pancreatic head of unclear significance this may represent a regional lymph node this too was aspirated initially we got some bilious type fluid about 10 cc but also we were able to obtain some solid material The examination was limited as I was unable to pass the scope through the narrowed area of the duodenum A/P Problem List: (1) Acute pancreatitis ICD Code: K85.90 - Acute pancreatitis without necrosis or infection, unspecified Status: Acute Assessment and Plan Mr. Anderson, 61 was admitted due to acute pancreatitis. Acute pancreatitis GI following. GB US shows sludge, no GB wall thickening. Continue Creon d/c IV Fluid. s/p EGD, EUS and FNA. Increase pain meds with PO meds as well continue Morphine IV PRN. COPD - stable. On room air. Full code. Start Lovenox for DVT Prophylaxis. Problem Qualifiers (1) Acute pancreatitis: Qualified Codes: K85.20 - Alcohol induced acute pancreatitis without necrosis or infection Angela Tian DO Sep 24, 2017 10:25 am
[2017-09-24] MEDS ORDERED: ACETAMINOPHEN 500 MG CPLT PO PRN (11:00)
[2017-09-24 12:00] VITALS: BP 140/89; PULSE 102; RESP 18; TEMP 97.6; O2SAT 97
[2017-09-24] MEDS ORDERED: MORPHINE SULFATE 4 MG/ML INJ IV PUSH PRN (12:00)
[2017-09-24 16:00] VITALS: BP 155/82; PULSE 104; RESP 18; TEMP 97.7; O2SAT 93
[2017-09-24] MEDS ORDERED: ENOXAPARIN SODIUM 40 MG/0.4 ML SYRINGE SQ SCH (18:00)
[2017-09-24 20:00] VITALS: BP 136/79; PULSE 114; RESP 20; TEMP 97.7; O2SAT 98
[2017-09-24] MEDS: oxyCODONE/ACETAMINOPHEN 7.5 MG/325 MG TAB PO PRN (21:21)
[2017-09-25] VITALS: BP 112/75; PULSE 98; RESP 20; TEMP 97.9; O2SAT 97
[2017-09-25 08:00] VITALS: BP 142/84; PULSE 90; RESP 19; TEMP 97.5; O2SAT 98
[2017-09-25] MEDS: LIPASE/PROTEASE/AMYLASE (24,000/76,000/120,000) CAP PO SCH ×2 (08:47→12:03)
[2017-09-25] MEDS: PANTOPRAZOLE SOD 40 MG DELAYED RELEASE TAB PO SCH (08:47)
[2017-09-25] MEDS: SODIUM CHLORIDE 0.9% FLUSH 10 ML FLUSH IV FLUSH SCH (08:47)
[2017-09-25] MEDS: SUCRALFATE 1 GM/10 ML CUP PO SCH ×2 (08:47→12:03)
[2017-09-25] MEDS: oxyCODONE/ACETAMINOPHEN 7.5 MG/325 MG TAB PO PRN (08:54)
[2017-09-25] MEDS ORDERED: OXYC1TAB35 PO (11:39)
[2017-09-25] MEDS ORDERED: PANT40TA3 PO (11:39)
--- NOTE | 2017-09-25 11:41 | HHI.DS ---
Discharge Summary Admission Date Sep 21, 2017 at 6:52 pm Discharge Date: Sep 25, 2017 Admitting Diagnosis acute pancreatitis,dehydration,gastric outlet obstruction (1) Acute pancreatitis ICD Code: K85.90 - Acute pancreatitis without necrosis or infection, unspecified Status: Acute Procedures 09/23/2017 EGD with biopsy and EUS with FNA The pancreatic parenchyma was diffusely irregular hypoechoic lobular from head to tail with a dilated pancreatic duct suggestive of chronic pancreatitis There was a hypoechoic region within the pancreatic head of unclear significance and with no distinct borders this was biopsied using fine needle aspiration There was a round hypoechoic area next to the pancreatic head of unclear significance this may represent a regional lymph node this too was aspirated initially we got some bilious type fluid about 10 cc but also we were able to obtain some solid material The examination was limited as I was unable to pass the scope through the narrowed area of the duodenum Brief History - From Admission 61-year-old male with a past medical history significant for prostate cancer, osteoarthritis, degenerative disc disease, COPD and recent diagnosis of gastric outlet obstruction presents to the emergency department with nausea/vomiting since Tuesday. The patient was discharged on 08/03/17 where he was treated for acute pancreatitis and a gastric outlet obstruction. He had an EGD performed at that time with biopsies showing no evidence of cancer. He was instructed to follow-up as an outpatient with gastroenterology however the patient states he lost his discharge paperwork and was unable to contact anyone to be seen. He has not seen a physician since his discharge. The patient states that he is having bloating with by mouth intake and shortness of breath that accompanies the bloating. He reports that after any by mouth intake his abdomen becomes distended and painful. He endorses associated nausea/vomiting that is also postprandial. The patient denies any chest pain. No weakness or fatigue. CBC/BMP: 09/24/17 0610 09/24/17 0610 Significant Findings Laboratory Tests Test 09/23/17 17:09 09/24/17 06:10 Red Blood Count 3.44 MIL/MM3 (4.50-5.90) Hemoglobin 8.0 GM/DL (13.0-17.0) Hematocrit 25.5 % (39.0-51.0) Mean Corpuscular Volume 74.1 FL (80.0-100.0) Mean Corpuscular Hemoglobin 23.1 PG (27.0-34.0) Mean Corpuscular Hemoglobin Concent 31.2 % (32.0-36.0) Red Cell Distribution Width 21.4 % (11.6-17.2) Platelet Count 691 TH/MM3 (150-450) Blood Urea Nitrogen 3 MG/DL (7-18) Random Glucose 127 MG/DL (74-106) Albumin 2.8 GM/DL (3.4-5.0) Calcium Level 7.9 MG/DL (8.5-10.1) Aspartate Amino Transf (AST/SGOT) 10 U/L (15-37) Alanine Aminotransferase (ALT/SGPT) 9 U/L (12-78) Total Bilirubin 0.1 MG/DL (0.2-1.0) Potassium Level 3.4 MEQ/L (3.5-5.1) Lipase 596 U/L (73-393) Imaging Last Impressions Gall Bladder Ultrasound 09/22/17 0000 Signed Impressions: Service Date/Time: September 11:03 - CONCLUSION: Sludge and stones in the gallbladder and prominent caliber common bile duct. Small free fluid in the right upper quadrant including around the gallbladder but no gallbladder wall thickening or pericholecystic fluid. Deandre Lobo MD Abdomen/Pelvis CT 09/21/17 0000 Signed Impressions: Service Date/Time: Thursday, September 21, 2017 20:11 - CONCLUSION: Inflammatory changes around the head of the pancreas and second portion of the duodenum. Considerations include inflammatory process involving second portion duodenum as well as pancreatitis. The findings have progressed from 08/18/2017. Jeremy Yu MD FACR PE at Discharge GENERAL: AOX3, NAD. SKIN: Warm and dry. HEAD: Normocephalic. EYES: No scleral icterus. No injection or drainage. NECK: Supple, trachea midline. No JVD or lymphadenopathy. CARDIOVASCULAR: Regular rate and rhythm without murmurs, gallops, or rubs. RESPIRATORY: Breath sounds equal bilaterally. No accessory muscle use. GASTROINTESTINAL: Abdomen soft, No significant tenderness on palpation, nondistended. MUSCULOSKELETAL: No cyanosis, or edema. BACK: Nontender without obvious deformity. No CVA tenderness. Pt update on day of discharge Patient reports improvement of his abdominal pain. No fever, chills. He is tolerating regular diet well. Ambulating well. On room air. Hospital Course Mr. Anderson, 61 was admitted due to acute pancreatitis. Acute pancreatitis GI following. GB US shows sludge, no GB wall thickening. Continue Creon d/c IV Fluid. s/p EGD, EUS and FNA. Patient is tolerating diet well, abdominal pain is well controlled, ambulating. Advised patient to follow up with GI. COPD - stable. On room air. Pt Condition on Discharge: Good Discharge Disposition: Discharge Home Discharge Time: <= 30 minutes Discharge Instructions DIET: Follow Instructions for: As Tolerated, No Restrictions Activities you can perform: Regular-No Restrictions Follow up Referrals: Gastroenterology - 2 Weeks with Ilya Bill MD PCP Follow-up - 1 Week New Medications: Oxycodone HCl/Acetaminophen (Oxycodon-Acetaminophen 7.5-325) 7.5 Mg-325 Mg Tablet 1 TAB PO Q6H PRN for PAIN SCALE 5 TO 10, #12 TAB Changed Medications: Pantoprazole (Pantoprazole) 40 Mg Tab 40 MG PO DAILY for Manage Heartburn, #30 TAB 11 Refills (Changed from: Q12HR; 60 ; Refills: ) Continued Medications: Pancrelipase (Creon) 24,000-76,000-120,000 Units Cap 2 CAP PO TID for pancreas, #180 CAP Sucralfate Liq (Sucralfate Liq) 1 Gram/10 Ml Debo 1 GM PO ACHS for GI, #90 CAN 5 Refills Angela Tian DO Sep 25, 2017 11:41
[2017-09-25 12:00] VITALS: BP 120/70; PULSE 96; RESP 19; TEMP 97.8; O2SAT 98
--- NOTE | 2017-09-25 12:48 | HHI.GIFU ---
Subjective Remarks Sleeping soundly in the bed on his right side When awake and states his gastric area and mid abdomen are sore with movement Obvious nausea or vomiting Afebrile (Betsey Weinstein) Objective Vitals I&O Vital Signs Date Time Temp Pulse Resp B/P (MAP) Pulse Ox O2 Delivery O2 Flow Rate FiO2 09/25/17 12:00 97.8 96 19 120/70 (87) 98 09/25/17 08:00 97.5 90 19 142/84 (103) 98 09/25/17 00:00 97.9 98 20 112/75 (87) 97 09/24/17 20:00 97.7 114 20 136/79 (98) 98 09/24/17 16:00 97.7 104 18 155/82 (106) 93 I/O 09/24/17 09/24/17 09/24/17 09/25/17 09/25/17 09/25/17 07:00 15:00 23:00 07:00 15:00 23:00 Intake Total 1480 ml 450 ml 2850 ml 1000 ml Output Total 1200 ml 700 ml Balance 280 ml 450 ml 2850 ml 300 ml Intake Oral 480 ml 1500 ml IV Total 1000 ml 450 ml 1350 ml 1000 ml Output Urine Total 1200 ml 700 ml # Voids 4 # Bowel Movements 0 1 Laboratory Date/Time Source Procedure Growth Status 09/23/17 17:09 Fluid Other Gram Stain - Final Resulted 09/23/17 17:09 Body Fluid Culture - Preliminary Viridans Streptococcus Grp Yeast-Id To Follow Resulted Imaging Last Impressions Gall Bladder Ultrasound 09/22/17 0000 Signed Impressions: Service Date/Time: September 11:03 - CONCLUSION: Sludge and stones in the gallbladder and prominent caliber common bile duct. Small free fluid in the right upper quadrant including around the gallbladder but no gallbladder wall thickening or pericholecystic fluid. Deandre Lobo MD Abdomen/Pelvis CT 09/21/17 0000 Signed Impressions: Service Date/Time: Thursday, September 21, 2017 20:11 - CONCLUSION: Inflammatory changes around the head of the pancreas and second portion of the duodenum. Considerations include inflammatory process involving second portion duodenum as well as pancreatitis. The findings have progressed from 08/18/2017. Jeremy Yu MD FACR Physical Exam HEENT: Pupils round and reactive to light; normocephalic; atraumatic; pink mucous membranes NECK: Neck is supple, CHEST: Chest is clear no obvious rhonchi CARDIAC: Regular rate and rhythm ABDOMEN: Round, Soft, nondistended, continues to have some soreness in the mid abdomen and epigastric region with light palpation and movement, bowel sounds are present in all four quadrants. EXTREMITIES: No clubbing, cyanosis, or edema. SKIN: Normal; no rash; no jaundice. [employer]: Drowsy but aroused to verbal stimuli No focal deficits; alert and oriented times 3 (Betsey Weinstein) Assessment and Plan Plan ASSESSMENT - nausea, vomiting - CT 09/21/17 showed mild biliary ductal dilatation with inflammation around duodenum and pancreatic head, progressed from 08/18/17. lipase elevated 2068 could be r/t vomiting and or pancreatitis. In 07/2017 prior admission was found to have GOO d/t edema, pancreatitis, elevated CA 19-9 46.9. EGD 08/15/17 showing normal ampulla, prominent thick ulcerated folds duodenum , path peptic duodenitis. UGI series 08/20/17 showed high grade stenosis 2nd part duodenum. No malignancy was ever identified. Other GI service consulted for EUS and they recommended outpt, this was not done. - anemia - microcytic. he is close to his baseline. no obvious bleeding -EGD done with EUS on 09/23/17, esophagus and stomach were normal, duodenum had large congested friable erythematous area in the duodenal sweep and descending duodenum. No obvious ulcer but this could represent a malignancy versus inflammatory process Chronic pancreatitis Significant duodenitis etiology unclear this is also limiting the lumen and hence patient may suffer from nausea and vomiting secondary to outlet obstruction Regional lymph node PLAN: PPI Anti-emetics Creon Carafate Command alcohol abstinence Monitor labs Further recommendations shall depend on his hospital course Observation any obvious bleeding If patient discharges we will follow in the GI office pt seen by myself and Dr Desai and this note is on his behalf (Betsey Weinstein) Physician Comments Seen and examined with ZURDO, Still with some abdominal pain. S/P EUS with FNA . Await biopsy results. Low fat diet. Monitor labs. (Gian Desai MD) Betsey Weinstein Sep 25, 2017 12:48 Gian Desai MD Sep 25, 2017 14:19
[2017-09-28 11:14] LABS: LIPASE BODY FLUID 0 U/L
== END 2017-09-25 15:12 | disposition home or self-care (01) | DRG 439 ==
LOC: NEPC 15:13 → NEDA 18:52 → NEPFCDU 21:00 → N07A 09-22 21:27
PROVIDERS: ADMIT Hospitalist; ATTEND Hospitalist
PROC: 0FBG8ZX Excision of Pancreas, Via Natural or Artificial Opening Endoscopic, Diagnostic (ICD-10-PCS; 2017-09-23)
PROC: BF47ZZZ Ultrasonography of Pancreas (ICD-10-PCS; 2017-09-23)
PROC: 0DB98ZX Excision of Duodenum, Via Natural or Artificial Opening Endoscopic, Diagnostic (ICD-10-PCS; principal; 2017-09-23 16:09)
DX: K85.20 Alcohol induced acute pancreatitis without necrosis or infection (principal); K31.1 Adult hypertrophic pyloric stenosis; C61 Malignant neoplasm of prostate; J43.9 Emphysema, unspecified; E86.0 Dehydration; D50.9 Iron deficiency anemia, unspecified; K86.1 Other chronic pancreatitis; I25.2 Old myocardial infarction; K29.80 Duodenitis without bleeding; E78.00 Pure hypercholesterolemia, unspecified; M19.90 Unspecified osteoarthritis, unspecified site
CPT/HCPCS: 43242; 74177; 76705; 80053; 81001; 82378; 83690; 85025; 85027; 86301; 87070; 87205; 88173; 88305; 96360; J0330; J0696; J1100; J1650; J2270; J2405; J7030; J7120; Q9963; Q9967